=== PATIENT | male | born 1975 | race Caucasian/White ===

== ENCOUNTER 2018-02-02 11:48 | Emergency (ER) | payer SELFPAY ==
[2018-02-02] VITALS (7 sets, daily range): BP systolic 126–156; BP diastolic 63–114; PULSE 62–89; RESP 14–30; TEMP 36.5–37.2; O2SAT 97–100
--- NOTE | 2018-02-02 12:16 | DI.CT_ITS ---
SYMPTOM/DIAGNOSIS: SEVERE PAIN RADIATING INTO BACK AND EPIGASTRIC. CHEST AND ABDOMEN CTA: CT angiography was performed with multi slice acquisition and multi planar and 3D reconstruction. ABDOMEN: CT angiography of the abdomen was performed. The liver, spleen, pancreas, gallbladder, bile ducts and adrenal glands are unremarkable. The kidneys show normal and symmetric enhancement. No obstructive uropathy or solid mass is seen. The urinary bladder is intact. The reproductive organs are unremarkable. The abdominal aorta is normal caliber. No evidence of dissection or aneurysm. The celiac axis, superior and inferior mesenteric arteries are unremarkable. The renal arteries are unremarkable. No significant abdominal or pelvic adenopathy, ascites or pneumoperitoneum is present. There is a moderate amount of stool in the colon but no evidence of bowel obstruction. Post surgical changes are seen in the upper abdomen. This may reflect prior gastric bypass surgery. The bones are intact. IMPRESSION: No evidence of abdominal aortic organ injury, dissection or aneurysm. No evidence of an acute abdomen. CHEST: The thoracic aorta is intact and of normal caliber. No dissection or aneurysm. Heart size is within normal limits. No significant pericardial effusion is seen. No significant mediastinal or hilar adenopathy, pleural effusion or pneumothorax is identified. The lungs are clear. No infiltrates are seen. The tracheobronchial tree is unremarkable. Degenerative changes are seen in the spine. No acute fracture is identified. IMPRESSION: No evidence of thoracic aortic injury. No acute pulmonary process. The findings were discussed with the ER on the date of the examination.
[2018-02-02] MEDS: HYDROmorphone 2 MG/ML VIAL 0.5 MG IVP (12:25)
--- NOTE | 2018-02-02 12:25 | W.ED.GENAD ---
Discharge Plan Disposition Patient Disposition: HOME Condition: Fair Discharge Details Chief Complaint: Abd Prob Clinical Impression: Gastritis Primary Care Provider: Robert Hong ED Provider: Miesha Nelson Home Meds and New Rx's Prescriptions: New sucralfate [Carafate] 1 gram tablet 1 gm PO ONCE Qty: 21 RF: 0 pantoprazole [Protonix] 40 mg tablet,delayed release (DR/EC) 40 mg PO BID Qty: 14 RF: 0 No Action uvjzvmmldhjd-gaig-xtqey acid [Daily Multiple] 1 EACH tablet 1 tab-cap PO DAILY RF: 0 cyanocobalamin (vitamin B-12) [Vitamin B-12] 500 MCG tablet 500 mcg Sublingual DAILY Qty: 100 RF: 12 calcium citrate-vitamin D3 [Citracal + D Maximum] 1 EACH tablet 1 ea PO DAILY Qty: 100 RF: 12 cyclobenzaprine 5 MG tablet 5 mg PO BID Qty: 10 RF: 0 hydrocodone-acetaminophen 1 EACH tablet 1 - 2 ea PO QID PRNQty: 20 RF: 0 cholecalciferol (vitamin D3) [Vitamin D3] 2,000 UNIT capsule 2,000 unit PO DAILY RF: 0 cephalexin 500 MG capsule 500 mg PO Q6H Qty: 28 RF: 0 clindamycin HCl 300 MG capsule 300 mg PO Q6H RF: 0 Discharge Instructions Instructions: Gastritis (ED) Additional Instructions: Encourage hydration. Please take medication as prescribed. Please stop all anti-inflammatories this is likely contributing to her abdominal pain. Please follow-up with Dr. Cobos on Friday at 1:30 PM in the office. If you develop new or worsening symptoms he care urgently once again. Referrals: Celsa Cobos MD [ [facility] STAFF PHYSICIAN] - ([phone]) Discharge Data Discharge Date/Time-TO BE ENTERED AT DEPARTURE: 02/02/18 16:08 Medical Decision Making Patient is a 42-year-old male presents today with severe abdominal pain of sudden onset. He and his report that he felt poorly yesterday but that he had a sudden onset of severe abdominal pain this morning. Patient appears to be in severe amount of pain. He appears pale and diaphoretic. He is clutching his epigastric region of his abdomen. He is referring is going forward and is having difficulty holding still. Patient is moaning in pain and having difficulty following directions. No nausea or vomiting. Reports any bowel movement this morning. Patient does have history of gastric bypass. No surgical complications postoperatively. Patient had surgery at [facility] 5 years ago. States the pain radiates into his back. He is unable to describe a quality of his pain. Patient has fair peritoneal findings on exam with guarding and rebound tenderness throughout the entirety of the abdomen. Lungs are clear. Patient is hypertensive at 152/114. Heart rate is 89, patient is afebrile satting at 100% on room air. Will obtain EKG, stat CTA of the thorax and abdomen. I am concerned for possible dissection versus free air associated with postsurgical changes. Lactate is 2.2. Blood hemolyzed need to be redrawn Contacted by the radiologist who reviewed the CT. He advised there does not appear to be anything acute. Aorta is without significant of normality, no abnormality noted in the lungs. Abdomen pelvis without abnormality. No free air was noted. Patient was received fentanyl and Dilaudid without significant resolution of his discomfort, we will augment this with a GI cocktail Lipase normal Troponin <0.02 Consulted with surgeon, Dr. Cobos, who will come to evaluate the patient. After the patient received his GI cocktail, he reports that his pain is slightly improved Patient was evaluated by Dr. Cobos who feels that this is likely ulcer. Is requesting that I placed order for Carafate, IV Protonix and repeat lactate. Is concerned elevated lactate may be secondary to dehydration and would like this repeated. She will, reevaluate the patient half an hour. Repeat lactate 1.2. Dr. Cobos came and evaluated the patient once again. He is feeling much improved at this time, is resting comfortably. At this point, she advised this is most concerning for gastritis with possible ulcer. Patient does have a history of GERD, he has not been taking any medication for this as of recently. His also reports that he has been taking anti-inflammatories frequently which may have caused this acute exacerbation. Dr. Cobos is asked that I place the patient on Carafate and Protonix. An appointment was made with Dr. Cobos for follow-up at the end of the week. Encouraged hydration as patient did appear dehydrated on exam. I advised that they stop the use of anti-inflammatories. They are given strict return precautions. All of their questions and concerns were addressed and they are in agreement with this plan HPI General Mode of arrival: wheelchair. Date/Time Provider Initiated Documentation: 02/02/18 12:14. Limitations to Documentation: no limitations. Information obtained by: patient. History of Present Illness 42 year old M presents to the emergency department with the chief complaint of abdominal pain, described as severe, with intensity rated at >10. Quality is described as stabbing, and is localized to the abdomen. Patient reports radiation to back; denies neck and extremity. Patient started experiencing this hour(s) and it has been constant. No relieving factors improve symptom(s), No exacerbating factors reported . Patient notes loss of appetite and nausea/vomiting; denies chest pain, cough, fever/chills, headaches, rash, shortness of breath and weakness. Related Data Home Medications Medication Instructions Recorded Confirmed drdvtngufxdx-oidn-vkndr acid 1 tab-cap PO DAILY tab-cap 12/29/12 11/24/15 [Daily Multiple Tablet] cyanocobalamin (vitamin B-12) 500 mcg SUBLINGUAL DAILY #100 04/20/13 [B-12] tab.sl cholecalciferol (vitamin D3) 2,000 unit PO DAILY 05/05/14 11/24/15 [Vitamin D3] calcium citrate-vitamin D3 1 ea PO DAILY #100 tab-cap 11/29/14 [Citracal + D Maximum Caplet] cyclobenzaprine 5 mg PO BID #10 tab 11/09/15 cephalexin 500 mg PO Q6H #28 capsule 11/20/15 11/24/15 clindamycin HCl 300 mg PO Q6H 11/22/15 11/24/15 hydrocodone-acetaminophen 1 - 2 ea PO QID PRN #20 tab 11/22/15 pantoprazole [Protonix] 40 mg PO BID #14 tab 02/02/18 sucralfate [Carafate] 1 gm PO ONCE #21 tab 02/02/18 Previous Rx's Medication Instructions Recorded cephalexin 500 mg PO Q6H #28 capsule 11/20/15 pantoprazole [Protonix] 40 mg PO BID #14 tab 02/02/18 sucralfate [Carafate] 1 gm PO ONCE #21 tab 02/02/18 Allergies Allergy/AdvReac Type Severity Reaction Status Date / Time No Known Allergies Allergy Unverified 11/24/15 07:38 General Stated Complaint: Abd Prob JEN: 3 Review of Systems Review of Systems Patient is writhing in pain. I am unable to obtain full review of systems secondary to the patient's discomfort. is able to augment some of his history. He does deny chest pain, shortness of breath, recent fevers or chills. Remaining ROS was very limited secondary to patient's pain [facility] Social History Smoking/Tobacco Use Status: Never Surgical History gastric sleeve (~01/2013) Exam Const General: cooperative, well developed, well groomed, acute distress severe (Patient is clutching his abdomen, moving frequently and moaning in pain) and anxious Nutritional Appearance: average body habitus and well nourished Orientation: alert and awake HENWA Head: normal to inspection, normocephalic and atraumatic Ears: hearing grossly normal bilaterally Mouth: abnormal oral mucosae (Patient appears dehydrated) Neck Neck: normal visual inspection, full ROM, no lymphadenopathy and no meningeal signs Resp Effort & Inspection: normal respiratory effort, able to speak in complete sentences, no respiratory distress, tachypneic (Patient is currently tachypnea, this seems to be related to his discomfort), no tripod positioning and no use of accessory muscles Auscultation: clear to auscultation bilaterally, no rales, no rhonchi and no wheezes Cardio Rate: regular rate Rhythm: regular rhythm Heart Sounds: S1 normal and S2 normal GI Inspection: no abdominal wall ecchymosis, no edema, non-distended, incision, no large pannus, no obesity, scar, no visible herniation, no visible pulsation and No visible peristalsis Palpation: firm, guarding (Due for use), no hepatosplenomegaly, no hernias, no masses, no pulsatile masses, rigid and tender (Diffuse tenderness, patient is guarding) Auscultation: hypoactive bowel sounds Back/Spine/Pelvis Back: no CVA tenderness Skin General skin exam: no rashes or lesions noted Lesions: no lesions Rashes: no rashes Trauma: no lacerations or abrasions Neuro General: alert, awake and oriented x3 Cranial Nerves: CN's II-XI intact bilaterally Cognition: normal cognition Speech: speech normal Gait: antalgic (patient is bent forward, clutching abdomen) Extrem General: no pedal edema, no calf tenderness and normal gait Psych Appearance: grossly normal and well kempt Mental Status: mental status grossly normal Speech and Movement: speech and movement normal Mood: congruent mood Course Vital Signs Temperature 36.5 C 02/02/18 12:09 Pulse 89 02/02/18 12:09 Respiratory Rate 18 02/02/18 12:09 Blood Pressure 152/114 H 02/02/18 12:09 Pulse Oximetry 100 02/02/18 12:09 Temperature 36.5 C 02/02/18 12:09 Temperature Source Temporal Artery Scan 02/02/18 12:09 Pulse 89 02/02/18 12:09 Respiratory Rate 18 02/02/18 12:09 Blood Pressure 152/114 H 02/02/18 12:09 Pulse Oximetry 100 02/02/18 12:09 Pain Level 10 02/02/18 12:09
[2018-02-02] MEDS: Normal Saline 1,000 ML 1000 ML IV ×2 (12:27→14:30)
--- NOTE | 2018-02-02 12:31 | ED.GENADUL_ITS ---
Discharge Plan Disposition Patient Disposition: HOME Condition: Fair Discharge Details Chief Complaint: Abd Prob Clinical Impression: Gastritis Primary Care Provider: Robert Hong ED Provider: Miesha Nelson Home Meds and New Rx's Prescriptions: New sucralfate [Carafate] 1 gram tablet 1 gm PO ONCE Qty: 21 RF: 0 pantoprazole [Protonix] 40 mg tablet,delayed release (DR/EC) 40 mg PO BID Qty: 14 RF: 0 No Action dfaquxknddth-zjxa-zuvch acid [Daily Multiple] 1 EACH tablet 1 tab-cap PO DAILY RF: 0 cyanocobalamin (vitamin B-12) [Vitamin B-12] 500 MCG tablet 500 mcg Sublingual DAILY Qty: 100 RF: 12 calcium citrate-vitamin D3 [Citracal + D Maximum] 1 EACH tablet 1 ea PO DAILY Qty: 100 RF: 12 cyclobenzaprine 5 MG tablet 5 mg PO BID Qty: 10 RF: 0 hydrocodone-acetaminophen 1 EACH tablet 1 - 2 ea PO QID PRNQty: 20 RF: 0 cholecalciferol (vitamin D3) [Vitamin D3] 2,000 UNIT capsule 2,000 unit PO DAILY RF: 0 cephalexin 500 MG capsule 500 mg PO Q6H Qty: 28 RF: 0 clindamycin HCl 300 MG capsule 300 mg PO Q6H RF: 0 Discharge Instructions Instructions: Gastritis (ED) Additional Instructions: Encourage hydration. Please take medication as prescribed. Please stop all anti-inflammatories this is likely contributing to her abdominal pain. Please follow-up with Dr. Cobos on Friday at 1:30 PM in the office. If you develop new or worsening symptoms he care urgently once again. Referrals: Celsa Cobos MD [ [facility] STAFF PHYSICIAN] - ([phone]) Discharge Data Discharge Date/Time-TO BE ENTERED AT DEPARTURE: 02/02/18 16:08 Medical Decision Making Patient is a 42-year-old male presents today with severe abdominal pain of sudden onset. He and his report that he felt poorly yesterday but that he had a sudden onset of severe abdominal pain this morning. Patient appears to be in severe amount of pain. He appears pale and diaphoretic. He is clutching his epigastric region of his abdomen. He is referring is going forward and is having difficulty holding still. Patient is moaning in pain and having difficulty following directions. No nausea or vomiting. Reports any bowel movement this morning. Patient does have history of gastric bypass. No surgical complications postoperatively. Patient had surgery at [facility] 5 years ago. States the pain radiates into his back. He is unable to describe a quality of his pain. Patient has fair peritoneal findings on exam with guarding and rebound tenderness throughout the entirety of the abdomen. Lungs are clear. Patient is hypertensive at 152/114. Heart rate is 89, patient is afebrile satting at 100% on room air. Will obtain EKG, stat CTA of the thorax and abdomen. I am concerned for possible dissection versus free air associated with postsurgical changes. Lactate is 2.2. Blood hemolyzed need to be redrawn Contacted by the radiologist who reviewed the CT. He advised there does not appear to be anything acute. Aorta is without significant of normality, no abnormality noted in the lungs. Abdomen pelvis without abnormality. No free air was noted. Patient was received fentanyl and Dilaudid without significant resolution of his discomfort, we will augment this with a GI cocktail Lipase normal Troponin <0.02 Consulted with surgeon, Dr. Cobos, who will come to evaluate the patient. After the patient received his GI cocktail, he reports that his pain is slightly improved Patient was evaluated by Dr. Cobos who feels that this is likely ulcer. Is requesting that I placed order for Carafate, IV Protonix and repeat lactate. Is concerned elevated lactate may be secondary to dehydration and would like this repeated. She will, reevaluate the patient half an hour. Repeat lactate 1.2. Dr. Cobos came and evaluated the patient once again. He is feeling much improved at this time, is resting comfortably. At this point, she advised this is most concerning for gastritis with possible ulcer. Patient does have a history of GERD, he has not been taking any medication for this as of recently. His also reports that he has been taking anti-inflammatories frequently which may have caused this acute exacerbation. Dr. Cobos is asked that I place the patient on Carafate and Protonix. An appointment was made with Dr. Cobos for follow-up at the end of the week. Encouraged hydration as patient did appear dehydrated on exam. I advised that they stop the use of anti- inflammatories. They are given strict return precautions. All of their questions and concerns were addressed and they are in agreement with this plan HPI General Mode of arrival: wheelchair . Date/Time Provider Initiated Documentation: 02/02/18 12:14 . Limitations to Documentation: no limitations . Information obtained by: patient . History of Present Illness 42 year old M presents to the emergency department with the chief complaint of abdominal pain, described as severe, with intensity rated at >10. Quality is described as stabbing, and is localized to the abdomen. Patient reports radiation to back; denies neck and extremity. Patient started experiencing this hour(s) and it has been constant. No relieving factors improve symptom( s), No exacerbating factors reported . Patient notes loss of appetite and nausea/vomiting; denies chest pain, cough, fever/chills, headaches, rash, shortness of breath and weakness. Related Data Home Medications Medication Instructions Recorded Confirmed tiddzkbqdlmy-bizj-zphwt acid 1 tab-cap PO DAILY tab-cap 12/29/12 11/24/15 [Daily Multiple Tablet] cyanocobalamin (vitamin B-12) 500 mcg SUBLINGUAL DAILY #100 04/20/13 [B-12] tab.sl cholecalciferol (vitamin D3) 2,000 unit PO DAILY 05/05/14 11/24/15 [Vitamin D3] calcium citrate-vitamin D3 1 ea PO DAILY #100 tab-cap 11/29/14 [Citracal + D Maximum Caplet] cyclobenzaprine 5 mg PO BID #10 tab 11/09/15 cephalexin 500 mg PO Q6H #28 capsule 11/20/15 11/24/15 clindamycin HCl 300 mg PO Q6H 11/22/15 11/24/15 hydrocodone-acetaminophen 1 - 2 ea PO QID PRN #20 tab 11/22/15 pantoprazole [Protonix] 40 mg PO BID #14 tab 02/02/18 sucralfate [Carafate] 1 gm PO ONCE #21 tab 02/02/18 Previous Rx's Medication Instructions Recorded cephalexin 500 mg PO Q6H #28 capsule 11/20/15 pantoprazole [Protonix] 40 mg PO BID #14 tab 02/02/18 sucralfate [Carafate] 1 gm PO ONCE #21 tab 02/02/18 Allergies Allergy/AdvReac Type Severity Reaction Status Date / Time No Known Allergies Allergy Unverified 11/24/15 07:38 General Stated Complaint: Abd Prob JEN: 3 Review of Systems Review of Systems Patient is writhing in pain. I am unable to obtain full review of systems secondary to the patient's discomfort. is able to augment some of his history. He does deny chest pain, shortness of breath, recent fevers or chills. Remaining ROS was very limited secondary to patient's pain [facility] Social History Smoking/Tobacco Use Status: Never Surgical History gastric sleeve (~01/2013) Exam Const General: cooperative, well developed, well groomed, acute distress severe ( Patient is clutching his abdomen, moving frequently and moaning in pain) and anxious Nutritional Appearance: average body habitus and well nourished Orientation: alert and awake HENIL Head: normal to inspection, normocephalic and atraumatic Ears: hearing grossly normal bilaterally Mouth: abnormal oral mucosae (Patient appears dehydrated) Neck Neck: normal visual inspection, full ROM, no lymphadenopathy and no meningeal signs Resp Effort & Inspection: normal respiratory effort, able to speak in complete sentences, no respiratory distress, tachypneic (Patient is currently tachypnea, this seems to be related to his discomfort), no tripod positioning and no use of accessory muscles Auscultation: clear to auscultation bilaterally, no rales, no rhonchi and no wheezes Cardio Rate: regular rate Rhythm: regular rhythm Heart Sounds: S1 normal and S2 normal GI Inspection: no abdominal wall ecchymosis, no edema, non-distended, incision, no large pannus, no obesity, scar, no visible herniation, no visible pulsation and No visible peristalsis Palpation: firm, guarding (Due for use), no hepatosplenomegaly, no hernias, no masses, no pulsatile masses, rigid and tender (Diffuse tenderness, patient is guarding) Auscultation: hypoactive bowel sounds Back/Spine/Pelvis Back: no CVA tenderness Skin General skin exam: no rashes or lesions noted Lesions: no lesions Rashes: no rashes Trauma: no lacerations or abrasions Neuro General: alert, awake and oriented x3 Cranial Nerves: CN's II-XI intact bilaterally Cognition: normal cognition Speech: speech normal Gait: antalgic (patient is bent forward, clutching abdomen) Extrem General: no pedal edema, no calf tenderness and normal gait Psych Appearance: grossly normal and well kempt Mental Status: mental status grossly normal Speech and Movement: speech and movement normal Mood: congruent mood Course Vital Signs Temperature 36.5 C 02/02/18 12:09 Pulse 89 02/02/18 12:09 Respiratory Rate 18 02/02/18 12:09 Blood Pressure 152/114 H 02/02/18 12:09 Pulse Oximetry 100 02/02/18 12:09 Temperature 36.5 C 02/02/18 12:09 Temperature Source Temporal Artery Scan 02/02/18 12:09 Pulse 89 02/02/18 12:09 Respiratory Rate 18 02/02/18 12:09 Blood Pressure 152/114 H 02/02/18 12:09 Pulse Oximetry 100 02/02/18 12:09 Pain Level 10 02/02/18 12:09
[2018-02-02 12:35] LABS: Lactate-non-spesis 2.2 mmol/L (0.6-1.4)
--- NOTE | 2018-02-02 12:35 | DI.RAD_ITS ---
SYMPTOM/DIAGNOSIS: UPPER ABD PAIN, ? PERFORATION PORTABLE AP CHEST: Portions of the lateral left hemithorax were coned from view. Heart and pulmonary vasculature are within normal limits and stable. The visualized lungs are clear. No effusions or pneumothoraces are identified. The bones appear intact. No free air is seen beneath the hemidiaphragms. IMPRESSION: 1. Suboptimal examination with non visualization of the lateral aspect of the left hemithorax. 2. No definite acute pulmonary process.
[2018-02-02 12:39] LABS: Abs Immature Grans 0.01 k/cumm (0.0-0.09); Absolute Basophil Count 0.02 k/cumm (0.0-0.2); Absolute Eosinophil Count 0.21 k/cumm (0.0-0.7); Absolute Lymphocyte Count 2.36 k/cumm (1.2-3.4); Basophils % 0.3; Eosinophils % 3.4; HCT 48.2 % (40.0-50.0); HGB 16.1 g/dL (13.5-17.5); Immature Grans % 0.2; Lymphocytes % 38.7; Mean Corp. HGB Concentration 33.4 g/dL (32.0-36.0); Mean Corpuscular Hemoglobin 30.2 pg (27.0-33.0); Mean Corpuscular Volume 90.4 fL (80-95); Mean Platelet Volume 10.3 fL (8.0-11.0); Monocytes % 8.2; Neutrophils % 49.2; Platelet Count 246 x1000/uL (130-400); RBC 5.33 m/cumm (4.50-6.00); RBC Distribution Width 14.4 % (11.8-14.1)
[2018-02-02] MEDS: HYDROmorphone 2 MG/ML VIAL IVP (12:47)
[2018-02-02] MEDS: fentaNYL 100 MCG/2 ML VIAL (12:48)
[2018-02-02] MEDS: Omnipaque 350 MG/ML 100 ML BTL IJ (12:52)
[2018-02-02 13:19] LABS: ALT 19 U/L (12-78); AST 21 U/L (15-37); Albumin 3.7 g/dL (3.4-5.0); Alkaline Phosphatase 68 U/L (46-116); Anion Gap 11.2 mmol/L (3-11); BUN 18 mg/dL (7-18); Bilirubin, Total 0.7 mg/dL (0.2-1.0); CO2 24.8 mmol/L (21.0-32.0); CREATININE 0.77 mg/dL (0.70-1.30); Calcium 8.9 mg/dL (8.5-10.1); Chloride 105 mmol/L (98-107); Glucose 140 mg/dL (70-100); Lipase 130 U/L (73-393); Magnesium 1.7 mg/dL (1.8-2.4); Potassium 3.4 mmol/L (3.5-5.1); Sodium 141 mmol/L (136-145); Total Protein 6.9 g/dL (6.4-8.2)
[2018-02-02 13:21] LABS: Troponin I < 0.02 ng/mL (0.00-0.06)
--- NOTE | 2018-02-02 14:42 | HPE_ITS ---
Date of service: 02/02/18 Time of Service: 14:00 Assessment and Plan (1) Epigastric pain: Current visit: No Status: Acute A\\ Epigastric pain in a 42 year old male with PMHX significant for Gastric bypass and recent use of Aleve with epigastric abdominal pain. Pain improved with Viscous lidocaine and mylanta. Labs reassuring. CTA shows no free air. This is most likely gastritis possible ulcer. P\\ Will give him a dose of IV Protonix and 1 gm of Carafate. Will reassess. If doing OK will most likely d/c home with Protonix BID and Carafate tid. Will follow up with him in the office in 1-2 weeks. History of Present Illness Chief Complaint: Abdominal pain Consults Consult date: 02/02/18 Requesting physician: Miesha Nelson Narrative: Mr. Billings is a pleasant 42 year old male who is status post gastric bypass 5 years ago. He had a Rina-en-y. He tells me that yesterday his stomach didn't feel quite right but he had minimal discomfort. This morning he got up to go to work and didn't feel well and had some epigastric pain. He went back to bed and when he woke up at 9:30 am he was in a lot of pain. It started in the upper abdomen and radiated to the back. he denies any N/V or diarrhea. He had a normal BM. He is constipated and only goes to the bathroom every 3 days. When he does go to the bathroom his stool is hard. he denies any melena. He does have some intermittent bright red blood per rectum. His tells me that he has been taking a lot of Aleve. He doesn't take any antacids. Per the ER provider the patient was rithing in pain when he arrived in the ER. He has been given Dilauded and Fentanyl for pain. Just before I arrived he was given some viscus lidocaine with Mylanta. The patient tells me that his pain has improved. He had a CTA done which showed no abnormalities of his vessels and no free air. There were no signs of bowel obstruction. There was some stool in the large bowel. Review of Systems Cardiovascular Denies chest pain, Denies chest pain at rest, Denies chest pain with activity and Denies dyspnea Respiratory Denies cough, Denies hemoptysis and Denies dyspnea Gastrointestinal Reports as per HPI and Reports constipation Genitourinary Reports system reviewed and no additional complaints, except as docu [facility] Social History Smoking/Tobacco Use Status: Never Surgical History gastric sleeve (~01/2013) Meds Home Medications Medication Instructions Recorded Confirmed Type [id number] acid 1 tab-cap PO DAILY tab-cap 12/29/12 11/24/15 History [Daily Multiple Tablet] cyanocobalamin (vitamin B-12) 500 mcg SUBLINGUAL DAILY #100 04/20/13 History [B-12] tab.sl cholecalciferol (vitamin D3) 2,000 unit PO DAILY 05/05/14 11/24/15 History [Vitamin D3] calcium citrate-vitamin D3 1 ea PO DAILY #100 tab-cap 11/29/14 History [Citracal + D Maximum Caplet] cyclobenzaprine 5 mg PO BID #10 tab 11/09/15 History cephalexin 500 mg PO Q6H #28 capsule 11/20/15 11/24/15 Rx clindamycin HCl 300 mg PO Q6H 11/22/15 11/24/15 History hydrocodone-acetaminophen 1 - 2 ea PO QID PRN #20 tab 11/22/15 History Allergies Allergy/AdvReac Type Severity Reaction Status Date / Time No Known Allergies Allergy Unverified 11/24/15 07:38 Exam Const General: cooperative and no acute distress Resp Effort & Inspection: normal respiratory effort Auscultation: clear to auscultation bilaterally Cardio Rate: regular rate Heart Sounds: no gallops, no murmurs and no rubs GI Inspection: normal to inspection Palpation: soft, no hepatosplenomegaly and tender in the epigastrum (mild, no guarding or rebound) and periumbilically (mild, no guarding or rebound) Auscultation: normal bowel sounds Results Labs : 02/02/18 12:20 02/02/18 12:20 Laboratory Results - last 24 hr 02/02/18 02/02/18 02/02/18 12:20 12:20 12:20 WBC 6.10 RBC 5.33 Hgb 16.1 Hct 48.2 MCV 90.4 MCH 30.2 MCHC 33.4 RDW 14.4 H Plt Count 246 MPV 10.3 Immature Gran % 0.2 Neutrophils % 49.2 Lymphocytes % 38.7 Monocytes % 8.2 Eosinophils % 3.4 Basophils % 0.3 Absolute Neutrophils 3.00 Absolute Lymphocytes 2.36 Absolute Monocytes 0.50 Absolute Eosinophils 0.21 Absolute Basophils 0.02 Sodium 141 Potassium 3.4 L Chloride 105 Carbon Dioxide 24.8 Anion Gap 11.2 H BUN 18 Creatinine 0.77 Estimated GFR/1.73 m2 >= 60.00 Glucose 140 H Lactate 2.2 H Calcium 8.9 Magnesium 1.7 L Total Bilirubin 0.7 AST 21 ALT 19 Alkaline Phosphatase 68 Troponin I < 0.02 Total Protein 6.9 Albumin 3.7 Lipase 130 Patient ABO/Rh Antibody Screen 02/02/18 02/02/18 12:20 12:20 WBC RBC Hgb Hct MCV MCH MCHC RDW Plt Count MPV Immature Gran % Neutrophils % Lymphocytes % Monocytes % Eosinophils % Basophils % Absolute Neutrophils Absolute Lymphocytes Absolute Monocytes Absolute Eosinophils Absolute Basophils Sodium Cancelled Potassium Cancelled Chloride Cancelled Carbon Dioxide Cancelled Anion Gap Cancelled BUN Cancelled Creatinine Cancelled Estimated GFR/1.73 m2 Cancelled Glucose Cancelled Lactate Calcium Cancelled Magnesium Total Bilirubin Cancelled AST Cancelled ALT Cancelled Alkaline Phosphatase Cancelled Troponin I Total Protein Cancelled Albumin Cancelled Lipase Patient ABO/Rh A Negative Antibody Screen Negative
[2018-02-02] MEDS: Sucralfate 1 GM TAB PO (14:43)
[2018-02-02] MEDS: PANTOPRAZOLE 80 MG in Normal Saline 100 ML 10 MG IV (14:43)
[2018-02-02 14:49] LABS: Lactate-non-spesis 1.2 mmol/L (0.6-1.4)
== END 2018-02-02 16:08 | disposition home or self-care (01) ==
LOC: ER 15:45
PROVIDERS: Emergency Provider Physician Assistant; PCP Emergency Medicine
DX: K52.9 Noninfective gastroenteritis and colitis, unspecified (principal)
CPT/HCPCS: 36415; 71275; 74175; 80053; 83690; 86850; 86900; 86901; 96361; 96374; 96375; 96376; 99222; 99285; 71045; 83605; 83735; 84484; 85025; 99284; J3010; J3490

== ENCOUNTER 2019-12-11 13:01 | Emergency (ER) | payer SELFPAY ==
[2019-12-11] VITALS (30 sets, daily range): BP systolic 153–182; BP diastolic 84–110; PULSE 52–102; RESP 8–20; TEMP 36.1; O2SAT 97–100
--- NOTE | 2019-12-11 13:00 | DI.CT_ITS ---
EXAM: CT RENAL COLIC WO CLINICAL HISTORY: L flank pain. TECHNIQUE: Imaging Protocol: Axial computed tomography images with coronal and sagittal reformatted images were created and reviewed. CONTRAST MATERIAL: Noncontrast FINDINGS: The heart size is normal. The visualized portions of the lung bases are clear. The left kidney is e nlarged and edematous compared to the right. There is mild left perinephric stranding. There is mil d dilatation of the left renal pelvis and left ureter down to the level of the ureterovesical junctio n where there is a 3 millimeter stone. No additional urinary tract calculi are seen. There is incre ased stool throughout the colon. There is no abnormal bowel distention. Suture material is seen at the stomach and left lower quadrant. The bladder and prostate are unremarkable. Degenerative change s are seen in the spine and both hips. IMPRESSION: Mild left hydronephrosis secondary to a 3 millimeter stone at the ureterovesical junction. RADIATION DOSE DELIVERED: 968.19mGy.cm Total DLP DATA REPOSITORY: All CT scans at this facility are submitted to the National Radiology Data Registry (NRDR) Dose Index Registry (DIR) with the [employer] (A[employer]). RADIATION OPTIMIZATION: All CT scans at this facility use at least one of these dose optimization te chniques: automated exposure control; mA and/or kV adjustment per patient size (includes targeted exa ms where dose is matched to clinical indication); or iterative reconstruction.
--- NOTE | 2019-12-11 13:19 | W.ED.GENAD ---
Discharge Plan Disposition Patient Disposition: HOME Condition: Improving Discharge Details Chief Complaint: FlankPain Clinical Impression: Calculus of distal left ureter Primary Care Provider: Robert Hong ED Provider: Lakhiwnder Sarabia Home Meds and New Rx's Prescriptions: Continued Daily Multiple 1 EACH tablet 1 tab-cap PO DAILY RF: 0 cyanocobalamin (vitamin B-12) [Vitamin B-12] 500 MCG tablet 500 mcg Sublingual DAILY Qty: 100 RF: 12 calcium citrate-vitamin D3 [Citracal + D Maximum] 1 EACH tablet 1 ea PO DAILY Qty: 100 RF: 12 cholecalciferol (vitamin D3) [Vitamin D3] 2,000 UNIT capsule 2,000 unit PO DAILY RF: 0 buprenorphine-naloxone [Suboxone] 8-2 mg Film 1 film BUCCAL DAILY RF: 0 Discharge Instructions Instructions: Renal Colic (ED), Kidney Stones (ED) Additional Instructions: You have a 3 mm kidney stone on the left side. Home to rest today. Continue small, frequent sips of fluids to maintain hydration. Screen/strain your urine and keep any particulate/stone material to be analyzed. Tylenol and/or ibuprofen as needed for pain. Continue your prescribed medications. Return to develop a fever, worsening pain, or any other acute concerns. Medical Decision Making 44-year-old male presents with abrupt onset of left flank pain radiates to his abdomen. He is hypertensive and nauseated. His abdomen is soft but he is tender in the left flank. Different diagnosis includes renal colic. IV access is established, patient given parenteral analgesia with Toradol as well as an antiemetic. He is given fluid bolus and referred for laboratory testing, urinalysis, CT images. Labs reveal unremarkable CBC, chemistries with a potassium of 2.9, normal renal function. Urinalysis: With ketones and blood. CT reveals a 3 mm left UVJ stone with mild hydronephrosis. Patient with some improvement following fluid bolus, parenteral analgesics. He is given a single dose of Flomax for its ureteral relaxing properties. Patient somewhat improved. We will have him strain his urine. His slightly low potassium was supplemented in the ED. He is stable and improving. I will place a referral to urology. He may continue primary care with Dr. Hong. Lab Data Lab results reviewed: Yes I reviewed the patient's lab results. Labs: Laboratory Results - last 24 hr 12/11/19 12/11/19 12/11/19 13:25 13:25 15:55 WBC 8.32 RBC 4.75 Hgb 13.6 Hct 42.9 MCV 90.3 MCH 28.6 MCHC 31.7 L RDW 13.9 Plt Count 317 MPV 10.2 Immature Gran % 0.1 Neutrophils % 46.5 Lymphocytes % 41.9 Monocytes % 8.5 Eosinophils % 2.6 Basophils % 0.4 Absolute Neutrophils 3.86 Absolute Lymphocytes 3.49 H Absolute Monocytes 0.71 Absolute Eosinophils 0.22 Absolute Basophils 0.03 Sodium 145 Potassium 2.9 L* Chloride 106 Carbon Dioxide 25.7 Anion Gap 13.3 H BUN 17 Creatinine 0.95 Estimated GFR/1.73 m2 >= 60.00 Glucose 108 H Calcium 8.8 Total Bilirubin 0.5 AST 25 ALT 22 Alkaline Phosphatase 68 Total Protein 7.7 Albumin 4.2 Urine Color Yellow Urine Clarity Clear Urine pH 6.0 Ur Specific [place] 1.025 Urine Protein Negative Urine Ketones Trace H Urine Blood Small H Urine Nitrite Negative Urine Bilirubin Negative Urine Urobilinogen 0.2 Ur Leukocyte Esterase Negative Urine Glucose Negative HPI General Mode of arrival: ambulatory. Date/Time Provider Initiated Documentation: 12/11/19 13:03. Limitations to Documentation: no limitations. Information obtained by: patient. History of Present Illness 44 year old M presents to the emergency department with the chief complaint of Left flank pain for 1 hour, described as severe, and is localized to the back and left. Patient abdomen. Patient started experiencing this minute(s) and it has been constant. No relieving factors improve symptom(s), No exacerbating factors reported . Patient notes other (Nauseated, no emesis, no fever, no other new illness.). Patient did receive the following treatments prior to arrival, none Related Data Home Medications Medication Instructions Recorded Confirmed Daily Multiple 1 tab-cap PO DAILY tab-cap 12/29/12 12/11/19 cyanocobalamin (vitamin B-12) 500 mcg SUBLINGUAL DAILY #100 04/20/13 12/11/19 [Vitamin B-12] tab.sl cholecalciferol (vitamin D3) 2,000 unit PO DAILY 05/05/14 11/24/15 [Vitamin D3] calcium citrate-vitamin D3 1 ea PO DAILY #100 tab-cap 11/29/14 [Citracal + D Maximum] buprenorphine-naloxone [Suboxone] 1 film BUCCAL DAILY 12/11/19 12/11/19 Allergies Allergy/AdvReac Type Severity Reaction Status Date / Time No Known Allergies Allergy Unverified 12/11/19 13:31 General Stated Complaint: FlankPain JEN: 3 Review of Systems Narrative: 6 systems reviewed and otherwise negative [facility] Surgical History gastric sleeve (~01/2013) [facility] [place] Smoking/Tobacco Use Status: Never Alcohol Intake: never Drug use: Never Substance use type: does not use Do you feel safe at home: Yes Do you feel safe in your relationship?: Yes Exam Narrative Exam Narrative: GEN: awake, alert, oriented 3. Pleasant, well groomed, interactive, in distress. HEAD: Normocephalic, atraumatic ENT: Mucous membranes moist, oropharynx unremarkable, External ear exam unremarkable EYES: PERRL, EOMI NECK: Full ROM, no USHA, no menigismus CHEST/RESP: Nontender, clear to auscultation bilateral, no wheeze/rhonchi/rales CARDIOVASCULAR: RRR, no murmur, rub ascencion. 2+ Rad pulse bilateral ABDOMEN: Soft, nontender, no mass. +Bowel sounds, the left flank is tender to percussion EXT: Full ROM, no edema, no rash Neuro: Grossly normal neurologic exam, conversant, interactive. Psych: Speech fluent, thoughts congruent, affect distressed Course Vital Signs Vital signs: Vital Signs Temperature 36.1 C L 12/11/19 13:06 Pulse 92 H 12/11/19 13:06 Respiratory Rate 19 12/11/19 13:06 Blood Pressure 154/105 H 12/11/19 13:06 Pulse Oximetry 100 12/11/19 13:06 Temperature 36.1 C L 12/11/19 13:06 Temperature Source Skin 12/11/19 13:06 Pulse 92 H 12/11/19 13:06 Respiratory Rate 19 12/11/19 13:06 Blood Pressure 154/105 H 12/11/19 13:06 Blood Pressure Position Sitting 12/11/19 13:06 Pulse Oximetry 100 12/11/19 13:06 Oxygen Delivery Method Room Air 12/11/19 13:06 Oxygen Flow Rate 0 12/11/19 13:06 Pain Level 9 12/11/19 13:06
[2019-12-11] MEDS: Normal Saline 1,000 ML 1000 ML IV (13:22)
[2019-12-11] MEDS: Ondansetron 4 MG/2 ML VIAL IVP (13:22)
[2019-12-11] MEDS: Ketorolac 30 MG/ML VIAL IVP (13:25)
[2019-12-11 13:45] LABS: Abs Immature Grans 0.01 10^3/uL (0.0-0.06); Absolute Basophil Count 0.03 10^3/uL (0.0-0.2); Absolute Eosinophil Count 0.22 10^3/uL (0.0-0.7); Absolute Lymphocyte Count 3.49 10^3/uL (1.2-3.4); Absolute Monocyte Count 0.71 10^3/uL (0.1-0.8); Absolute Neutrophil Count 3.86 10^3/uL (1.2-6.7); Basophils % 0.4; Eosinophils % 2.6; HCT 42.9 % (40.0-50.0); HGB 13.6 g/dL (13.5-17.5); Immature Grans % 0.1; Lymphocytes % 41.9; MCH 28.6 pg (27.0-33.0); MCHC 31.7 % (32.0-36.0); MCV 90.3 fL (80-95); MPV 10.2 fL (8.0-11.0); Monocytes % 8.5; Neutrophils % 46.5; Nucleated RBC 0 %; Platelet Count 317 10^3/uL (130-400); RBC 4.75 10^6/uL (4.36-5.78); RDW 13.9 % (11.8-14.1); RDW-SD 45.8 fL; WBC 8.32 10^3/uL (4.4-10.8)
[2019-12-11 14:02] LABS: ALT 22 U/L (16-63); AST 25 U/L (15-37); Albumin 4.2 g/dL (3.4-5.0); Alkaline Phosphatase 68 U/L (46-116); Anion Gap 13.3 mmol/L (3-11); BUN 17 mg/dL (7-18); Bilirubin, Total 0.5 mg/dL (0.2-1.0); CO2 25.7 mmol/L (21.0-32.0); CREATININE 0.95 mg/dL (0.70-1.30); Calcium 8.8 mg/dL (8.5-10.1); Chloride 106 mmol/L (98-107); Glucose 108 mg/dL (74-106); Sodium 145 mmol/L (136-145); Total Protein 7.7 g/dL (6.4-8.2)
[2019-12-11 14:03] LABS: Potassium 2.9 mmol/L (3.5-5.1)
[2019-12-11] MEDS: ACETAMINOPHEN 1,000 MG/100 ML BTL 400 MG IVPB (14:28)
[2019-12-11] MEDS: Potassium Chloride Liquid 20 MEQ PKT PO (14:38)
--- NOTE | 2019-12-11 14:53 | DI.VRAD_ITS ---
PROCEDURE INFORMATION: Exam: CT Abdomen And Pelvis Without Contrast Exam date and time: 12/11/2019 1:14 PM Age: 44 years old Clinical indication: Abdominal pain TECHNIQUE: Imaging protocol: Computed tomography of the abdomen and pelvis without contrast. COMPARISON: Vascular^CTA CAP (Adult) 02/02/2018 12:24 PM FINDINGS: Liver: Normal. No mass. Gallbladder and bile ducts: Normal. No calcified stones. No ductal dilation. Pancreas: Normal. No ductal dilation. Spleen: Normal. No splenomegaly. Adrenals: Normal. No mass. Kidneys and ureters: 3 mm stone left UVJ. Mild left hydronephrosis. Stomach and bowel: Previous gastric stapling and bypass. Colonic diverticula present. Above average stool throughout the colon. No evidence of intestinal perforation or obstruction. Appendix: No evidence of appendicitis. Intraperitoneal space: Unremarkable. No free air. No significant fluid collection. Vasculature: Unremarkable. No abdominal aortic aneurysm. Lymph nodes: Unremarkable. No enlarged lymph nodes. Bladder: Unremarkable as visualized. Reproductive: Unremarkable as visualized. Bones/joints: Degenerative changes lumbar spine with severe central canal stenosis L1-L2, and moderate central canal stenosis L3-L4 and L4-L5. Soft tissues: Unremarkable. IMPRESSION: 3 mm stone left UVJ. Mild left hydronephrosis. Dictated and Authenticated by: Vic Antunez MD. Ordering:BILLIE Keane MD
[2019-12-11] MEDS: POTASSIUM CHLORIDE 10 MEQ/100 ML BAG 100 MEQ IVPB (14:54)
[2019-12-11] MEDS: Tamsulosin 0.4 MG CAPCR PO (15:09)
--- NOTE | 2019-12-11 15:13 | NUR.NOTE ---
Nursing Note: Patient was placed on file keeper during IV Potassium infusion. States he has been getting a lot of leg cramps. Monitor shows Sinus Rhythm without any ectopy. Patient now has some nausea cool cloth to forehead.
[2019-12-11 16:06] LABS: Bilirubin Negative (Negative); Blood Small (Negative); Clarity Clear (Clear); Glucose Negative (Negative); Ketones Trace mg/dL (Negative); Leukocyte Esterase Negative (Negative); Nitrite Negative (Negative); Specific Gravity 1.025 (1.005-1.025); Urobilinogen 0.2 EU/dL (Up TO 0.2)
[2019-12-11 16:17] LABS: Bacteria Negative HPF (Negative); Epithelial Cells Negative HPF (Negative); Other Cells Negative (Negative); WBC Negative HPF (0-5)
[2019-12-11 16:18] LABS: C & S Indicated? No; Casts Negative LPF (Negative); Crystals Mod Calcium Oxalate HPF (Negative); Mucus Negative (Negative)
[2019-12-11] MEDS: LORazepam 2 MG/ML VIAL 0.5 MG IVP (16:21)
--- NOTE | 2019-12-11 17:36 | NUR.NOTE ---
[facility] UrologyNursing Note:
== END 2019-12-11 17:10 | disposition home or self-care (01) ==
PROVIDERS: Emergency Provider Emergency Medicine; PCP Emergency Medicine
DX: N13.2 Hydronephrosis with renal and ureteral calculous obstruction (principal); R11.0 Nausea; E87.6 Hypokalemia
CPT/HCPCS: 36415; 80053; 96361; 96365; 96375; 96376; 99285; 74176; 81003; 81015; 85025; J0131; J1885; J2060; J2405; J3480

== ENCOUNTER 2020-01-03 13:28 | Emergency (ER) | payer SELFPAY ==
[2020-01-03 13:39] VITALS: BP 163/87; PULSE 80; RESP 18; TEMP 37; O2SAT 99
--- NOTE | 2020-01-03 13:54 | ED.GENADUL_ITS ---
Discharge Plan Disposition Patient Disposition: HOME Condition: Stable Discharge Details Chief Complaint: Laceration Clinical Impression: Laceration of lower leg, right Primary Care Provider: Robert Hong ED Provider: Antonietta Whiteside Home Meds and New Rx's Prescriptions: No Action Daily Multiple 1 EACH tablet 1 tab-cap PO DAILY RF: 0 cyanocobalamin (vitamin B-12) [Vitamin B-12] 500 MCG tablet 500 mcg Sublingual DAILY Qty: 100 RF: 12 calcium citrate-vitamin D3 [Citracal + D Maximum] 1 EACH tablet 1 ea PO DAILY Qty: 100 RF: 12 cholecalciferol (vitamin D3) [Vitamin D3] 2,000 UNIT capsule 2,000 unit PO DAILY RF: 0 buprenorphine-naloxone [Suboxone] 8-2 mg Film 1 film BUCCAL DAILY RF: 0 Discharge Instructions Instructions: Laceration (ED), Steristrips (ED) Additional Instructions: Follow up with primary care provider in 3-5 days. Return to ED sooner if any worsening or concerns. Increase oral fluids. Please take Tylenol or Ibuprofen with food every 4-6 hours as needed for pain and swelling. Return to the ED for any signs of infection including increased redness, red streaks, swelling, drainage or any concerns. Referrals: Robert Hong, [Primary Care Provider] - Discharge Data Discharge Date/Time-TO BE ENTERED AT DEPARTURE: 01/03/20 15:17 Medical Decision Making The imaging ordered to rule out foreign body or bony abnormality. Laceration repaired with Dermabond and Steri-Strips. This is nonsuicidal at this time. Discussed home care with patient and strict return instructions. Discussed to return if any signs of infection. HPI General Mode of arrival: ambulatory . Date/Time Provider Initiated Documentation: 01/03/20 13:47 . Limitations to Documentation: no limitations . Information obtained by: patient . HPI Narrative: 44-year-old male presents to the ER with right lower extremity laceration after a table saw kicked back and hit him in the anterior clark. He is ambulatory upon arrival, he does have a small laceration with small venous ooze noted. Measures approximately 2 cm in length and is vertical. He does have a history of peripheral venous insuffi ciency with varicose veins of the lower extremities and some lower extremity lymphedema. Related Data Home Medications Medication Instructions Recorded Confirmed Daily Multiple 1 tab-cap PO DAILY tab-cap 12/29/12 01/03/20 cyanocobalamin (vitamin B-12) 500 mcg SUBLINGUAL DAILY #100 04/20/13 01/03/20 [Vitamin B-12] tab.sl cholecalciferol (vitamin D3) 2,000 unit PO DAILY 05/05/14 01/03/20 [Vitamin D3] calcium citrate-vitamin D3 1 ea PO DAILY #100 tab-cap 11/29/14 01/03/20 [Citracal + D Maximum] buprenorphine-naloxone [Suboxone] 1 film BUCCAL DAILY 12/11/19 01/03/20 Allergies Allergy/AdvReac Type Severity Reaction Status Date / Time No Known Allergies Allergy Unverified 01/03/20 13:42 General Stated Complaint: Laceration JEN: 3 Review of Systems Narrative: Constitutional: Negative for weight loss, alert and oriented, well groomed, normal body habitus, appears comfortable. HEENT: Denies trauma, headaches, blurry vision, nasal discharge, sore throat, trouble swallowing. Chest: Denies chest pain, palpitations, irregular rhythm, hypertension. Respiratory: Denies Shortness of breath, cough, hemoptysis. GI: Denies abdominal pain, nausea, vomiting, diarrhea, constipation. : Denies dysuria, hematuria, flank pain, rectal bleeding. Neuro: Denies dizziness, blurry vision, weakness, syncope, headache or facial numbness. Hematologic: Denies easy bruising, intolerance to heat or cold, hair loss. All systems reviewed & are unremarkable except as noted in HPI and below Integumentary/Breasts Skin/Breast: Reports wounds (Anterior clark right lower extremity laceration) [facility] Surgical History gastric sleeve (~01/2013) [facility] [place] Social History Smoking/Tobacco Use Status: Never Alcohol Intake: never Drug use: Never Substance use type: does not use Do you feel safe at home: Yes Do you feel safe in your relationship?: Yes Exam Narrative Exam Narrative: Constitutional: Alert and oriented x3. Appears stated age. Normal body habitus. Head: Normocephalic, no trauma. Eyes: Pupils PERRLA, Red reflex noted, EOM's intact. Eyelids symmetrical without lesions, discharge, or swelling. ENT: Bilateral TM's WNL, External ear normal to inspection, no mastoid TTP, swelling, or erythema, Nasal turbinates WNL, no nasal discharge. Normal dentition, Posterior pharynx WNL, no exudate. Chest: RRR, Normal S1, S2, distal pulses intact. Resp: Lungs clear to auscultation bilaterally, no wheezes, rales, or rhonchi. Musculoskeletal: Normal gait, 5/5 strength to all four extremities. Bilateral lower edema noted 2+ which patient reports is chronic. Skin: See skin exam below. Capillary refill less than 2 sec. Neurologic: Cranial nerves II-XII intact. Alert and oriented x 3. DTR's intact. Hematologic/Lymphatic: No ecchymosis, no lymphadenopathy. Skin Wounds: wounds noted laceration right anterior lower leg size (2 cm) Course Vital Signs Vital signs: Vital Signs Temperature 37 C 01/03/20 13:39 Pulse 80 01/03/20 13:39 Respiratory Rate 18 01/03/20 13:39 Blood Pressure 163/87 H 01/03/20 13:39 Pulse Oximetry 99 01/03/20 13:39 Temperature 37 C 01/03/20 13:39 Temperature Source Temporal Artery Scan 01/03/20 13:39 Pulse 80 01/03/20 13:39 Respiratory Rate 18 01/03/20 13:39 Respiratory Effort Non-Labored 01/03/20 13:44 Blood Pressure 163/87 H 01/03/20 13:39 Blood Pressure Position Sitting 01/03/20 13:39 Pulse Oximetry 99 01/03/20 13:39 Oxygen Delivery Method Room Air 01/03/20 13:39 Oxygen Flow Rate 0 01/03/20 13:39 Pain Level 0 01/03/20 13:39 Procedures Laceration Laceration 1: Site: lower extremity Side (If applicable): right Size (cm): 2 Description: linear and irregular Depth: simple, single layer Pre-repair: wound explored, irrigated extensively and deep structures intact Skin layer closed with: other (Tissue adhesive and Steri-Strips) Number of sutures: 5 (Steri-Strips)
--- NOTE | 2020-01-03 14:52 | DI.RAD_ITS ---
EXAM: XR TIB/FIB RT CLINICAL HISTORY: Laceration, R/O foreign body/fracture. TECHNIQUE: 2D digital imaging was performed. COMPARISON: No exams were available for comparison FINDINGS: Prominent spurring at the patella and tibial tubercle. Mild femoral tibial degenerative changes. So ft tissue swelling is seen greatest around the ankle. No fracture or foreign body. Degenerative traci nges are noted at the ankle. IMPRESSION: Degenerative changes and soft tissue swelling. No fracture or foreign body. DATA REPOSITORY: RADIATION DOSE DELIVERED:
--- NOTE | 2020-01-03 15:27 | DI.VRAD_ITS ---
PROCEDURE INFORMATION: Exam: XR Right Tibia and Fibula Exam date and time: 01/03/2020 2:52 PM Age: 44 years old Clinical indication: Injury or trauma; Injury history: Laceration; Initial encounter; Lower leg; Right; Foreign body involvement not specified TECHNIQUE: Imaging protocol: XR Right tibia and fibula. Views: 2 views. COMPARISON: No relevant prior studies available. FINDINGS: Bones/joints: There are prominent bony enthesophytes from the superior and inferior margins of the patella. The quadriceps and patellar tendons are intact. No knee joint effusion. Small spurs from the tibial and femoral condyles-mild osteoarthritis. No acute fractures or dislocations Soft tissues: Normal. IMPRESSION: 1. No fracture. 2. Mild degenerative changes of the knee with prominent bony enthesophytes from the superior and inferior margins of the patella Dictated and Authenticated by: Vladimir Graham MD. Ordering:JOSÉ MIGUEL Mane MD
== END 2020-01-03 15:17 | disposition home or self-care (01) ==
PROVIDERS: Emergency Provider Registered Nurse Emergency; PCP Emergency Medicine
DX: S81.811A Laceration without foreign body, right lower leg, initial encounter (principal); W31.2XXA Contact with powered woodworking and forming machines, initial encounter
CPT/HCPCS: 12001; 73590

== ENCOUNTER 2020-10-30 11:13 | Emergency (ER) | payer SELFPAY ==
[2020-10-30] VITALS (31 sets, daily range): BP systolic 131–215; BP diastolic 65–125; PULSE 43–81; RESP 8–17; TEMP 36.8; O2SAT 96–100
--- NOTE | 2020-10-30 11:15 | RT.EKG_ITS ---
APPROVED REPORT Exam: Resting ECG Reason for Exam: epigastric pain Patient Location: E HR:66 bpm ECG Measurements Heart Rate 66 AXIS TX 196 P 69 QRSd 97 QRS 6 QT 410 T 56 QTc 431 Conclusion Sinus rhythm...normal P axis, V-rate 60- 99 ST elev, probable normal early repol pattern...ST elevation, age<55. No STEMI. I have reviewed and interpreted ECG and agree with software generated interpretation.
--- NOTE | 2020-10-30 11:20 | ED.GENADUL_ITS ---
Discharge Plan Disposition Patient Disposition: [facility] Condition: Serious Discharge Details Clinical Impression: Gastric artery bleed, Acute epigastric pain, Accelerated hypertension Primary Care Provider: Robert Hong ED Provider: Kaye Kevin Home Meds and New Rx's Prescriptions: No Action Daily Multiple 1 EACH tablet 1 tab-cap PO DAILY RF: 0 cyanocobalamin (vitamin B-12) [Vitamin B-12] 500 MCG tablet 500 mcg Sublingual DAILY Qty: 100 RF: 12 calcium citrate-vitamin D3 [Citracal + D Maximum] 1 EACH tablet 1 ea PO DAILY Qty: 100 RF: 12 cholecalciferol (vitamin D3) [Vitamin D3] 2,000 UNIT capsule 2,000 unit PO DAILY RF: 0 buprenorphine-naloxone [Suboxone] 8-2 mg Film 1 film BUCCAL DAILY RF: 0 Discharge Data Discharge Date/Time-TO BE ENTERED AT DEPARTURE: 10/30/20 16:00 Medical Decision Making 1120 -- 45-year-old male with a previous history of morbid obesity with gastric bypass in 2012, GERD, hypertension and previous history of possible peptic ulcer presents with severe epigastric pain with radiation to his back since 5 AM. Blood pressure significantly hypertensive 212/111. Remainder vitals within normal limits. He appears uncomfortable and diaphoretic that correlates with waves of epigastric pain. His EKG notes a rate of 66, sinus, no STEMI. His epigastrium is tender. His lungs are clear. Suspect most likely a GI etiology such as PUD, GERD, gastritis, etc. Considering patient's complaint of symptoms with radiation to the back, will obtain a CT chest, abdomen and pelvis in addition to cardiac work-up. Will give a GI cocktail, Carafate, Pepcid and fluids. 1225 -- labs reviewed and unremarkable. Patient reassessed and he is still uncomfortable. He denies any relief of pain. He was given IV Tylenol in addition without relief. Pt is on suboxone so narcotics will likely not be effective. He does states though that tramadol has helped in the past. We will give a dose of p.o. tramadol and p.o. Bentyl. 1400 -- patient still endorsing pain and appears uncomfortable. We will give a dose of Ativan IV. Blood pressure remains hypertensive 178/115. 1415 -- delay in virtual radiology report secondary to difficulty in sending all images. Discussed with virtual radiologist who noted findings concerning for possible contrast extravasation and gastric bleed. No dissection noted. Images pushed to [facility]. Consult with general surgery at [facility] initiated. 1445 -- discussed with [facility] general surgery who reviewed the images and agree patient needs transfer there for further evaluation and likely endoscopy. Recommends blood pressure control. Patient will go to the ED. Accepting physician ED attending Dr. Mcnamara. Recommends Protonix IV. Patient's heart rate in the 50s, so we will give a dose of hydralazine IV. Pt appears more comfortable. Blood pressure improved 164/97. Patient is agreeable with plan for transfer. He had significant relief of pain with Ativan, will give another dose IV. Medical Records Medical records reviewed: Yes I reviewed the patient's medical records. Imaging Data Radiologic Study: Radiologist's impression: CTA Chest With Contrast Exam date and time: 10/30/2020 11:50 AM Age: 45 years old Clinical indication: Other: Epigastric pain; Abdominal pain; Prior surgery; Surgery date: 6+ months; Surgery type: 8 years ago gastric bypass TECHNIQUE: Imaging protocol: Computed tomographic angiography of the chest with contrast. 3D rendering (Not supervised by radiologist): MIP and/or 3D reconstructed images were created by the technologist. Radiation optimization: All CT scans at this facility use at least one of these dose optimization techniques: automated exposure control; mA and/or kV adjustment per patient size (includes targeted exams where dose is matched to clinical indication); or iterative reconstruction. Contrast material: OMNIPAQUE 350; Contrast volume: 100 ml; Contrast route: IV; COMPARISON: Vascular^CTA CAP (Adult) 02/02/2018 12:24 PM FINDINGS: Pulmonary arteries: Normal. No pulmonary emboli. Aorta: Unremarkable. No aortic aneurysm. No aortic dissection. Lungs: Focal grouping of micro nodules in the right upper lobe, adjacent to the major fissure, best seen on axial series 5 images 205 through 229. These are indeterminate and could be inflammatory or less likely neoplastic. Pleural spaces: Unremarkable. No pneumothorax. No pleural effusion. Heart: Unremarkable. No cardiomegaly. No pericardial effusion. Lymph nodes: Unremarkable. No enlarged lymph nodes. Bones/joints: Degenerative arthritis in the thoracic spine. Soft tissues: Unremarkable IMPRESSION: 1. Collection of micro nodules in the right upper lobe. For patients at low risk (minimal or absent history of smoking and of other known risk factors), no routine follow-up is indicated. For patients at high risk (history of smoking or of other known risk factors), consider optional CT Chest at 12 months. (Reference: Inido) References: Indio Forbes et al. Guidelines for Management of Incidental Pulmonary Nodules Detected on CT Images: From the Fleischner Society 2017. Radiology. 2017;284(1):228-243. CTA Abdomen and Pelvis With Contrast Exam date and time: 10/30/2020 11:50 AM Age: 45 years old Clinical indication: Other: Epigastric pain; Abdominal pain; Prior surgery; Surgery date: 6+ months; Surgery type: 8 years ago gastric bypass TECHNIQUE: Imaging protocol: Computed tomographic angiography of the abdomen and pelvis with contrast material. 3D rendering (Not supervised by radiologist): MIP and/or 3D reconstructed images were created by the technologist. Radiation optimization: All CT scans at this facility use at least one of these dose optimization techniques: automated exposure control; mA and/or kV adjustment per patient size (includes targeted exams where dose is matched to clinical indication); or iterative reconstruction. Contrast material: OMNIPAQUE 350; Contrast volume: 100 ml; Contrast route: IV; COMPARISON: Vascular^CTA CAP (Adult) 02/02/2018 12:24 PM FINDINGS: Aorta: No aneurysm identified Celiac trunk and mesenteric arteries: No occlusion or significant stenosis. Renal arteries: No occlusion or significant stenosis. Right iliac arteries: No occlusion or significant stenosis. Left iliac arteries: No occlusion or significant stenosis. Liver: No mass. Gallbladder and bile ducts: Unremarkable. No calcified stones. No ductal dilation. Pancreas: Unremarkable. No mass. No ductal dilation. Spleen: Unremarkable. No splenomegaly. Adrenal glands: Unremarkable. No mass. Kidneys and ureters: Unremarkable. No solid mass. No hydronephrosis. Stomach and bowel: Collection of high density material in the proximal gastric cardia. This is suspicious for contrast extravasation and worrisome for a gastric bleed. There is also high density material in multiple loops of small bowel in the left side of the abdomen. This could be from ingested content or contrast extravasation as well. It is not as high density as that seen in the gastric cardia. Postoperative changes of gastric bypass. of stool in the colon Appendix: No evidence of appendicitis. Intraperitoneal space: Unremarkable. No free air. No significant fluid collection. Lymph nodes: Prominent central mesenteric lymph nodes. Urinary bladder: Unremarkable. No mass. Reproductive: Unremarkable as visualized. Bones/joints: Degenerative arthritis in the spine and pelvis. Soft tissues: Unremarkable. IMPRESSION: 1. Collection of very high density material in the proximal gastric cardia suspicious for possible contrast extravasation and a gastric bleed. 2. Areas of high density material and several loops of small bowel in the left side of the abdomen could also be from hemorrhage versus ingested content. 3. Gastric bypass. Lab Data Lab results reviewed: Yes I reviewed the patient's lab results. Labs: Laboratory Tests Range/Units 10/30/20 10/30/20 11:42 11:42 WBC (4.4-10.8) 10^3/uL 3.87 L RBC (4.36-5.78) 10^6/uL 4.44 Hgb (13.5-17.5) g/dL 13.0 L Hct (40.0-50.0) % 39.7 L MCV (80-95) fL 89.4 MCH (27.0-33.0) pg 29.3 MCHC (32.0-36.0) % 32.7 RDW (11.8-14.1) % 13.5 Plt Count (130-400) 10^3/uL 267 MPV (8.0-11.0) fL 9.9 Immature Gran % 0.0 Neutrophils % 50.9 Lymphocytes % 37.7 Monocytes % 8.8 Eosinophils % 1.8 Basophils % 0.8 Nucleated RBC % % 0 Absolute Neutrophils (1.2-6.7) 10^3/uL 1.97 Absolute Lymphocytes (1.2-3.4) 10^3/uL 1.46 Absolute Monocytes (0.1-0.8) 10^3/uL 0.34 Absolute Eosinophils (0.0-0.7) 10^3/uL 0.07 Absolute Basophils (0.0-0.2) 10^3/uL 0.03 Sodium (136-145) mmol/L 140 Potassium (3.5-5.1) mmol/L 4.0 Chloride (98-107) mmol/L 103 Carbon Dioxide (21.0-32.0) mmol/L 30.0 Anion Gap (3-11) mmol/L 7.0 BUN (7-18) mg/dL 10 Creatinine (0.70-1.30) mg/dL 0.8 Estimated GFR/1.73 m2 (mL/min/1.73m2) >= 60.00 Glucose (74-106) mg/dL 98 Calcium (8.5-10.1) mg/dL 9.1 Magnesium (1.8-2.4) mg/dL 1.9 Total Bilirubin (0.2-1.0) mg/dL 0.7 AST (15-37) U/L 20 ALT (16-63) U/L 19 Alkaline Phosphatase (46-116) U/L 79 Troponin I (<0.06) ng/mL < 0.05 Total Protein (6.4-8.2) g/dL 7.4 Albumin (3.4-5.0) g/dL 4.0 Lipase (73-393) U/L 62 ECG Data Attestation: I personally reviewed and interpreted this ECG (s) as follows: Interpretation: Rate of 66, sinus, no STEMI. MD 196. QTc 431 HPI General Mode of arrival: ambulatory . Date/Time Provider Initiated Documentation: 10/30/20 11:20 . Limitations to Documentation: no limitations . Information obtained by: patient . HPI Narrative: Patient is a 45-year-old male with a history of hypertension, gout, gastric bypass in 2012 presents with epigastric pain for 5 AM this morning. Patient states the pain feels consistent with when he was diagnosed with a possible gastric ulcer in the past. Patient states he ate a lot of barbecue food yesterday but denies any alcohol use. He states he has been taking Excedrin at least twice daily for recent headaches. He denies any fever, nausea, vomiting, change in bowel habits, recent antibiotics. Related Data Home Medications Medication Instructions Recorded Confirmed Daily Multiple 1 tab-cap PO DAILY tab-cap 12/29/12 10/30/20 cyanocobalamin (vitamin B-12) 500 mcg SUBLINGUAL DAILY #100 04/20/13 10/30/20 [Vitamin B-12] tab.sl cholecalciferol (vitamin D3) 2,000 unit PO DAILY 05/05/14 10/30/20 [Vitamin D3] calcium citrate-vitamin D3 1 ea PO DAILY #100 tab-cap 11/29/14 10/30/20 [Citracal + D Maximum] buprenorphine-naloxone [Suboxone] 1 film BUCCAL DAILY 12/11/19 10/30/20 Allergies Allergy/AdvReac Type Severity Reaction Status Date / Time No Known Allergies Allergy Unverified 01/03/20 13:42 General JEN: 3 Review of Systems All systems reviewed & are unremarkable except as noted in HPI and below Constitutional Constitutional: Reports as per HPI, Denies chills and Denies fever(s) Eyes Eyes: Denies blurry vision ENT Ears, Nose, Mouth, and Throat: Denies dizziness, Denies sore throat and Denies throat swelling Cardiovascular Cardiovascular: Denies chest pain and Denies dyspnea Respiratory Respiratory: Denies cough and Denies dyspnea Gastrointestinal Gastrointestinal: Reports abdominal pain, Denies diarrhea and Denies vomiting Genitourinary Genitourinary: Denies hematuria and Denies dysuria Musculoskeletal Musculoskeletal: Denies back pain and Denies numbness Integumentary/Breasts Skin/Breast: Denies lesions and Denies rash Neurologic Neurologic: Denies dizziness, Denies localized weakness and Denies numbness Allergic/Immunologic Allergic/Immunologic: Denies throat swelling [facility] Medical History (Updated 10/31/20 @ 08:23 by Kaye Kevin DO) Diabetes mellitus (12/29/12) resolved after gastric bypass Essential hypertension (01/28/13) GERD (gastroesophageal reflux disease) (01/31/14) Gout Osteoarthritis Surgical History (Updated 10/30/20 @ 12:35 by Kaye Kevin DO) gastric sleeve (~01/2013) [facility] [place] History of hernia repair History of tonsillectomy Social History Smoking/Tobacco Use Status: Never Smoking risk assessment performed?: Yes Alcohol Intake: never Drug use: Never Substance use type: does not use and former substance user Details: on suboxone for vicodin addiction Do you feel safe at home: Yes Do you feel safe in your relationship?: Yes Exam Const General: cooperative, uncomfortable, no acute distress and diaphoretic Orientation: alert, awake and oriented x3 HENMT Head: normal to inspection Face and sinus: normal facial exam Eyes General: appearance normal, both eyes and all related structures EOM: EOM intact bilaterally Neck Neck: normal visual inspection and No submandibular swelling Lymphatic: no lymphadenopathy noted Chest Chest: normal inspection of the chest and no tenderness Resp Effort & Inspection: normal respiratory effort and able to speak in complete sentences Auscultation: clear to auscultation bilaterally Cardio Rate: regular rate Rhythm: regular rhythm GI Inspection: normal to inspection Palpation: soft, not firm, not rigid and tender in the epigastrum Auscultation: normal bowel sounds Skin General skin exam: no rashes or lesions noted Neuro General: patient alert, patient awake and patient oriented x3 Cognition: normal cognition Speech: speech normal Motor: muscle tone normal throughout Sensory Exam: no sensory deficits noted Extrem General: normal to inspection, full ROM, capillary refill normal, no calf tenderness bilaterally and no edema Psych Appearance: grossly normal Mental Status: mental status grossly normal Speech and Movement: speech and movement normal Affect: normal affect Critical Care Time Critical Care Time Critical Care Time: Yes Total Critical Care Time: 45 Attestation: I spent 45 minutes of critical care time with this patient. This does not include time spent on separately reported billable procedures.
--- NOTE | 2020-10-30 11:45 | DI.CT_ITS ---
Exam(s) CT THORAX ABD/PEL CTA EXAM: CT THORAX ABD/PEL CTA CLINICAL HISTORY: severe epigastric pain w/ rad to back. TECHNIQUE: Imaging Protocol: Axial CT angiography was performed with multi-slice acquisition and m ulti-planar and/or 3D reconstructions. CONTRAST MATERIAL: Intravenous: Omnipaque 350 Contrast volume:100 mL Oral: No COMPARISON: CT CT RENAL COLIC WO from 12/11/2019 FINDINGS: CHEST: Tracheobronchial tree: Patent where visualized. Pulmonary parenchyma: No consolidation or dominant measurable mass. There is a cluster of small nodul es in the posterior aspect of the right upper lobe adjacent to the major fissure. Pulmonary Arteries: No evidence of filling defect to suggest pulmonary emboli. Mediastinum and Teresa: No dominant adenopathy or fluid collection. Visualized thyroid: Unremarkable. Pleura: No effusion or pneumothorax. Heart: The heart is not dilated. No coronary artery calcifications are seen. No pericardial effusion. Aorta: Thoracic aorta non-dilated. No evidence of dissection. Soft Tissues: Bilateral gynecomastia. Bones: Degenerative changes. ABDOMEN AND PELVIS: Abdomen: Celiac axis/mesenteric arteries: No evidence of occlusion or significant stenosis. Renal Arteries: No evidence of occlusion or significant stenosis. There is a single renal artery per fusing each kidney. Aorta: No evidence of occlusion or significant stenosis. No aneurysm or dissection. Minimal athero sclerosis. Pelvis: Iliac Arteries: No evidence of occlusion or significant stenosis. Common Femoral Arteries: No evidence of occlusion or significant stenosis. ABDOMEN: Liver: Normal density. No measurable mass. Portal, Superior Mesenteric, and Splenic Veins: Unremarkable. Gallbladder and Biliary Tract: No radiodense calculus or dilation. Pancreas: Normal density, no abnormal calcifications or inflammatory process. Mild pancreatic atrophy . Spleen: Normal. Adrenals: No masses seen. Kidneys: Normal size, contour and axis. No radiodense stones or obstructive uropathy. No masses seen. Bowel: There is high density material seen in the region of the gastric cardia in in cervical loops o f small bowel in the left abdomen. No obstruction or bowel wall thickening. No evidence of acute william endicitis. There is a moderate amount of stool throughout the colon. The patient is status post gas tric bypass. Peritoneal Cavity: No ascites, collection or mesenteric inflammatory response. No free air. Lymph Nodes: Within normal limits. Bones: Degenerative changes are present. Soft Tissues: Unremarkable. PELVIS: Bladder: Symmetric distention, no gross wall thickening. Reproductive Organs: Unremarkable as visualized. Lymph Nodes: Within normal limits. Bones: Within normal limits. IMPRESSION: 1. Normal CT Angiogram of the chest, abdomen and pelvis. 2. High density material in the gastric cardia and loops of small bowel in the left abdomen. This ma y represent contrast extravasation in gastric bleed, ingested material, or oral contrast. Please cor relate clinically. 3. Status post gastric bypass. 4. Collection of micronodular is in the right upper lobe. For high risk patients, (history of smokin g or other known risk factors) consider optional CT scan in 12 months. For low risk patients, no rou bernie follow-up is indicated. RADIATION DOSE DELIVERED: 1,026.35mGy.cm Total DLP DATA REPOSITORY: All CT scans at this facility are submitted to the National Radiology Data Registry (NRDR) Dose Index Registry (DIR) with the [employer] (ACR). RADIATION OPTIMIZATION: All CT scans at this facility use at least one of these dose optimization te chniques: automated exposure control; mA and/or kV adjustment per patient size (includes targeted exa ms where dose is matched to clinical indication); or iterative reconstruction.
[2020-10-30 11:47] LABS: Absolute Basophil Count 0.03 10^3/uL (0.0-0.2); Absolute Eosinophil Count 0.07 10^3/uL (0.0-0.7); Absolute Lymphocyte Count 1.46 10^3/uL (1.2-3.4); Absolute Monocyte Count 0.34 10^3/uL (0.1-0.8); Absolute Neutrophil Count 1.97 10^3/uL (1.2-6.7); Basophils % 0.8; Eosinophils % 1.8; HCT 39.7 % (40.0-50.0); Lymphocytes % 37.7; MCH 29.3 pg (27.0-33.0); MCHC 32.7 % (32.0-36.0); MCV 89.4 fL (80-95); MPV 9.9 fL (8.0-11.0); Monocytes % 8.8; Neutrophils % 50.9; Nucleated RBC 0 %; Platelet Count 267 10^3/uL (130-400); RBC 4.44 10^6/uL (4.36-5.78); RDW 13.5 % (11.8-14.1); RDW-SD 44.2 fL; WBC 3.87 10^3/uL (4.4-10.8)
[2020-10-30] MEDS: Sucralfate 1 GM TAB PO (11:57)
[2020-10-30] MEDS: Normal Saline 1,000 ML 1000 ML IV (12:00)
[2020-10-30 12:03] LABS: ALT 19 U/L (16-63); AST 20 U/L (15-37); Alkaline Phosphatase 79 U/L (46-116); BUN 10 mg/dL (7-18); Bilirubin, Total 0.7 mg/dL (0.2-1.0); CREATININE 0.8 mg/dL (0.70-1.30); Calcium 9.1 mg/dL (8.5-10.1); Chloride 103 mmol/L (98-107); Glucose 98 mg/dL (74-106); Lipase 62 U/L (73-393); Magnesium 1.9 mg/dL (1.8-2.4); Sodium 140 mmol/L (136-145); Total Protein 7.4 g/dL (6.4-8.2)
[2020-10-30 12:05] LABS: Troponin I < 0.05 ng/mL (<0.06)
[2020-10-30] MEDS: FAMOTIDINE 20 MG/50 ML BAG 200 MG IVPB (12:06)
[2020-10-30] MEDS: Omnipaque 350 MG/ML 100 ML BTL IJ (12:22)
[2020-10-30] MEDS: Normal Saline - Diluent 50 ML VIAL IV (12:23)
[2020-10-30] MEDS: ACETAMINOPHEN 1,000 MG/100 ML BTL 400 MG IVPB (12:38)
--- NOTE | 2020-10-30 13:20 | NUR.NOTE ---
Nursing Note: Pt noted to be frequently holding his breath and bearing now during BP measurements. Encouraged to extend arm down for BP. Provider aware of level of hypertension recorded.
[2020-10-30] MEDS: traMADol 50 MG TAB PO (13:46)
[2020-10-30] MEDS: Dicyclomine 20 MG TAB PO (14:14)
[2020-10-30] MEDS: LORazepam 2 MG/ML VIAL 1 MG IVP ×2 (14:19→15:45)
--- NOTE | 2020-10-30 14:24 | DI.VRAD_ITS ---
PROCEDURE INFORMATION: Exam: CTA Chest With Contrast Exam date and time: 10/30/2020 11:50 AM Age: 45 years old Clinical indication: Other: Epigastric pain; Abdominal pain; Prior surgery; Surgery date: 6+ months; Surgery type: 8 years ago gastric bypass TECHNIQUE: Imaging protocol: Computed tomographic angiography of the chest with contrast. 3D rendering (Not supervised by radiologist): MIP and/or 3D reconstructed images were created by the technologist. Radiation optimization: All CT scans at this facility use at least one of these dose optimization techniques: automated exposure control; mA and/or kV adjustment per patient size (includes targeted exams where dose is matched to clinical indication); or iterative reconstruction. Contrast material: OMNIPAQUE 350; Contrast volume: 100 ml; Contrast route: IV; COMPARISON: Vascular^CTA CAP (Adult) 02/02/2018 12:24 PM FINDINGS: Pulmonary arteries: Normal. No pulmonary emboli. Aorta: Unremarkable. No aortic aneurysm. No aortic dissection. Lungs: Focal grouping of micro nodules in the right upper lobe, adjacent to the major fissure, best seen on axial series 5 images 205 through 229. These are indeterminate and could be inflammatory or less likely neoplastic. Pleural spaces: Unremarkable. No pneumothorax. No pleural effusion. Heart: Unremarkable. No cardiomegaly. No pericardial effusion. Lymph nodes: Unremarkable. No enlarged lymph nodes. Bones/joints: Degenerative arthritis in the thoracic spine. Soft tissues: Unremarkable IMPRESSION: 1. Collection of micro nodules in the right upper lobe. For patients at low risk (minimal or absent history of smoking and of other known risk factors), no routine follow-up is indicated. For patients at high risk (history of smoking or of other known risk factors), consider optional CT Chest at 12 months. (Reference: Idnio) References: Indio Forbes et al. Guidelines for Management of Incidental Pulmonary Nodules Detected on CT Images: From the Fleischner Society 2017. Radiology. 2017;284(1):228-243. PROCEDURE INFORMATION: Exam: CTA Abdomen and Pelvis With Contrast Exam date and time: 10/30/2020 11:50 AM Age: 45 years old Clinical indication: Other: Epigastric pain; Abdominal pain; Prior surgery; Surgery date: 6+ months; Surgery type: 8 years ago gastric bypass TECHNIQUE: Imaging protocol: Computed tomographic angiography of the abdomen and pelvis with contrast material. 3D rendering (Not supervised by radiologist): MIP and/or 3D reconstructed images were created by the technologist. Radiation optimization: All CT scans at this facility use at least one of these dose optimization techniques: automated exposure control; mA and/or kV adjustment per patient size (includes targeted exams where dose is matched to clinical indication); or iterative reconstruction. Contrast material: OMNIPAQUE 350; Contrast volume: 100 ml; Contrast route: IV; COMPARISON: Vascular^CTA CAP (Adult) 02/02/2018 12:24 PM FINDINGS: Aorta: No aneurysm identified Celiac trunk and mesenteric arteries: No occlusion or significant stenosis. Renal arteries: No occlusion or significant stenosis. Right iliac arteries: No occlusion or significant stenosis. Left iliac arteries: No occlusion or significant stenosis. Liver: No mass. Gallbladder and bile ducts: Unremarkable. No calcified stones. No ductal dilation. Pancreas: Unremarkable. No mass. No ductal dilation. Spleen: Unremarkable. No splenomegaly. Adrenal glands: Unremarkable. No mass. Kidneys and ureters: Unremarkable. No solid mass. No hydronephrosis. Stomach and bowel: Collection of high density material in the proximal gastric cardia. This is suspicious for contrast extravasation and worrisome for a gastric bleed. There is also high density material in multiple loops of small bowel in the left side of the abdomen. This could be from ingested content or contrast extravasation as well. It is not as high density as that seen in the gastric cardia. Postoperative changes of gastric bypass. of stool in the colon Appendix: No evidence of appendicitis. Intraperitoneal space: Unremarkable. No free air. No significant fluid collection. Lymph nodes: Prominent central mesenteric lymph nodes. Urinary bladder: Unremarkable. No mass. Reproductive: Unremarkable as visualized. Bones/joints: Degenerative arthritis in the spine and pelvis. Soft tissues: Unremarkable. IMPRESSION: 1. Collection of very high density material in the proximal gastric cardia suspicious for possible contrast extravasation and a gastric bleed. 2. Areas of high density material and several loops of small bowel in the left side of the abdomen could also be from hemorrhage versus ingested content. 3. Gastric bypass. THIS REPORT CONTAINS FINDINGS THAT MAY BE CRITICAL TO PATIENT CARE. The findings were verbally communicated via telephone conference with wilian Quintanilla at 2:20 PM EDT on 10/30/2020. The findings were acknowledged and understood. Dictated and Authenticated by: Tammi Meadows MD. Ordering:AMAN Restrepo MD
[2020-10-30] MEDS: hydrALAZINE 20 MG/ML VIAL 10 MG IVP (15:20)
--- NOTE | 2020-10-30 15:29 | NUR.NOTE ---
Nursing Note: Verbal consent for transfer obtained from pt in room # with MMQ RN present. Pt understands this is necessary by ambulance.
[2020-10-30] MEDS: Pantoprazole 40 MG VIAL IVP (15:31)
--- NOTE | 2020-10-30 15:34 | NUR.NOTE ---
Nursing Note: Report given to Ashtyn SALAZAR at [facility]. 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
== END 2020-10-30 16:00 | disposition short-term general hospital (02) ==
LOC: ER 11:24
PROVIDERS: Emergency Provider Physician Assistant; PCP Emergency Medicine
DX: K92.2 Gastrointestinal hemorrhage, unspecified (principal); R10.13 Epigastric pain; I10 Essential (primary) hypertension; Z98.84 Bariatric surgery status
CPT/HCPCS: 36415; 74177; 80053; 83690; 93005; 96361; 96374; 96375; 96376; 99291; 83735; 84484; 85025; 93010; J0131; J0360; J2060; J3490

== ENCOUNTER 2021-08-10 02:24 | Outpatient (CLI) | payer OTHER, SELFPAY | END 2021-08-10 02:25 | disposition home or self-care (01) | LOC: LBO 02:25 | PROVIDERS: PCP Family Medicine; Visit Provider Nurse Practitioner Gerontology ==

== ENCOUNTER 2021-09-27 03:02 | Outpatient (CLI) | payer OTHER, SELFPAY | END 2021-09-27 03:03 | disposition home or self-care (01) | LOC: LBO 03:05 | PROVIDERS: PCP Family Medicine; Visit Provider Nurse Practitioner Gerontology ==

== ENCOUNTER 2021-10-03 03:46 | Outpatient (CLI) | payer OTHER, SELFPAY ==
[2021-10-03 16:22] LABS: Abs Immature Grans 0.01 10^3/uL (0.0-0.06); Absolute Basophil Count 0.03 10^3/uL (0.0-0.2); Absolute Eosinophil Count 0.22 10^3/uL (0.0-0.7); Absolute Lymphocyte Count 1.78 10^3/uL (1.2-3.4); Absolute Monocyte Count 0.53 10^3/uL (0.1-0.8); Absolute Neutrophil Count 3.86 10^3/uL (1.2-6.7); Basophils % 0.5; Eosinophils % 3.4; HCT 36.1 % (40.0-50.0); HGB 11.4 g/dL (13.5-17.5); Immature Grans % 0.2; Lymphocytes % 27.7; MCH 27.1 pg (27.0-33.0); MCHC 31.6 % (32.0-36.0); MCV 86 fL (80-95); MPV 10.1 fL (8.0-11.0); Monocytes % 8.2; Platelet Count 271 10^3/uL (130-400); RDW 15.9 % (11.8-14.1); RDW-SD 49.5 fL; WBC 6.43 10^3/uL (4.4-10.8)
[2021-10-03 17:24] LABS: GGT 19 U/L (15-85)
[2021-10-05 09:22] LABS: HBs Antibody, Quant <3.1 mIU/mL (See Note); Hepatitis B Surface Ab Negative (See Note)
[2021-10-05 09:39] LABS: Hepatitis B Surface Ag Negative (Negative)
[2021-10-05 10:18] LABS: HIV-1/2 Ag & Ab Screen Negative (Negative)
[2021-10-05 10:23] LABS: Hepatitis C Ab w Rflx HCV PCR Negative (Negative)
[2021-10-05 10:32] LABS: Hep B Core Antibody Negative (Negative)
[2021-10-05 10:35] LABS: Hep A Total Ab w Rflx IgM Negative (Negative)
[2021-10-05 14:53] LABS: HCV RNA Qualitative Undetected (Undetected)
[2021-10-07 00:48] LABS: HCV Genotype Undetected (Undetected)
== END 2021-10-03 03:47 | disposition home or self-care (01) ==
LOC: LBO 03:46
PROVIDERS: PCP Family Medicine; Visit Provider Nurse Practitioner Gerontology
DX: F11.20 Opioid dependence, uncomplicated (principal); Z11.4 Encounter for screening for human immunodeficiency virus [HIV]; Z11.59 Encounter for screening for other viral diseases; Z01.84 Encounter for antibody response examination
CPT/HCPCS: 36415; 86704; 86706; 86709; 86803; 87340; 87389; 87522; 82977; 85025; 87521

== ENCOUNTER 2022-02-07 20:08 | Emergency (ER) | payer OTHER, SELFPAY ==
[2022-02-07 20:10] VITALS: BP 186/119; PULSE 68; RESP 20; TEMP 36.7; O2SAT 100
--- NOTE | 2022-02-07 20:45 | RT.EKG_ITS ---
APPROVED REPORT Exam: Resting ECG Reason for Exam: chest pain Patient Location: E HR:63 bpm ECG Measurements Heart Rate 63 AXIS TN 207 P 47 QRSd 102 QRS -14 QT 421 T 39 QTc 431 Conclusion Sinus rhythm...normal P axis, V-rate 60- 99 Borderline prolonged TN interval...TN >202, V-rate 50- 90 Physician: no stemi
[2022-02-07 20:51] LABS: Abs Immature Grans 0.01 10^3/uL (0.0-0.06); Absolute Basophil Count 0.03 10^3/uL (0.0-0.2); Absolute Eosinophil Count 0.11 10^3/uL (0.0-0.7); Absolute Lymphocyte Count 2.09 10^3/uL (1.2-3.4); Absolute Monocyte Count 0.58 10^3/uL (0.1-0.8); Absolute Neutrophil Count 2.54 10^3/uL (1.2-6.7); Basophils % 0.6; Eosinophils % 2.1; HCT 36.4 % (40.0-50.0); HGB 11.6 g/dL (13.5-17.5); Immature Grans % 0.2; MCH 28.1 pg (27.0-33.0); MCHC 31.9 % (32.0-36.0); MCV 88 fL (80-95); Monocytes % 10.8; Neutrophils % 47.3; Platelet Count 313 10^3/uL (130-400); RBC 4.13 10^6/uL (4.36-5.78); RDW 14.8 % (11.8-14.1); RDW-SD 48.4 fL; WBC 5.36 10^3/uL (4.4-10.8)
[2022-02-07 20:53] LABS: Bilirubin Negative (Negative); Blood Negative (Negative); Clarity Clear (Clear); Glucose Negative (Negative); Ketones Negative (Negative); Leukocyte Esterase Negative (Negative); Nitrite Negative (Negative); Specific Gravity >= 1.030 (1.005-1.025); pH 6.5 (5-8)
[2022-02-07 21:06] LABS: INR 1.2 (0.9-1.1); PTT Activated 24.3 sec (21.0-27.5); Prothrombin Time 11.6 sec (9.3-11.0)
--- NOTE | 2022-02-07 21:06 | ED.GENADUL_ITS ---
Discharge Plan Disposition Patient Disposition: HOME Condition: Improving Discharge Details Clinical Impression: Abdominal pain Primary Care Provider: Reji Ferguson ED Provider: Gaston Aguila Home Meds and New Rx's Prescriptions: New pantoprazole [Protonix] 40 mg tablet,delayed release (DR/EC) 40 mg PO DAILY Qty: 20 0RF Continued Daily Multiple 1 EACH tablet 1 tab-cap PO DAILY cyanocobalamin (vitamin B-12) [Vitamin B-12] 500 MCG tablet 500 mcg Sublingual DAILY Qty: 100 Rx Instructions: Sublingual tabs calcium citrate-vitamin D3 [Citracal + D Maximum] 1 EACH tablet 1 ea PO DAILY Qty: 100 Label Comments: 11/22/15 BID per Pt. PG cholecalciferol (vitamin D3) [Vitamin D3] 2,000 UNIT capsule 2,000 unit PO DAILY buprenorphine-naloxone [Suboxone] 8-2 mg Film 1 film BUCCAL DAILY Discharge Instructions Instructions: Abdominal Pain (ED) Additional Instructions: Protonix as directed. You may use qvot-hxi-[id number] medications such as Mylanta and/or Pepto-Bismol as directed. Avoid fatty, greasy, acidic foods. Avoid coffee. Avoid alcohol. Please watch for new or worsening symptoms and return to the ER for any concerns. Lastly, I would like you to reach out to your GI team tomorrow morning to discuss your ER visit need for outpatient reevaluation. Outpatient endoscopy likely indicated for further evaluation Medical Decision Making This is a 46-year-old gentleman, past medical history of hypertension, anxiety, peripheral sufficiency, status post gastric bypass approximately 10 years ago, bleeding ulcer that did not require surgery approximately 4 years ago. He presents today complaining of epigastric pain that began earlier today, described as a burning sensation, radiates into his back. He denies a ripping or tearing sensation. Patient states that he does not typically drink alcohol but did drink fairly heavily over the past several days. Clinically he appears well, nontoxic. He has reproducible epigastric discomfort. He appears hemodynamically stable. Plan is to obtain routine screening laboratory values, given his epigastric pain will obtain EKG, and provide a GI cocktail, IV PPI and H2 michael Laboratory values do not reveal any obvious emergent process. Repeat repeat blood pressure of 132/78. Upon reevaluation he appears much improved. He reports significant improvement of his symptoms. At this time we discussed most likely diagnosis of gastritis, ulcer, etc. Given his history of bleeding ulcer, gastric bypass, etc. we did discuss obtaining CT imaging to rule out other etiology. At this time he declines CT imaging and believes as though he would need to be discharged. We discussed dietary changes, I will provide a prescription of Protonix, and he will contact his GI team tomorrow to discuss his ER visit and symptoms. He understands outpatient endoscopy and likely ind icated for further evaluation. Strict discharge and return precautions were provided. Patient understands, is agreeable to this plan, and has no additional questions or concerns upon discharge. This documentation was generated using [employer] system, please disregard any oddities of phrase or misspellings. Medical Records Medical records reviewed: Yes I reviewed the patient's medical records. Lab Data Lab results reviewed: Yes I reviewed the patient's lab results. Labs: Laboratory Tests Range/Units 02/07/22 02/07/22 02/07/22 20:45 20:45 20:45 WBC (4.4-10.8) 10^3/uL 5.36 RBC (4.36-5.78) 10^6/uL 4.13 L Hgb (13.5-17.5) g/dL 11.6 L Hct (40.0-50.0) % 36.4 L MCV (80-95) fL 88 MCH (27.0-33.0) pg 28.1 MCHC (32.0-36.0) % 31.9 L RDW (11.8-14.1) % 14.8 H Plt Count (130-400) 10^3/uL 313 MPV (8.0-11.0) fL 10.0 Immature Gran % 0.2 Neutrophils % 47.3 Lymphocytes % 39.0 Monocytes % 10.8 Eosinophils % 2.1 Basophils % 0.6 Nucleated RBC % (0.0-0.3) % 0.0 Absolute Neutrophils (1.2-6.7) 10^3/uL 2.54 Absolute Lymphocytes (1.2-3.4) 10^3/uL 2.09 Absolute Monocytes (0.1-0.8) 10^3/uL 0.58 Absolute Eosinophils (0.0-0.7) 10^3/uL 0.11 Absolute Basophils (0.0-0.2) 10^3/uL 0.03 PT (9.3-11.0) sec 11.6 H INR (0.9-1.1) 1.2 H APTT (21.0-27.5) sec 24.3 Sodium (136-145) mmol/L 140 Potassium (3.5-5.1) mmol/L 4.0 Chloride (98-107) mmol/L 104 Carbon Dioxide (21.0-32.0) mmol/L 30.9 Anion Gap (3-11) mmol/L 5.1 BUN (7-18) mg/dL 16 Creatinine (0.70-1.30) mg/dL 0.7 Est GFR (CKD-EPI 2020) (mL/min/1.73m2) 116.52 Glucose (74-106) mg/dL 99 Calcium (8.5-10.1) mg/dL 9.4 Total Bilirubin (0.2-1.0) mg/dL 0.5 AST (15-37) U/L 31 ALT (16-63) U/L 24 Alkaline Phosphatase (46-116) U/L 76 Total Protein (6.4-8.2) g/dL 7.8 Albumin (3.4-5.0) g/dL 4.3 Lipase (73-393) U/L 178 Urine Color (Yellow) Urine Clarity (Clear) Urine pH (5-8) Ur Specific [place] (1.005-1.025) Urine Protein (Negative) mg/dL Urine Ketones (Negative) mg/dL Urine Blood (Negative) Urine Nitrite (Negative) Urine Bilirubin (Negative) Urine Urobilinogen (Up TO 0.2) EU/dL Ur Leukocyte Esterase (Negative) Urine Glucose (Negative) mg/dL Range/Units 02/07/22 20:45 WBC (4.4-10.8) 10^3/uL RBC (4.36-5.78) 10^6/uL Hgb (13.5-17.5) g/dL Hct (40.0-50.0) % MCV (80-95) fL MCH (27.0-33.0) pg MCHC (32.0-36.0) % RDW (11.8-14.1) % Plt Count (130-400) 10^3/uL MPV (8.0-11.0) fL Immature Gran % Neutrophils % Lymphocytes % Monocytes % Eosinophils % Basophils % Nucleated RBC % (0.0-0.3) % Absolute Neutrophils (1.2-6.7) 10^3/uL Absolute Lymphocytes (1.2-3.4) 10^3/uL Absolute Monocytes (0.1-0.8) 10^3/uL Absolute Eosinophils (0.0-0.7) 10^3/uL Absolute Basophils (0.0-0.2) 10^3/uL PT (9.3-11.0) sec INR (0.9-1.1) APTT (21.0-27.5) sec Sodium (136-145) mmol/L Potassium (3.5-5.1) mmol/L Chloride (98-107) mmol/L Carbon Dioxide (21.0-32.0) mmol/L Anion Gap (3-11) mmol/L BUN (7-18) mg/dL Creatinine (0.70-1.30) mg/dL Est GFR (CKD-EPI 2020) (mL/min/1.73m2) Glucose (74-106) mg/dL Calcium (8.5-10.1) mg/dL Total Bilirubin (0.2-1.0) mg/dL AST (15-37) U/L ALT (16-63) U/L Alkaline Phosphatase (46-116) U/L Total Protein (6.4-8.2) g/dL Albumin (3.4-5.0) g/dL Lipase (73-393) U/L Urine Color (Yellow) Yellow Urine Clarity (Clear) Clear Urine pH (5-8) 6.5 Ur Specific [place] (1.005-1.025) >= 1.030 H Urine Protein (Negative) mg/dL Negative Urine Ketones (Negative) mg/dL Negative Urine Blood (Negative) Negative Urine Nitrite (Negative) Negative Urine Bilirubin (Negative) Negative Urine Urobilinogen (Up TO 0.2) EU/dL 1.0 H Ur Leukocyte Esterase (Negative) Negative Urine Glucose (Negative) mg/dL Negative ECG Data Attestation: I personally reviewed and interpreted this ECG (s) as follows: Interpretation: Sinus rhythm, ventricular rate of 63, borderline prolonged [place] interval. No STEMI HPI General Mode of arrival: ambulatory . Date/Time Provider Initiated Documentation: 02/07/22 20:12 . Limitations to Documentation: no limitations . Information obtained by: patient and family . History of Present Illness 46 year old M presents to the emergency department with the chief complaint of Epigastric, described as severe, with intensity rated at 8. Quality is described as other (Burning), and is localized to the abdomen. Patient reports radiation to back. Patient started experiencing this hour(s) (10) and it has been constant. No relieving factors improve symptom(s), No exacerbating factors reported . Patient notes denies chest pain, cough, fever/chills, loss of appetite and nausea/vomiting. Patient did receive the following treatments prior to arrival, none Related Data Home Medications Medication Instructions Recorded Confirmed multivitamin-ferrous 1 tab-cap PO DAILY 12/29/12 10/30/20 fumarate-folic acid 18 mg-400 mcg tablet (Daily Multiple) cyanocobalamin (vitamin B-12) 500 500 mcg sublingual DAILY ##100 04/20/13 10/30/20 mcg tablet (Vitamin B-12) cholecalciferol (vitamin D3) 50 2,000 unit PO DAILY 05/05/14 10/30/20 mcg (2,000 unit) capsule (Vitamin D3) calcium citrate 315 mg 1 ea PO DAILY #100 tab-caps 11/29/14 10/30/20 calcium-vitamin D3 6.25 mcg (250 unit) tablet (Citracal + Vitamin D Maximum) buprenorphine 8 mg-naloxone 2 mg 1 film buccal DAILY 12/11/19 10/30/20 sublingual film (Suboxone) pantoprazole 40 mg tablet,delayed 40 mg PO DAILY #20 tabs 02/07/22 release (Protonix) Previous Rx's Medication Instructions Recorded pantoprazole 40 mg tablet,delayed 40 mg PO DAILY #20 tabs 02/07/22 release (Protonix) Allergies Allergy/AdvReac Type Severity Reaction Status Date / Time No Known Allergies Allergy Unverified 02/07/22 20:19 General Stated Complaint: Abd Prob JEN: 3 Review of Systems Constitutional Constitutional: Denies fever(s) and Denies weakness ENT Ears, Nose, Mouth, and Throat: Denies neck pain Cardiovascular Cardiovascular: Denies chest pain and Denies dyspnea Respiratory Respiratory: Denies cough and Denies dyspnea Gastrointestinal Gastrointestinal: Reports abdominal pain, Denies melena, Denies hematochezia, Denies constipation, Denies diarrhea, Denies nausea and Denies vomiting Musculoskeletal Musculoskeletal: Reports back pain, Denies neck pain, Denies numbness and Denies tingling Integumentary/Breasts Skin/Breast: Denies rash Neurologic Neurologic: Denies numbness, Denies tingling and Denies weakness Hematologic/Lymphatic Hematologic/Lymphatic: Denies easy bleeding and Denies easy bruising PFSH All Active Problems Abdominal pain (Acute) COVID-19 (Acute) 12/19/21- Vaccinated Haresh vaccine Gastric artery bleed (Acute) Acute epigastric pain (Acute) Accelerated hypertension (Acute) 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 (Acute) Peripheral venous insufficiency (Acute) Peripheral edema (Acute) Obstructive sleep apnea syndrome (Acute) Morbid obesity (Acute) gastric sleeve bariatric surgery 01/08 Hammer toe (Acute 03/27/08) degenerative changes foot Depressive disorder (Acute) Epigastric pain (Acute) Medical History Diabetes mellitus (12/29/12) resolved after gastric bypass Essential hypertension (01/28/13) GERD (gastroesophageal reflux disease) (01/31/14) Gout Osteoarthritis Surgical History gastric sleeve (~01/2013[place] [facility] [place] of hernia repair History of tonsillectomy Social History Smoking/Tobacco Use Status: Never Smoking risk assessment performed?: Yes Alcohol Intake: current Alcohol Intake frequency: a few times a week Drug use: Never Substance use type: does not use and former substance user Details: on suboxone for vicodin addiction Do you feel safe at home: Yes Do you feel safe in your relationship?: Yes Exam Const General: cooperative, healthy appearing, comfortable and no acute distress Orientation: alert, awake and oriented x3 HENMT Head: normal to inspection, normocephalic and atraumatic Face and sinus: normal facial exam Mouth: moist mucous membranes Throat: posterior oropharynx normal Eyes General: appearance normal, both eyes and all related structures Conjunctivae: conjunctivae normal Neck Neck: normal visual inspection, full ROM, no meningeal signs, trachea midline and supple Chest Chest: normal inspection of the chest and normal palpation of entire chest wall Resp Effort & Inspection: normal respiratory effort and able to speak in complete sentences Auscultation: clear to auscultation bilaterally Cardio Rate: regular rate Rhythm: regular rhythm GI Inspection: normal to inspection Palpation: soft, not firm, no guarding, no pulsatile masses and tender in the epigastrum; not at McBurney's point, Lee's sign negative and with no rebound tenderness Auscultation: normal bowel sounds Back/Spine/Pelvis Back: no CVA tenderness and back tenderness Skin General skin exam: no rashes or lesions noted Neuro General: patient alert, patient awake, moves all extremities and no focal motor deficits Cognition: normal cognition Speech: speech normal Gait: normal gait Motor: muscle tone normal throughout Sensory Exam: no sensory deficits noted Psych Appearance: grossly normal Mental Status: mental status grossly normal Course Vital Signs Vital signs: Vital Signs Temperature 36.7 C 02/07/22 20:10 Pulse 68 02/07/22 20:10 Respiratory Rate 20 02/07/22 20:10 Blood Pressure 186/119 H 02/07/22 20:10 Pulse Oximetry 100 02/07/22 20:10 Temperature 36.7 C 02/07/22 20:10 Temperature Source Skin 02/07/22 20:10 Pulse 68 02/07/22 20:10 Respiratory Rate 20 02/07/22 20:10 Blood Pressure 186/119 H 02/07/22 20:10 Blood Pressure Position Sitting 02/07/22 20:10 Pulse Oximetry 100 02/07/22 20:10 Oxygen Delivery Method Room Air 02/07/22 20:10 Oxygen Flow Rate 0 02/07/22 20:10 Pain Level 10 02/07/22 20:10 Comment 02/07/22 20:10 Lab/Test Results Lab/Test Results: Laboratory Tests Range/Units 02/07/22 02/07/22 20:45 20:45 WBC (4.4-10.8) 10^3/uL 5.36 RBC (4.36-5.78) 10^6/uL 4.13 L Hgb (13.5-17.5) g/dL 11.6 L Hct (40.0-50.0) % 36.4 L MCV (80-95) fL 88 MCH (27.0-33.0) pg 28.1 MCHC (32.0-36.0) % 31.9 L RDW (11.8-14.1) % 14.8 H Plt Count (130-400) 10^3/uL 313 MPV (8.0-11.0) fL 10.0 Immature Gran % 0.2 Neutrophils % 47.3 Lymphocytes % 39.0 Monocytes % 10.8 Eosinophils % 2.1 Basophils % 0.6 Nucleated RBC % (0.0-0.3) % 0.0 Absolute Neutrophils (1.2-6.7) 10^3/uL 2.54 Absolute Lymphocytes (1.2-3.4) 10^3/uL 2.09 Absolute Monocytes (0.1-0.8) 10^3/uL 0.58 Absolute Eosinophils (0.0-0.7) 10^3/uL 0.11 Absolute Basophils (0.0-0.2) 10^3/uL 0.03 Urine Color (Yellow) Yellow Urine Clarity (Clear) Clear Urine pH (5-8) 6.5 Ur Specific [place] (1.005-1.025) >= 1.030 H Urine Protein (Negative) mg/dL Negative Urine Ketones (Negative) mg/dL Negative Urine Blood (Negative) Negative Urine Nitrite (Negative) Negative Urine Bilirubin (Negative) Negative Urine Urobilinogen (Up TO 0.2) EU/dL 1.0 H Ur Leukocyte Esterase (Negative) Negative Urine Glucose (Negative) mg/dL Negative PAWSS Have you Been Recently Intoxicated or Drunk Within the Last 30 days?: No Have you Ever Experienced Previous Episodes of Alcohol Withdrawal?: No Have you ever Experienced Withdrawal Seizures?: No Have you ever Experienced Delirium Tremens(DT)s?: No Have you ever undergone Alcohol Rehabilitation Treatment (i.e, inpt ot outpatient treatment programs)?: No Have you ever Experienced Blackouts?: No Have you ever Combined Alcohol with other Downers within the last 90 days?: No Have you ever Combined Alcohol with any other Substance of Abuse during the last 90 days?: No Positive Blood Alcohol level on Presentation? [PCS.BAL]: No Evidence of Increased Autonomic Activity (i.e. HR>120, tremor, sweating, agitation, nausea)?: No Result: 0
[2022-02-07 21:12] LABS: ALT 24 U/L (16-63); AST 31 U/L (15-37); Albumin 4.3 g/dL (3.4-5.0); Alkaline Phosphatase 76 U/L (46-116); Anion Gap 5.1 mmol/L (3-11); BUN 16 mg/dL (7-18); Bilirubin, Total 0.5 mg/dL (0.2-1.0); CO2 30.9 mmol/L (21.0-32.0); CREATININE 0.7 mg/dL (0.70-1.30); Calcium 9.4 mg/dL (8.5-10.1); Chloride 104 mmol/L (98-107); Estimated GFR 116.52 (mL/min/1.73m2); Glucose 99 mg/dL (74-106); Lipase 178 U/L (73-393); Sodium 140 mmol/L (136-145); Total Protein 7.8 g/dL (6.4-8.2)
[2022-02-07] MEDS: FAMOTIDINE 20 MG in Normal Saline 100 ML 400 MG IVPB (21:17)
[2022-02-07] MEDS: Pantoprazole 40 MG VIAL 80 MG IVP (21:18)
[2022-02-07 21:53] VITALS: BP 132/78; PULSE 68; RESP 18; O2SAT 98
== END 2022-02-07 20:54 | disposition home or self-care (01) ==
PROVIDERS: Emergency Provider Physician Assistant; PCP Nurse Practitioner Family
DX: R10.13 Epigastric pain (principal); I10 Essential (primary) hypertension; E11.9 Type 2 diabetes mellitus without complications
CPT/HCPCS: 80053; 83690; 93005; 96374; 96375; 99284; 81003; 85025; 85610; 85730; 93010

== ENCOUNTER 2022-02-07 23:15 | Inpatient (IN) | payer OTHER, SELFPAY ==
--- NOTE | 2022-02-07 23:15 | DI.CT_ITS ---
Exam(s) CT THORAX ABDOMEN CTA EXAM: CT THORAX ABDOMEN CTA CLINICAL HISTORY: severe abd pain, front to back,hx gastric bypass. TECHNIQUE: Imaging Protocol: Axial CT angiography was performed with multi-slice acquisition and m ulti-planar and/or 3D reconstructions. CONTRAST MATERIAL: Intravenous: Omnipaque 350 contrast volume:100 mL Oral: No COMPARISON: CT CT THORAX ABD/PEL CTA from 10/30/2020 FINDINGS: CHEST: Tracheobronchial tree: Patent where visualized. Pulmonary parenchyma: Nonspecific reticular nodular infiltrate in the left lower lobe. No focal cons olidating infiltrates are seen. No architectural distortion. Pulmonary Arteries: The pulmonary arteries are in adequately opacified for evaluation of pulmonary em boli. No large central pulmonary embolus are seen. Mediastinum and Teresa: No dominant adenopathy or fluid collection. The esophagus is unremarkable. Visualized thyroid: Unremarkable. Pleura: No effusion or pneumothorax. Heart: The heart is not dilated. No coronary artery calcifications are seen. No pericardial effusion. Aorta: Thoracic aorta non-dilated. No evidence of dissection. Soft Tissues: Mild gynecomastia. Bones: Within normal limits for the patient's age. ABDOMEN AND PELVIS: Abdomen: Celiac axis/mesenteric arteries: No evidence of occlusion or significant stenosis. Note is made of a separate origin of the hepatic artery. Renal Arteries: No evidence of occlusion or significant stenosis. There is a single renal artery per fusing each kidney. Aorta: No evidence of occlusion or significant stenosis. No aneurysm or dissection. Minimal athero sclerosis. No evidence of dissection. ABDOMEN: Liver: Normal density. No measurable mass. Gallbladder and Biliary Tract: No radiodense calculus or dilation. Pancreas: Normal density, no abnormal calcifications or inflammatory process. Spleen: Normal. Adrenals: No masses seen. Kidneys: Normal size, contour and axis. No radiodense stones or obstructive uropathy. No masses seen. Bowel: No evidence of bowel wall thickening. No dilated loops of small bowel are seen. There is a 4 .5 cm soft tissue hypodensity within the small bowel in the lower most images of the examination. Peritoneal Cavity: No ascites, collection or mesenteric inflammatory response. No free air. Lymph Nodes: Within normal limits. Bones: Within normal limits for the patient's age. Soft Tissues: Unremarkable. IMPRESSION: 1. Normal CT Angiogram of the chest, abdomen and pelvis. 2. Soft tissue density seen in the loop of small bowel in the lower most images of the examination. Differential considerations include neoplasm versus intussusception. CT abdomen and pelvis should be obtained with oral and IV contrast for further evaluation. 3. Nodular infiltrate in the left lower lobe. This is concerning for infection. Please correlate wi th clinical findings. RADIATION DOSE DELIVERED: 702.58mGy.cm Total DLP DATA REPOSITORY: All CT scans at this facility are submitted to the National Radiology Data Registry (NRDR) Dose Index Registry (DIR) with the [employer] (ACR). RADIATION OPTIMIZATION: All CT scans at this facility use at least one of these dose optimization te chniques: automated exposure control; mA and/or kV adjustment per patient size (includes targeted exa ms where dose is matched to clinical indication); or iterative reconstruction.
[2022-02-07 23:27] VITALS: BP 178/98; PULSE 76; RESP 18; TEMP 36.6; O2SAT 100
--- OUTSIDE RECORDS SUMMARY | 2022-02-07 23:29 | XMS_ITS | Encounter Summary ---
:1975 Author Organization [facility] Address [address] [place] [address] Care Team Providers Name Role Phone Robert Hong DO Primary Care Provider Josie Ramirez MD Primary Care Provider Robert Hong DO Primary Care Provider Josie Ramirze MD Primary Care Provider Encounter Details Date Type Department Care Team Description 10/16/2009 Documentation Visit [facility] Briseida Perkins, Bariatric Surgery - LINE INSTALLATION SUPERVISOR [place] [address] [place] [address] [place] [address] [phone] Social History Tobacco Use Types Packs/Day Years Used Date Never Assessed Sex Assigned at Date Recorded Not on file documented as of this encounter Plan of Treatment Not on filedocumented as of this encounter Visit Diagnoses Not on filedocumented in this encounter Care Teams Voip Network Engineer Relationship Specialty Start Date End Date Robert Hong DO PCP - General 03/03/09 02/22/[address] [place] [address] Josie Ramirez MD PCP - General 02/23/10 05/14/10 [place] [place] [address] Robert Hong DO PCP - General 05/15/10 05/20/[address] [place] [address] [place] [address] Josie Ramirez MD PCP - General 05/21/10 [address] [place] [address] documented as of this encounter
--- OUTSIDE RECORDS SUMMARY | 2022-02-07 23:29 | XMS_ITS | Encounter Summary ---
:1975 Author Organization [facility] Address [address] [place] [address] Care Team Providers Name Role Phone Robert Hong Primary Care Provider Encounter Details Date Type Department Care Team Description 06/06/2009 Hospital Encounter [facility] MD Thanh [address] [facility] [address] [place] [address] [place], [place] [phone] (Wo rk) Social History Tobacco Use Types Packs/Day Years Used Date Never Assessed Sex Assigned at Date Recorded Not on file documented as of this encounter Discharge Disposition Disposition Code Departure Means Destination Home or Self Jail documented in this encounter Procedure Notes Physician Morales MD - 06/07/2009 1528 ESTAssociated Order(s): PATHOLOGY - SCANNED; PATHOLOGY - SCANNED Physician Morales MD - 06/07/2009 1343 EST Physician Morales MD - 06/07/2009 1343 ESTAssociated Order(s): ORDERS - SCANNED; ORDERS - SCANNED documented in this encounter Miscellaneous Notes Scanned Note-Null - Physician Morales MD - 06/07/2009 1343 EST canned Note-Null - Physician Morales MD - 06/07/2009 1343 EST rief Op Note - Physician Morales MD - 06/07/2009 1343 EST documented in this encounter Plan of Treatment Not on filedocumented as of this encounter Procedures Procedure Name Priority Date/Time Associated Diagnosis Comme nts PATHOLOGY - SCANNED 06/07/2009 15:28 Resu lts for this EST procedure are i n the results section. ORDERS - SCANNED 06/07/2009 13:43 Results for this EST procedure are i n the results section. SURGICAL PATHOLOGY Routine 06/06/2009 0:00 EST Re sults for this procedure are i n the results section. documented in this encounter Results PATHOLOGY - SCANNED (06/07/2009 15:28 EST) Specimen Narrative 06/07/2009 15:31 EST This result has an attachment that is no t available. Ordered by an unspecified provider. Transcriptions Physician Morales MD - 06/07/2009 15 :28 EST ORDERS - SCANNED (06/07/2009 13:43 EST) Specimen Narrative 06/07/2009 15:31 EST This result has an attachment that is no t available. Ordered by an unspecified provider. Transcriptions Physician Morales MD - 06/07/2009 13 :43 EST SURGICAL PATHOLOGY (06/06/2009 0:00 EST) Pathology Report: SURGICAL PATHOLOGY REPORT ? JAILENE ALSTON Reports generated via electr CreatorBox interface contain original data; ? LAB however they are lacking the format of the original report. ? Caution should be taken when reading/interpreting unformatted reports. ? Name: ? BRADY BILLINGS ? Accession #: ? [id number] ? : ? 1975 (Age: 33) ??M ? Collec t Date: ? 06/06/2009 ? Location: ? [facility] ? R eceive Date: ? 06/06/2009 ? Provider: LATRICIA M FORGIONE MD ? Copy to: ROBERT F RIKI DO ? Final Pathologic Diagnosis: ? A. ?Stomach, an trum, biopsy: ? 1. ?Antral-type gastric mucosa with mild chronic gastritis and reactive epithelial changes. ??See co mment. ? 2. ? No Helicobacter pyl kiley-like microorganisms are identified by routine H ?? & E stains. ? B. ?Gastroesoph ageal junction, biopsy: ? 1. ?Acute esoph agitis with erosion/ulceration. See comment. ? 2. ? Squamocolumnar muco sa with rare intraepithelial eosinophils (less than 5 per high power field), consi stent with reflux esophagitis. ? 3. ?? Special stains (PASF) to evaluate for fungal organisms are negative. ? Comment: ? Deeper levels of the gastroesophageal junction biopsy (specimen B) have ? been examined. Representativ e sections of this case have been reviewed at the ?? intradepartmental consultati on conference. ??(Dr. Lu)/ljn ? Document reviewed and electr onically signed by: ? JOEL LU MD ? Report ??Date: 06/09/2009 17 :13 ? By the signature above, the attending physician certifies that he/she has ? personally conducted a gross and/or microscopic examination of the described ? specimens and rendered or co nfirmed the above diagnosis. ? Specimen(s) Received: ? A. ?Antrum ? B. ? GE junction ? Clinical History: ? A ??R/O H. pylori; B ??R/O De La Rosa's ? Gross Description: ? Received in [facility]' s fixative labelled Awa, Brady and antrum is a 0.7 x 0.2 x 0.2 cm biopsy. ??The specimen is submitted intact as (A). ? Received in [facility]'s fixat paris labelled Awa, Brady and GE junction is a 0.8 x 0.2 x 0.2 cm biopsy. ??The specimen is submitted intact as (B). ??(DARWIN ? Tessitore)/ljn ? End of Report ? Specimen Performing Organization Address City/State/ZIP Code Phon e Number [facility] [address] [place] [address] SERVICES [facility] [address] [place] [address] documented in this encounter Visit Diagnoses Not on filedocumented in this encounter Care Teams Machine Operator Slitter Technician Relationship Specialty Start Date End Date Robert Hong, DO PCP - General 03/03/09 02/22/[address] [place] [address] documented as of this encounter
--- OUTSIDE RECORDS SUMMARY | 2022-02-07 23:29 | XMS_ITS | Encounter Summary ---
:1975 Author Organization [facility] Address [address] [place] [address] Care Team Providers Name Role Phone Robert Hong Primary Care Provider Reason for Visit Reason Comments Obesity Encounter Details Date Type Department Care Team Description 08/07/2009 Office Visit [facility] Jeremy Fernando Morbi d obesity Bariatric Surgery - MD ([facility]) (Primary Dx) [address] [address] [place], [place] [phone] Social History Tobacco Use Types Packs/Day Years Used Date Never Assessed Sex Assigned at Date Recorded Not on file documented as of this encounter Last Filed Vital Signs Vital Sign Reading Time Taken Comments Blood Pressure 148/98 08/07/2009 1058 EDT Pulse 88 08/07/2009 1058 EDT Temperature - - Respiratory Rate - - Oxygen Saturation - - Inhaled Oxygen Concentration - - Weight 227.2 kg (500 lb 12.8 oz) 08/07/2009 1058 EDT Height 191.4 cm (6' 3.35) 08/07/2009 1058 EDT Body Mass Index 62.01 08/07/2009 1058 EDT documented in this encounter Patient Instructions Patient InstructionsMindy Young RD - 08/07/2009 11:43 EDT Start walking Keep food logs with calories Increase fruits and vegetables, decrease high fat foods winsome high fat meats documented in this encounter Progress Notes Inpatient, Physician, MD - 10/02/[address] - 08/07/2009 1142 EDT PRE OP NUTRITION FOLLOW UP NOTE Bariatric Clinic Nutrition Pre-op Visit Visit Number: 2 Desired surgery: Gastric Sleeve Subjective: Returned to work,less exercise, more activity Food logs: maintained but calories not counted Meal pattern: 2-3 Average caloric intake:unk Meal composition: high fat low vegies and fruit Snacking:n/a Exercise: none outside work Objective: Weight: 500.8 lb Weight loss from last visit: +3.6 lb Total weight loss: Weight loss goal: -7.4 lb To 470 lb Surgery Date: Significant Medications and Supplements: no Assessment: Patient has made poor progress in making lifestyle changes Comments: returned to high fat foods and no exercise Plan: Diet Goals: Decrease intake of high-fat items, Keep food records, Calorie goal 8895-7770 and Increase fruit and vegetables Exercise Goals: Increase time to 30 min 5 times per week Weight Loss Goal: to 470 lb Weight Loss Remaining to Goal: 30 lb Reviewed: Food/Activity Record Next Visit: Pre-op follow-up visit Jeremy Jalloh MD - 08/07/2009 1136 EDT SUBJECTIVE: Brady returns to our office today for continued medically supervised weight loss in preparation for Staged laparoscopic sleeve gastrectomy surgery / umbilical hernia repair. He is a 33 y.o. 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 He comorbidities include gastroesophagitis, hypoventilation disorder, lymphedema, obstructive sleep apnea, venous insufficiency, hypertension, osteoarthritis,,palpitation and gout. Otherwise, he denies any changes to his medical history or medications since his previous visit. Brady met with our program dietitian for 30 minutes to review preoperative dietary recommendations.I consulted with the dietitian following her visit with the patient and agree with her findings and recommendations. OBJECTIVE: On physical examination today, his BP 148/98 Pulse 88 Ht 1.914 m (6' 3.35) Wt 227.161 kg (500 lb 12.8 oz) and Body mass index is 62.01 kg/(m^2).. ASSESSMENT AND PLAN: Brady will return to our office in a few weeks for continued medically-supervised weight loss in preparation for surgery. He understands that is a high risk of any bariatric procedure. The patient was made aware of the followin. As we perform these procedures laparoscopically, there is a chance to convert to open if any technical challenges or complications do occur. 2. Bariatric surgery is not cosmetic surgery and should not be thought of in any way as cosmetic surgery. It does not involve the removal of adipose tissue by surgery or removal by suctioning. 3. Long-life commitment is a very important part of his decision along with lifestyle changes including diet, exercise, and behavior changes. 4. Problems after surgery may require more operations to correct them. 5. He was informed that he would be on liquid/protein diet for at least 2 weeks prior to surgery. The risks, benefits and alternatives of all of the procedures were explained in detail including, but not limited to , anesthesia and medication adverse effect/DVT, pulmonary embolism, trocar site/incisional hernia, wound infection, bleeding, failure to lose weight or gain weight and change in body image. The risks of the sleeve include, but not limited to internal visceral/ organ injury, bleeding, infection, leak, stenosis and possibility of regaining weight. At the end of our discussion, the patient and his girlfriend demonstrated full understanding of all of these information and all his questions were answered. He was encouraged to read more about staged sleeve gastrectomy. Jeremy Westbrook MD documented in this encounter Plan of Treatment Not on filedocumented as of this encounter Visit Diagnoses Diagnosis Morbid obesity ([facility]) (HCC) - Primary Morbid obesity documented in this encounter Historical Medications This list may reflect changes made after this encounter. Medication Sig Dispensed Refills Start Date End Date ASPIRIN/ACETAMINOPHEN/CAFF Take 1 Tab by mouth 0 EINE (EXCEDRIN EXTRA as needed. STRENGTH ORAL) added in this encounter Care Teams Quantitative Developer Relationship Specialty Start Date End Date Robert Hong DO PCP - General 03/03/09 02/22/[address] [place] [address] [place] [id number] documented as of this encounter
--- OUTSIDE RECORDS SUMMARY | 2022-02-07 23:29 | XMS_ITS | Encounter Summary ---
:1975 Author Organization [facility] Address [address] [place] [address] Care Team Providers Name Role Phone Robert Hong Primary Care Provider Reason for Visit Reason Onset Date Comments Other 12/29/2009 Encounter Details Date Type Department Care Team Description 12/29/2009 Telephone [facility] Bariatric [facility] Paloma griffith APRN Other Surgery - [place] [address] [facility] [address] [place], [place] [id number] [place] [address] [phone] Social History Tobacco Use Types Packs/Day Years Used Date Never Smoker Alcohol Use Standard Drinks/Week Comments No 0 (1 standard drink = 0.6 oz pure alcoho l) Sex Assigned at Date Recorded Not on file documented as of this encounter Miscellaneous Notes Telephone Encounter - Paloma Perkins NP - 01/08/2010 0900 EDT I received a letter from [facility] regarding Mr Billings no- showing his PSG consult. He also no-showed an appt here and has not responded to our phone calls regarding interest in continuing with this program. elephone Encounter - Leena Thomas - 12/29/2009 1532 EDT Juice did not show for a class on Dec 05 and cancelled an appt for , called and [place] [facility] [place] check-in with us about continuing with the program. documented in this encounter Plan of Treatment Not on filedocumented as of this encounter Visit Diagnoses Not on filedocumented in this encounter Care Teams Telegraph Office Route Aide Relationship Specialty Start Date End Date Robert Hong DO PCP - General 03/03/09 02/22/[address] [place] [address] [place] [id number] documented as of this encounter
--- OUTSIDE RECORDS SUMMARY | 2022-02-07 23:29 | XMS_ITS | Encounter Summary ---
:1975 Author Organization [facility] Address [address] [place] [address] Care Team Providers Name Role Phone Robert Hong DO Primary Care Provider Encounter Details Date Type Department Care Team Description 06/09/2009 Abstract [facility] Parveen Hong DO Bariatric Surgery - [address] [place] [address] [place] [address] [place], [place] [address] [phone] Social History Tobacco Use Types Packs/Day Years Used Date Never Assessed Sex Assigned at Date Recorded Not on file documented as of this encounter Plan of Treatment Not on filedocumented as of this encounter Visit Diagnoses Not on filedocumented in this encounter Historical Medications This list may reflect changes made after this encounter. Medication Sig Dispensed Refills Start Date End Date indomethacin (INDOCIN) 25 Take 25 mg by mouth 0 01/24/2010 mg capsule 3 times daily as needed. lisinopril (PRINIVIL, Take 10 mg by mouth 0 04/02/2010 ZESTRIL) 10 mg tablet daily. added in this encounter Care Teams Welding Machine Operator Friction Relationship Specialty Start Date End Date Robert Hong DO PCP - General 03/03/09 02/22/10 [address] [place], [place] [id number] documented as of this encounter
--- OUTSIDE RECORDS SUMMARY | 2022-02-07 23:29 | XMS_ITS | Encounter Summary ---
:1975 [place] [address] Care Team Providers Name Role Phone Robert Hong DO Primary Care Provider Encounter Details Date Type Department Care Team Description 11/02/2020 Telephone General Surgery at [facility] [place] [address] Social History Tobacco Use Types Packs/Day Years Used Date Never Smoker Smokeless Tobacco: Never Used Alcohol Use Standard Drinks/Week Comments No 0 (1 standard drink = 0.6 oz pure alcoho l) Sex Assigned at Date Recorded Not on file documented as of this encounter Miscellaneous Notes Telephone Encounter - Breanna Bangura - 11/02/2020 2:54 PM EDTSummary: EGD scheduling Called the # listed on his chart )and a lady answered and advised I had the wrong number. NO alternate number is on file to contact patient to get him scheduled for the EGD being asked from his recent ED visit. Telephone Encounter - Breanna Bangura - 11/02/2020 2:53 PM EDT ----- Message from Delisa Solomon MD sent at 10/30/2020 10:14 PM EDT ----- Regarding: EGD w/ [facility], I saw this patient in the ED today for likely marginal ulcer. Can you set him up for an EGD with in 4-6 weeks? Thanks, Delisa documented in this encounter Plan of Treatment Not on filedocumented as of this encounter Visit Diagnoses Not on filedocumented in this encounter Care Teams Flight Manager Relationship Specialty Start Date End Date Robert Hong DO PCP - General 03/04/[address] [place] [address] documented as of this encounter
--- OUTSIDE RECORDS SUMMARY | 2022-02-07 23:29 | XMS_ITS | Encounter Summary ---
:1975 Author Organization [facility] Address [address] [place] [address] Care Team Providers Name Role Phone Robert Hong DO Primary Care Provider Encounter Details Date Type Department Care Team Description 06/27/2009 Abstract Used for ABSTRACTING Data Robert Hong DO [phone] [address] [place] [address] (Wo rk) Social History Tobacco Use Types Packs/Day Years Used Date Never Assessed Sex Assigned at Date Recorded Not on file documented as of this encounter Plan of Treatment Not on filedocumented as of this encounter Visit Diagnoses Not on filedocumented in this encounter Care Teams Chief Of Hospital Medicine Relationship Specialty Start Date End Date Robert Hong DO PCP - General 03/03/09 02/22/10 [address] [place] [address] documented as of this encounter
--- OUTSIDE RECORDS SUMMARY | 2022-02-07 23:29 | XMS_ITS | Encounter Summary ---
:1975 Author Organization [facility] Address [address] [place] [address] Care Team Providers Name Role Phone Robert Hong DO Primary Care Provider Encounter Details Date Type Department Care Team Description 10/30/2020 Ancillary Procedure [place] [address] Social History Tobacco Use Types Packs/Day [...] Name Priority Date/Time Associated Diagnosis Comme nts REQUEST FOR 2ND STAT 10/30/2020 6:32 PM Result s for this READ CT CHEST EDT procedure are in ABDOMEN PELVIS the results section. documented in this encounter Results Request For 2nd Read CT Chest Abdomen Pelvis (10/30/2020 6:32 PM EDT) Anatomical Region Laterality Modality Chest, Abdomen, Pelvis SO Specimen (Source) Anatomical Location Collection Method / Collectio n Time Received Time / Laterality Volume Impressions 10/30/2020 6:59 PM EDT Compatible with bleeding sites stomach and small bowel in the appropriate clinical context. Less likely possibilit y is ingested material. Ingested hyperdense material would not present as a nebulous blush in association with blood vessels. Correlate with laboratory values and if indicated additional imaging or endoscopy. Thank you for letting us participate in the care of this patient. ??If you are a health care provider and have any questi ons regarding this report, please contact the number below. ??For patients who have questions please contact the health care management associate that requested your imaging first. ? Narrative 10/30/2020 6:59 PM EDT EXAMINATION: REQUEST FOR 2ND READ CT CHEST ABDOMEN PELVIS CLINICAL HISTORY: Sharp stabbing abdomin al pain in the midepigastric that radiated to the back, history of Rina-en -Y. ??Concern for gastric bleeding from read at outside hospital; [facility]; Date of exam 20201030; I believe a reinterpretation of this exam may alter care of Patient. Yes TECHNIQUE: Following bolus administration of intrav enous contrast agent multidetector helical CT examination of the chest, abd omen and pelvis was performed at . Study is submitted for second opinion. COMPARISON: No priors. FINDINGS: CHEST: Tree-in-bud opacities are identified in the right upper lobe near the fissure. This may correlate with minor bronchioli tis or fluid in the end bronchiole units. There is no evidence of adenopath y or a pulmonary mass. ABDOMEN AND PELVIS: The liver, spleen, pancreas, adrenals an d kidneys are normal. The patient is post gastric bypass. The re is a dense contrast blush in the gastric pouch consistent with hemorrhage . There are prominent blood vessels in proximity to this blush. Correlation wit h laboratory values and if indicated endoscopy. There are additional areas of hyperdense blush in association with blood vessels in left-sided jejunal loop s also suspicious for sites of hemorrhage. Procedure Note Prem Benton MD - 10/30/2020Forma tting of this note might be different from the original. EXAMINATION: REQUEST FOR 2ND READ CT BC ST ABDOMEN PELVIS CLINICAL HISTORY: Sharp stabbing abdomin al pain in the midepigastric that radiated to the back, history of Rina-en -Y. Concern for gastric bleeding from read at outside hospital; [facility]ending [facility]; Date of exam 20201030; I believe a reinterpretation of this exam may alter care of Patient. Yes TECHNIQUE: Following bolus administration of intrav enous contrast agent multidetector helical CT examination of the chest, abd omen and pelvis was performed at . Study is submitted for second opinion. COMPARISON: No priors. FINDINGS: CHEST: Tree-in-bud opacities are identified in the right upper lobe near the fissure. This may correlate with minor bronchioli tis or fluid in the end bronchiole units. There is no evidence of adenopath y or a pulmonary mass. ABDOMEN AND PELVIS: The liver, spleen, pancreas, adrenals an d kidneys are normal. The patient is post gastric bypass. The re is a dense contrast blush in the gastric pouch consistent with hemorrhage . There are prominent blood vessels in proximity to this blush. Correlation wit h laboratory values and if indicated endoscopy. There are additional areas of hyperdense blush in association with blood vessels in left-sided jejunal loop s also suspicious for sites of hemorrhage. IMPRESSION Compatible with bleeding sites stomach a nd small bowel in the appropriate clinical context. Less likely possibilit y is ingested material. Ingested hyperdense material would not present as a nebulous blush in association with blood vessels. Correlate with laboratory values and if indicated additional imaging or endoscopy. Thank you for letting us participate in the care of this patient. If you are a health care provider and have any questi ons regarding this report, please contact the number below. For patients w ho have questions please contact the health care management associate that requested your imaging first. Cosme Blake MD IMG OUTSIDE INTERPRETATION O RDERABLES documented in this encounter Visit Diagnoses Not on filedocumented in this encounter Care Teams Collections Assistant Relationship Specialty Start Date End Date Robert Hong DO PCP - General 03/04/[address] [place] [address] documented as of this encounter
--- OUTSIDE RECORDS SUMMARY | 2022-02-07 23:29 | XMS_ITS | Encounter Summary ---
:1975 Author Organization [facility] Address [address] [place] [address] Care Team Providers Name Role Phone Josie Ramirez MD Primary Care Provider Encounter Details Date Type Department Care Team Description 10/04/2021 Lab Requisition [facility] Outr Resulting Lab, Pathology & Laboratory Provider [facility] [address] [place], [place] [id number] Social History Tobacco Use Types Packs/Day Years Used Date Never Assessed Sex Assigned at Date Recorded Not on file documented as of this encounter Plan of Treatment Not on filedocumented as of this encounter Procedures Procedure Name Priority Date/Time Associated Diagnosis Comme nts HCV RNA DETECT Routine 10/03/2021 16:08 Results f or this QUANT EDT procedure are i n the results section. HEPATITIS C AB W Routine 10/03/2021 16:08 Results for this REFLEX TO HCV RNA EDT procedure are in BY PCR the results section. HEPATITIS A TOTAL Routine 10/03/2021 16:08 Result s for this ANTIBODY W REFLEX EDT procedure are in the results section. HEPATITIS B CORE Routine 10/03/2021 16:08 Results for this ANTIBODY (TOTAL) EDT procedure a re in the results section. HEPATITIS B SURFACE Routine 10/03/2021 16:08 Resu lts for this ANTIBODY EDT procedure are i n the results section. HEPATITIS B SURFACE Routine 10/03/2021 16:08 Resu lts for this ANTIGEN EDT procedure are i n the results section. documented in this encounter Results HCV RNA DETECT QUANT (10/03/2021 16:08 EDT) Pathologist Sig nature HCV RNA Qualitative Undetected Undetected [facility] Specimen Blood - Venous blood (substance) Narrative [facility] - 10/05/2021 14:47 EDT The quantification range of this assay i s 15 IU/mL to 100,000,000 IU/mL. Testing was performed using the [employer] HCV test ([employer] with the nahum [id number] System. Performing Organization Address City/[facility]/ZIP Code Phon e Number [facility] [address] [place] [address] SERVICES HEPATITIS B SURFACE ANTIBODY (10/03/2021 16:08 EDT) Hep B Surface Ab, <3.1 See Note [facility] Quantitative Comment: mIU/mL [facility] Reference Range for Hep B Surface Ab, Quant: SERVICES Positive: >= 10.0 mIU/mL Negative: ??< 10.0 mIU/mL Patient is presumed to not be immune to infection with Hepatitis B Virus. Hep B Surface Ab, Negative See Note [facility] Qualitative Comment: [facility] Reference Range for Hep B Surface Ab, Qual: SERVICES Unvaccinated: ??Negative Vaccinated: ??Positive Specimen Blood - Venous blood (substance) Performing Organization Address [facility]/ZIP Code Phon e Number [facility] [address] [place] [address] SERVICES HEPATITIS B CORE ANTIBODY (TOTAL) (10/03/2021 16:08 EDT) Pathologist Sig nature Hepatitis B Core Ab, Negative Negative [facility] Total LABORATORY SERVICES Specimen Blood - Venous blood (substance) Performing Organization Address [facility]/ZIP Code Phon e Number [facility] [address] [place] [address] SERVICES HEPATITIS B SURFACE ANTIGEN (10/03/2021 16:08 EDT) Pathologist Sig nature Hep B Surface Ag Negative Negative [facility] Specimen Blood - Venous blood (substance) Performing Organization Address [facility]/ZIP Code Phon e Number [facility] [address] [place] [address] SERVICES HEPATITIS C AB W REFLEX TO HCV RNA BY PCR (10/03/2021 16:08 EDT) Pathologist Sig nature Hep C Antibody Negative Negative [facility] ORY SERVICES Specimen Blood - Venous blood (substance) Performing Organization Address City/[facility]/ZIP Code Phon e Number [facility] [address] [place] [address] SERVICES HEPATITIS A TOTAL ANTIBODY W REFLEX (10/03/2021 16:08 EDT) Pathologist Sig nature Hepatitis A Antibody, Negative Negative [facility] Total LABORATORY SERVICES Specimen Blood - Venous blood (substance) Narrative [facility] - 10/05/2021 10:29 EDT The result of this assay can be falsely elevated (Positive) due to the consumption of Biotin. Performing Organization Address City/State/ZIP Code Phon e Number [facility] [address] [place] [address] SERVICES documented in this encounter Visit Diagnoses Not on filedocumented in this encounter Care Teams Cell Tester Relationship Specialty Start Date End Date Josie Ramirez MD PCP - General 05/21/10 [address] [place] [address] documented as of this encounter
--- OUTSIDE RECORDS SUMMARY | 2022-02-07 23:29 | XMS_ITS | Encounter Summary ---
:1975 Author Organization [facility] Address [address] [place] [address] Care Team Providers Name Role Phone Robert Hong Primary Care Provider Reason for Visit Reason Comments Obesity pre op Encounter Details Date Type Department Care Team Description 10/09/2009 Office Visit [facility] Jeremy Fernando Morbi d obesity Bariatric Surgery - ([facility]) (Primary Dx) [address] [address] [place], [place] [phone] Social History Tobacco Use Types Packs/Day Years Used Date Never Assessed Sex Assigned at Date Recorded Not on file documented as of this encounter Last Filed Vital Signs Vital Sign Reading Time Taken Comments Blood Pressure 122/72 10/09/2009 1130 EDT Pulse 56 10/09/2009 1130 EDT Temperature - - Respiratory Rate - - Oxygen Saturation - - Inhaled Oxygen Concentration - - Weight 228.2 kg (503 lb) 10/09/2009 1130 EDT Height 191.4 cm (6' 3.35) 10/09/2009 1130 EDT Body Mass Index 62.28 10/09/2009 1130 EDT documented in this encounter Progress Notes Jeremy Fernando MD - 10/09/2009 1222 EDT SUBJECTIVE: Brady returns to our office today for continued medically supervised weight loss in preparation for laparoscopic sleeve gastrectomy surgery. He is a 33 y.o. 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 He comorbidities include gastroesophagitis, hypoventilation disorder, lymphedema, obstructive sleep ap kashif, venous insufficiency, hypertension, osteoarthritis,,palpitation and gout..e . Otherwise, he denies any changes to his medical history or medications since his previous visit. Brady met with our program dietitian for 30 minutes to review preoperative dietary recommendations.I consulted with the dietitian following her visit with the patient and agree with her findings and recommendations. OBJECTIVE: On physical examination today, his BP 122/72 Pulse 56 Ht 1.914 m (6' 3.35) Wt 228.159 kg (503 lb) and Body mass index is 62.28 kg/(m^2).. ASSESSMENT AND PLAN: Brady will return to our office in a few weeks for continued medically-supervised weight loss in preparation for surgery. He said he is happy to loose 150 Lb He understands that he can loose such weight with Sleeve gastrectomy or to consider this as staged operation . Jeremy Westbrook MD FREDTYadira Smiley - 10/09/2009 1141 EDT PRE OP NUTRITION FOLLOW UP NOTE Bariatric Clinic Nutrition Pre-op Visit Visit Number: 5 Desired surgery: Gastric Sleeve Subjective: Food logs: not completed Meal pattern: 3x/day Average caloric intake: 2100cal/day per patients Meal composition: unknown reports lots of vegetables throughout the day Snacking:appropriate Exercise: walking 4x/week limited at present d/t foot pain Objective: Weight: 503# Weight loss from last visit: 0 Total weight loss: Weight loss goal: -4.4# To 470# Surgery Date: Significant Medications and Supplements: none Assessment: Patient has made progress towards lifestyle changes Comments: no food logs, did not realize that he would be meeting with a dietitian. Pt reports 2100cal/day, limited snacking, reports increase in fruits and vegetables and lean proteins. Exercise has been limited this past week d/t foot pain but would like to get back to walking 4x/wk. Plan: Diet Goals: Calorie goal <2100 Exercise Goals: Increase time to 150min/wk Weight Loss Goal: to 470# Weight Loss Remaining to Goal: 33# Reviewed: Food/Activity Record did not bring reminded to bring to all appointments. Next Visit: Pre-op follow-up visit documented in this encounter Miscellaneous Notes Scanned Note-Null - Ancelmo, Combustion Engineer - 10/05/2010 0719 EDT documented in this encounter Plan of Treatment Not on filedocumented as of this encounter Visit Diagnoses Diagnosis Morbid obesity (HCC-CMS) (HCC) - Primary Morbid obesity documented in this encounter Care Teams Cone Cleaner Relationship Specialty Start Date End Date Robert Hong DO PCP - General 03/03/09 02/22/10 [facility] [address] [place] [address] documented as of this encounter
--- OUTSIDE RECORDS SUMMARY | 2022-02-07 23:29 | XMS_ITS | Clinical Summary ---
:[address] [facility] Address [address] [place] [address] Care Team Providers Name Role Phone Josie Ramirez MD Primary Care Provider Allergies No known active allergies Medications Medication Sig Dispensed Refills Start Date End Date Status ASPIRIN/ACETAMINOPHEN/CA Take 1 Tab by 0 Active FFEINE (EXCEDRIN EXTRA mouth as needed. STRENGTH ORAL) omeprazole (PRILOSEC) 40 Take 1 Cap by 30 Cap 4 11/08/2009 Active mg capsule mouth daily. indomethacin (INDOCIN) Take 1 Cap by 30 Each 3 01/24/2010 Active 25 mg capsule mouth 3 times daily as needed. ERGOCALCIFEROL, VITAMIN Take 50,000 0 Active D2, (VITAMIN D ORAL) Units by mouth. 1 tab Every 2 weeks lisinopril (PRINIVIL, Take 20 mg by 0 Active ZESTRIL) 20 mg tablet mouth daily. allopurinol (ZYLOPRIM) Take 300 mg by 0 Active 300 mg tablet mouth daily. Active Problems Problem Noted Date Morbid obesity ([facility]) Hypertensive disorder Gout Obstructive sleep apnea syndrome Overview: Symptoms Palpitations Surgical History Surgery Date Site/Laterality Comments TONSILLECTOMY TONSILLECTOMY AND ADENOIDECTOMY Medical History Medical History Date Comments EDUARDA (obstructive sleep apnea) HTN (hypertension) Gout Venous insufficiency Family History Medical History Relation Name Comments Diabetes Brother steroid induced Cancer Maternal Grandfather lymph ca Cancer Maternal Grandmother breast Cancer Mother breast dx age 44 and age 47 Anesthesia Problem Neg Hx Heart Disease Neg Hx Stroke Neg Hx Relation Name Status Comments Brother Maternal Grandfather Maternal Grandmother Alive Mother Social History Tobacco Use Types Packs/Day Years Used Date Never Smoker Alcohol Use Standard Drinks/Week Comments No 0 (1 standard drink = 0.6 oz pure alcoho l) Sex Assigned at Date Recorded Not on file Last Filed Vital Signs Vital Sign Reading Time Taken Comments Blood Pressure 132/80 06/18/2010 1614 EST Pulse 80 06/18/2010 1614 EST Temperature - - Respiratory Rate - - Oxygen Saturation - - Inhaled Oxygen Concentration - - Weight 227.1 kg (500 lb 9.6 oz) 06/18/2010 1614 EST Height 191.4 cm (6' 3.35) 06/18/2010 1614 EST Body Mass Index 61.98 06/18/2010 1614 EST Plan of Treatment Health Maintenance Due Date Last Done Comments COVID-19 Vaccine (#1) 04/11/1978 Hepatitis C Screen Completed 10/03/2021, 10/03/2021 Advance Directives For more information, please contact: [phone] Documents on File Type Date Recorded Patient Communications Program Manager Explanati on Advance Directives and Living Will Care Teams Strike Off Machine Operator Relationship Specialty Start Date End Date Josie Ramirez MD PCP - General 05/21/10 [address] [place] [address]
--- OUTSIDE RECORDS SUMMARY | 2022-02-07 23:29 | XMS_ITS | Encounter Summary ---
:1975 Author Organization [facility] Address [address] [place] [address] Care Team Providers Name Role Phone Robert Hong DO Primary Care Provider Josie Ramirez MD Primary Care Provider Robert Hong DO Primary Care Provider Josie Ramirez MD Primary Care Provider Encounter Details Date Type Department Care Team Description 08/04/2009 Documentation Visit [facility] Mindy Young R D Bariatric Surgery - [address] [place], [place] [id number] Social History Tobacco Use Types Packs/Day Years Used Date Never Assessed Sex Assigned at Date Recorded Not on file documented as of this encounter Last Filed Vital Signs Vital Sign Reading Time Taken Comments Blood Pressure - - Pulse - - Temperature - - Respiratory Rate - - Oxygen Saturation - - Inhaled Oxygen Concentration - - Weight - - Height 191.4 cm (6' 3.35) 08/04/2009 1200 EDT Body Mass Index - - documented in this encounter Plan of Treatment Not on filedocumented as of this encounter Visit Diagnoses Not on filedocumented in this encounter Care Teams Milk Runner Relationship Specialty Start Date End Date Robert Hong DO PCP - General 03/03/09 02/22/10 [address] [place] [address] Josie Ramirez MD PCP - General 02/23/10 05/14/10 [address] [place] [address] Robert Hong DO PCP - General 05/15/10 05/20/10 [address] [facility] [place] [address] Josie Ramirez MD PCP - General 05/21/10 [address] [facility] [place] [address] documented as of this encounter
--- OUTSIDE RECORDS SUMMARY | 2022-02-07 23:29 | XMS_ITS | Encounter Summary ---
:1975 Author Organization [facility] Address [address] [place] [address] Care Team Providers Name Role Phone Josie Ramirez MD Primary Care Provider Reason for Visit Reason Onset Date Comments Other 07/04/2010 no showed appt Encounter Details Date Type Department Care Team Description 07/04/2010 Telephone [facility] Paloma Perkins, Ot her (no showed appt) Bariatric Surgery - EMERGENCY WORKER [address] [place] [address] [place] [address] [phone] Social History Tobacco Use Types Packs/Day Years Used Date Never Smoker Alcohol Use Standard Drinks/Week Comments No 0 (1 standard drink = 0.6 oz pure alcoho l) Sex Assigned at Date Recorded Not on file documented as of this encounter Miscellaneous Notes Telephone Encounter - Adrianne Kirk - 07/04/2010 0909 EST Pt No Showed appt today with Mindy Young. Call pt and left message with machine to call back and RSC. documented in this encounter Plan of Treatment Not on filedocumented as of this encounter Visit Diagnoses Not on filedocumented in this encounter Care Teams Director Of Recruiting Relationship Specialty Start Date End Date Josie Ramirez MD PCP - General 05/21/10 [address] [place] [address] documented as of this encounter
--- OUTSIDE RECORDS SUMMARY | 2022-02-07 23:29 | XMS_ITS | Encounter Summary ---
:1975 Author Organization [facility] Address [address] [place] [address] Care Team Providers Name Role Phone Josie Ramirez MD Primary Care Provider Reason for Visit Reason Comments Obesity Encounter Details Date Type Department Care Team Description 06/18/2010 Office Visit [facility] Paloma Perikns Andree mcqueen obesity (CMS-HCC); Bariatric Surgery - S, SEASONAL DELIVERY DRIVER HTN (hypertension); [address] [facility] Gout; [address], [place] [address] [phone] Social History Tobacco Use Types Packs/Day Years [...] Body Mass Index 61.98 06/18/2010 1614 EST documented in this encounter Discharge Disposition Disposition Code Departure Means Destination Auto Discharge documented in this encounter Progress Notes Mindy Young, RD - 06/18/2010 1653 EST PRE OP NUTRITION FOLLOW UP NOTE Bariatric Clinic Nutrition Pre-op Visit Visit Number: 9 Desired surgery: Gastric Sleeve staged Subjective: Not here since Mar due to weather last month. Claims doing food logs but didn't bring again. States calories around 2100 daily. Exercise: some walking when weather permits, asks for what he can do indoors Objective: Weight: 500 lb Weight loss from last visit: -15 lb Total weight loss: Weight loss goal: -8 lb Approximately 25 lb NOTE: Revised weight loss goal Surgery Date: Significant Medications and Supplements: Vit D Assessment: Patient has made progress towards lifestyle changes Comments: good weight loss in past 2 months but still no food logs to review! Patient must bring food logs in before nutrition class-will either bring to support group or mail to me (address provided).Reviewed options for indoor exercise including mall walking, exercise DVD, etc. Plan: Diet Goals: Keep food records, Eat more slowly and Start taking a daily vitamin Exercise Goals: Increase time to 150 min per week Weight Loss Goal: Approximately 25 lb Weight Loss Remaining to Goal: Approximately 17 lb Reviewed: Food Log Not Reviewed Next Visit: Nutrition class scheduled on 07/04/2010 if brings or mails food logs Paloma Hood NP - 06/18/2010 1644 EST 06/18/2010 SUBJECTIVE: Brady returns to our office today for continued medically supervised weight loss in preparation for laparoscopic sleeve gastrectomy possibly as a staged procedure to gastric bypass surgery. He is a 34 y.o. 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 His comorbidities include gastroesophagitis, hypovent ilation disorder, obstructive sleep apnea, hypertension, osteoarthritis and gout. PSG - still has not a sleep study. I spent the majority of this visit in counseling regarding 1. Untreated EDUARDA 2. Demonstrating a commitment to the priniciples of this program Otherwise, he denies any changes to his medical history or medications since his previous visit. Brady met with our program dietitian for 30 minutes to review preoperative dietary recommendations.I consulted with the dietitian following her visit with the patient and agree with her findings and recommendations. OBJECTIVE: On physical examination today, his BP 132/80 Pulse 80 Ht 191.4 cm (75.35) Wt 227.071 kg (500 lb 9.6 oz) BMI 61.98 kg/m2 and Body mass index is 61.98 kg/(m^2).. ASSESSMENT AND PLAN: Brady will return to our office in a few weeks for continued medically-supervised weight loss in preparation for surgery. Paloma Perkins NP documented in this encounter Miscellaneous Notes Scanned Note-Null - Local Sales Manager, Scan - 03/29/2011 1037 EST documented in this encounter Plan of Treatment Not on filedocumented as of this encounter Visit Diagnoses Diagnosis Morbid obesity (HCC-CMS) (HCC) Morbid obesity HTN (hypertension) Unspecified essential hypertension Gout Gout, unspecified Snoring Other dyspnea and respiratory abnormalit y documented in this encounter Discontinued Medications Medication Sig Discontinue Reason Start Date End Date lisinopril (PRINIVIL, Take 1 Tab by mouth Dose adjustment 0 06/18/2010 ZESTRIL) 10 mg daily. tabletIndications: HTN (hypertension) documented as of this encounter Historical Medications This list may reflect changes made after this encounter. Medication Sig Dispensed Refills Start Date End Date allopurinol (ZYLOPRIM) 300 Take 300 mg by mouth 0 mg tablet daily. lisinopril (PRINIVIL, Take 20 mg by mouth 0 ZESTRIL) 20 mg tablet daily. added in this encounter Care Teams Hydrogen Power Plant Engineer Relationship Specialty Start Date End Date Josie Ramirez MD PCP - General 05/21/10 [address] [place], [place] [id number] documented as of this encounter
--- OUTSIDE RECORDS SUMMARY | 2022-02-07 23:29 | XMS_ITS | Clinical Summary ---
:1975 Author Organization [facility] [place] [address] Care Team Providers Name Role Phone Hal Robert GRAY Primary Care Provider Allergies Active Allergy Reactions Severity Noted Date Comments Morphine Nausea And Vomiting High 01/20/2013 Medications Medication Sig Dispensed Refills Start Date End Date Status calcium citrate-vitamin Take 2 tablets 360 tablet 3 01/13/2014 Active D (CALCIUM CITRATE + D) by mouth 2 times 315-200 mg-unit Tablet daily. (2) tabs 2 times daily. glvgxapznkhp-gzvw-welmg Take 1 tablet by 180 tablet 3 01/14/20 14 Active als (COMPLETE mouth 2 times MULTIVITAMIN) Tablet daily. (1) tab daily cyanocobalamin (VITAMIN Take 500 mcg by 0 Active B-12) 500 mcg Tablet mouth daily. sucralfate (Carafate) 1 Take 1 tablet by 120 tablet 0 10/31/19 21 Active gram Tablet mouth 4 times daily. Active Problems Problem Noted Date Abdominal panniculus 03/06/2014 Poor dentition 09/11/2013 Venous stasis 10/18/2012 Varicose veins 10/18/2012 Preoperative Class IV obesity, S/P gastric bypass 01/2008/26/2012 GERD (gastroesophageal reflux disease) 08/26/2012 Overview: A. EGD done on 06/06/09: Mild esophagitis, reflux induced. Mild gastritis found in the antrum. Normal duodenum. Path: GE junction: Acute esophagitis with erosion ulceration Squamocolumnar mucosa consisten t with reflux esophagitis. PASF stain to evaluate for fungal organisms negative. No H. Pylori. Antral biopsy: Mild chronic gastriti and reactive epithelial changes Gout and hyperuricemia 08/26/2012 Umbilical hernia 08/26/2012 Resolved Problems Problem Noted Date Resolved Date Facial cellulitis 06/04/2013 09/11/2013 Candidal intertrigo 10/18/2012 09/11/2013 Dyspnea on exertion 10/18/2012 09/11/2013 Impaired mobility 10/18/2012 05/30/2013 Hypertension 08/26/2012 09/05/2014 Type 2 diabetes mellitus 08/26/2012 09/05/2014 Peripheral edema 08/26/2012 09/11/2013 Leg ulcer, left 08/26/2012 05/30/2013 Vitamin d deficiency (17) with PTH elevation (91) on 01/29/12 08/26/2012 05/30/2013 Family History Medical History Relation Comments Diabetes Brother Lymphoma Maternal Grandfather Breast Cancer Maternal Grandmother Breast Cancer Mother Relation Status Comments Brother Maternal Grandfather Maternal Grandmother Mother Social History Tobacco Use Types Packs/Day Years Used Date Never Smoker Smokeless Tobacco: Never Used Alcohol Use Standard Drinks/Week Comments No 0 (1 standard drink = 0.6 oz pure alcoho l) Sex Assigned at Date Recorded Not on file Last Filed Vital Signs Vital Sign Reading Time Taken Comments Blood Pressure 150/90 10/30/2020 7:26 PM EDT Pulse 70 10/30/2020 5:15 PM EDT Temperature 37 ??C (98.6 ??F) 10/30/2020 5:15 PM EDT Respiratory Rate 16 10/30/2020 7:26 PM EDT Oxygen Saturation 96% 10/30/2020 7:26 PM EDT Inhaled Oxygen Concentration - - Weight 90.7 kg (200 lb) 10/30/2020 5:15 PM EDT Height 192.8 cm (6' 3.9) 06/11/2016 2:37 PM EST Body Mass Index 24.41 06/11/2016 2:37 PM EST Plan of Treatment Health Maintenance Due Date Last Done Comments Covid-19 Vaccine (#1) 04/11/1978 HIV screen 10/11/1995 Hepatitis C Screening 10/11/1995 Lipid Screening 10/11/1995 Tdap adult 1996 Tetanus vaccine 1996 Influenza (Flu) vaccine (1 of 1 - Influenza standard 12/27/2021 series) Medical Devices Implanted Type Area Solder Making Supervisor Device Shelf Model / Identifier Expiration Serial / Date Lot Mesh,Ventlx,St,Sm,Crcl,2.5 ([id number]) - [id number] IMPLANTS [employer] - 1825 02/26/2016 [id number] / Implanted: Qty: 1 on 06/02/2014 by Candi Gallegos MD at [facility] / [id number] Advance Directives Latest Code Status on File Code Status Date Activated Date Inactivated Comments Full Code 06/02/2014 1:00 PM 06/02/2014 10:03 PM Full Code 06/04/2013 6:52 PM 06/06/2013 2:59 PM Order Status: Initial Order Does patient have decision making capacity? Yes, Order is based on Patients wishes. Full Code 01/20/2013 6:04 PM 01/22/2013 3:15 PM Order Status: Initial Order Does patient have decision making capacity? Yes, Order is based on Patients wishes. Full Code 01/20/2013 12:13 PM 01/20/2013 6:04 PM Does patient have decision making capacity? Yes, order is based on Patient wishes. Care Teams Supervisor Conditioning Yard Relationship Specialty Start Date End Date Robert Hong DO PCP - General 03/04/[address] [place] [address]
--- OUTSIDE RECORDS SUMMARY | 2022-02-07 23:29 | XMS_ITS | Encounter Summary ---
:1975 Author Organization [facility] Address [address] [place] [address] Care Team Providers Name Role Phone Robert Hong DO Primary Care Provider Encounter Details Date Type Department Care Team Description 08/01/2009 Abstract [facility] Parveen Hong DO Bariatric Surgery - [address] [place] [address] [place] [address] [place], [place] [id number] [phone] Social History Tobacco Use Types Packs/Day Years Used Date Never Assessed Sex Assigned at Date Recorded Not on file documented as of this encounter Plan of Treatment Not on filedocumented as of this encounter Visit Diagnoses Not on filedocumented in this encounter Care Teams Americanization Teacher Relationship Specialty Start Date End Date Robert Hong DO PCP - General 03/03/09 02/22/[address] [place] [address] [address] documented as of this encounter
--- OUTSIDE RECORDS SUMMARY | 2022-02-07 23:29 | XMS_ITS | Encounter Summary ---
:1975 Author Organization [facility] Address [address] [place] [address] Care Team Providers Name Role Phone Robert Hong DO Primary Care Provider Reason for Referral Consult (Routine) - Closed Specialty Diagnoses / Procedures Referred By Contact Refer red To Contact Sleep Medicine Diagnoses Morbid obesity ([facility]) ([facility]) EDUARDA (obstructive sleep apnea) Preoperative testing Paloma Perkins [facility] VAULT WORKER [address] [facility] [address] [place] [address] [address] [place] [address] Phone: Fax: Referral ID Status Reason Start Date Expiration Date Visits V isits Requested Authorized [id number] Closed Specialty 11/08/2009 1 1 Services Required Question Answer Reason for Request: preop testing, past hx untre ated EDUARDA Comments Will need a split night study Reason for Visit Reason Comments Obesity #2 Encounter Details Date Type Department Care Team Description 11/08/2009 Office Visit [facility] Paloma Perkins d obesity (CMS-HCC); Bariatric Surgery - S, 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 WORKER HTN (hypertension); [place] [address] [facility]; [address] [place], [place] EDUARDA (obstructive sleep apnea ); [place] [id number] Dyslipidemia; [phone] Hypothyroid; (Work) Preoperative testing Social History Tobacco Use Types Packs/Day Years Used Date Never Smoker Alcohol Use Standard Drinks/Week Comments No 0 (1 standard drink = 0.6 oz pure alcoho l) Sex Assigned at Date Recorded Not on file documented as of this encounter Last Filed Vital Signs Vital Sign Reading Time Taken Comments Blood Pressure 126/72 11/08/2009 1330 EDT Pulse 76 11/08/2009 1330 EDT Temperature - - Respiratory Rate - - Oxygen Saturation - - Inhaled Oxygen Concentration - - Weight 223.6 kg (493 lb) 11/08/2009 1330 EDT Height 191.4 cm (6' 3.35) 11/08/2009 1330 EDT Body Mass Index 61.04 11/08/2009 1330 EDT documented in this encounter Patient Instructions Patient InstructionsMindy Young RD - 11/08/2009 13:51 EDT Keep food logs and calorie count and bring in to next clinic visit Increase exercise to 30 min at least 5 times per week documented in this encounter Ordered Prescriptions Prescription Sig Dispensed Refills Start Date End Date omeprazole (PRILOSEC) 40 mg Take 1 Cap by mouth 30 Cap 4 11/08/2009 capsule daily. documented in this encounter Progress Notes Mindy Young RD - 11/08/2009 1349 EDT PRE OP NUTRITION FOLLOW UP NOTE Bariatric Clinic Nutrition Pre-op Visit Visit Number: 6 Desired surgery: Gastric Sleeve Subjective: Moved recently and has misplaced food logs. More activity with moving. Food logs: maintained but not brought in Meal pattern: unk Average caloric intake: pt claims <2000 per day Meal composition: claims more fruits and vegetables Snacking:unk Exercise: not consistent Objective: Weight: 493 lb Weight loss from last visit: -10 lb Total weight loss: Weight loss goal: -14.4 lb Approximately to 470 lb Surgery Date: Significant Medications and Supplements: none Assessment: Patient has made progress towards lifestyle changes Comments: needs to bring in food logs with calories counted. By oral review, pt intake appears to beimproving and weight is decreased. Needs more consistent exercise Plan: Diet Goals: Keep food records, Eat more slowly, Start taking a daily vitamin and Calorie goal <2000 loepz Exercise Goals: Increase time to 150 min per week Weight Loss Goal: to approx 470 lb Weight Loss Remaining to Goal: 23 lb Reviewed: Food/Activity Record, not reviewed as not brought in Next Visit: Pre-op follow-up visit, post op nutrition class 12/05 Paloma Swanson, DANILO - 11/08/2009 1338 EDT ROBERT HONG [address] [place] [address] Hong : Thank you for referring your patient, Brady Billings, for evaluation and consideration of laparoscopic adjustable gastric band surgery. Mr. Billings met with Dr. Westbrook for his initial consultation. He denies any changes in his medical history or medications since his previous visit. Mr. Billings is a 34 y.o. 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 His comorbidities include gastroesophagitis, hypoventilation disorder, obstructive sleep apnea, venous insufficiency, hypertension, osteoarthritis and gout. Review of Systems - Psychological ROS: negative Allergy and Immunology ROS: denies allergy to metal, latex, or iodine Hematological and Lymphatic ROS: negative for - bleeding problems, blood clots or blood transfusions Endocrine ROS: negative Respiratory ROS: no cough, shortness of breath, or wheezing had a pos PSG when he was 16 but stopped using CPAP after tonsilectomy. Cardiovascular ROS: denies chest pain, has htn Gastrointestinal ROS: GERD, gastritis on EGD (06/07) Genito-Urinary ROS: negative Musculoskeletal ROS: foot pain with gout flares, also has some OA of spine Neurological ROS: has migraine H/A about 2 x yr. . Current outpatient prescriptions: ASPIRIN/ACETAMINOPHEN/CAFFEINE (EXCEDRIN EXTRA STRENGTH ORAL), Take 1 Tab by mouth as needed., Disp: , Rfl: ; lisinopril (PRINIVIL, ZESTRIL) 10 mg tablet, Take 10 mg by mouth daily., Disp: , Rfl: ; indomethacin (INDOCIN) 25 mg capsule, Take 25 mg by mouth 3 times daily as needed., Disp: , Rfl: Allergies include: Review of patient's allergies indicates no known allergies. Past Surgical History Procedure Date ??? Tonsillectomy family history is not on file. 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 For exercise Brady is walking for exercise 1 mile daily Friday thru .. Brady met with our program feed weigher for 30 minutes to review preoperative dietary recommendations.I did consult our feed weigher following her visit with the patient and agree with her findings and recommendations. On physical examination today, his BP 126/72 Pulse 76 Ht 1.914 m (6' 3.35) Wt 223.623 kg (493lb) and Body mass index is 61.04 kg/(m^2).. Also, on physical exam Neck - supple, no significant adenopathy, thyroid exam: thyroid is normal in size without nodules ortenderness Chest - clear to auscultation, no wheezes, rales or rhonchi, symmetric air entry Heart - normal rate, regular rhythm, normal S1, S2, no murmurs, rubs, clicks or gallops Abdomen - soft, nontender, nondistended, no masses or organomegaly no abdominal bruits Musculoskeletal - no joint tenderness, deformity or swelling Extremities - peripheral pulses normal, no pedal edema, no clubbing or cyanosis, venous stasis dermatitis noted, no ulcers, gangrene or atrophic changes Mr. Billings is an appropriate candidate for laparoscopic sleeve gastrectomy surgery with a BMI of 61 and multiple life threatening comorbidities. We will need the following things in order to proceed with his evaluation PSG and pre-op labs as well as will start him on omeprazole for gastritis and GERD . I did spend over 50% of this 45 minute visit in discussion of possible short and environmental services technician risks andcomplications of bariatric surgery as they pertain to his particular health profile. I also discussed the importance of exercise for weight loss and weight loss maintenance and reviewed the importance of smoking cessation regarding both his cardiovascular risk factors as well as his ability to heal from surgery among many other health risks. If you have any questions or concerns regarding any information in this letter, please do not hesitate to contact me. Brady Billings will be returning to our office in a few weeks for continued medically supervised weight loss in preparation for surgery. Sincerely Yours, Paloma Perkins NP CC: documented in this encounter Procedure Notes Inpatient, Physician, MD - 12/22/2009 1254 EDTAssociated Order(s): PATHOLOGY - SCANNED documented in this encounter Miscellaneous Notes Scanned Note-Null - Ancelmo, Register Of Deeds - 12/03/2010 1011 EDT canned Note- Null - Physician Morales MD - 11/15/2009 1613 EDT documented in this encounter Plan of Treatment Scheduled Referrals Name Type Priority Associated Diagnoses Order S chedule AMB CONSULT SLEEP Outpatient Referral Routine Morbid obesity O rdered: CENTER ([facility]) 11/08/2009 EDUARDA (obstructive sleep apnea) Preoperative testing documented as of this encounter Procedures Procedure Name Priority Date/Time Associated Diagnosis Comme nts PATHOLOGY - SCANNED 12/22/2009 12:54 Resu lts for this EDT procedure are i n the results section. documented in this encounter Results PATHOLOGY - SCANNED (12/22/2009 12:54 EDT) Specimen Narrative This result has an attachment that is no t available. Procedure Note InpatientPhysician MD - 12/22/2009 12 :54 EDT Performing Organization Address City/State/ZIP Code Phon e Number [facility] POINT OF CARE documented in this encounter Visit Diagnoses Diagnosis Morbid obesity ([facility]) (HCC) Morbid obesity HTN (hypertension) Unspecified essential hypertension Gout Gout, unspecified EDUARDA (obstructive sleep apnea) Obstructive sleep apnea (adult) (pediatr ic) Dyslipidemia Other and unspecified hyperlipidemia Hypothyroid Unspecified hypothyroidism Preoperative testing Preoperative examination, unspecified documented in this encounter Care Teams Anatomic Pathology Manager Relationship Specialty Start Date End Date Robert Hong DO PCP - General 03/03/09 02/22/10 [address] [place] [address] documented as of this encounter
--- OUTSIDE RECORDS SUMMARY | 2022-02-07 23:29 | XMS_ITS | Encounter Summary ---
:1975 Author Organization [facility] Address [address] [place] [address] Care Team Providers Name Role Phone Robert Hong Primary Care Provider Reason for Visit Reason Comments Obesity pre op Encounter Details Date Type Department Care Team Description 09/18/2009 Office Visit [facility] Jeremy Fernando Morbi d obesity Bariatric Surgery - MD ([facility]) (Primary Dx) [address] [address] [place], [place] [phone] Social History Tobacco Use Types Packs/Day Years Used Date Never Assessed Sex Assigned at Date Recorded Not on file documented as of this encounter Last Filed Vital Signs Vital Sign Reading Time Taken Comments Blood Pressure 164/102 09/18/2009 1042 EDT Pulse 64 09/18/2009 1042 EDT Temperature - - Respiratory Rate - - Oxygen Saturation - - Inhaled Oxygen Concentration - - Weight 228.2 kg (503 lb) 09/18/2009 1042 EDT Height 191.4 cm (6' 3.35) 09/18/2009 1042 EDT Body Mass Index 62.28 09/18/2009 1042 EDT documented in this encounter Patient Instructions Patient InstructionsYandy Hebert - 09/18/2009 12:17 EDT Diet Goals: Eat smaller meals, Include protein at least 3 times a day, Keep food records, Eat more slowly, Calorie goal: <2500 , Increase fruit and vegetables and eat breakfast everyday. Protein foods: Cottage cheese Eggs (boiled) Lean meats: chicken, fish, turkey, low fat beef/pork Peanut butter Nuts - be careful high in calories Yogurt Cheese - 1 oz Beans, Hummus documented in this encounter Discharge Disposition Disposition Code Departure Means Destination Auto Discharge documented in this encounter Progress Notes Jeremy Fernando MD - 09/18/2009 1326 EDT SUBJECTIVE: Brady returns to our office today for continued medically supervised weight loss in preparation for laparoscopic sleeve gastrectomy surgery. He is a 33 y.o. 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 He comorbidities include gastroesophagitis, hypoventilation disorder, lymphedema, obstructive sleep ap kashif, venous insufficiency, hypertension, osteoarthritis,,palpitation and gout.. Otherwise, he denies any changes to his medical history or medications since his previous visit. Brady met with our program dietitian for 30 minutes to review preoperative dietary recommendations.I consulted with the dietitian following her visit with the patient and agree with her findings and recommendations. OBJECTIVE: On physical examination today, his BP 164/102 Pulse 64 Ht 1.914 m (6' 3.35) Wt 228.159 kg (503 lb) and Body mass index is 62.28 kg/(m^2).. ASSESSMENT AND PLAN: Brady will return to our office in a few weeks for continued medically-supervised weight loss in preparation for surgery. He understands that: He needs to loose some weight. He gained 3 LB since the last visit. Jeremy Westbrook MD Yandy huddleston - 09/18/2009 1152 EDT PRE OP NUTRITION FOLLOW UP NOTE Bariatric Clinic Nutrition Pre-op Visit Visit Number: 4 Desired surgery: Gastric Sleeve Subjective: Food logs: maintaining Meal pattern: tries to eat 3 meals/ often skips breakfast Average caloric intake: 2758-9475 per pt Meal composition: has increased fruits and veggies, has switched to all whole grains, proteins Snacking: not often Exercise: walking 1 mile 4x/wk Objective: Weight: 503 Weight loss from last visit: +3 Total weight loss: Weight loss goal: -4.4 470lbs Surgery Date: Significant Medications and Supplements: no Assessment: Patient has made progress towards lifestyle changes but has gained 3 lbs. Pt frustrated with weight gain. Discussed smaller portions of higher lopez foods and CHO and larger portions of lower lopez foods: fruits/veggies/ lean proteins. Pt eating 0485-1068 cals/day, rec stay under 2500 (optimal 4049-5042).Walking after supper most nights. Plan: Diet Goals: Eat smaller meals, Include protein at least 3 times a day, Keep food records, Eat more slowly, Calorie goal: <2500 , Increase fruit and vegetables and eat breakfast everyday. Exercise Goals: Maintain current exercise Weight Loss Goal: 470lbs Weight Loss Remaining to Goal: 33lbs Reviewed: Food/Activity Record Next Visit: Pre-op follow-up visit Yandy Du RD documented in this encounter Plan of Treatment Not on filedocumented as of this encounter Visit Diagnoses Diagnosis Morbid obesity (HCC-CMS) (HCC) - Primary Morbid obesity documented in this encounter Care Teams Forming Department End Finder Relationship Specialty Start Date End Date Robert Hong DO PCP - General 03/03/09 02/22/10 [facility] [place] [address] documented as of this encounter
--- OUTSIDE RECORDS SUMMARY | 2022-02-07 23:29 | XMS_ITS | Encounter Summary ---
:1975 Author Organization [facility] Address [address] [place] [address] Care Team Providers Name Role Phone Josie Ramirez MD Primary Care Provider Encounter Details Date Type Department Care Team Description 10/04/2021 Lab Requisition [facility] Outr Resulting Lab, Pathology & Laboratory Provider [facility] [address] [id number] Social History Tobacco Use Types Packs/Day Years Used Date Never Assessed Sex Assigned at Date Recorded Not on file documented as of this encounter Plan of Treatment Not on filedocumented as of this encounter Procedures Procedure Name Priority Date/Time Associated Comments Diagnosis HIV 1/2 ANTIGEN AND Routine 10/03/2021 16:08 Resu lts for this ANTIBODY, 4TH EDT procedure are in GENERATION the results section. documented in this encounter Results HIV 1/2 ANTIGEN AND ANTIBODY, 4TH GENERATION (10/03/2021 16:08 EDT) HIV 1 and 2 NegativeComment: If Negative [facility] Antibody/p24 acute HIV-1 LABORATORY Antigen, 4th infection is SERVICES Generation suspected in a high risk patient, submit plasma specimen for HIV-1 RNA quantitation test. Specimen Blood - Venous blood (substance) Narrative [facility] LABORATORY SERVICES - 10/05/2021 10:14 EDT Fourth Generation assay performed on the Siemens Centaur XPT. Performing Organization Address City/State/ZIP Code Phon e Number [facility] [address] [place] [address] SERVICES documented in this encounter Visit Diagnoses Not on filedocumented in this encounter Care Teams Engineering Agent Relationship Specialty Start Date End Date Josie Ramirez MD PCP - General 05/21/10 [address] [place] [address] documented as of this encounter
--- OUTSIDE RECORDS SUMMARY | 2022-02-07 23:29 | XMS_ITS | Encounter Summary ---
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 Morbid obesity (CMS-HCC); [place] [address] [facility] Gout; [address] [place], [place] EDUARDA (obstructive sleep apnea ) [place] [address] [phone] Social History Tobacco Use Types Packs/Day Years Used Date Never Smoker Alcohol Use Standard Drinks/Week Comments No 0 (1 standard drink = 0.6 oz pure alcoho l) Sex Assigned at Date Recorded Not on file documented as of this encounter Last Filed Vital Signs Vital Sign Reading Time Taken Comments Blood Pressure 140/82 04/02/2010 0941 EST Pulse - - Temperature - - Respiratory Rate - - Oxygen Saturation - - Inhaled Oxygen Concentration - - Weight 233.6 kg (515 lb) 04/02/2010 0941 EST Height 191.4 cm (6' 3.35) 04/02/2010 0941 EST Body Mass Index 63.77 04/02/2010 0941 EST documented in this encounter Ordered Prescriptions Prescription Sig Dispensed Refills Start Date End Date lisinopril (PRINIVIL, Take 1 Tab by mouth 90 Each 3 04/0206/18/2010 ZESTRIL) 10 mg daily. tabletIndications: HTN (hypertension) documented in this encounter Progress Notes Paloma Perkins, OPTICAL LATHE OPERATOR - 04/02/2010 1023 EST 04/02/2010 SUBJECTIVE: Brady returns to our office today for continued medically supervised weight loss in preparation for laparoscopic sleeve gastrectomy possibly as a staged procedure to gastric bypass surgery. He is a 34 y.o. 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 His comorbidities include gastroesophagitis, hypovent ilation disorder, obstructive sleep apnea, hypertension, osteoarthritis and gout. Went to behavior skills class. Has appt for PSG next week. Will be starting basketball 2 x week and now has access to an indoor track for exercise. Has been eating junk food so gained weight. Right nowhas a migraine and not feeling well. Did not bring food logs but states he is doing them. He ran out of his lisinopril and requesting refill. Otherwise, he denies any changes to his medical history or medications since his previous visit. Brady met with our program dietitian for 30 minutes to review preoperative dietary recommendations.I consulted with the dietitian following her visit with the patient and agree with her findings and recommendations. OBJECTIVE: On physical examination today, his BP 140/82 Ht 191.4 cm (75.35) Wt 233.602 kg (515 lb) and Body mass index is 63.77 kg/(m^2).. ASSESSMENT AND PLAN: 1. Refilled lisinopril 10mg 2. Discussed need to bring food logs 3. Brady will return to our office in a few weeks for continued medically- supervised weight loss inpreparation for surgery. Paloma Perkins NP Mindy Aponte, CHARLEE - 04/02/2010 1015 EST PRE OP NUTRITION FOLLOW UP NOTE Bariatric Clinic Nutrition Pre-op Visit Visit Number: 8 Desired surgery: Gastric Sleeve Subjective: Left food logs in 's car. Claims maintained. Admits to extra snacking on potato chips in the afternoon. Not working, around the house, and snacking. Claims fluid weight up-appointment with PMD nextweek Exercise: some football, hopes to play basket ball with friends Objective: Weight: 515 Weight loss from last visit: +14.4 lb Total weight loss: Weight loss goal: +7 lb Approximately to 470 lb Surgery Date: Significant Medications and Supplements: Vit D Assessment: Patient has made poor progress in making lifestyle changes Comments: weight continues to climb-possibly fluid related but not helped by restart of snacking behavior. Encouraged patient to remove tempting food from the house, speak with spouse about this and decrease salt intake. i still need to see his food logs and patient is aware of that. Plan: Diet Goals: Keep food records, Eat more slowly, Start taking a daily vitamin and stop salty snacks Exercise Goals: Increase time to 150 min per week Weight Loss Goal: Approximately to 470 lb Weight Loss Remaining to Goal: Approximately 45 lb Reviewed: Food/Activity Record-not reviewed as not brought in Next Visit: Pre-op follow-up visit documented in this encounter Miscellaneous Notes Scanned Note-Null - Industrial Electrical Engineer, Isidro - 03/13/2011 1027 EST documented in this encounter Plan of Treatment Not on filedocumented as of this encounter Visit Diagnoses Diagnosis HTN (hypertension) - Primary Unspecified essential hypertension Morbid obesity (HCC-CMS) (HCC) Morbid obesity Gout Gout, unspecified EDUARDA (obstructive sleep apnea) Obstructive sleep apnea (adult) (pediatr ic) documented in this encounter Discontinued Medications Medication Sig Discontinue Reason Start Date End Date ergocalciferol (DRISDOL; Take 1 Cap by Patient Stopped Taking 01/2404/02/2010 VITAMIN D2) 50,000 unit mouth once a capsuleIndications: week. Vitamin D deficiency lisinopril (PRINIVIL, Take 10 mg by Reorder 04/02 ZESTRIL) 10 mg tablet mouth daily. documented as of this encounter Historical Medications This list may reflect changes made after this encounter. Medication Sig Dispensed Refills Start Date End Date ERGOCALCIFEROL, VITAMIN Take 50,000 Units by 0 D2, (VITAMIN D ORAL) mouth. 1 tab Every 2 weeks added in this encounter Care Teams Green Ware Caster Relationship Specialty Start Date End Date Josie Ramirez MD PCP - General 02/23/10 05/14/10 [place] [address] documented as of this encounter
--- OUTSIDE RECORDS SUMMARY | 2022-02-07 23:29 | XMS_ITS | Encounter Summary ---
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 HTN (hypertension); [address] [place] [id number] Social History Tobacco Use Types Packs/Day Years Used Date Never Smoker Alcohol Use Standard Drinks/Week Comments No 0 (1 standard drink = 0.6 oz pure alcoho l) Sex Assigned at Date Recorded Not on file documented as of this encounter Last Filed Vital Signs Vital Sign Reading Time Taken Comments Blood Pressure 172/108 02/19/2010 0956 EDT Pulse 72 02/19/2010 0956 EDT Temperature - - Respiratory Rate - - Oxygen Saturation - - Inhaled Oxygen Concentration - - Weight 227.1 kg (500 lb 9.6 oz) 02/19/2010 0956 EDT Height 191.4 cm (6' 3.35) 02/19/2010 09 EDT Body Mass Index 61.98 02/19/2010 0956 EDT documented in this encounter Progress Notes Paloma Perkins NP - 02/19/2010 1019 EDT SUBJECTIVE: Brady returns to our office today for continued medically supervised weight loss in preparation for Rina-En-Y gastric bypass surgery. He is a 34 y.o. 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 His comorbidities include gastroesophagitis, hypoventilation disorder, obstructive sleep apnea, hypertension, osteoarthritis and gout. Has lost 7 pounds since last visit. Stated he stopped using salt. He did not keep or bring food logsto this visit therefore I was unable to review any dietary changes. He did wear his compression stockings one day for 6 hrs. Also exercising at least 7 day a week x 1 mile, also played football this weekend. Still needs to make appt for the PSG. Has behavioral skills class next week. Reviewed labs and note vit D 33 so decreased high dose D to 2 x month. Otherwise, he denies any changes to his medical history or medications since his previous visit. OBJECTIVE: On physical examination today, his BP 172/108 Pulse 72 Ht 191.4 cm (75.35) Wt 227.071 kg (500 lb 9.6 oz) and Body mass index is 61.98 kg/(m^2).. Re-check of P/P in exam rm was 130/82 ASSESSMENT AND PLAN: Brady will return to our office in a few weeks for continued medically-supervised weight loss in preparation for surgery. He understands that: he will need to bring food logs to next appt so that he can meet with the dietitian Paloma Perkins NP documented in this encounter Miscellaneous Notes Scanned Note-Null - Industrial Engineering Analyst, Scan - 02/21/2011 1114 EDT documented in this encounter Plan of Treatment Not on filedocumented as of this encounter Visit Diagnoses Diagnosis Morbid obesity (HCC-CMS) (HCC) Morbid obesity HTN (hypertension) Unspecified essential hypertension Gout Gout, unspecified documented in this encounter Care Teams Cereal Chemist Relationship Specialty Start Date End Date Robert Hong DO PCP - General 03/03/09 02/22/[address] [place] [id number] documented as of this encounter
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
--- OUTSIDE RECORDS SUMMARY | 2022-02-07 23:30 | XMS_ITS | Encounter Summary ---
:1975 [place] [address] Care Team Providers Name Role Phone Robert Hong DO Primary Care Provider Encounter Details Date Type Department Care Team Description 06/02/2014 Anesthesia Event Main Operating Room Kapil Julian MD [facility] [place] [address] [facility] Regis White CRNA [facility] [place] [address] [place] [address] Anesthesia Record Procedure Summary Procedure Name Responsible Anesthesia Start Anesthesia Stop Time Anesthesiologist Time HERNIA REPAIR, Kapil Butt MD 06/02/14 1632 06/02/14 1 809 UMBILICAL, REDUCIBLE; AGE 5 OR OVER (WRVU 6.59) (N/A Abdomen) Events Date Time Event Comment 06/02/2014 1632 AN Verify 1632 Start 1632 An Start Data 1639 An Induction 1639 An Intubation 1639 Anesthesia Ready 1649 1709 Break/Relief In [facility] MARCK urbina 1730 Break/Relief Out 1801 Extubation/LMA Out 1801 an stop data 1809 Stop JCM Handoff endo rsed to RN @ Bedside. Oxygen/Monitors established. VSS/HD stable/Baseline. Natural A/W without distress. Breathing patter n easy and efficient. Conversing,Actio ns appropriate.No abnormal events throughout this Phase of Care. Name Total Midazolam 2 mg fentaNYL 150 mcg Propofol 200 mg Ondansetron 8 mg Dexamethasone 8 mg Glycopyrrolate 0.2 mg ceFAZolin 2 g heparin (porcine) subcutaneous injection 5,000 Units 5 ,000 Units Lactated Ringers 700 mL Agents Name O2 Air Sevoflurane (et) Blood No blood administrations on file. Lines, Drains, and Airways Type Details Placement Removal Incision 01/20/13; abdomen (6 01/20/13 0000 by Chu, 1715 by trocar sites.); 12/24/21 MARIE Rodriguez Dierdre L (LDA cleanup utility RA#[id number]); 1715 (LDA cleanup utility RA#[id number]) PIV 06/02/14; 1337; metacarpal 06/02/14 1337 by 09/09 by vein left (top of hand); Tiff Hsu, Venus Melchor RN [id number] catheter system; 18 gauge; RM; intradermal injection; 06/02/14; 1950 Supraglottic Mask Ventilation: Easy 06/02/14 1639 by Christopher, 06/02/14 1801 by (1); LMA Type: Unique; LMA Regis Loyd, Regis Blackman, MARCK Size: 5; Inserted by: MARCK White. documented in this encounter Social History Tobacco Use Types Packs/Day Years Used Date Never Smoker Smokeless Tobacco: Never Used Alcohol Use Standard Drinks/Week Comments No 0 (1 standard drink = 0.6 oz pure alcoho l) Sex Assigned at Date Recorded Not on file documented as of this encounter OR Notes Anesthesia Postprocedure Evaluation - Kapil Butt MD - 06/10/2014 8:20 AM EST Patient: Brady Barragan Awa Procedure(s) Performed: Procedure(s): HERNIA REPAIR, UMBILICAL, REDUCIBLE; AGE 5 OR OVER MODIFIER MESH,BARD [address] Actual Anesthetic: No value filed. Patient location: PACU Post-op pain: Adequate analgesia Post-op nausea: no nausea or vomiting Last Vitals: Filed Vitals: 06/02/14 1907 BP: 138/90 Pulse: 84 Temp: Resp: 16 Post-op cardiovascular and respiratory status: is stable Level of consciousness: awake, alert and oriented Complications: no apparent complications and tolerated the procedure well Fluid Status: normal Anesthesia Preprocedure Evaluation - Kapil Butt MD - 06/02/2014 4:14 PM EST Images from the original note were not included. Pre-Anesthesia Evaluation for: Brady Billings a 38 y.o. male. Procedure(s): HERNIA REPAIR, UMBILICAL, REDUCIBLE; AGE 5 OR OVER MODIFIER MESH,BARD VENTRAL[address] ST Patient Active Problem List Diagnosis ??? Abdominal panniculus ??? Poor dentition ??? Venous stasis ??? Varicose veins ??? Morbid obesity, S/P gastric bypass 01/20/13 ??? Hypertension ??? Type 2 diabetes mellitus ??? GERD (gastroesophageal reflux disease) A. EGD done on 06/06/09: Mild esophagitis, reflux induced. Mild gastritis found in the antrum. Normalduodenum. Path: GE junction: Acute esophagitis with erosion ulceration Squamocolumnar mucosa consistent with reflux esophagitis. PASF stain to evaluate for fungal organisms negative. No H. Pylori. Antral biopsy: Mild chronic gastriti and reactive epithelial changes ??? Gout and hyperuricemia ??? Umbilical hernia Past Medical History Diagnosis Date ??? Morbid obesity ??? Bariatric surgery status ??? Hypertension ??? Gout ??? EDUARDA (obstructive sleep apnea) not using CPAP or nocturnal oxygen Past Surgical History Procedure Laterality Date ??? Tonsillectomy and adenoidectomy 1991 ??? Dental surgery extractions ??? Lap gastric bypass/claude-en-y 01/20/2013 @LAPAROSCOPIC GASTROPLASTY, performed by Candi Gallegos MD at [facility] OR ??? Unlisted laparoscopic proc, liver 01/20/2013 LAPAROSCOPIC LIVER BIOPSY performed by Candi Gallegos MD at [facility] OR ??? Upper gi endoscopy, diagnostic 01/20/2013 ENDOSCOPY, UPPER GI, DIAGNOSTIC, WITH OR WITHOUT SPECIMENS [facility] History Substance Use Topics ??? Smoking status: Never Smoker ??? Smokeless tobacco: Never Used ??? Alcohol Use: No History Drug Use No Allergies Allergen Reactions ??? Morphine Nausea And Vomiting Medications: MAR and/or home medications have been reviewed. Physical Exam: Filed Vitals: 06/02/14 1303 BP: 145/78 Pulse: 56 Temp: 36.7 ??C (98.1 ??F) Resp: 16 Body mass index is 30.85 kg/(m^2). Height: 193 cm (6' 3.98) Weight - Scale: 114.9 kg (253 lb 4.9 oz) Airway Assessment: Mallampati: III TM distance: >3 FB Neck ROM: full Cardiovascular Assessment: Rhythm: regular Rate: normal Pulmonary Assessment: breath sounds clear to auscultation pulmonary exam normal Dental Assessment: Misc Assessment: Patient is wearing No contact(s). IV access: Peripheral line Anesthesia Plan: ASA 1 MAC, with a(n) intravenous induction Appropriately NPO. Denies cardiac and /or pulmonary issues. No event with previous anesthesia. Informed consent signed by patient. Region - Other Informed Consent: Anesthetic plan and risks discussed with patient. Use of blood products discussed with patient whom consented to blood products. Plan discussed with HEALTH CLAIMS EXAMINER and attending. Misc. Assessment: documented in this encounter Plan of Treatment Not on filedocumented as of this encounter Visit Diagnoses Not on filedocumented in this encounter Administered Medications Inactive Administered Medications - up to 3 most recent administrations Medication Order MAR Action Action Date Dose Rate Site ceFAZolin (ANCEF) 1g in dextrose 5% Given 06/02/2014 4:43 PM EST 2 g 50mL PRN, Starting on Nicole 06/02/14 at 1643, Until Nicole 06/02/14 at 1815, Administer over 30 Minutes, Anesthesia Intra-op dexamethasone (DECADRON) injection Given 06/02/2014 4:54 PM EST 8 mg PRN, Starting on Nicole 06/02/14 at 1654, Until Nicole 06/02/14 at 1815, Anesthesia Intra-op, Routine fentaNYL 50mcg/mL injection Given 06/02/2014 5:17 PM EST 50 mcg PRN, Starting on Nicole 06/02/14 at 1625, Until Nicole 06/02/14 at 1815, Pain, Anesthesia Intra-op, Routine Given 06/02/2014 5:13 PM EST 25 mcg Given 06/02/2014 4:39 PM EST 50 mcg glycopyrrolate (ROBINUL) injection Given 06/02/2014 4:50 PM EST 0.2 mg PRN, Starting on Nicole 15 at 1650, Until Nicole 15 at 1815, Anesthesia Intra-op, Routine heparin (porcine) subcutaneous injection Given 015 4:47 PM EST 5,000 Units 5,000 Units 5,000 Units, Subcutaneous, ONCE, 1 dose, On Nicole 06/02/14 at 1330, Routine lactated ringers infusion New Bag 06/02/2014 3:35 PM EST CONTINUOUS PRN, Starting on Nicole 06/02/14 at 1535, Until Nicole 06/02/14 at 1815, Anesthesia Intra-op midazolam (PF) (VERSED) 1 mg/mL injectio n Given 06/02/2014 4:25 PM EST 2 mg PRN, Starting on Nicole 06/02/14 at 1625, Until Nicole 06/02/14 at 1815, Sleep, Anesthesia Intra-op, Routine ondansetron (ZOFRAN) injection Given 06/02/2014 4:54 PM EST 8 mg PRN, Starting on Nicole 15 at 1654, Until Nicole 15 at 1815, Nausea, Anesthesia Intra-op, Routine propofol (DIPRIVAN) 10 mg/mL bolus injection Given 08/2014 4:39 PM EST 200 mg (Anesthesia) PRN, Starting on Nicole 06/02/14 at 1639, Until Nicole 15 at 1815, Anesthesia Intra-op documented in this encounter Care Teams Labeling Strategist Relationship Specialty Start Date End Date Robert Hong DO PCP - General 03/04/[address] [place] [address] documented as of this encounter
--- OUTSIDE RECORDS SUMMARY | 2022-02-07 23:30 | XMS_ITS | Encounter Summary ---
:1975 [place] [address] Care Team Providers Name Role Phone HalRobert pham Primary Care Provider Reason for Visit Reason Onset Date Comments Medication Refill 06/06/2014 Encounter Details Date Type Department Care Team Description 06/06/2014 Telephone General Surgery at [facility] Kylah Christianson, Medication Refill [facility] [place] [address] Social History Tobacco Use Types Packs/Day Years Used Date Never Smoker Smokeless Tobacco: Never Used Alcohol Use Standard Drinks/Week Comments No 0 (1 standard drink = 0.6 oz pure alcoho l) Sex Assigned at Date Recorded Not on file documented as of this encounter Miscellaneous Notes Telephone Encounter - Kylah Christianson, RN - 06/06/2014 1:41 PM EST Nursing Triage - Phone Note DATE OF CALL: 06/06/2014 TIME OF CALL: 1:41 PM PATIENT DATE OF : 1975 CALLER: Pt to the General Surgery Clinic Learning Needs Assessment Reviewed: Yes SUBJECTIVE - I need another renewal for pain meds, please. PERTINENT PAST MEDICAL HISTORY: Pt is s/p Patient Name: Brady Billings : [id number] MR#: [id number] Case Date: 01/20/2013 Surgeon: Surgeon(s) and Role: * Candi Gallegos MD - Primary * Darci Redding MD - No qualified resident available to assist Preoperative diagnosis: OBESITY Postoperative diagnosis: OBESITY Procedure(s): @LAPAROSCOPIC GASTROPLASTY, LAPAROSCOPIC LIVER BIOPSY ENDOSCOPY, UPPER GI, DIAGNOSTIC, WITH OR WITHOUT SPECIMENS General Estimated Blood Loss: 22cc NURSING OBJECTIVE/ASSESSMENT: PT is still having pain that is uncontrolled with tylenol and Ibuprofen. Symptom onset: Location: Duration: Characteristics: Aggravating factors: Relieving factors: Timing: Severity: INTERVENTION/PLAN/ FOLLOW UP: Discussed with Dr. Gallegos, new script for oxycodone written and mailed overnight. Pt agreed with the plan If your symptoms do not improve, or they worsen, report to your local emergency department. CALLER AGREES: Yes PCP: ROBERT HONG DO documented in this encounter Plan of Treatment Not on filedocumented as of this encounter Visit Diagnoses Not on filedocumented in this encounter Care Teams Molding Utility Worker Relationship Specialty Start Date End Date Robert Hong DO PCP - General 03/04/[address] [place] [address] documented as of this encounter
--- OUTSIDE RECORDS SUMMARY | 2022-02-07 23:30 | XMS_ITS | Encounter Summary ---
:1975 Author Organization [facility] [place] [address] Care Team Providers Name Role Phone Robert Hong DO Primary Care Provider Reason for Visit Reason Comments Medication Refill Encounter Details Date Type Department Care Team Description 07/23/2013 Refill General Surgery at [facility] Abbey Crandall, BHAV[facility] [place] [address] GENERAL SURGERY [phone] [place], [place] [address] (Wo rk) Social History Tobacco Use Types Packs/Day Years Used Date Never Smoker Alcohol Use Standard Drinks/Week Comments No 0 (1 standard drink = 0.6 oz pure alcoho l) Sex Assigned at Date Recorded Not on file documented as of this encounter Plan of Treatment Not on filedocumented as of this encounter Visit Diagnoses Not on filedocumented in this encounter Care Teams Escrow Clerk Relationship Specialty Start Date End Date Robert Hong DO PCP - General 03/04/[address] [place] [address] documented as of this encounter
--- OUTSIDE RECORDS SUMMARY | 2022-02-07 23:30 | XMS_ITS | Encounter Summary ---
:1975 [place] [address] Care Team Providers Name Role Phone HalRobert pham Primary Care Provider Reason for Visit Reason Comments Advice Only panni consult Encounter Details Date Type Department Care Team Description 03/03/2014 [facility]; [facility] Umbilical hernia [facility] DR Chris PLASTIC SURGERY [place] [phone] Social History Tobacco Use Types Packs/Day Years Used Date Never Smoker Smokeless Tobacco: Never Used Alcohol Use Standard Drinks/Week Comments No 0 (1 standard drink = 0.6 oz pure alcoho l) Sex Assigned at Date Recorded Not on file documented as of this encounter Last Filed Vital Signs Vital Sign Reading Time Taken Comments Blood Pressure 154/70 03/03/2014 2:58 PM left forearm EST Pulse 54 03/03/2014 2:58 PM EST Temperature - - Respiratory Rate - - Oxygen Saturation - - Inhaled Oxygen Concentration - - Weight 114.9 kg (253 lb 6.4 03/03/2014 2:58 PM oz) EST Height 193 cm (6' 4) 03/03/2014 2:58 PM EST Body Mass Index 30.84 03/03/2014 2:58 PM EST documented in this encounter Patient Instructions Patient InstructionsVoight-Gabby Falcon RMA - 03/03/2014 3:39 PM EST Written and verbal preoperative and postoperative instructions were given at this visit. Please review the written information prior to your procedure and contact us with any questions. documented in this encounter Progress Notes Gabby Smith RMA - 03/03/2014 3:38 PM EST Pre-Op Teaching for Surgery Surgery: Nishant Written and verbal pre-operative instructions were given and reviewed with patient: Patient was advised to discontinue use of NSAIDS and aspirin products (unless otherwise advised by patient's PCP/Certified Registered Nurse Anesthetist for cardiac symptoms), fish oil, Vitamin E and herbal supplements for 14 days prior to surgery, to perform the pre-op scrub, and to coordinate a ride home following surgery. Smoking status and medications were further reviewed to rule out/address current use of Nicotine, Coumadin, Plavix, Estrogen or Tamoxifen. Photos were taken Patient was instructed to call the clinic at with any questions or concerns prior to surgery. Darwin Foster MD - 03/03/2014 3:17 PM EST Plastic Surgery Consultation Note PCP: ROBERT LYN DO CC: Abdominal pannus HPI: Brady Billings is a 38 y.o. male seen in my office today for consideration for abdominal panniculectomy. His PCP is ROBERT LYN DO and Abbey Crandall APRN has requested the consultation. His maximum weight was 549 lbs in 2008. He now weighs 253 lbs and is continuing to lose weight. He has surpassed his goal weight and is now trying to maintain his current weight. He has lost weight after Rina-en-Y gastric bypass which was performed in 12/2012. He presents today because of increasing difficulty with keeping the fold under his pannus free of rashes and infection, and clean, and odor free. He reports that his pannus gets in the way. He has problems with rashes under his pannus and he notices the skin is discolored. He is bothered by the appearance of his abdomen. He reports that he hasan umbilical hernia and has been evaluated by Dr. Gallegos for this. Past Medical History Diagnosis Date ??? Morbid obesity ??? Bariatric surgery status ??? Hypertension ??? Gout ??? EDUARDA (obstructive sleep apnea) not using CPAP or nocturnal oxygen ROS: HEENT, GI, /Renal, Psych, Card, Pulm, Endo, Immun, Neuro: negative Heme: Hypertension Social History: History Social History ??? Marital Status: Single Spouse Name: N/A Number of Children: N/A ??? 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 Smoking status: Never Smoker ??? Smokeless tobacco: Never Used ??? Alcohol Use: No ??? Drug Use: No ??? Sexually Active: Yes -- Female partner(s) Comment: pt declined to report Other Topics Concern ??? Not on file Social History Narrative Works constructionHas a daughterLives c/his significant other and his daughter FAM HX: Family History Problem Relation Age of Onset ??? Breast Cancer Mother ??? Breast Cancer Maternal Grandmother ??? Diabetes Brother ??? Lymphoma Maternal Grandfather Examination: BP 154/70 Pulse 54 Ht 193 cm (6' 4) Wt 114.941 kg (253 lb 6.4 oz) BMI 30.86 kg/m2 Overweight, male in no acute distress, comfortable. He was well oriented and asked appropriate questions throughout the visit. HEENT: Normocephalic Neuro: Pupils equal, round, and reactive to light, extra ocular muscles in tact Resp: No stridor, no wheezes, regular rate Extrem: no cyanosis/clubbing/or edema, no rashes Muscuskeletal: gross full ROM x 4 extrem, ambulating, no lesions Abdomen: Two-tier pannus, large abdominal pannus with hernia No active intertrigo Grade 1: Panniculus barely covers the hairline of the mons pubis but not the genitalia No diastasis. No active rash or cellulitis of umbilicus Impression: Brady Tiradomond is a 38 y.o. male is a suitable candidate for panniculectomy which would likely correct his physical symptomatology. We discussed that surgery is ideally performed at a long-term stable weight to allow for optimal aesthetic outcome. I will plan to coordinate his surgery with Dr. Gallegos for hernia repair. I advised him to allow for 3 weeks off from work. We talked about the scars and risks from panniculectomy. He is aware that infection, delayed wound healing, seroma and numbness are possibilities. He has been provided with the [facility] patient informationbrochure as well as their standard informed consent documents on panniculectomy. He has expressed a desire to proceed with surgical correction. I feel strongly that he will gain significant symptom relief and avoid further intertrigo following surgery. We have obtained photographs today. We will request insurance pre-determination I will communicate my recommendations to ROBERT LYN DO and Abbey Crandall APRN. Surgical Grid: Surgeon: Camilla Duration: 2.5 hours Timeframe: Elective Coordinated with: Dr. Gallegos for hernia repair Procedure: Panniculectomy CPT: 74703 Surgical site: Abdomen Side: N/a Anesthesia: General Follow up: 7 days PAT: No I, Tammie Cordero, am acting as scribe for Dr Foster. All work documented was performed by Dr Foster. ???I performed the above scribed service and agree with the accuracy of the note?? DARWIN FOSTER MD. documented in this encounter Plan of Treatment Not on filedocumented as of this encounter Visit Diagnoses Diagnosis Abdominal panniculus Localized adiposity Umbilical hernia Umbilical hernia without mention of obst ruction or gangrene documented in this encounter Care Teams Clinical Programmer Relationship Specialty Start Date End Date Robert Lyn DO PCP - General 03/04/[address] [place] [address] documented as of this encounter
--- OUTSIDE RECORDS SUMMARY | 2022-02-07 23:30 | XMS_ITS | Encounter Summary ---
:1975 Author Organization [facility] [place] [address] Care Team Providers Name Role Phone HalRobert Primary Care Provider Reason for Visit Reason Comments GI Bleeding tx from [facility], surgery to [facility], hx of gastric bypass Hospital Transfer Encounter Details Date Type Department Care Team Description 10/30/2020 Emergency Emergency Department Cosme Blake dominal pain, Chandrika Lobo MD unspecified abdominal [facility] location [facility] [place] [address] [place] [address] [phone] (Wo rk) Social History Tobacco Use Types [...] (200 lb) 10/30/2020 5:15 PM EDT Height - - Body Mass Index 24.41 06/11/2016 2:37 PM EST documented in this encounter Discharge Instructions Discharge InstructionsStLouie harris MD - 10/30/2020 7:20 PM EDT You are seen in the emerge department for concerns about your abdominal pain. Your evaluated by the general surgery team here who felt that you are safe to be discharged home. They recommended that youtake omeprazole 40 mg twice a day as well as sucralfate 4 times a day which should help with your ulcer and abdominal pain. You should contact your primary care physician to let them know that you werein the emergency department arrange appropriate follow-up. If you experience any change or increase in your symptoms including new or worsening abdominal pain, coughing or vomiting up blood, blood in your stool, dark stool, inability tolerate food or drink, syncope, lightheadedness, passing out, or any other concerns please not hesitate to seek immediate medical attention. documented in this encounter Medications at Time of Discharge Medication Sig Dispensed Refills Start Date End Date sucralfate (Carafate) 1 Take 1 tablet by 120 tablet 0 2020 gram Tablet mouth 4 times daily. cyanocobalamin (VITAMIN Take 500 mcg by 0 B-12) 500 mcg Tablet mouth daily. calcium citrate-vitamin D Take 2 tablets by 360 tablet 3 (CALCIUM CITRATE + D) mouth 2 times 315-200 mg-unit Tablet daily. (2) tabs 2 times daily. omeprazole (PriLOSEC) 20 Take 2 capsules by 120 capsule 5 10/30/2021 mg Capsule, Delayed mouth 2 times Release(E.C.) daily. documented as of this encounter ED Notes Cosme Blake MD - 10/30/2020 6:45 PM EDT ED Attending Brief Note HPI: Brady Billings is a 45 y.o. male who presents to the Emergency Department transferred from another hospital with a sharp epigastric abdominal pain which is since resolved. He apparently has a history of gastric ulcer disease related to a Katie-en-Y gastric bypass surgery performed several years ago.Patient reports no melena or other GI bleeding. He did lose 360 pounds from the procedure and remains 190 pounds. He reports no fever or chills and otherwise feels fine. His lipase was 62 at the other facility. He received a CT of the abdomen and pelvis at the other facility but arrives without the images or a reading. He was given what he calls a GI cocktail with resolution of symptoms at the other facility. Review of Systems Pertinent positives and negatives are included in the HPI, otherwise at least ten systems were reviewed and negative. Past Medical and Surgical Histories, Social History, Medications, Allergies were reviewed in the chart. Vitals: ED Triage Vitals [10/30/20 1715] BP: (!) 151/111 Heart Rate: 70 Resp: 16 Temp: 37 ??C (98.6 ??F) Temp src: Oral SpO2: 100 % O2 Device: RA O2 Flow Rate (L/min): n/a Physical Exam Patient is tall with normal BMI in no acute distress. He is standing by the bedside. Lungs are clear, heart regular rate and rhythm, abdomen soft and benign with no guarding or tenderness whatsoever. Rectal exam is deferred. Loose skin folds are present due to the dramatic weight loss. ED Course: I have reviewed labs and imaging, images and available reports, and they are significant for: Deferred Assessment and Plan: 45 y.o. male with patient with resolving epigastric pain of unclear etiology. May have recurrent peptic ulcer disease but does not appear to need any acute intervention at this time. Hemodynamics are normal. Will discharge for outpatient management. Is not on a PPI at this time. Did this case involve critical care? No ED ATTENDING ATTESTATION NOTE The patient was seen in conjunction with the resident physician. I have independently performed the sheikh portions of the history and physical exam. I have reviewed the nursing notes, vital signs, and all diagnostic studies personally including labs, imaging studies and EKGs. I have discussed the details of the case with the resident and agree with the assessment and plan as described in the resident note unless noted otherwise. The visit findings, diagnosis, and care plan were discussed with the patient. The diagnosis and care plans discussions were outlined in the discharge instructions. The patient expressed understanding of the details of the visit, the return precautions and that he should return to the ER at any time for worsening symptoms, new symptoms, or other concerns. he agrees with the follow- up plan. Cosme Blake MD 10/31/20 1201 Rhona Vera RN - 10/30/2020 6:30 PM EDT Called [facility] to receive patients records. They are faxing it over Louie Winters MD - 10/30/2020 5:27 PM EDT Brady Billings is an 45 y.o. male who presents to the ED with: Chief Complaint Patient presents with ??? GI Bleeding tx from [facility], surgery to eval, hx of gastric bypass ??? Hospital Transfer I saw this patient 10/30/2020 at ~ 7:22 PM HPI Brady Billings is a 45 y.o. male with a PMH significant for Katie-en-Y gastric bypass 8 years ago who presents to the Emergency Department as a transfer outside hospital for concerns of abdominal pain and CT imaging concerning for gastric bleeding. According patient starting his morning he began to develop sharp stabbing abdominal pain that radiate to his back. The patient states that this feels exactly similar to a previous episode where he had a gastric ulcer. Patient states that he presented outside hospital where they performed a CT exam which was concerning for gastric bleeding. The patient denies any hemoptysis, hematemesis, or hematochezia. Patient denies any dark stools and states his bow el movements have been regular. Patient states that he was given a GI cocktail and something to numb his stomach at outside hospital which has completely resolved his symptoms. The patient states he currently is symptom-free has no abdominal tenderness. Social History Socioeconomic History ??? Marital status: Single Spouse name: None ??? Number of children: None ??? Years of education: None ??? 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 Smoking status: Never Smoker ??? Smokeless tobacco: Never Used Substance and Sexual Activity ??? Alcohol use: No ??? Drug use: No ??? Sexual activity: Yes Partners: Female Comment: pt declined to report Other Topics Concern ??? 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 Difficulty of Paying Living Expenses: Food Insecurity: ??? Worried About Running Out of Food in the Last Year: ??? Ran Out of Food in the Last Year: Transportation Needs: ??? Lack of Transportation (Medical): ??? Lack of Transportation (Non-Medical): Physical Activity: ??? Days of Exercise per Week: ??? Minutes of Exercise per Session: Review of Systems: Pertinent positives and negatives are included in the history of present illness, otherwise 10 systems are reviewed and negative Vital Signs: Patient Vitals for the past 24 hrs: BP Temp Temp src Pulse Resp SpO2 Weight 10/30/20 1715 (!) 151/111 37 ??C (98.6 ??F) Oral 70 16 100 % 90.7 kg (200 lb) I have reviewed the vital signs, which demonstrates Physical Exam: Physical Exam Constitutional: General: He is not in acute distress. Appearance: Normal appearance. He is normal weight. He is not ill-appearing. HENT: Head: Normocephalic and atraumatic. Eyes: Conjunctiva/sclera: Conjunctivae normal. Pupils: Pupils are equal, round, and reactive to light. Cardiovascular: Rate and Rhythm: Normal rate and regular rhythm. Pulmonary: Effort: Pulmonary effort is normal. No respiratory distress. Abdominal: General: Abdomen is flat. Tenderness: There is no abdominal tenderness. Musculoskeletal: General: No swelling or tenderness. Cervical back: Normal range of motion and neck supple. Skin: General: Skin is warm and dry. Capillary Refill: Capillary refill takes less than 2 seconds. Neurological: General: No focal deficit present. Mental Status: He is alert and oriented to person, place, and time. Psychiatric: Mood and Affect: Mood normal. Behavior: Behavior normal. ED Course: - Patient was evaluated and discussed with the Attending Physician - Medications, allergies and past medical history reviewed - Nursing notes and vital signs reviewed - Medications and fluid administered: Medications - No data to display - I have reviewed the labs, which are significant for: No results found for this or any previous visit (from the past 24 hour(s)). - I have reviewed the imaging, which is significant for: Request For 2nd Read CT Chest Abdomen Pelvis Final Result Compatible with bleeding sites stomach and small bowel in the appropriate clinical context. Less likely possibility is ingested material. Ingested hyperdense material would not present as a nebulous blush in association with blood vessels. Correlate with laboratory values and if indicated additional imaging or endoscopy. Thank you for letting us participate in the care of this patient. If you are a health care provider and have any questions regarding this report, please contact the number below. For patients who have questions please contact the health care trainer that requested your imaging first. Assessment and Plan: MDM: Brady Billings is a 45 y.o. male with a PMH significant for Katie-en-Y gastric bypass 8 years ago who presents to the Emergency Department as a transfer outside hospital for concerns of abdominal pain and CT imaging concerning for gastric bleeding. Patient present hemodynamically stable no signs of acute distress. Patient was transfer outside hospital for general surgery evaluation after CT imaging showed concernfor gastric bleeding with a history of a Katie-en-Y bypass 8 years ago. Patient currently is completely symptom-free after receiving a GI cocktail at outside hospital. The patient states that his symptoms feel very similar to a gastric ulcer he has had in the past. Patient was evaluated by general surgery and after evaluation they felt safe to discharge patient home. They recommended sober for 4 times a day as well as Meprazole 40 mg twice a day. The patient remained asymptomatic in the emergency room. Patient was discharged home and was told tofollow-up with his primary care physician with no leaves in the emergency room transfer for follow-up. Patient was told he experience any change or increasing symptoms including any new or worsening abdominal pain, coughing up blood, vomiting up blood, dark stool, bloody stool, inability tolerate foodor drink, lightheadedness, dizziness, passing out, or other concerns not hesitate to seek immediate medical attention. Return precautions were verbally discussed with the patient. The patient expressed understanding that they could come back to the ED at any time and agreed to the follow-up plan. Plan: - Discharge home - Follow up with PCP - Return precautions were discussed with the pt Louie Winters MD EM Resident, PGY-3 10/30/20 7:22 PM Louie Winters MD Resident 10/30/20 192 Gisella Mcnamara MD - 10/30/2020 4:50 PM EDT EM attending brief transfer acceptance note: Brady Billings is a 45 y.o. who I accepted in transfer from [facility] The patient will be evaluated in the Emergency Department for abdominal pain and GI Bleeding. The patient has a hx of Gastric Bypass Surgery in 2013. He presents with epigastric pain. Imaging suggests gastric bleeding. Pt is currently hypertensive. Pain not well controlled which [facility] provider attributed to the fact that pt is on Suboxone. He received ativan for anxiolysis. Encouraged to give PPI. Pt will be transferred to ED to establish needed level of care and to facilitate endoscopy. Because of prior history of gastric bypass, Dr. Jared Galloway, from General Surgery was involved inthe transfer of this patient and will help to facilitate the Endoscopy, NOT the gastroenterology service. The EM team will contact the General surgery team on arrival. The OS does not agree to take the patient back in transfer after our evaluation and treatment. Transfer and stabilization prior to transfer were discussed Gisella Mcnamara MD 10/30/20 1709 documented in this encounter Miscellaneous Notes Consult Note - Neelima Ghosh MD - 10/30/2020 7:06 PM EDT [facility] Department of General Surgery Consult Note Consultation Requested by: Cosme Blake MD Patient location: [id number] History of Present Illness: Brady Billings is a 45 y.o. male with a history of Katie en Y gastric [place] [address] Gallegos who presents with epigastric pain since this morning. Patient was in his usual health until this morning when he woke up with dull, achy epigastric pain that radiated to his back. He therefore presented to [facility] ED. He had gastric ulcers in the past, and reports this pain is similar to the pain he had with gastric ulcers. He did not have nausea, vomiting, fever, chills. He is passing flatus. He has been having regular bowel movements, no hematochezia or melena. He was able to eat normally until this morning. Last meal was this morning. He does take Excedrin for headaches. He does report that he hasn't been taking omeprazole regularly in the past few weeks. He does not smoke. Of note, he has lost [id number] lbs since the bypass surgery. At the [facility] ED, he received a GI cocktail, which completely resolved his symptoms. Past Medical History: Past Medical History: Diagnosis Date ??? Bariatric surgery status ??? Gout ??? Hypertension ??? Morbid obesity ??? EDUARDA (obstructive sleep apnea) not using CPAP or nocturnal oxygen Past Surgical History Past Surgical History: Procedure Laterality Date ??? DENTAL SURGERY extractions ??? PRO LAP GASTRIC BYPASS/KATIE-EN-Y 01/20/2013 @LAPAROSCOPIC GASTROPLASTY, performed by Candi Gallegos MD at [facility] OR ??? PRO REPAIR UMBILICAL [place], 5+Y/O, REDUC N/A 06/02/2014 HERNIA REPAIR, UMBILICAL, REDUCIBLE; AGE 5 OR OVER performed by Candi Gallegos MD at [facility] OR ??? PRO UNLISTED LAPAROSCOPIC PX LVR 01/20/2013 LAPAROSCOPIC LIVER BIOPSY performed by Candi Gallegos MD at [facility] OR ??? PRO UPPER GI ENDOSCOPY, DIAGNOSTIC 01/20/2013 ENDOSCOPY, UPPER GI, DIAGNOSTIC, WITH OR WITHOUT SPECIMENS performed by Candi Gallegos MD at [facility] OR ??? TONSILLECTOMY AND ADENOIDECTOMY 1991 Medications No current facility-administered medications on file prior to encounter. Current Outpatient Medications on File Prior to Encounter Medication Sig Dispense Refill ??? cyanocobalamin (VITAMIN B-12) 500 mcg Tablet Take 500 mcg by mouth daily. ??? calcium citrate-vitamin D (CALCIUM CITRATE + D) 315-200 mg-unit Tablet Take 2 tablets by mouth 2times daily. (2) tabs 2 times daily. 360 tablet 3 ??? enepdsjfudrs-uacn-blkgdksk (COMPLETE MULTIVITAMIN) Tablet Take 1 tablet by mouth 2 times daily. (1) tab daily 180 tablet 3 Allergies Allergies Allergen Reactions ??? Morphine Nausea And Vomiting Family History: Family History Problem Relation Age of Onset ??? Breast Cancer Mother ??? Breast Cancer Maternal Grandmother ??? Diabetes Brother ??? Lymphoma Maternal Grandfather Social History: Social History Socioeconomic History ??? Marital status: Single Spouse name: None ??? Number of children: None ??? Years of education: None ??? 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 Smoking status: Never Smoker ??? Smokeless tobacco: Never Used Substance and Sexual Activity ??? Alcohol use: No ??? Drug use: No ??? Sexual activity: Yes Partners: Female Comment: pt declined to report Other Topics Concern ??? 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 Difficulty of Paying Living Expenses: Food Insecurity: ??? Worried About Running Out of Food in the Last Year: ??? Ran Out of Food in the Last Year: Transportation Needs: ??? Lack of Transportation (Medical): ??? Lack of Transportation (Non-Medical): Physical Activity: ??? Days of Exercise per Week: ??? Minutes of Exercise per Session: Review of Systems: As stated above, otherwise negative Physical Exam: Temp: [37 ??C (98.6 ??F)] Heart Rate: [70] Resp: [16] BP: (151)/(111) SpO2: [100 %] Heart Rate from SpO2: -- General: alert, no acute distress Head: Atraumatic, non cyanotic Cardiac: Regular rate Pulmonary: clear to auscultation bilaterally, no increased work of breathing on room air Abdominal: soft, non tender to palpation in all quadrants, non distended. No rebound tenderness or involuntary guarding Neuro: grossly intact, follows commands, AAO x3. Extremities: Warm and well-perfused Labs: No results for input(s): WBC, HGB, HCT, PLATELET in the last 7068 hours. No results for input(s): NA, K, CL, CO2, BUN, CREATININE in the last 7068 hours. No results for input(s): AST, ALT, ALKPHOS, BILITOT, BILIDIR in the last 7068 hours. No results for input(s): CALCIUM, PHOS in the last 168 hours. Invalid input(s): MAGNESIUM1 No results for input(s): PT, INR, PTT in the last 168 hours. No results for input(s): CK, TROPONINT, PROBNP in the last 168 hours. No results for input(s): CRP, SEDRATE in the last 7068 hours. Imaging: CT Abdomen/Pelvis Impression: Brady Billings is a 45 y.o. male with history of Katie en Y gastric bypass in 2013 presenting with symptoms consistent with gastric ulcer in the setting of non compliance to proton pump inhibitor. No urgent need for inpatient EGD as patient is stable. Recommendation: - BID PPI, carafate - Follow up in 6 weeks for EGD as outpatient - OK to discharge from our standpoint Discussed with Dr. Solomon and communicated to ED Neelima Ghosh MD General Surgery Consult Pager [phone] Associated attestation - Delisa Solomon MD - 10/30/2020 10:11 PM EDT Patient seen and examined. Agree with note by Dr. Ghosh. 45 yo M s/p laparoscopic gastric bypass (01/20/2013 Dr. Gallegos). [facility], dull, achy that radiated to his back. No nausea/emesis. Passing flatus, normal bowel movements, no melena. Per the patient, he was diagnosed with a marginal ulcer at an outside hospital in the past and this pain feels similar. He takes Excedrin for headaches. Non-smoker. Not taking a PPI. Takes tums PRN. He was given a GI cocktail and his pain resolved. A CT scan was obtained which is concerning for IV contrast extravasation into the gastric pouch consistent with an upper GI bleed. There is also contrast material in the lumen of the small bowel near the JJ anastomosis. No evidence of internal hernia. He has been hemodynamically normal with some hypertension. Hgb 13 and rest of labs unremarkable. Hewas transferred to [facility] for further evaluation. He continues to be asymptomatic and pain free. Currently hungry. No nausea/emesis. Again denies melena. His vitals are normal. Abdominal exam is benign - soft, non-tender, no distension, lap incisions well-healed. He is ambulating in the room and requesting to go home. Impression: Epigastric pain, resolved. Most likely a marginal ulcer. Although CT scan is concerning for an UGI bleed, he has no clinical signs consistent with this. Withthe amount of contrast material in his stomach, he would likely have correlating clinical signs if he were bleeding, but this is not the case. Unclear the etiology of this contrast material. Patient is requesting to go home which is reasonable. Instructed to take BID PPI and carafate to treat a presumed marginal ulcer. Avoid NSAIDs. Plan for outpatient EGD in 4-6 weeks for further evaluation. Given strict ED warnings to return if new symptoms- pain, dizziness, rapid heart rate, nausea/emesis, bloody stools. He understands and agrees with the plan. Delisa Solomon MD PGY-6 Minimally Invasive Surgery Fellow documented in this encounter Plan of Treatment [...] have questions please contact the health care trainer that requested your imaging first. ? Narrative 10/30/2020 6:59 PM EDT EXAMINATION: REQUEST FOR 2ND READ CT CHEST ABDOMEN PELVIS CLINICAL HISTORY: Sharp stabbing abdomin al pain in the midepigastric that radiated to the back, history of Katie-en -Y. ??Concern for gastric bleeding from read at outside hospital; Sending Instit [facility]; Date of exam 20201030; I believe a reinterpretation of this exam may alter care of Patient. Yes TECHNIQUE: Following bolus administration of intrav enous contrast agent multidetector helical CT examination of the chest, abd omen and pelvis was performed at [facility]. Study is submitted for second opinion. COMPARISON: [...] that radiated to the back, history of Katie-en -Y. Concern for gastric bleeding from read at outside hospital; Sending Instit [facility]; Date of exam 20201030; I believe a reinterpretation of this exam may alter care of Patient. Yes TECHNIQUE: Following bolus administration of intrav enous contrast agent multidetector helical CT examination of the chest, abd omen and pelvis was performed at [facility]. Study is submitted for second opinion. COMPARISON: [...] have questions please contact the health care trainer that requested your imaging first. Cosme Blake MD IMG OUTSIDE INTERPRETATION O RDERABLES documented in this encounter Visit Diagnoses Diagnosis Abdominal pain, unspecified abdominal lo cation documented in this encounter Care Teams Card Maker Relationship Specialty Start Date End Date Robert Hong DO PCP - General 03/04/[address] [place] [address] documented as of this encounter
--- OUTSIDE RECORDS SUMMARY | 2022-02-07 23:30 | XMS_ITS | Encounter Summary ---
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 tablet ergocalciferol 50,000 unit capsule Commonly known as: ERGOCALCIFEROL Take 1 capsule by mouth once a week for 24 doses. lisinopril 20 mg tablet Commonly known as: PRINIVIL;ZESTRIL multivitamin tablet Commonly known as: THERAGRAN omeprazole 20 mg capsule Commonly known as: PRILOSEC Take 1 capsule by mouth daily for 90 days. Start at discharge to prevent ulcer. ursodiol 300 mg capsule Commonly known as: ACTIGALL Take 1 capsule by mouth 2 times daily for 180 days. Start at 2 weeks post op on 02/03. Take until 08/02/2013. STOP taking these medications metoprolol succinate 100 mg XL tablet Where to get your medications These are the prescriptions that you need to continuous pickling line pickler. We sent them to a specific pharmacy, so you will need to go there to get them. [facility] [place] [id number] enoxaparin 40 mg/0.4 mL Syrg injection furosemide 40 mg tablet metoprolol 100 mg tablet omeprazole 20 mg capsule ursodiol 300 mg capsule Information on where to get these meds is not yet available. Ask your nurse or doctor. Acetaminophen 650 mg Tab OXYcodone 10 mg Tab Updated Allergies/ADRs: Allergies Allergen Reactions ??? Morphine Nausea And Vomiting Follow-up Recommendations for Providers: Please evaluate the need for Lasix chronically. Patients with Bariatric surgery have a real risk if dehydration, and Furosemide may worsen or precipitate this. PCP: PEPE HONG DO Scheduled Appointments: Future Appointments Date Time Provider Department Center 02/11/2013 3:30 PM Bariatric, Lean Specialist [facility] 02/11/2013 4:00 PM Candi Barboza MD [facility] [address] [place] [address] Outpatient Services/Studies: No discharge procedures on file. Instructions Given to Patient at Discharge:. An After Visit Summary was printed and given to the patient. Provider Instructions BARIATRIC SURGERY DISCHARGE INFORMATION CONTACT INFORMATION: [phone] Surgeons: Dr. Barboza [phone] Duct Installer: [phone] (Friday through Friday, 8:00 AM -5:00 PM) Dietitian: [phone] Non-business hours: [phone], ask for general surgeon python consultant FOR EMERGENCIES: CALL 911 (trouble breathing, chest pain, severe abdominal pain or rapid heart beat >120 (30 beats in 15 seconds) CALL FOR ANY OF THE FOLLOWING: Signs and symptoms of infection such as: o Redness or swelling o Drainage or bleeding o Fever over 100.5 F o Increased pain or discomfort at the incision site Persistent vomiting or if you are unable to keep food or fluids down in a 24 hour period. Signs and symptoms of a blood clot: new leg swelling or redness, pain in leg, shortness of breath Any concerns, such as problems with urination, bowels, bleeding, pain or leg swelling BATHING AND WOUND CARE: You may shower at 2 days post-op. Wash incisions with soap, water rinse, pat dry and leave open to air if not draining. Steri-strips may be removed or will fall off in 7-10 days. Pat dry if they become wet. If you had open gastric bypass and have layne: [place] should be removed 10 - 12 days after surgery. This can be done at [facility] or via Primary Care Provider (PCP). Do not soak wound for 2 weeks after laparoscopic surgery and 3 weeks after open surgery. ACTIVITY, LIFTING AND DRIVING: Daily walking is encouraged as tolerated. For open surgery: no strenuous activity like heavy lifting (above 10 pounds) for 6 weeks. No abdominal exercise (i.e. sit-ups) for 3 months. For laparoscopic surgery: there are no lifting restrictions. For all patients: Do not drive for 2 weeks. After [address] when comfortable and not taking narcotic pain medicine. DIET: follow Stage II diet for three weeks. Log intake. Daily goals are: 48-64 ounces of fluids and 60 grams of protein. MEDICATIONS: For 2 WEEKS ONLY: LARGE pills (bigger than the size of a Tylenol) must be crushed, or broken into small pieces. Pills smaller than the size of a Tylenol DO NOT need to be crushed. Not all medications can be crushed. Check with your pharmacist first. BLOOD CLOT PREVENTION: make sure to be active, walking at least 4 times a day. ?? You will be discharged on enoxaparin injections twice daily for 10 days to prevent blood clots ULCER PREVENTION: omeprazole 20 mg daily (or any medication you may currently take for heartburn/reflux) must be taken for 3 MONTHS after surgery: Take this to prevent ulcers, even if you do not have heartburn. GALLSTONE PREVENTION: (ONLY if you have a gallbladder): Take Ursodiol (Actigall) 300 mg twice a day. START: 2 weeks after surgery, take for 6 months then stop unless otherwise directed. PAIN MEDICATION: Take pain medicine as NEEDED for pain. For mild pain, acetaminophen (Tylenol) is recommended. MEDICATIONS TO AVOID FOR TWO MONTHS AFTER SURGERY: Avoid anti-inflammatory non-steroidal medications, such as Advil, Aleve, etc. Refer to Medicationsthat may increase the risk of bleeding in handbook. If you take aspirin for your heart or to prevent strokes, continue as prescribed. PATIENTS WITH DIABETES: Check blood sugars four times a day, fasting, 2 hours after meals and if unwell. For blood sugar less than 150, do not restart diabetes medications. If you see the diabetes team during your hospital stay, follow the diabetes team's recommendations Patients on oral diabetic medication: If blood sugar is over 200 on more than 3 rechecks, [facility] or diabetic specialist for specific recommendations, or as recommended at discharge. For patients on insulin and oral diabetic medications: If blood sugar is consistently under 200, you will not likely need medication. If blood sugar is over 200 on a few rechecks, call your primary care doctor or diabetic specialist for specific recommendations or as recommended at discharge. Follow up with primary care doctor or reporting specialist in 1-2 weeks. Bring meter to appointments. PATIENTS WITH HIGH BLOOD PRESSURE: Monitor your blood pressure regularly. If you feel dizzy and have been drinking 48-64 ounces of fluid, have your blood pressure checked. If your blood pressure is low, call your primary care provider. Keep a log to bring to your PCP appointments. PATIENTS WHO TAKE DIURETICS (MEDICATION FOR SWELLING WATER PILLS): Check with your surgical team prior to discharge for instructions. In general, this medication can be decreased or stopped after surgery, since it may cause dehydration. Monitor closely for increased swelling after discharge, and call your primary care doctor if swelling increases. PATIENTS ON ANTI-DEPRESSANT OR MENTAL HEALTH MEDICATIONS: Do not stop or decrease your medications unless advised. Ongoing counseling is encouraged. VITAMIN AND MINERAL SUPPLEMENTATION: Vitamin B12 1000 mcg sublingual (under tongue) twice a week OR 500 mcg pill daily. Complete multivitamin w/ minerals Chewable, one pill daily. After 2 weeks may take regular vitamin pills. Calcium Calcium citrate 600 mg with vitamin D 400 units twice a day between meals. Iron with vitamin C Take iron as instructed per Handbook- (only if you have anemia, iron deficiency or regular menses) FOLLOW-UP CARE: See your PCP 10-14 days after surgery for wound and vital signs check. See your surgeon and dietitian at 3 weeks after surgery See the dietitian and nurse practitioner at 4, 12, 18, and 24 months, then yearly for life. General Instructions None Provider Contact Information: Divison of General Surgery ??? [facility] ??? [address] ??? [place] [address] ??? [phone] ??? ~~~~~~~~~~~~~~~~~~~~~~~~~~~~~~~~~~~~~~~~~~~~~~~~~~~~~~~~~~~~~~~~~~~ Signed: WANDA LEIJA MD 01/22/2013 Plan of Care - Shashank Chang RN - 01/22/2013 2:31 AM EDT Problem: Pain, Acute (Adult, Obstetric) Goal: Acute Pain: Acceptable Pain Control/Comfort Level - Pain, Acute (Adult, Obstetric) Patient abdomen and shoulder pain controlled during the shift with prn oxycodone and tylenol. See doc flow sheets for assessments and interventions. Continue to monitor. Problem: Trauma/Injury Risk (Adult, Obstetric) Goal: Trauma/Injury Risk: Absence of Trauma/Injury/Falls Patient safety maintained throughout the shift. Call estes, remote in reach at all times, patient using appropriately when needing assistance. Bed in low position, wheels locked. When up ambulating has steady gait and uses non skid slippers. See Doc flow sheet for full intervention and prevention. Problem: Skin Integrity Impairment, Risk/Actual (Adult, Obstetric) Goal: Skin Integrity Impairment, Risk/Actual: Skin Integrity/Wound Healing Abdominal lap sites x 6 with band aides over steri-strips are clean dry and intact. Patient encouraged to mobilize in bed. Plan of Care - Sachi Melo RN - 01/21/2013 3:37 PM EDT Problem: Pain, Acute (Adult, Obstetric) Goal: Acute Pain: Acceptable Pain Control/Comfort Level - Pain, Acute (Adult, Obstetric) Patient transitioned onto oral pain medications and KILN FEEDER discontinued; states tolerable level of comfort this afternoon; continue to assess and med prn. Problem: Trauma/Injury Risk (Adult, Obstetric) Goal: Trauma/Injury Risk: Absence of Trauma/Injury/Falls Oriented x4, call estes within reach and is reliably calling for assistance; fall precautions active;bed/chair in low locked position; OOB independently with steady gait. Problem: Skin Integrity Impairment, Risk/Actual (Adult, Obstetric) Goal: Skin Integrity Impairment, Risk/Actual: Skin Integrity/Wound Healing Abdominal lap sites dry with bandaides intact; belly button dry and slightly cracked without drainage; IV patent. Plan of Care - Elinor Cee RN - 01/21/2013 6:43 AM EDT Problem: Pain, Acute (Adult, Obstetric) Goal: Acute Pain: Acceptable Pain Control/Comfort Level - Pain, Acute (Adult, Obstetric) Outcome: Therapy, goal partially met Patient reports adequate pain control with KILN FEEDER and Toradol. Patient slept fair. Turns self with encouragement. See interventions. Problem: Trauma/Injury Risk (Adult, Obstetric) Goal: Trauma/Injury Risk: Absence of Trauma/Injury/Falls Outcome: Absent and monitoring Patient with call light in reach. Patient using his own CPAP overnight without problems. See interventions. Problem: Skin Integrity Impairment, Risk/Actual (Adult, Obstetric) Goal: Skin Integrity Impairment, Risk/Actual: Skin Integrity/Wound Healing Outcome: Absent and monitoring Patient skin intact. Band aids on abdomen dry and intact. See interventions. Op Note - Candi Barboza MD - 01/20/2013 5:17 PM EDT [facility] Operative Note Patient Name: Brady Billings : [id number] MR#: [id number] Case Date: 01/20/2013 Surgeon: Surgeon(s) and Role: * Candi aBrboza MD - Primary * Darci Redding MD - No qualified resident available to assist Preoperative diagnosis: OBESITY Postoperative diagnosis: OBESITY Procedure(s): @LAPAROSCOPIC GASTROPLASTY, LAPAROSCOPIC LIVER BIOPSY ENDOSCOPY, UPPER GI, DIAGNOSTIC, WITH OR WITHOUT SPECIMENS General Estimated Blood Loss: 22cc Drains: none Disposition: awakened from anesthesia, extubated and taken to the recovery room in a stable condition, having suffered no apparent untoward event. Condition: doing well without problems Indications: This 37 y.o. male presented to the Bariatric Program with a history of weight-related problems including significant weight-related comorbidities. He meets the NIH criteria for gastric bypass. The risks and benefits of the procedure were explained and he chose to undergo this procedure laparoscopically. Under general anesthesia and endotracheal intubation, the patient was prepped and draped in the supine position. The abdomen was entered using the Arrayit trocar system. The 10-mm port was placed approximately 15 cm below the xiphoid from the left of midline. A 45-degree telescope was inserted, and under direct vision, two 5-mm ports were placed in the left upper quadrant forming the first arm of a V with the scope at the apex. Several adhesions were taken down with sharp dissection. A 5-mm port was placed approximately 15-cm along the right costal margin, through which a liver retractor was placed and used to elevate the left lobe of the liver, thus exposing the hiatal region. This was fixed in good position using the mechanical arm. A 5-mm port was placed approximately 10 cm along the right costal margin and a 12- mm port was placed approximately 4 cm below this. A small window was made along the vasculature of the lesser curve, approximately 5 cm from the hiatus. Eventually, the vasculature was from the lesser curve and the posterior, lesser sac was entered. The hiatal region was freed up of some attachments to the diaphragm, thus exposing the left lindsay. A firing of an endo-PATRICIA 60 stapler with a blue load in a transverse direction across the stomach was performed. The stapler was then fired multiple times until a small narrow pouch was created. The pouch accommodated a volume of approximately 20 cc to 30 cc. The patient was then placed into some Trendelenburg position. Adhesions between the omentum and lower anterior abdominal wall were taken down using sharp dissection. The omentum and transverse colon reflected cephalad. The ligament of Treitz was identified and dissection was carried along approximately 40 cm from the ligament of Treitz. A small window was made in the small bowel mesentery and a stapler was introduced through this to create a firing of the stapler and divide the small bowel. The harmonic scalpel was used to divide the mesentery for a Katie limb. At a point approximately 150 cm, the distal bowel was chosen to create the myhg-ho-hrld jejunojejunostomy. The duodenal, afferent limb was approximated to the side wall of the jejunum at the 100-cm samir. Two stay sutures of 2-0 Nurolon were used to approximate the two together. Enterotomies were made in both and a single firing of an EndoGIA vascular load was used to create anastomosis. The resultant defect was sewn in two layers of running 2-0 Surgilon suture. A split was made in the omentum just above the transverse colon and the Katie limb fed through this. Two stay stitches in the side wall of the Katie limb were approximated to the end of the gastric pouch. An enterotomy was made in the gastric pouch and the jejunostomy and a partial-length firing of the PATRICIA-60 stapler was used to create the anastomosis between this pouch and the jejunum. The resultant enterotomy defect was closed with a running 2- 0 Surgilon suture in two layers with a 30 Yi Bougie (blunt-tipped) in place. The Bougie was then removed and the Katie limb clamped with a bowel clamp. The endoscope was introduced and the pouch and anastomosis was insufflated under saline. Inspection of the anastomosis did not reveal any leak. It appeared to be patent and allowed passage of an endoscope without resistance. Wedge liver biopsy was then performed from the left lobe using sharp dissection. The defect was cauterized for hemostasis. Cotter's defect was then closed with a running 2-0 Surgilon suture. All ports were then removed under direct vision and the skin was closed with running subcuticular 4-0 Vicryl suture, followed by Steri- Strips and Band-aids. The patient returned to the Recovery Room in stable conditions. Sponge, instrument and needle counts were correct. Pathology Specimen: Liver Biopsy OR Attestation - Candi Barboza MD - 01/20/2013 5:17 PM EDT Attestation: Case Date: 01/20/2013 I performed this procedure without the involvement of a resident. CANDI BARBOZA MD 01/20/2013 Miscellaneous - Kiet, Franc - 01/20/2013 2:15 PM EDT documented in this encounter Plan of Treatment Not on filedocumented as of this encounter Procedures Procedure Name Priority Date/Time Associated Comments Diagnosis POCT GLUCOSE Routine 01/22/2013 11:23 Results for this AM EDT procedure are i n the results section. POCT GLUCOSE Routine 01/22/2013 8:22 AM Results f or this EDT procedure are i n the results section. BMP W/FASTING GLUCOSE Timed 01/22/2013 5:06 AM Results for this EDT procedure are i n the results section. POCT GLUCOSE Routine 01/21/2013 8:44 PM Results f or this EDT procedure are i n the results section. POCT GLUCOSE Routine 01/21/2013 7:07 PM Results f or this EDT procedure are i n the results section. POCT GLUCOSE Routine 01/21/2013 4:31 PM Results f or this EDT procedure are i n the results section. POCT GLUCOSE Routine 01/21/2013 11:34 Results for this AM EDT procedure are i n the results section. POCT GLUCOSE Routine 01/21/2013 7:16 AM Results f or this EDT procedure are i n the results section. DIFFERENTIAL, Routine 01/21/2013 4:49 AM Results for this AUTOMATED EDT procedure are i n the results section. CREATININE Routine 01/21/2013 4:49 AM Results f or this EDT procedure are i n the results section. CBC (WITH DIFF) Routine 01/21/2013 4:49 AM Result s for this EDT procedure are i n the results section. BUN Routine 01/21/2013 4:49 AM Results f or this EDT procedure are i n the results section. PHOSPHORUS Routine 01/21/2013 4:49 AM Results f or this EDT procedure are i n the results section. MAGNESIUM Routine 01/21/2013 4:49 AM Results f or this EDT procedure are i n the results section. GLUCOSE, FASTING Routine 01/21/2013 4:49 AM Resul ts for this EDT procedure are i n the results section. ELECTROLYTES PANEL Routine 01/21/2013 4:49 AM Res ults for this EDT procedure are i n the results section. POCT GLUCOSE Routine 01/20/2013 10:26 Results for this PM EDT procedure are i n the results section. POCT GLUCOSE Routine 01/20/2013 5:38 PM Results f or this EDT procedure are i n the results section. SPECIMEN TO PATHOLOGY Routine 01/20/2013 3:13 PM Results for this EDT procedure are i n the results section. SURGICAL PATHOLOGY Routine 01/20/2013 3:12 PM Res ults for this REPORT EDT procedure are i n the results section. ENDOSCOPY, UPPER GI, 01/20/2013 1:53 PM OBESITY DIAGNOSTIC, WITH OR EDT WITHOUT SPECIMENS LAPAROSCOPIC LIVER 01/20/2013 1:53 PM OBESITY BIOPSY (WRVU 16.52) EDT @LAPAROSCOPIC 01/20/2013 1:53 PM OBESITY GASTROPLASTY W/ EDT KATIE-EN-Y CONSTRUCTION (WRVU 29.4) POCT GLUCOSE Routine 01/20/2013 12:35 Results for this PM EDT procedure are i n the results section. documented in this encounter Results POCT Glucose (01/22/2013 11:23 AM EDT) athologist Signature POC Glucose 102 60 - 199 CERNER mg/dL MILLENNIUM Comment: Supplemental ranges: <110 mg/dL before meals <200 mg/dL all other times of the day Specimen Anatomical Collection Method Collection Time Receive d Time (Source) Location / / Volume Laterality Blood specimen 01/22/2013 11:23 01/22/201 3 (specimen) AM EDT 11:23 AM EDT Candi Barboza MD POINT OF CARE TEST ORDERABLE S Performing Organization Address City/State/[place] [address] CERNER MILLENNIUM POCT Glucose (01/22/2013 8:22 AM EDT) athologist Signature POC Glucose 111 60 - 199 CERNER mg/dL MILLENNIUM Comment: Supplemental ranges: <110 mg/dL before meals <200 mg/dL all other times of the day Specimen Anatomical Collection Method Collection Time Receive d Time (Source) Location / / Volume Laterality Blood specimen 01/22/2013 8:22 AM 013 8:22 (specimen) EDT AM EDT Candi Barboza MD POINT OF CARE TEST ORDERABLE S Performing Organization Address City/State/[place] [address] CERNER MILLENNIUM (ABNORMAL) BMP w/fasting Glucose (01/22/2013 5:06 AM EDT) P athologist Signature Glucose 109 (H) 65 - 99 CERNER Fasting mg/dL MILLENNIUM Comment: ?Fasting* Glucose Interpretive C riteria Normal ?65-99 mg/dL Impaired Fasting glucose ?100-125 mg/dL Consistent with Diabetes Mellitus ? >or= 126 mg/dL *Fasting is defined as no caloric intake for at least 8 hours In the absence of unequivocal hypergly cemia a plasma glucose value of >or= 126 mg/dL should be repeated on a subseq uent day. Diagnosis and Classification of Diabetes Mellitus, Position Statement from the [place] [employer]. ??Diabete s Care, Volume 33, Supplement 1, Apr 2009 BUN 14 10 - 20 mg/dL CERNER MILLENNIU M Creatinine 0.74 (L) 0.80 - 1.50 mg/dL CERNER MILL ENNIUM Comment: Please note that the pediatric reference intervals supplied above were not validated at [facility]. Results from pediatri c patients should be interpreted in conjunction to the patient's age, height and muscle mass. Sodium 137 135 - 145 mmol/L CERNER BEVERLY NIUM Potassium 4.2 3.5 - 5.0 mmol/L CERNER BEVERLY NIUM Comment: Please note: ??Patients with WBC >100,00 0 may have falsely elevated Potassium levels. ??For accurate Potassium quantif ication in these patients send serum separator tube (gold top) for subsequent determinations. ??Contact the Clinical Chemistry Laboratory if there are any qu estions. Chloride 100 98 - 107 mmol/L CERNER MILLENN IUM CO2 27 22 - 31 mmol/L CERNER MILLENNI UM Anion Gap 10 5 - 15 mmol/L CERNER MILLENNIU M Calcium 8.8 8.5 - 10.5 mg/dL CERNER BEVERLY NIUM Estimated GFR >60 >=60 CERNER MILLENNIU M Comment: This estimated GFR (eGFR) value was calc ulated using the MDRD equation which has been validated on patients between t he ages of 18 and 70. The MDRD should not be used to assess kidney function in patients < 18 years of age or in patients with extremes of body mass, or in patients with acute kidney failure. This value should be multiplied by 1.2 f or patients. For further information please copy and past e the following links into your internet browser. http://www.nkdep.nih.gov/lab-evaluation. shtml http://www.kidney.org/professionals/ Specimen Anatomical Collection Method Collection Time Receive d Time (Source) Location / / Volume Laterality Blood specimen 01/22/2013 5:06 AM 013 5:21 (specimen) EDT AM EDT Resulting Agency Comment Spec In Lab Candi Barboza MD CHEMISTRY ORDERABLES Performing Organization Address City/[facility]/ZIP Code Phon e Number [address] CERNER MILLENNIUM POCT Glucose (01/21/2013 8:44 PM EDT) P athologist Signature POC Glucose 130 60 - 199 CERNER mg/dL MILLENNIUM Comment: Supplemental ranges: <110 mg/dL before meals <200 mg/dL all other times of the day Specimen Anatomical Collection Method Collection Time Receive d Time (Source) Location / / Volume Laterality Blood specimen 01/21/2013 8:44 PM 013 8:44 (specimen) EDT PM EDT Candi Barboza MD POINT OF CARE TEST ORDERABLE S Performing Organization Address City/State/ZIP Code Phon e Number [address] CERNER MILLENNIUM POCT Glucose (01/21/2013 7:07 PM EDT) P athologist Signature POC Glucose 123 60 - 199 CERNER mg/dL MILLENNIUM Comment: Supplemental ranges: <110 mg/dL before meals <200 mg/dL all other times of the day Specimen Anatomical Collection Method Collection Time Receive d Time (Source) Location / / Volume Laterality Blood specimen 01/21/2013 7:07 PM 013 7:07 (specimen) EDT PM EDT Candi Barboza MD POINT OF CARE TEST ORDERABLE S Performing Organization Address City/State/[place] [address] CERNER MILLENNIUM POCT Glucose (01/21/2013 4:31 PM EDT) P athologist Signature POC Glucose 110 60 - 199 CERNER mg/dL MILLENNIUM Comment: Supplemental ranges: <110 mg/dL before meals <200 mg/dL all other times of the day Specimen Anatomical Collection Method Collection Time Receive d Time (Source) Location / / Volume Laterality Blood specimen 01/21/2013 4:31 PM 013 4:31 (specimen) EDT PM EDT Candi Barboza MD POINT OF CARE TEST ORDERABLE S Performing Organization Address City/[facility]/ZIP Code Phon e Number [address] CERNER MILLENNIUM POCT Glucose (01/21/2013 11:34 AM EDT) P athologist Signature POC Glucose 135 60 - 199 CERNER mg/dL MILLENNIUM Comment: Supplemental ranges: <110 mg/dL before meals <200 mg/dL all other times of the day Specimen Anatomical Collection Method Collection Time Receive d Time (Source) Location / / Volume Laterality Blood specimen 01/21/2013 11:34 3 (specimen) AM EDT 11:34 AM EDT Candi Barboza MD POINT OF CARE TEST ORDERABLE S Performing Organization Address City/[facility]/[place] [address] CERNER MILLENNIUM POCT Glucose (01/21/2013 7:16 AM EDT) P athologist Signature POC Glucose 130 60 - 199 CERNER mg/dL MILLENNIUM Comment: Supplemental ranges: <110 mg/dL before meals <200 mg/dL all other times of the day Specimen Anatomical Collection Method Collection Time Receive d Time (Source) Location / / Volume Laterality Blood specimen 01/21/2013 7:16 AM 013 7:16 (specimen) EDT AM EDT Candi Barboza MD POINT OF CARE TEST ORDERABLE S Performing Organization Address City/State/[place] [address] CERNER MILLENNIUM (ABNORMAL) Differential, Automated (01/21/2013 4:49 AM EDT) [facility] Method Time Signature Neutrophils % 82.2 (H) 34.0 - CERNER 71.0 % MILLENNIUM Neutr Abs (ANC) 9.16 (H) 1.50 - CERNER 6.30 MILLENNIUM x10(3)/mc L Lymphocytes % 12.3 (L) 19.0 - CERNER 53.0 % MILLENNIUM Lymphocytes Abs 1.4 1.0 - 3.6 CERNER x10(3)/mc MILLENNIUM L Monocytes % 5.2 4.0 - CERNER 13.0 % MILLENNIUM Monocyte Abs 0.6 0.2 - 1.0 CERNER x10(3)/mc MILLENNIUM L Eosinophils % 0.0 0.0 - 7.0 CERNER % MILLENNIUM Eosinophils Abs 0.0 0.0 - 0.5 CERNER x10(3)/mc MILLENNIUM L Basophils % 0.0 0.0 - 2.0 CERNER % MILLENNIUM Basophils Abs 0.0 0.0 - 0.2 CERNER x10(3)/mc MILLENNIUM L Immature Gran % 0.30 0.00 - CERNER 0.66 % MILLENNIUM Comment: Immature granulocytes(IG's)percentage an d absolute count will include metamyelocytes, myelocytes, and promyelo cytes. Blood smears from CBCs yielding IG's will be scanned manually for concor dance. If this scan disagrees with the automated IG or if promyelocytes are not ed, a manual differential will be performed. Galina Gran Abs 0.03 0.00 - 0.05 x10(3)/mcL CER NER MILLENNIUM Specimen Anatomical Collection Method Collection Time Receive d Time (Source) Location / / Volume Laterality Blood specimen 01/21/2013 4:49 AM 013 4:57 (specimen) EDT AM EDT Darci Baltazar MD HEMATOLOGY ORDERABLES Performing Organization Address City/State/[place] [address] CERNER MILLENNIUM Phosphorus (01/21/2013 4:49 AM EDT) athologist Signature Phosphorus 3.2 2.5 - 4.5 CERNER mg/dL [facility] Specimen Anatomical Collection Method Collection Time Receive d Time (Source) Location / / Volume Laterality Blood specimen 01/21/2013 4:49 AM 013 4:57 (specimen) EDT AM EDT Resulting Agency Comment Spec In Lab Darci Baltazar MD CHEMISTRY ORDERABLES Performing Organization Address City/[facility]/ZIP Code Phon e Number [address] CERNER MILLENNIUM Magnesium (01/21/2013 4:49 AM EDT) athologist Signature Magnesium 0.70 0.69 - 1.07 CERNER mmol/L [facility] Specimen Anatomical Collection Method Collection Time Receive d Time (Source) Location / / Volume Laterality Blood specimen 01/21/2013 4:49 AM 013 4:57 (specimen) EDT AM EDT Resulting Agency Comment Spec In Lab Darci Baltazar MD CHEMISTRY ORDERABLES Performing Organization Address City/[facility]/ZIP Code Phon e Number [address] [facility] ([facility] Glucose, fasting (01/21/2013 4:49 AM EDT) athologist Signature Glucose 152 (H) 65 - 99 CERNER Fasting mg/dL [facility] Comment: ?Fasting* Glucose Interpretive C riteria Normal ?65-99 mg/dL Impaired Fasting glucose ?100-125 mg/dL Consistent with Diabetes Mellitus ? >or= 126 mg/dL *Fasting is defined as no caloric intake for at least 8 hours In the absence of unequivocal hypergly cemia a plasma glucose value of >or= 126 mg/dL should be repeated on a subseq u day. Diagnosis and Classification of Diabetes Mellitus, Position Statement from the [place] [employer]. ??Diabete s Care, Volume 33, Supplement 1, Apr 2009 Specimen Anatomical Collection Method Collection Time Receive d Time (Source) Location / / Volume Laterality Blood specimen 01/21/2013 4:49 AM 013 4:57 (specimen) EDT AM EDT Resulting Agency Comment Spec In Lab Darci Baltazar MD CHEMISTRY ORDERABLES Performing Organization Address City/[facility] Phon e Number [address] CERNER MILLENNIUM Creatinine (01/21/2013 4:49 AM EDT) [facility] Signature Creatinine 0.81 0.80 - 1.50 CERNER mg/dL MILLENNIUM Comment: Please note that the pediatric reference intervals supplied above were not validated at [facility]. Results from pediatri c patients should be interpreted in conjunction to the patient's age, height and muscle mass. Estimated GFR >60 >=60 LUCRECIANER NAHUNENNIU M Comment: This estimated GFR (eGFR) value was calc ulated using the MDRD equation which has been validated on patients between t he ages of 18 and 70. The MDRD should not be used to assess kidney function in patients < 18 years of age or in patients with extremes of body mass, or in patients with acute kidney failure. This value should be multiplied by 1.2 f or patients. For further information please copy and past e the following links into your internet browser. http://www.nkdep.nih.gov/lab-evaluation. shtml http://www.kidney.org/professionals/ Specimen Anatomical Collection Method Collection Time Receive d Time (Source) Location / / Volume Laterality Blood specimen 01/21/2013 4:49 AM 013 4:57 (specimen) EDT AM EDT Resulting Agency Comment Spec In Lab Darci Baltazar MD CHEMISTRY ORDERABLES Performing Organization Address City/[facility] [place] [address] CERNER MILLENNIUM BUN (01/21/2013 4:49 AM EDT) athologist Signature BUN 16 10 - 20 CERNER mg/dL MILLENNIUM Specimen Anatomical Collection Method Collection Time Receive d Time (Source) Location / / Volume Laterality Blood specimen 01/21/2013 4:49 AM 013 4:57 (specimen) EDT AM EDT Resulting Agency Comment Spec In Lab Darci Baltazar MD CHEMISTRY ORDERABLES Performing Organization Address [facility]/[place] [address] CERNER MILLENNIUM Electrolytes panel (01/21/2013 4:49 AM EDT) athologist Signature Sodium 135 135 - 145 CERNER mmol/L MILLENNIUM Potassium 4.8 3.5 - 5.0 CERNER mmol/L MILLENNIUM Comment: Please note: ??Patients with WBC >100,00 0 may have falsely elevated Potassium levels. ??For accurate Potassium quantif ication in these patients send serum separator tube (gold top) for subsequent determinations. ??Contact the Clinical Chemistry Laboratory if there are any qu estions. Chloride 101 98 - 107 mmol/L CERNER MILLENN IUM CO2 26 22 - 31 mmol/L CERNER MILLENNI UM Anion Gap 8 5 - 15 mmol/L CERNER MILLENNIU M Specimen Anatomical Collection Method Collection Time Receive d Time (Source) Location / / Volume Laterality Blood specimen 01/21/2013 4:49 AM 013 4:57 (specimen) EDT AM EDT Resulting Agency Comment Spec In Lab Darci Baltazar MD CHEMISTRY ORDERABLES Performing Organization Address City/[facility]/[place] [address] CERNER MILLENNIUM (ABNORMAL) CBC (with Diff) (01/21/2013 4:49 AM EDT) athologist Signature WBC 11.1 (H) 4.0 - 10.0 CERNER x10(3)/mcL MILLENNIUM RBC 4.35 (L) 4.63 - CERNER 6.08 MILLENNIUM x10(6)/mcL Hemoglobin 13.9 13.7 - CERNER 17.5 gm/dL MILLENNIUM Hematocrit 41.5 40.0 - CERNER 51.0 % ENNIUM MCV 95.4 (H) 79.0 - CERNER 92.0 fL ENNIUM MCH 32.0 25.6 - CERNER 32.2 pg ENNIUM MCHC 33.5 32.0 - CERNER 36.5 gm/dL ENNIUM Platelets 257 145 - 370 CERNER x10(3)/mcL ENNIUM RDWSD 45.9 35.0 - CERNER 46.0 fL ENNIUM RDWCV 13.2 10.9 - CERNER 14.4 % ENNIUM MPV 10.7 9.0 - 12.0 CERNER fL ENNIUM Specimen Anatomical Collection Method Collection Time Receive d Time (Source) Location / / Volume Laterality Blood specimen 01/21/2013 4:49 AM 013 4:57 (specimen) EDT AM EDT Resulting Agency Comment Spec In Lab Darci Baltazar MD HEMATOLOGY ORDERABLES Performing Organization Address City/[facility]/ZIP Code Phon e Number [address] CERNER MILLENNIUM POCT Glucose (01/20/2013 10:26 PM EDT) athologist Signature POC Glucose 157 60 - 199 CERNER mg/dL ENNIUM Comment: Supplemental ranges: <110 mg/dL before meals <200 mg/dL all other times of the day Specimen Anatomical Collection Method Collection Time Receive d Time (Source) Location / / Volume Laterality Blood specimen 01/20/2013 10:26 3 (specimen) PM EDT 10:26 PM EDT Candi Barboza MD POINT OF CARE TEST ORDERABLE S Performing Organization Address City/[facility]/ZIP Code Phon e Number [address] CERNER MILLENNIUM POCT Glucose (01/20/2013 5:38 PM EDT) athologist Signature POC Glucose 165 60 - 199 CERNER mg/dL ENNIUM Comment: Supplemental ranges: <110 mg/dL before meals <200 mg/dL all other times of the day Specimen Anatomical Collection Method Collection Time Receive d Time (Source) Location / / Volume Laterality Blood specimen 01/20/2013 5:38 PM 013 5:38 (specimen) EDT PM EDT Candi Barboza MD POINT OF CARE TEST ORDERABLE S Performing Organization Address City/State/ZIP Code Phon e Number [address] [facility] Specimen to Pathology (surgical or derm) (01/20/2013 3:13 PM EDT) Specimen Anatomical Collection Method Collection Time Receive d Time (Source) Location / / Volume Laterality AP Specimen 01/20/2013 3:13 PM 3 3:13 EDT PM EDT Narrative CERNER MILLENNIUM - 01/20/2013 3:13 PM E DT Specimen requisition ordered. ??Separate Pathology report to follow Candi Barboza MD PATHOLOGY/CYTOLOGY ORDERABLE S Performing Organization Address City/[facility]/[place] [address] [facility] Surgical Pathology Report (01/20/2013 3:12 PM EDT) Component Value Ref Test Analysis Performed At [facility] gist Range Method Time Signature Surgical CERNER Pathology ? [facility] Report ? Provider: ?? JABARI, CANDI Lobo ? Pt. Name: ?? BRADY WORLEY ? Acc #: ?[id number] ?Pt. MRN: ?[id number] ? Col Date: ?? 3 ? /Sex: ?1975,(37 years),Male ? Rec Date: ?? 01/20/2013 ? LOC: ?4WST ? SURGICAL PATHOLOGY ? ---Pathologic Diagnosis--- ? Liver, biopsy: ? Borderline steatohepatitis (see Note) ? Note: Biopsy shows moderate macrovesicula r steatosis and few scattered ? inflammatory cells in the lobules.Focal pericellular fibrosis is seen on ? trichrome stain. Iron stain is negative. ? CR-0 ? 01/23/13 ? ML ? 01/23/13 Verified by: ? Franki Beltran MD ? Pathologist ? (Electronic Si gnature) ? The attending pathologist whose signature appears o n this report has ? reviewed all diagnostic slides and has edited the tamanna ss and/or ? microscopic portion of the report in rendering the fi nal pathologic ? diagnosis. ? ---Gross Description--- ? A - Labeled/Fixative: Liver biopsy, fresh. ? Quantity/Size: Single, 0.7 x 0.4 x 0.4 cm. ? Tissue Description: Wedge of gonzalez-brown liver. ? Sections/Processing: Bisected. (T1) ??pps ? ---Clinical Information--- ? Specimen Submitted: ? A - Liver biopsy ? Clinical History: ? Obesity ? Clinical Diagnosis: ? Obesity Specimen (Source) Anatomical Collection Method Collection Time Re ceived Time Location / / Volume Laterality 01/20/2013 3:12 PM EDT Candi Barboza MD PATHOLOGY/CYTOLOGY ORDERABLE S Performing Organization Address City/State/[place] [address] CERNER MILLENNIUM POCT Glucose (01/20/2013 12:35 PM EDT) athologist Signature POC Glucose 116 60 - 199 CERNER mg/dL [facility] Comment: Supplemental ranges: <110 mg/dL before meals <200 mg/dL all other times of the day Specimen Anatomical Collection Method Collection Time Receive d Time (Source) Location / / Volume Laterality Blood specimen 01/20/2013 12:35 3 (specimen) PM EDT 12:35 PM EDT Candi Barboza MD POINT OF CARE TEST ORDERABLE S Performing Organization Address City/State/ZIP Code Phon e Number [place] [id number] TALHA BAY documented in this encounter Visit Diagnoses Not on filedocumented in this encounter Administered Medications Inactive Administered Medications - up to 3 most recent administrations Medication Order MAR Action Action Date Dose Rate Site acetaminophen (TYLENOL) tablet 650 Given 01/22/2013 3:56 AM EDT 650 mg mg 650 mg, Oral, EVERY 4 HOURS PRN, Starting on Nicole 01/21/13 at 1637, Until Fri01/22/13 at 1515, Pain, Maximum dose of acetaminophen is 4000 mg from all sources in 24 hours., Routine Given 01/21/2013 8:03 PM EDT 650 mg docusate sodium (COLACE) oral liquid 50- 200 mg Given 01/22/2013 9:00 AM EDT 50 mg 50-200 mg, Oral, 2 TIMES DAILY, First dose on Fri01/20/13 at 2245, Until Discontinued, Start with 1 tablet or liquid equivalent orally twice daily and titrate up to achieve: 1. one bowel movement at least every 48 hours, AND 2. without straining, Routine Given 01/21/2013 8:48 PM EDT 100 mg Given 01/21/2013 9:00 AM EDT 100 mg enoxaparin (LOVENOX) Given 01/20/2013 12:41 PM EDT 40 mg Right Lower Quadrant injection 40 mg 40 mg, Subcutaneous, ONCE, 1 dose, On Fri01/20/13 at 1230, Day of Surgery (Day of Procedure), Routine enoxaparin (LOVENOX) injection 40 mg Given 01/22/2013 9:00 AM EDT 40 mg 40 mg, Subcutaneous, EVERY 12 HOURS SCHEDULED (2 times per day), First dose on Fri01/20/13 at 2330, Until Discontinued, Routine Given 01/21/2013 8:48 PM EDT 40 mg Given 01/21/2013 9:00 AM EDT 40 mg esomeprazole (NEXIUM) capsule 40 mg Given 01/22/2013 9:00 AM EDT 40 mg 40 mg, Oral, DAILY, First dose on Fri01/21/13 at 1000, Until Discontinued, Routine Given 01/21/2013 10:00 AM EDT 40 mg furosemide (LASIX) tablet 40 mg Given 01/22/2013 9:00 AM EDT 40 mg 40 mg, Oral, 2 TIMES DAILY, First dose on Fri01/21/13 at 1700, Until Discontinued, Routine Given 01/21/2013 5:00 PM EDT 40 mg HYDROmorphone (DILAUDID) 1 mg/mL New Syringe/Cartridge 01/20/2013 6:1 5 PM EDT KILN FEEDER 30 mL Intravenous, KILN FEEDER ONLY, Starting on Fri01/20/13 at 1830, Until Fri01/21/13 at 1000 HYDROmorphone (DILAUDID) injection 0.2-0 .4 mg Given 01/20/2013 8:40 PM EDT 0.4 mg 0.2-0.4 mg, Intravenous, EVERY 5 MIN PRN, Starting on Fri01/20/13 at 1708, Until Fri01/20/13 at 2139, Pain, For moderate pain give: 0.2 mg every 5 minute prn For severe pain give: 0.4 mg every 5 minutes prn Maximum dose: 4 mg per hour Hold for respiratory rate less than 10 per minute., PACU Recovery, Routine Given 01/20/2013 8:30 PM EDT 0.4 mg Given 01/20/2013 7:15 PM EDT 0.4 mg HYDROmorphone (DILAUDID) injection 0.5 m g Given 01/21/2013 5:06 PM EDT 0.5 mg 0.5 mg, Intravenous, EVERY 2 HOURS PRN, Starting on Fri01/21/13 at 0959, Until Fri01/22/13 at 1515, Pain, Routine insulin aspart (NOVOLOG) PEN injection 1-4 Given 01/20 11:22 PM EDT 1 Units Units 1-4 Units, Subcutaneous, 4 TIMES DAILY, First dose on Fri01/20/13 at 1830, Until Discontinued, CORRECTION BOLUS Sensitive to insulin lean patient or total daily dose of all insulin needed to achieve glycemic control less than 30 units BG 140 - 160 Give 1 unit BG 161 - 200 Give 2 units BG 201 - 240 Give 3 units BG greater than 240, give 4 units and recheck BG in 2 hours. If BG remains greater than 240, repeat 4 units (no more than three times) & call for new basal insulin orders. If less than 240 after two hours, give no insulin and resume prior schedule., Routine Given 01/20/2013 7:11 PM EDT 2 Units ketorolac (TORADOL) injection 30 mg Given 01/21/2013 6:17 AM EDT 30 mg 30 mg, Intravenous, EVERY 6 HOURS, 8 doses, First dose on Fri01/20/13 at 1830, Last dose on Fri01/22/13 at 1230, Routine Given 01/20/2013 11:54 PM EDT 30 mg lactated ringers 1,000 mL IV bolus Given 01/20/2013 8:00 PM EDT Intravenous, ONCE, 1 dose, On Fri01/20/13 at 2000 lactated ringers 500 mL IV bolus Given 01/21/2013 5:15 AM EDT Intravenous, ONCE, 1 dose, On Fri01/21/13 at 0515 lactated ringers infusion 1,000 mL New Bag 01/20/2013 2:45 PM EDT mL 1,000 mL, at 100 mL/hr, Intravenous, CONTINUOUS, Starting on Fri01/20/13 at 1230, Until Fri01/20/13 at 2139, Day of Surgery (Day of Procedure) New Bag 01/20/2013 1:59 PM EDT mL New Bag 01/20/2013 12:40 PM EDT 1,000 mLs 100 mL/hr lactated ringers infusion New Bag 01/21/2013 11:49 AM EDT 200 mL/hr 200 mL/hr 200 mL/hr, Intravenous, CONTINUOUS, Starting on Fri01/20/13 at 1830, Until Fri01/21/13 at 1307 New Bag 01/21/2013 6:24 AM EDT 200 mL/hr 200 mL/hr Rate/Dose Change 01/21/2013 5:55 AM EDT 200 mL/hr 200 mL/hr lisinopril (PRINIVIL;ZESTRIL) tablet 20 mg Given 01/22/2013 9:00 AM EDT 20 mg 20 mg, Oral, DAILY, First dose on Fri01/21/13 at 0900, Until Discontinued, Routine Given 01/21/2013 9:00 AM EDT 20 mg metoprolol tartrate (LOPRESSOR) tablet 1 00 mg Given 01/22/2013 9:00 AM EDT 100 mg 100 mg, Oral, EVERY 12 HOURS SCHEDULED (2 times per day), First dose on Fri01/20/13 at 2330, Until Discontinued, Routine Given 01/21/2013 9:00 AM EDT 100 mg OXYcodone (ROXICODONE) 5 mg/5 mL solution 20 Given 12:45 PM EDT 20 mg mg 20 mg, Oral, EVERY 3 HOURS PRN, Starting on Fri01/21/13 at 1637, Until Fri01/22/13 at 1515, Pain, Routine Given 01/22/2013 9:53 AM EDT 20 mg Given 01/22/2013 7:07 AM EDT 20 mg OXYcodone-acetaminophen (ROXICET) 5-325 mg/5 Given 4:04 PM EDT 20 mLs mL oral solution 10-20 mL 10-20 mL, Oral, EVERY 4 HOURS PRN, Pain, Starting on Fri01/21/13 at 0958, Until Fri01/21/13 at 1638, Maximum dose of acetaminophen is 4000 mg from all sources in 24 hours. Given 01/21/2013 12:04 PM EDT 10 mLs Given 01/21/2013 11:25 AM EDT 10 mLs sennosides (SENOKOT) 8.8 mg/5 mL oral syrup Given 01/22/2013 9:00 AM EDT 8.8 mg 8.8-35.2 mg 8.8-35.2 mg, Oral, 2 TIMES DAILY, First dose on Fri01/20/13 at 2245, Until Discontinued, Start with 1 tablet or liquid equivalent orally twice daily and titrate up to achieve: 1. One bowel movement at least every 48 hours, AND 2. Without straining, Routine Given 01/21/2013 8:48 PM EDT 8.8 mg Given 01/21/2013 9:00 AM EDT 8.8 mg sodium chloride 0.9 % flush 5 mL Given 01/22/2013 10:45 AM EDT 5 mLs 5 mL, Intravenous, EVERY 12 HOURS, First dose on Fri01/20/13 at 2245, Until Discontinued, Routine Given 01/21/2013 9:47 PM EDT 5 mLs Given 01/21/2013 9:03 AM EDT 5 mLs sodium chloride 0.9% 500 mL IV bolus Given 01/21/2013 8:46 AM EDT Intravenous, ONCE, 1 dose, On Nicole 01/21/13 at 0900 documented in this encounter Active and Recently Administered Medications Times are shown in EDT. Scheduled Medication Order 01/20/2013 01/21/2013 01/22/2013 ceFAZolin (ANCEF) 3g in dextrose 5% 100 mL (CANCELED) 1230 (Due)1359 (Given - Provider: aWnda Avery CRNA)1530 (Due)1830 (Due)2130 (Due) 3 g, Intravenous, EVERY 3 HOURS, First d ose on Fri01/20/13 at 1230, Until Discontinued, for 30 Minutes, Intra-Operative (Intra-Procedure), Indication (Active or Suspected): Prophylaxis docusate sodium (COLACE) oral liquid 50-200 mg (CANCEL ED) 2245 (Not Given - Provider: Elinor Cee RN - Reason: NPO) 899 (Given - Provider: Sachi Melo, MARIE)2047 (Given - Provider: Shashank Chang, MARIE) 09 (Given - Provider: Michelle Polanco, MARIE) 50-200 mg, Oral, 2 TIMES DAILY, First do se on Fri01/20/13 at 2245, Until Discontinued, Start with 1 tablet or liquid equivalent orally twice daily and titrate up to achieve: 1. one bowel movement at harith[address] st every 48 hours, AND 2. without straining, Routine enoxaparin (LOVENOX) injection 40 mg (COMPLETED) 1241 (Given - Provider: Maggy Escalona RN) 40 mg, Subcutaneous, ONCE, 1 dose, Fri at 1230, Day of Surgery (Day of Procedure), Routine enoxaparin (LOVENOX) injection 40 mg 2324 (Given - Provider: Kayleigh Diaz RN) 899 (Given - Provider: Sachi Melo, MARIE)2047 (Given - Provider: Shashank Chang, MARIE) 09 (Given - Provider: Michelle Polanco, MARIE) 40 mg, Subcutaneous, EVERY 12 HOURS SCHE DULED (2 times per day), First dose on Fri01/20/13 at 2330, Until Discontinued, Routine esomeprazole (NEXIUM) capsule 40 mg (CANCELED) 1000 (Given - Provider: Sachi Melo RN) 0900 (Given - Provider: Michelle Polanco RN) 40 mg, Oral, DAILY, First dose on Fri at 1000, Until Discontinued, Routine furosemide (LASIX) tablet 40 mg (CANCELED) 1700 (Given - Provider: Sachi Melo RN) 0900 (Given - Provider: Michelle Polanco RN) 40 mg, Oral, 2 TIMES DAILY, First dose o n Fri01/21/13 at 1700, Until Discontinued, Routine insulin aspart (NOVOLOG) PEN injection 1-4 Units (CAN ELED) 191 (Given - Provider: Cindy Nascimento, RN)2322 (Given - Provider: Kayleigh Diaz RN) 0900 (Not Given - Provider: Sachi Melo RN - Reason: Order parameters not met)1300 (Not Given - Provider: Sachi Melo RN - Reason: Order parameters not met) 0900 (Not Given - Provider: Michelle cevallos RN - Reason: Order parameters not met)1255 (Not Given - Provider: Angelina Mcdaniel RN - Reason: Order parameters not met) 1-4 Units, Subcutaneous, 4 TIMES DAILY, First dose on Fri01/20/13 at 1830, Until Discontinued, CORRECTION BOLUS Sensitive to insulin lean patient or total daily dose of all insulin needed to achieve 1700 (Not Given - Provider: Sachi Melo RN - Reason: Order parameters not met)2045 (Not Given - Provider: Shashank Chang RN - Reason: Order parameters not met) glycemic control less than 30 units BG 140 - 160 Give 1 unit BG 161 - 200 Give 2 units BG 201 - 240 Give 3 units BG greater than 240, give 4 units and recheck BG in 2 hours. If BG remains greater than 240, repeat 4 units (no more than three times) & call for new basal insulin orders. If less than 240 after two hours, give no insulin and resume prior schedule., Routine ketorolac (TORADOL) injection 30 mg (CANCELED) 2353 (G iven - Provider: Elinor Cee RN - Comment: given in OR at 1710) 0030 (Not Given - Provider: Elinor Cee RN - Reason: Contraindicated)0617 (Given - Provider: Elinor Cee RN) 30 mg, Intravenous, EVERY 6 HOURS, 8 dos es, First dose on Fri01/20/13 at 1830, Last dose on Fri01/22/13 at 1230, Routine lactated ringers 1,000 mL IV bolus (COMPLETED) 1999 (G iven - Provider: Love Good RN) Intravenous, ONCE, 1 dose, Fri01/20/13 at 2000 lactated ringers 500 mL IV bolus (COMPLETED) 0515 (Given - Provider: Elinor Cee RN) Intravenous, ONCE, 1 dose, Fri01/21/13 at 0515 lisinopril (PRINIVIL;ZESTRIL) tablet 20 mg (CANCELED) 0900 (Given - Provider: Sachi Melo RN) 0900 (Given - Provider: Michelle Polanco RN) 20 mg, Oral, DAILY, First dose on Fri at 0900, Until Discontinued, Routine metoprolol tartrate (LOPRESSOR) tablet 100 mg 2330 (No t Given - Provider: Elinor Cee RN - Reason: See comment - Comment: Pt took topral XL this am. MD aware to start in am) 0900 (Given - Provider: Sachi Melo RN)2044 (Not Given - Provider: Shashank Chang RN - Reason: Patient/family refused - Comment: Patient states that only takes once a day, HR 53 per masimo) 0900 (Given - Provider: Michelle Polanco, MARIE) 100 mg, Oral, EVERY 12 HOURS SCHEDULED ( 2 times per day), First dose on Fri01/20/13 at 2330, Until Discontinued, Routine oxymetazoline (AFRIN) 0.05 % nasal spray 2 spray (COMP LETED) 1359 (Given - Provider: Wanda Avery CRNA)1500 (Due) 2 spray, Each Nare, ONCE, 1 dose, Fri at 1500, Egg Crater recommended duration is 3 days., Day of Surgery (Day of Procedure), Routine sennosides (SENOKOT) 8.8 mg/5 mL oral syrup 8.8-35.2 m g (CANCELED) 2245 (Not Given - Provider: Elinor Cee RN - Reason: NPO) 0900 (Given - Provider: Sachi Melo, MARIE)2048 (Given - Provider: Shashank Chang, RN) 0900 (Given - Provider: Michelle Polanco RN) 8.8-35.2 mg, Oral, 2 TIMES DAILY, First dose on Fri01/20/13 at 2245, Until Discontinued, Start with 1 tablet or liquid equivalent orally twice daily and titrate up to achieve: 1. One bowel movement at [place] every 48 hours, AND 2. Without straining, Routine sodium chloride 0.9 % flush 5 mL (CANCELED) 2320 (Give n - Provider: Kayleigh Diaz RN) 0903 (Given - Provider: Sachi Melo , MARIE)2147 (Given - Provider: Shashank Chang, MARIE) 1045 (Given - Provider: Angelina Mcdaniel RN) 5 mL, Intravenous, EVERY 12 HOURS, First dose on Fri01/20/13 at 2245, Until Discontinued, Routine sodium chloride 0.9% 500 mL IV bolus (COMPLETED) 0846 (Given - Provider: Sachi Melo, MARIE) Intravenous, ONCE, 1 dose, Nicole 01/21/13 at 0900 Continuous Medication Order 01/20/2013 01/21/2013 01/22/2013 HYDROmorphone (DILAUDID) 1 mg/mL KILN FEEDER 30 mL (CANCELED) 1815 (New Syringe/Cartridge - Provider: Cindy Nascimento, MARIE) Intravenous, KILN FEEDER ONLY, Starting Fri01/20/13 at 1830, Until T 01/21/13 at 1000 lactated ringers infusion 1,000 mL (CANCELED) 1240 (Ne w Bag - Provider: Maggy Escalona RN)1359 (New Bag - Provider: Wanda Avery CRNA)1445 (New Bag - Provider: Fina Jj CRNA)1707 (Anesthesia Volume Adjustment - Provider: Wanda Avery CRNA) 1,000 mL, at 100 mL/hr, Intravenous, CON TINUOUS, Starting Fri01/20/13 at 1230, Until Fri01/20/13 at 2139, Day of Surgery (Day of Procedure) 1724 (Anesthesia Volume Adjustment - Provider: Wanda Avery CRNA) lactated ringers infusion (CANCELED) 1815 (New Bag - P rovider: Cindy Nascimento, MARIE)2230 (Rate/Dose Change - Provider: Elinor Cee, MARIE - Comment: IVF infusing at 100ml when admitted from PACU) 0111 (New Bag - Provider: Elinor Cee RN)0555 (Rate/Dose Change - Provider: Elinor Cee, MARIE)0624 (New Bag - Provider: Elinor Cee, MARIE)1149 (New Bag - Provider: Sachi Melo RN)1326 (Stopped - Provider: Sachi Melo RN) 200 mL/hr, at 200 mL/hr, Intravenous, CO NTINUOUS, Starting Fri01/20/13 at 1830, Until Fri01/21/13 at 1307 PRN Medication Order 01/20/2013 01/21/2013 01/22/2013 acetaminophen (TYLENOL) tablet 650 mg 20 03 (Given - Provider: Shashank Chang RN) 0356 (Given - Provider: Yuridia Polanco) 650 mg, Oral, EVERY 4 HOURS PRN, Startin g Nicole 01/21/13 at 1637, Until Fri01/22/13 at 1515, Pain, Maximum dose of acetaminophen is 4000 mg from all sources in 24 hours., Routine BUpivacaine (PF) (MARCAINE) 0.25 % (2.5 mg/mL) injecti on (CANCELED) 1501 (Given - Provider: Candi Barboza MD) ONCE PRN, Starting Fri01/20/13 at 1501, Until Fri01/20/13 at 2145, Intra- Operative (Intra-Procedure), Routine HYDROmorphone (DILAUDID) injection 0.2-0.4 mg (CANCELE D) 1800 (Given - Provider: Cindy Nascimento, MARIE)1915 (Given - Provider: Cindy Nascimento, MARIE)2030 (Given - Provider: Love Good RN)2040 (Given - Provider: oLve Good RN) 0.2-0.4 mg, Intravenous, EVERY 5 MIN PRN , Starting Fri01/20/13 at 1708, Until Fri01/20/13 at 2139, Pain, For moderate pain give: 0.2 mg every 5 minute prn For severe pain give: 0.4 mg every 5 minutes pr n Maximum dose: 4 mg per hour Hold for r espiratory rate less than 10 per minute., PACU Recovery, Routine HYDROmorphone (DILAUDID) injection 0.5 mg (CANCELED) 1706 (Given - Provider: Sachi Melo, MARIE) 0.5 mg, Intravenous, EVERY 2 HOURS PRN, Starting Nicole 01/21/13 at 0959, Until Fri01/22/13 at 1515, Pain, Routine OXYcodone (ROXICODONE) 5 mg/5 mL solution 20 mg (CANCELED) 2001 (Given - Provider: Shashank Chang RN)2304 (Given - Provider: Shashank Chang RN) 0356 (Given - Provider: Shashank Chang RN)0707 (Given - Provider: Shashank Chang RN)0953 (Given - Provider: Angelina Mcdaniel, MARIE)1245 (Given - Provider: Angelina Mcdaniel RN) 20 mg, Oral, EVERY 3 HOURS PRN, Starting Nicole 01/21/13 at 1637, Until Fri01/22/13 at 1515, Pain, Routine OXYcodone-acetaminophen (ROXICET) 5-325 mg/5 mL oral solution 10-20 mL (CANCELED) 1125 (Given - Provider: Hiren Melo RN)1204 (Given - Provider: Sachi Melo, MARIE)1604 (Given - Provider: Sachi Melo, MARIE) 10-20 mL, Oral, EVERY 4 HOURS PRN, Start ing Fri01/21/13 at 0958, Until Fri01/21/13 at 1638, Pain, Maximum dose of acetaminophen is 4000 mg from all sources in 24 hours., Routine documented in this encounter Care Teams Resident Care Associate Relationship Specialty Start Date End Date Pepe Hong DO PCP - General 03/04/[address] [place] [address] [address] [place] [address] documented as of this encounter
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
--- OUTSIDE RECORDS SUMMARY | 2022-02-07 23:30 | XMS_ITS | Encounter Summary ---
:1975 Author Organization [facility] [place] [address] Care Team Providers Name Role Phone Robert Hong DO Primary Care Provider Encounter Details Date Type Department Care Team Description 02/27/2016 Telephone General Surgery at [facility] [place] [address] Social History Tobacco Use Types Packs/Day Years Used Date Never Smoker Smokeless Tobacco: Never Used Alcohol Use Standard Drinks/Week Comments No 0 (1 standard drink = 0.6 oz pure alcoho l) Sex Assigned at Date Recorded Not on file documented as of this encounter Miscellaneous Notes Telephone Encounter - Alize Chang - 02/27/2016 12:14 PM EDT about scheduling a fu appt with [facility] documented in this encounter Plan of Treatment Not on filedocumented as of this encounter Visit Diagnoses Not on filedocumented in this encounter Care Teams Senior Telecommunications Consultant Relationship Specialty Start Date End Date Robert Hong DO PCP - General 03/04/[address] [place], [place] [address] documented as of this encounter
--- OUTSIDE RECORDS SUMMARY | 2022-02-07 23:30 | XMS_ITS | Encounter Summary ---
:1975 Author Organization [facility] [place] [address] Care Team Providers Name Role Phone Robert Hong DO Primary Care Provider Encounter Details Date Type Department Care Team Description 05/25/2018 Telephone General Surgery at [facility] [place] [address] Social History Tobacco Use Types Packs/Day [...] on filedocumented in this encounter Care Teams Trial Lawyer Relationship Specialty Start Date End Date Robert Hong DO PCP - General 03/04/[address] [place], [place] [address] documented as of this encounter
--- OUTSIDE RECORDS SUMMARY | 2022-02-07 23:30 | XMS_ITS | Encounter Summary ---
:1975 Author Organization [place] [id number] Care Team Providers Name Role Phone HalRobert Primary Care Provider Encounter Details Date Type Department Care Team Description 06/02/2014 Surgery Main Operating Room Ori Bar[facility] AGE 5 OR OVER ([facility] GENERAL SURGE RY 6.59) [place] [id number] [place] [id number] [phone] Social History Tobacco Use Types Packs/Day Years Used Date Never Smoker Smokeless Tobacco: Never Used Alcohol Use Standard Drinks/Week Comments No 0 (1 standard drink = 0.6 oz pure alcoho l) Sex Assigned at Date Recorded Not on file documented as of this encounter Last Filed Vital Signs Vital Sign Reading Time Taken Comments Blood Pressure 145/78 06/02/2014 1:03 PM EST Pulse 56 06/02/2014 1:03 PM EST Temperature 36.7 ??C (98.1 ??F) 06/02/2014 1:03 PM EST Respiratory Rate 16 06/02/2014 1:03 PM EST Oxygen Saturation 100% 06/02/2014 1:03 PM EST Inhaled Oxygen Concentration - - Weight 114.9 kg (253 lb 4.9 oz) 06/02/2014 1:03 PM EST Height 193 cm (6' 3.98) 06/02/2014 1:03 PM EST Body Mass Index 30.85 06/02/2014 1:03 PM EST documented in this encounter Discharge Instructions Discharge InstructionsVenus Urban RN - 06/02/2014 6:56 PM EST POST ANESTHESIA INSTRUCTIONS Go home, rest, use caution on stairs. Change positions slowly. Do not smoke if you are alone. Diet light to regular as tolerated today. If nausea occurs start with clear liquids and progress slowly. No driving, operating machinery, alcoholic beverages and no important decisions for 24 hours. Monitor IV site for signs and symptoms of infection: increasing redness, swelling, foul drainage, ifoccurs contact M.D. Patients who have had endotrachial tubes (this tube, used by anesthesia department, is passed down your throat after you are asleep, to ensure safe air passage during your operation). A sore throat is normal due to the tube. Cold liquids or soothing lozenges will help ease the discomfort. The generalized muscle aches are due to the medication given to you just before the tube is inserted. As the medication wears off, you may develop muscle soreness, which usually goes away in 12-24 hours. Patient InstructionsLuda Miller MD - 06/02/2014 6:13 PM EST Provider Instructions Discharge Instructions CALL YOUR PHYSICIAN IF: ??? You have a fever greater than 101 degrees Farenheit within one month of your surgery. ? ? You have diarrhea or vomiting for >24 hours, or stop having bowel movements and passing flatus ??? You have worsening pain, not controlled with your pain medication. ??? You develop redness, swelling, or new drainage from your wound. Prescriptions*: -You have been prescribed narcotic pain medications (such as Percocet, Vicodin, Oxycodone or Dilaudid) to control your discomfort after surgery. ? DO NOT use alcohol, drive, or operate heavy or complex machinery while taking these medications. ? Narcotic pain medications may cause constipation. ? Stool softeners, such as Colace; mild laxatives, such as Milk of Magnesia, Sennakot, or Ducolax tabs; or enemas may be used if needed and are edos-xre-unxpikb (OTC) medications available at most local pharmacies. Prunes or prune juice, taken daily, can also be helpful for constipation treatment or pr evention and are available at most supermarkets. Driving Restrictions*: - No driving if you are too sore from surgery to enter or exit your vehicle comfortably, or if you are too sore to easily check your blind spot. No driving while using prescription pain medications Activities: ? Discuss return to work or school with your surgeon. ? No heavy lifting. You may lift what is comfortable to lift with one arm. Nothing greater than 15 pounds until re-evaluated by your physician. Diet: ? Eat a well-balanced diet. Fresh fruits, vegetables and fiber-containing foods are recommended. This will assist in wound healing. Recommendations: ? Take it easy for two weeks. Remember, If it hurts, don't do it. ? Take several slow, short walks each day for the first two weeks, and gradually increase your distance. We recommend at least 4 times a day. Wound Care: ? You can shower per usual routine and wash the incision area gently. Pat incision dry with a clean,dry towel. ? Do not submerge the wound under water (avoid spas, pools and bathtubs) until it is fully healed. ? Do not use creams, oils, or ointments on the wound. ? Keep the wound open to air if it is not draining. ? Comfort: ? Some incision soreness can be expected. ? Take your pain medication as needed and prescribed. ? Taper use of pain medication as pain lessens. Follow-up Appointments: A Follow-up appointment will be scheduled with the General Surgery Outpatient Clinic - [address] in 2-4 weeks. You will recieve a letter in the mail and/or a phone call with information about this appointment. Please call [phone] (clinic number for appointments) to confirm date and time of your appointment, or if you do not receive information about your appointment in a timely manner. Your surgeon may not be Copier Operator, especially during the night or on weekends, so be ready to describe yourself and your surgery when you call. CC: Primary Care Physician: documented in this encounter Medications at Time of Discharge Medication Sig Dispensed Refills Start Date End Date calcium citrate-vitamin Take 2 tablets by 360 tablet 3 09/18 /2014 D (CALCIUM CITRATE + D) mouth 2 times daily. 315-200 mg-unit Tablet (2) tabs 2 times daily. awtjlwgtkhpo-bwvl-pzxekp Take 1 tablet by 180 tablet 3 01/13 ls (COMPLETE mouth 2 times daily. MULTIVITAMIN) Tablet (1) tab daily oxyCODONE (ROXICODONE) 5 Take 1-2 tablets by 40 tablet 0 06/06/2014 mg Tablet mouth every 4 hours as needed for Pain. cyanocobalamin (VITAMIN Take 1 tablet by 90 tablet 3 201301/13/2015 B-12) 500 mcg Tablet mouth daily. Sublingual form Cholecalciferol, Vitamin Take 1 capsule by 90 capsule 1 12/2701/21/2015 D3, 2,000 unit mouth daily. CapsuleIndications: Protein-calorie undernutrition, Status post bariatric surgery, Intestinal malabsorption documented as of this encounter H&P Notes Luda Miller MD - 06/02/2014 12:36 PM EST Interval H & P Update: No changes from his office consultation evaluation. Pt doing well. Here for elective umbilical hernia repair. No recent illness. On exam in NAD, with RRR, clear BS and an easily reducible, non-tender umbilical hernia. Plan is to perform umbilical hernia repair w/ mesh only and not panniculectomy with p lastics due to insurance coverage purposes. Consented obtained and pt wishes to proceed with plannedprocedure. Luda Miller MD Mr. Billings is referred by ROBERT LYN DO for evaluation of an umbilical hernia. This 38 y.o.male notes a recent history of a small lump around his umbilicus. Although it has been asymptomatic most of this time, over the last several months he notes that it has gotten steadily larger. During this time, he also notes that the hernia has become more uncomfortable, particularly with lifting or other activities. He denies any symptoms or signs of incarceration or strangulation. He is about 1 year post bypass and has done remarkably well with a BMI in the low 30's! He has a large excess skin pannus with some rash under it. Past History: Patient Active Problem List Diagnosis Code ??? Morbid obesity, S/P gastric bypass 01/20/13 278.01 ??? Hypertension 401.9 ??? Type 2 diabetes mellitus 250.00 ??? GERD (gastroesophageal reflux disease) 530.81 ??? Gout and hyperuricemia 274.9 ??? Umbilical hernia 553.1 ??? Venous stasis 459.81 ??? Varicose veins 454.9 ??? Poor dentition 525.9 Medications: Current Outpatient Prescriptions on File Prior to Visit Medication Sig Dispense Refill ??? metoprolol tartrate (LOPRESSOR) 50 mg tablet Take 50 mg by mouth Twice daily. ??? Cholecalciferol, Vitamin D3, 2,000 unit Cap Take 1 capsule by mouth daily. 90 capsule 1 ??? furosemide (LASIX) 20 mg tablet Take 80 mg by mouth as needed. ??? CALCIUM CITRATE/VITAMIN D2 (CALCIUM CITRATE WITH D ORAL) Take 600 mg by mouth 2 times daily. ??? CYANOCOBALAMIN/COBAMAMIDE (B12 SL) Place 500 mcg under the tongue daily. ??? multivitamin (THERAGRAN) tablet Take 1 tablet by mouth daily. ??? allopurinol (ZYLOPRIM) 300 mg tablet Take 300 mg by mouth daily. Allergies Morphine Social: He denies excess tobacco or alcohol use. No drug use. Family History Family History Problem Relation Age of Onset ??? Breast Cancer Mother ??? Breast Cancer Maternal Grandmother ??? Diabetes Brother ??? Lymphoma Maternal Grandfather Review of systems: Review of systems is negative for any unexplained weight loss or weight gain. He denies any cough, chest pain or shortness on breath on exertion. He has no fevers, chills or night sweats. He denies headaches, dizziness, weakness, numbness or ataxia. Bowel and bladder elimination is normal. All other system reviews are negative. On physical examination, this is a well appearing male. There is no scleral or skin icterus. Mucous membranes are moist, pupils reactive. His lungs are clear to auscultation. Heart is regular, rate, and rhythm and without murmurs. His abdomen is nontender and without palpable masses. The umbilical hernia itself is easily reducible. The size of the fascial defect seems relatively small. There are no groin hernias. His extremity and neurological exam are grossly normal. Impression. Symptomatic umbilical hernia. Because it is bothering him, I agree that elective repair is indicated. The majority of this visit was spent discussing the nature of hernia surgery and its associated risks, including recurrent hernias and infection. He seems fully informed and is ready to pro ceed. Given his low BMI and large pannus, I think we should consider plastics consult to consider doing this with panniculectomy. I will try to arrange. IRINA BARBOZA MD documented in this encounter Miscellaneous Notes Op Note - Irina Barboza MD - 06/02/2014 5:50 PM EST [facility] Operative Note Patient Name: Brady Billings : [id number] MR#: [id number] Case Date: 06/02/2014 Surgeon: Surgeon(s) and Role: * Irina Barboza MD - Primary * Luda Miller MD - Resident-Surgeon Chris Preoperative diagnosis: UMBILICAL HERNIA / ABDOMINAL PANNUS Postoperative diagnosis: UMBILICAL HERNIA / ABDOMINAL PANNUS Procedure(s): HERNIA REPAIR, UMBILICAL, REDUCIBLE; AGE 5 OR OVER MODIFIER MESH,BARD VENTRAL[address] ST Anesthesia: Anesthesia type not filed in the log. Estimated Blood Loss: * No values recorded between 06/02/2014 4:48 PM and 06/02/2014 5:50 PM * Specimens removed during surgery: None Drains: no Surgical Closure: Primary Closure - closure of ALL tissue levels during the original surgery regardless of wires, wickes, drains, or other devices extruding through the incision Disposition: awakened from anesthesia, extubated and taken to the recovery room in a stable condition, having suffered no apparent untoward event. Condition: doing well without problems (Please see the Surgical Encounter Summary for any Implant and Specimen details pertinent to this patient.) This 38 y.o. male presented with a symptomatic umbilical hernia, which was easily reducible. We discussed the risks and benefits of repair in the office, and he chose to have this done through an open incision. Under general anesthesia and endotracheal intubation, the team time out was performed. With IV antibiotics infusing and the patient positioned appropriately in the supine position, the area around the umbilicus was infiltrated with a mixture of 0.25% Marcaine and 1% lidocaine plain. A small semicircular incision in the inferior aspect of the umbilicus was performed, and dissection was carried down tothe fascia. The stalk of the umbilicus was encircled and the sac from the stalk of the umbilicus. The sac was excised, and a small umbilical defect was noted. The medium-sized V-patch mesh was then inserted into this area and the tails brought out through the wound intact in a mattress fashion with 0 Prolene suture. The fascial edges were then reapproximated with a [id number] #1 Prolene suture. The stalk was tacked to the fascia using an interrupted 2-0 Vicryl suture. Skin was closed with a running subcuticular 4-0 Vicryl suture followed by Steri-Strips, pressure gauze, and tape. Patient returned to the Recovery Room in stable condition. Sponge and instrument counts were correct. Nospecimen sent to Pathology. Attestation: Case Date: 06/02/2014 I was present and I participated during the entire procedure (does not need to include opening and closing). Irina Barboza MD 06/02/2014 documented in this encounter Plan of Treatment Not on filedocumented as of this encounter Procedures Procedure Name Priority Date/Time Associated Diagnosis Comme nts MODIFIER MESH,BARD Yes 06/02/2014 4:26 PM EST UMBILICAL HE RNIA / VENTRALEX ST ABDOMINAL PANNUS HERNIA REPAIR, Yes 06/02/2014 4:26 PM EST UMBILICAL HERNIA / UMBILICAL, REDUCIBLE; ABDOMINAL PANNUS AGE 5 OR OVER (WRVU 6.59) documented in this encounter Visit Diagnoses Not on filedocumented in this encounter Administered Medications Inactive Administered Medications - up to 3 most recent administrations Medication Order MAR Action Action Date Dose Rate Site acetaminophen (TYLENOL) tablet 650 Given 06/02/2014 6:38 PM EST 650 mg mg 650 mg, Oral, EVERY 4 HOURS PRN, Starting on Nicole 2 at 1813, Until Nicole 215 at 2203, Pain, Maximum dose of acetaminophen is 4000 mg from all sources in 24 hours., Routine fentaNYL (PF) 50 mcg/mL 2mL syringe Given 06/02/2014 7:04 PM EST 25 mcg 25 mcg, Intravenous, EVERY 5 MIN PRN, Pain, for breakthrough pain, Starting on Nicole 2 at 1813, Until Nicole 06/02/14 at 1951, Hold for respiratory rate less than 10 per minute. Maximum dose: 250 mcg over one hour., PACU Recovery Given 06/02/2014 6:47 PM EST 25 mcg Given 06/02/2014 6:40 PM EST 25 mcg oxyCODONE (ROXICODONE) immediate release tablet Given 06/02/2014 7:10 PM EST 5 mg 5-10 mg 5-10 mg, Oral, EVERY 4 HOURS PRN, Starting on Nicole 2 at 1808, Until Nicole 15 at 2203, Pain, Routine Given 06/02/2014 6:38 PM EST 5 mg sodium chloride 0.9% 500 mL IV bolus Given 06/02/2014 7:06 PM EST Intravenous, ONCE, 1 dose, On Nicole 06/02/14 at 1845 documented in this encounter Active and Recently Administered Medications Times are shown in EST. Scheduled Medication Order 05/31/2014 06/01/2014 06/02/2014 heparin (porcine) subcutaneous injection 5,000 Units (COMPLETED) 1647 (Given - Provider: Regis White CRNA) 5,000 Units, Subcutaneous, ONCE, 1 dose, Nicole 2 at 1330, Rou bernie sodium chloride 0.9% 500 mL IV bolus (COMPLETED) 1906 (Given - Provider: Venus Urban RN) Intravenous, ONCE, 1 dose, On Nicole 06/02/14 at 1845 PRN Medication Order 05/31/2014 06/01/2014 06/02/2014 acetaminophen (TYLENOL) tablet 650 mg (CANCELED) 183 (Given - Provider: Venus Urban RN) 650 mg, Oral, EVERY 4 HOURS PRN, Startin g Nicole 2 at 1813, Until Nicole 215 at 2203, Pain, Maximum dose of acetaminophen is 4000 mg from all sources in 24 hours., Routine fentaNYL (PF) 50 mcg/mL 2mL syringe (CANCELED) 182 (Given - Provider: Venus Urban RN)183 (Given - Provider: Venus Urban RN)1839 (Given - Provider: Venus Urban RN)1846 (Given - Provider: Venus Urban RN)1903 (Given - Provider: Venus Urban RN) 25 mcg, Intravenous, EVERY 5 MIN PRN, St arting Nicole 2/5/15 at 1813, Until Nicole 2/5/15 at 1951, Pain, for breakthrough pain, Hold for respiratory rate less than 10 per minute. Maximum dose: 250 mcg over one hour., PACU Recovery, Routine oxyCODONE (ROXICODONE) immediate release tablet 5-10 mg 1837 (Given - Provider: Venus Urban RN)1909 (Given - Provider: Venus Urban RN) 5-10 mg, Oral, EVERY 4 HOURS PRN, Starti ng Nicole 2/5/15 at 1808, Until Nicole 2/5/15 at 2203, Pain, Routine documented in this encounter Care Teams Tire Repairman Relationship Specialty Start Date End Date Robert Lyn DO PCP - General 03/04/[address] [place] [address] documented as of this encounter
--- OUTSIDE RECORDS SUMMARY | 2022-02-07 23:30 | XMS_ITS | Encounter Summary ---
:1975 Author Organization [facility] [place] [address] Care Team Providers Name Role Phone Robert Hong DO Primary Care Provider Encounter Details Date Type Department Care Team Description 05/20/2016 Telephone [facility] [place] [phone] Social History Tobacco Use Types Packs/Day Years Used Date Never Smoker Smokeless Tobacco: Never Used Alcohol Use Standard Drinks/Week Comments No 0 (1 standard drink = 0.6 oz pure alcoho l) Sex Assigned at Date Recorded Not on file documented as of this encounter Miscellaneous Notes Telephone Encounter - Fabiola Wallace - 05/20/2016 4:28 PM EST LMOM for Brady to see if he is interested in coming in for a FUV with the bariatric program. I asked him to give me a call to schedule an appointment and told him that I will also mail him a letter. documented in this encounter Plan of Treatment Not on filedocumented as of this encounter Visit Diagnoses Not on filedocumented in this encounter Care Teams Firer Portable Boiler Relationship Specialty Start Date End Date Robert Hong DO PCP - General 03/04/[address] [place], [place] [address] documented as of this encounter
--- OUTSIDE RECORDS SUMMARY | 2022-02-07 23:30 | XMS_ITS | Encounter Summary ---
:1975 [place] [address] Care Team Providers Name Role Phone Robert Hong DO Primary Care Provider Reason for Visit Reason Comments Hernia Encounter Details Date Type Department Care Team Description 12/16/2013 Follow-Up General Surgery at Irina Barboza MD Umbilical hernia [facility] (Primary Dx) [facility] [address] Chris [place] [address] [place] [address] [phone] (Wo rk) Social History Tobacco Use Types Packs/Day Years Used Date Never Smoker Smokeless Tobacco: Never Used Alcohol Use Standard Drinks/Week Comments No 0 (1 standard drink = 0.6 oz pure alcoho l) Sex Assigned at Date Recorded Not on file documented as of this encounter Last Filed Vital Signs Vital Sign Reading Time Taken Comments Blood Pressure 142/85 12/16/2013 1:38 PM EDT Pulse 56 12/16/2013 1:38 PM EDT Temperature 36.8 ??C (98.2 ??F) 12/16/2013 1:38 PM EDT Respiratory Rate - - Oxygen Saturation 100% 12/16/2013 1:38 PM EDT Inhaled Oxygen Concentration - - Weight 125.2 kg (276 lb) 12/16/2013 1:38 PM EDT Height - - Body Mass Index 34.5 08/31/2013 12:56 PM EDT documented in this encounter Progress Notes Irina Barboza MD - 01/11/2014 11:48 AM EDT Mr. Billings is referred by ROBERT HONG DO for evaluation of an umbilical hernia. [...] alcohol use. No drug use. Family History Problem Relation Age of Onset [...] will try to arrange. IRINA BARBOZA MD Cc ROBERT HONG DO documented in this encounter Plan of Treatment Not on filedocumented as of this encounter Visit Diagnoses Diagnosis Umbilical hernia - Primary Umbilical hernia without mention of obst ruction or gangrene documented in this encounter Care Teams Pastoral Counselor Relationship Specialty Start Date End Date Robert Hong DO PCP - General 03/04/[address] [place] [address] documented as of this encounter
--- OUTSIDE RECORDS SUMMARY | 2022-02-07 23:30 | XMS_ITS | Encounter Summary ---
:1975 Author Organization [facility] [place] [address] Care Team Providers Name Role Phone HalRobert castaneda Primary Care Provider Reason for Visit Reason Comments Follow-up Bariatric Surgery Program llo up Encounter Details Date Type Department Care Team Description 04/04/2016 Office Visit General Surgery at Mike Crandall APRN [facility] [place] [address] PATIENT NOT SEEN [facility] [address], [place] [address] Social History Tobacco Use Types Packs/Day Years Used Date Never Smoker Smokeless Tobacco: Never Used Alcohol Use Standard Drinks/Week Comments No 0 (1 standard drink = 0.6 oz pure alcoho l) Sex Assigned at Date Recorded Not on file documented as of this encounter Patient Instructions Patient InstructionsAbbey Crandall - 04/04/2016 1:30 PM EST documented in this encounter Progress Notes Abbey Crandall - 04/04/2016 1:30 PM EST NO show, reports he thought his appt on another day This patient was not seen in this encounter. Ruth West - 04/04/2016 1:30 PM EST Bariatric Surgery Program Nutrition Progress Note Patient did not show up to appointment today, he thought the appointment was scheduled for tomorrow. documented in this encounter Plan of Treatment Not on filedocumented as of this encounter Visit Diagnoses Diagnosis DH PATIENT NOT SEEN documented in this encounter Care Teams Russian Teacher Relationship Specialty Start Date End Date Robert Hong DO PCP - General 03/04/[address] [place] [address] documented as of this encounter
--- OUTSIDE RECORDS SUMMARY | 2022-02-07 23:30 | XMS_ITS | Encounter Summary ---
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 reference intervals supplied above were not validated at [facility]. Results from pediatri c patients should be interpreted in conjunction to the patient's age, height and muscle mass. Sodium 142 135 - 145 mmol/L CERNER BEVERLY NIUM [...] - 107 mmol/L CERNER MILLENN IUM CO2 28 22 - 31 mmol/L CERNER MILLENNI UM Anion Gap 13 5 - 15 mmol/L CERNER MILLENNIU M Calcium 10.1 8.5 - 10.5 mg/dL CERNER BEVERLY NIUM Total Protein 7.6 6.4 - 8.3 gm/dL CERNER MIL LENNIUM Albumin 4.4 3.2 - 5.2 gm/dL CERNER MILLENN IUM AST 26 0 - 39 unit/L CERNER MILLENNIU M ALT 26 0 - 55 unit/L CERNER MILLENNIU M Alk Phos 78 40 - 120 unit/L CERNER MILLENN IUM Total Bilirubin 0.7 0.2 - 1.3 mg/dL CERNER M ILLENNIUM Bili, Direct 0.3 0.0 - 0.3 mg/dL CERNER MILL ENNIUM Estimated GFR >60 >=60 CERNER MILLENNIU M [...] Location / / Volume Laterality Blood specimen 05/27/2013 11:43 4 (specimen) AM EST 11:50 AM EST Resulting Agency Comment Spec In Lab Candi Gallegos MD CHEMISTRY ORDERABLES Performing Organization Address City/State/[place] [address] CERNER MILLENNIUM (ABNORMAL) Hemogram (05/27/2013 11:43 AM EST) P athologist Signature WBC 8.4 4.0 - 10.0 CERNER x10(3)/mcL MILLENNIUM RBC 5.12 4.63 - CERNER 6.08 MILLENNIUM x10(6)/mcL Hemoglobin 17.2 13.7 - CERNER 17.5 gm/dL MILLENNIUM Hematocrit 49.5 40.0 - CERNER 51.0 % MILLENNIUM MCV 96.7 (H) 79.0 - CERNER 92.0 fL MILLENNIUM MCH 33.6 (H) 25.6 - CERNER 32.2 pg MILLENNIUM MCHC 34.7 32.0 - CERNER 36.5 gm/dL MILLENNIUM Platelets 242 145 - 370 CERNER x10(3)/mcL MILLENNIUM RDWSD 48.5 (H) 35.0 - CERNER 46.0 fL MILLENNIUM RDWCV 13.8 10.9 - CERNER 14.4 % MILLENNIUM MPV 11.9 9.0 - 12.0 CERNER fL MILLENNIUM Specimen Anatomical Collection Method Collection Time Receive d Time (Source) Location / / Volume Laterality Blood specimen 05/27/2013 11:43 4 (specimen) AM EST 11:50 AM EST Resulting Agency Comment Spec In Lab Candi Gallegos MD HEMATOLOGY ORDERABLES Performing Organization Address City/State/ZIP Code Phon e Number [place] [phone] [facility] documented in this encounter Visit Diagnoses Diagnosis Type 2 diabetes mellitus Type II or unspecified type diabetes ra litus without mention of complication, not stated as uncontrolled Disorder of iron metabolism Other disorders of iron metabolism Status post bariatric surgery Bariatric surgery status Intestinal malabsorption Unspecified intestinal malabsorption Hypertension Unspecified essential hypertension Obstructive sleep apnea (adult) (pediatr ic) Vitamin D deficiency Unspecified vitamin D deficiency Screening for iron deficiency anemia Hyperuricemia Other abnormal blood chemistry Protein-calorie undernutrition Unspecified protein-calorie malnutrition documented in this encounter 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
--- OUTSIDE RECORDS SUMMARY | 2022-02-07 23:30 | XMS_ITS | Encounter Summary ---
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 EDT PM EDT Resulting Agency Comment Spec In Lab Candi Gallegos MD CHEMISTRY ORDERABLES Performing Organization Address City/State/[place] [address] CERNER MILLENNIUM (ABNORMAL) Hemogram (01/13/2014 2:06 PM EDT) P athologist Signature WBC 5.7 4.0 - 10.0 CERNER x10(3)/mcL MILLENNIUM RBC 4.69 4.63 - CERNER 6.08 MILLENNIUM x10(6)/mcL Hemoglobin 15.9 13.7 - CERNER 17.5 gm/dL MILLENNIUM Hematocrit 45.1 40.0 - CERNER 51.0 % MILLENNIUM MCV 96.2 (H) 79.0 - CERNER 92.0 fL MILLENNIUM MCH 33.9 (H) 25.6 - CERNER 32.2 pg MILLENNIUM MCHC 35.3 32.0 - CERNER 36.5 gm/dL MILLENNIUM Platelets 194 145 - 370 CERNER x10(3)/mcL MILLENNIUM RDWSD 46.8 (H) 35.0 - CERNER 46.0 fL MILLENNIUM RDWCV 13.4 10.9 - CERNER 14.4 % MILLENNIUM MPV 11.8 9.0 - 12.0 CERNER fL MILLENNIUM Specimen Anatomical Collection Method Collection Time Receive d Time (Source) Location / / Volume Laterality Blood specimen 01/13/2014 2:06 PM 014 2:12 (specimen) EDT PM EDT Resulting Agency Comment Spec In Lab Candi Gallegos MD HEMATOLOGY ORDERABLES Performing Organization Address City/State/ZIP [place] [address] [facility] documented in this encounter Visit Diagnoses Diagnosis Type 2 diabetes mellitus Type II or unspecified type diabetes ra litus without mention of complication, not stated as uncontrolled Status post bariatric surgery Bariatric surgery status Intestinal malabsorption Unspecified intestinal malabsorption Vitamin D deficiency Unspecified vitamin D deficiency Protein-calorie undernutrition Unspecified protein-calorie malnutrition Symptomatic abdominal panniculus Localized adiposity documented in this encounter Care Teams Blade Grader Operator Relationship Specialty Start Date End Date Robert Hong DO PCP - General 03/04/[address] [place] [address] documented as of this encounter
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
--- OUTSIDE RECORDS SUMMARY | 2022-02-07 23:30 | XMS_ITS | Encounter Summary ---
:1975 [place] [address] Care Team Providers Name Role Phone HalRobert pham Primary Care Provider Encounter Details Date Type Department Care Team Description 02/02/2013 Telephone General Surgery at [facility] Jose Guadalupe Santos MD [facility] [place] [address] GENERAL SURGERY [phone] [place], [place] [address] (Wo rk) Social History Tobacco Use Types Packs/Day Years Used Date Never Smoker Alcohol Use Standard Drinks/Week Comments No 0 (1 standard drink = 0.6 oz pure alcoho l) Sex Assigned at Date Recorded Not on file documented as of this encounter Miscellaneous Notes Telephone Encounter - Jose Guadalupe Santos MD - 02/02/2013 8:28 PM EDT Called by Juice @8:30 pm. He notes flare up of his gout in his right big toe. Very painful, barely able to bear weight, thatstarted yesterday. He has tried tylenol with little pain relief. S/p gastric bypass 2 weeks ago and advised to not take NSAIDs for 2 months. Patient is already on allopurinol. Advised Juice to seek local care in ED for treatment and pain control of acute gout (cholchicine and narcotics). documented in this encounter Plan of Treatment Not on filedocumented as of this encounter Visit Diagnoses Not on filedocumented in this encounter Care Teams Deflash And Wash Operator Relationship Specialty Start Date End Date Robert Hong DO PCP - General 03/04/[address] [place] [address] documented as of this encounter
--- OUTSIDE RECORDS SUMMARY | 2022-02-07 23:30 | XMS_ITS | Encounter Summary ---
:1975 Author Organization [facility] [place] [address] Care Team Providers Name Role Phone Robert Hong DO Primary Care Provider Encounter Details Date Type Department Care Team Description 02/15/2016 Telephone General Surgery at [facility] [place] [address] Social History Tobacco Use Types Packs/Day Years Used Date Never Smoker Smokeless Tobacco: Never Used Alcohol Use Standard Drinks/Week Comments No 0 (1 standard drink = 0.6 oz pure alcoho l) Sex Assigned at Date Recorded Not on file documented as of this encounter Miscellaneous Notes Telephone Encounter - Alize Chang - 02/16/2016 10:18 AM EDT about scheduling a fu appt for [facility] surg documented in this encounter Plan of Treatment Not on filedocumented as of this encounter Visit Diagnoses Not on filedocumented in this encounter Care Teams Paper Roller Relationship Specialty Start Date End Date Robert Hong DO PCP - General 03/04/[address] [place], [place] [id number] documented as of this encounter
--- OUTSIDE RECORDS SUMMARY | 2022-02-07 23:30 | XMS_ITS | Encounter Summary ---
:1975 Author Organization [facility] [place] [address] Care Team Providers Name Role Phone HalRobert Primary Care Provider Reason for Visit Reason Comments Follow-up Follow Up Surgery Encounter Details Date Type Department Care Team Description 06/28/2014 Office Visit General Surgery at Candi Gallegos Umbil icaantoinette hernia [facility] MD without obstruction [facility] and without gangrene Drive [address] [place] GENERAL SURGERY [address] [place] [address] [phone] Social History Tobacco Use Types Packs/Day Years Used Date Never Smoker Smokeless Tobacco: Never Used Alcohol Use Standard Drinks/Week Comments No 0 (1 standard drink = 0.6 oz pure alcoho l) Sex Assigned at Date Recorded Not on file documented as of this encounter Progress Notes Candi Gallegos MD - 06/28/2014 7:37 PM EST Brady Billings was seen in followup approximately 1 month after his open umbilical hernia repair.I am pleased to say that he is recovering nicely, and his wound is healing well. There are no signs of infection or recurrent hernia. I do not feel any cough impulse or weakness in the abdominal wall on examination. He has a large redundant pannus with some yeast underneath. I suspect this will cause him more problems particularly in the summer. I do not need to see him again in followup unless his pain or discomfort persists, and I will leave a followup on an as-needed basis. documented in this encounter Plan of Treatment Not on filedocumented as of this encounter Visit Diagnoses Diagnosis Umbilical hernia without obstruction and without gangrene documented in this encounter Care Teams Student Teaching Coordinator Relationship Specialty Start Date End Date Robert Hong DO PCP - General 03/04/[address] [place] [address] documented as of this encounter
--- OUTSIDE RECORDS SUMMARY | 2022-02-07 23:30 | XMS_ITS | Encounter Summary ---
:1975 Author Organization [facility] [place] [address] Care Team Providers Name Role Phone HalRobert Primary Care Provider Reason for Visit Reason Comments Follow Up Surgery Encounter Details Date Type Department Care Team Description 02/11/2013 Office Visit General Surgery at [facility], Andree Lyman obesity [facility] [place] (Primary Dx) [facility] [place] GENER[place] SURGERY [address] [place] [address] [phone] Social History Tobacco Use Types Packs/Day Years Used Date Never Smoker Alcohol Use Standard Drinks/Week Comments No 0 (1 standard drink = 0.6 oz pure alcoho l) Sex Assigned at Date Recorded Not on file documented as of this encounter Last Filed Vital Signs Vital Sign Reading Time Taken Comments Blood Pressure 138/80 02/11/2013 4:12 PM EDT Pulse 69 02/11/2013 4:12 PM EDT Temperature - - Respiratory Rate 16 02/11/2013 3:43 PM EDT Oxygen Saturation 99% 02/11/2013 3:43 PM EDT Inhaled Oxygen Concentration - - Weight 194.7 kg (429 lb 3.8 oz) 02/11/2013 3:43 PM EDT Height 190.5 cm (6' 3) 02/11/2013 3:43 PM EDT Body Mass Index 53.65 02/11/2013 3:43 PM EDT documented in this encounter Patient Instructions Patient InstructionsFoGisella victor RD - 02/10/2013 4:34 PM EDT Bariatric Surgery Program First Post-operative Follow up visit Contact information: [facility] Admin coordinator Michelle: [phone] Dietitian: [phone] Surgeons/ nurse practitioner: [phone] Nurse line: [phone] Your excess body weight lost: 26.9% Next follow up visit: at 4 months post-op Testing: Labwork will be done at your 4 month post op check. If you have labwork done by your doctor before that date, please have it sent to the Bariatric Surgery Program. Post surgery Medications: 1. Medication to prevent ulcer, as prescribed prior to surgery, needs to continue until you are at least 3 months post surgery, or as indicated by your primary care doctor. 2. If you have a gallbladder, continue to take Ursodiol 300 mg twice daily for a total of 6 months after surgery to prevent gallstones from forming, and to shrink any gallstones that may be present. Vitamin and mineral supplementation recommendations: The following vitamins are recommended: Multivitamin with minerals once daily Vitamin B12 500 mcg by mouth once daily Calcium citrate 600 mg with Vitamin D 400 units twice daily (600 mg in AM and 600 mg in PM- 2 pillstwice a day) (If you have had sleeve gastrectomy, you can substitute calcium carbonate.) Iron with Vitamin C, 50-66 mg once daily (take iron with vitamin C 250 mg to help with absorption) only if you have regular periods, iron deficiency or anemia. Nutrition recommendations: - Your Daily Goals: 3 meals per day. Snacks only if physically hungry (limit to 1-2 per day and choose protein or fruit) 60 grams per day (20 grams per meal) 48-64 [...] isan increased risk of alcohol dependence after surgery. control for women of child bearing age: is recommended for at least 18-24 months after surgery. Call us: If you have concerns. If you have unexplained abdominal pain. if you see blood in your stool or vomit blood If you have prolonged vomiting Post Surgery Support Group: Our post surgery support group meets on the first Friday of every month from 1-2 PM at [facility] [place] Internet resources: www.Fitday.TalentClick www.Medical SolutionsDailyMonitor110.TalentClick Www.TheClavis TechnologyorldAccordingtoEggFace.TalentClick Www.choosemyplate.gov www.IndexTanknessPal.TalentClick Books: - Recipes for Life after Weight Loss Surgery by Quita Brasher (2012) - Shrink Yourself by Dr Catrachito Zacarias documented in this encounter Progress Notes Candi Gallegos MD - 02/12/2013 10:36 AM EDT Brady Laurel Billings was seen in followup approximately 1 month after his laparoscopic gastric bypass. I am pleased to say that he has lost approximately 30 pounds since his surgery and has noted significant limitations in his p.o. intake, as expected. His wounds have healed with no signs of any infection or hernia. I have encouraged him to continue with vitamin supplementation and to also take adequate liquids. Heis due to see our nurse practitioner in the near future as well as our dietitian for further followup with our program. I will see him on a p.r.n. basis and if any further problems arise at those other visits. Gisella Mai RD - 02/10/2013 4:28 PM EDT BSP Nutrition First Post-operative Follow up SUBJECTIVE: Topics Discussed/Patient Concerns: -Started stage III diet yesterday, supposed to start today. -Bored on stage II, but stuck with it. -Gout issue resolved. OBJECTIVE: S/P RNY Gastric bypass on 01/20/13 Brady Laurel Billings is being seen today for a preoperative evaluation in anticipation of weight loss surgery. Weight History: Date Weight (lbs) HT BMI Comments ~11/2011 549 75 67.7 Highest Weight Reports that this wt was taken at PCP early in the fall 02/20/12 511.2 75.25 63.5 Initial program weight 6/6/13 501 62.8 1st pre-op visit EWL % Surgery 02/11/13 429 26.9% 53.8 1 month post-op 4 months post-op Goal Weight: 350# - patient reports that he was 370# ~10 years ago and felt great.(50-70% EWL based on today's wt = 279-343#) MEDICATIONS: Taking ulcer prevention medication: yes Taking Ursodiol (if appropriate): yes Vitamin/Mineral Supplements (reported by patient): Supplement Type Brand/Form Dosage/Amount Frequency Comments Multivitamin pill 1 daily Calcium citrate 2 Twice daily Vitamin B12 sublingual 500mcg daily Iron n/a Vitamin D3 none Daily Oral Intake: Breakfast Egg, slice of low fat cheese AM Snack Lunch Canned chicken w kaur (1/4 cup) w 1/2 cup cottage cheese PM Snack Protein shake (30g protein per scoop) w skim milk (8oz) Dinner Fish last night- did not tolerate/ 1/2 cup cottage cheese w green beans HS Snack Was having EAS protein shake, stopped Protein/ estimated grams/day: 90grams/day Hydrating fluids/ oz/ day: 64oz water Soda: none ETOH: none Caffeine: none Meals per day: 3/day Other: ?? Feels full/satisfied after eating: yes ?? Spends at least 20 minutes eating each meal: yes ?? Vomiting/ regurgitation: denies ?? Nausea: denies ?? Constipation/diarrhea: constipation first week r/t pain medication Food Allergies/Intolerances: Fish last night Exercise: Walking daily x 10-15 minutes ASSESSMENT: Patient meeting protein and fluid needs. Compliant with supplements. Some early advancement of diet by 2 days with cottage cheese, though patient overall doing very well. EWL 26.9%. PLAN: ?? Evaluation by surgeon today ?? Provided support/encouragement and reinforced importance of meeting nutritional goals. ?? Reviewed nutrition and vitamin and mineral supplement recommendations (see patient instructions). ?? Written recommendations provided. Patient agreed with these and verbalized adequate understanding ?? follow up at 4 months post surgery with labwork. documented in this encounter Plan of Treatment Not on filedocumented as of this encounter Visit Diagnoses Diagnosis Morbid obesity - Primary documented in this encounter Care Teams Stud Setter Relationship Specialty Start Date End Date Robert Hong DO PCP - General 03/04/[address] [place] [address] documented as of this encounter
--- OUTSIDE RECORDS SUMMARY | 2022-02-07 23:30 | XMS_ITS | Encounter Summary ---
:1975 Author Organization [facility] [place] [address] Care Team Providers Name Role Phone Robert Hong DO Primary Care Provider Encounter Details Date Type Department Care Team Description 06/06/2014 Orders Only General Surgery at [facility] [place] Kylah Christianson, [place] [address] Social History Tobacco Use Types Packs/Day [...] on filedocumented in this encounter Care Teams Hydraulic Rockbreaker Operator Relationship Specialty Start Date End Date Robert Hong DO PCP - General 03/04/[address] [place], [place] [id number] documented as of this encounter
--- OUTSIDE RECORDS SUMMARY | 2022-02-07 23:30 | XMS_ITS | Encounter Summary ---
:1975 Author Organization [facility] [place] [address] Care Team Providers Name Role Phone Robert Hong DO Primary Care Provider Encounter Details Date Type Department Care Team Description 06/12/2017 Office Visit General Surgery at Mike Crandall APRN [facility] [place] [address] DH PATIENT NOT SEEN [facility] Ruth West, [place] [address] Social History Tobacco Use Types Packs/Day Years Used Date Never Smoker Smokeless Tobacco: Never Used Alcohol Use Standard Drinks/Week Comments No 0 (1 standard drink = 0.6 oz pure alcoho l) Sex Assigned at Date Recorded Not on file documented as of this encounter Progress Notes Abbey Crandall - 06/13/2017 12:19 PM EST This patient was not seen in this encounter. Ruth West - 06/12/2017 2:00 PM EST Bariatric Surgery Program Nutrition Progress Note Patient did not show up to appointment today. documented in this encounter Plan of Treatment Not on filedocumented as of this encounter Visit Diagnoses Diagnosis DH PATIENT NOT SEEN documented in this encounter Care Teams Casting Carrier Relationship Specialty Start Date End Date Robert Hong DO PCP - General 11/7/[address] [place] [address] documented as of this encounter
--- OUTSIDE RECORDS SUMMARY | 2022-02-07 23:30 | XMS_ITS | Encounter Summary ---
:1975 [place] [address] Care Team Providers Name Role Phone Robert Hong DO Primary Care Provider Reason for Visit Reason Comments Medication Refill Encounter Details Date Type Department Care Team Description 09/06/2014 Refill General Surgery at [facility] Abbey Crandall, [facility] [address] GENERAL SURGERY [phone] [place] [id number] (Wo rk) Social History Tobacco Use Types [...] on filedocumented in this encounter Care Teams Mortgage Counselor Relationship Specialty Start Date End Date Robert Hong DO PCP - General 03/04/[address] [place], [place] [address] documented as of this encounter
--- OUTSIDE RECORDS SUMMARY | 2022-02-07 23:30 | XMS_ITS | Encounter Summary ---
:1975 Author Organization [facility] [place] [address] Care Team Providers Name Role Phone Robert Hong DO Primary Care Provider Encounter Details Date Type Department Care Team Description 06/12/2017 Telephone General Surgery at [facility] Ruth West, [place] [address] Social History Tobacco Use Types Packs/Day Years Used Date Never Smoker Smokeless Tobacco: Never Used Alcohol Use Standard Drinks/Week Comments No 0 (1 standard drink = 0.6 oz pure alcoho l) Sex Assigned at Date Recorded Not on file documented as of this encounter Miscellaneous Notes Telephone Encounter - Ruth West - 06/12/2017 2:22 PM EST Bariatric Surgery Program Patient did not show up to appointment today. Phone call to patient but unable to leave message due to invalid number. documented in this encounter Plan of Treatment Not on filedocumented as of this encounter Visit Diagnoses Not on filedocumented in this encounter Care Teams Grant Administrator Relationship Specialty Start Date End Date Robert Hong DO PCP - General 03/04/[address] [place] [address] documented as of this encounter
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
--- OUTSIDE RECORDS SUMMARY | 2022-02-07 23:30 | XMS_ITS | Encounter Summary ---
:1975 [place] [address] Care Team Providers Name Role Phone HalRobert Primary Care Provider Encounter Details Date Type Department Care Team Description 06/02/2014 Hospital Encounter Same Day Program at [facility], Jurgen matthew Lobo MD [facility] [place] [address] [place] [address] [phone] Social History Tobacco Use Types Packs/Day Years Used Date Never Smoker Smokeless Tobacco: Never Used Alcohol Use Standard Drinks/Week Comments No 0 (1 standard drink = 0.6 oz pure alcoho l) Sex Assigned at Date Recorded Not on file documented as of this encounter Last Filed Vital Signs Vital Sign Reading Time Taken Comments Blood Pressure 138/90 06/02/2014 7:07 PM EST Pulse 84 06/02/2014 7:07 PM EST Temperature 36.9 ??C (98.4 ??F) 06/02/2014 6:07 PM EST Respiratory Rate 16 06/02/2014 7:07 PM EST Oxygen Saturation 98% 06/02/2014 7:07 PM EST Inhaled Oxygen Concentration - - Weight 114.9 kg (253 lb 4.9 oz) 06/02/2014 1:03 PM EST Height 193 cm (6' 3.98) 06/02/2014 1:03 PM EST Body Mass Index 30.85 06/02/2014 1:03 PM EST documented in this encounter Discharge Instructions Discharge Venus Bowman RN - 06/02/2014 6:56 PM EST POST [...] may be used if needed and are zete-fwp-eltycnh (OTC) medications available at most local pharmacies. Prunes or prune juice, taken daily, can also be helpful for constipation treatment or pr evention and are available at most [facility]. Driving Restrictions*: - No driving if you [...] with the [facility] - [address] in 2-4 weeks. You will recieve a letter in the mail and/or a phone call with information about this appointment. Please call [phone] (clinic number for appointments) to confirm date and time of your appointment, or if you do not receive information about your appointment in a timely manner. Your surgeon may not be Ward Service Supervisor, especially during the night or on weekends, so be ready to describe yourself and your surgery when you call. CC: Primary Care Physician: documented in this encounter Medications at Time of Discharge Medication Sig Dispensed Refills Start Date End Date calcium citrate-vitamin Take 2 tablets by 360 tablet 3 01/13 D (CALCIUM CITRATE + D) mouth 2 times daily. 315-200 mg-unit Tablet (2) tabs 2 times daily. vlljyxgptvzi-dfqt-xwipln Take 1 tablet by 180 tablet 3 [...] Code ??? Morbid obesity, S/P gastric bypass 9/25/13 278.01 ??? Hypertension 401.9 ??? Type 2 [...] Barboza MD - 06/02/2014 5:50 PM EST [facility] [place] Patient Name: Brady Billings : [id number] MR#: [id number] Case Date: 06/02/2014 Surgeon: Surgeon(s) and Role: [...] fascial edges were then reapproximated with a [id number] #1 Prolene suture. The stalk was tacked [...] on Nicole 2 at 1813, Until Nicole 2 at 2203, Pain, Maximum dose of acetaminophen is 4000 mg from all sources in 24 hours., Routine fentaNYL (PF) 50 mcg/mL 2mL syringe Given 06/02/2014 7:04 PM EST 25 mcg 25 mcg, Intravenous, EVERY 5 MIN PRN, Pain, for breakthrough pain, Starting on Nicole 215 at 1813, Until Nicole 215 at 1951, Hold for respiratory rate less than 10 per minute. Maximum dose: 250 mcg over one hour., PACU Recovery Given 06/02/2014 6:47 PM EST 25 mcg Given 06/02/2014 6:40 PM EST 25 mcg oxyCODONE (ROXICODONE) immediate release tablet Given 06/02/2014 7:10 PM EST 5 mg 5-10 mg 5-10 mg, Oral, EVERY 4 HOURS PRN, Starting on Nicole 215 at 1808, Until Nicole 215 at 2203, Pain, Routine Given 06/02/2014 6:38 PM EST 5 mg sodium chloride 0.9% 500 mL IV bolus Given 06/02/2014 7:06 PM EST Intravenous, ONCE, 1 dose, On Nicole 15 at 1845 documented in this encounter Active and Recently Administered Medications Times are shown in EST. Scheduled Medication Order 05/31/2014 06/01/2014 06/02/2014 heparin (porcine) subcutaneous injection 5,000 Units (COMPLETED) 1647 (Given - Provider: Regis White CRNA) 5,000 Units, Subcutaneous, ONCE, 1 dose, Nicole 06/02/14 at 1330, Rou bernie sodium chloride 0.9% 500 mL IV bolus (COMPLETED) 1906 (Given - Provider: Venus Urban RN) Intravenous, ONCE, 1 dose, On Nicole 06/02/14 at 1845 PRN Medication Order 05/31/2014 06/01/2014 06/02/2014 acetaminophen (TYLENOL) tablet 650 mg (CANCELED) 1838 (Given - Provider: Venus Urban RN) 650 mg, Oral, EVERY 4 HOURS PRN, Startin g Nicole 215 at 1813, Until Nicole 215 at 2203, Pain, Maximum dose of acetaminophen is 4000 mg from all sources in 24 hours., Routine fentaNYL (PF) 50 mcg/mL 2mL syringe (CANCELED) 182 (Given - Provider: Venus Urban RN)183 (Given - Provider: Venus Urban RN)184 (Given - Provider: Venus Urban RN)184 (Given - Provider: Venus Urban RN)190 (Given - Provider: Venus Urban RN) 25 mcg, Intravenous, EVERY 5 MIN PRN, St arting Nicole 2/5/15 at 1813, Until Nicole 2/5/15 at 1951, Pain, for breakthrough pain, Hold for respiratory rate less than 10 per minute. Maximum dose: 250 mcg over one hour., PACU Recovery, Routine oxyCODONE (ROXICODONE) immediate release tablet 5-10 mg 183 (Given - Provider: Venus Urban RN)1909 (Given - Provider: Venus Urban RN) 5-10 mg, Oral, EVERY 4 HOURS PRN, Starti ng Nicole 2/5/15 at 1808, Until Nicole 2/5/15 at 2203, Pain, Routine documented in this encounter Care Teams Fly Fishing Guide Relationship Specialty Start Date End Date Robert Lyn DO PCP - General 03/04/12 [address] [place] [address] documented as of this encounter
--- OUTSIDE RECORDS SUMMARY | 2022-02-07 23:30 | XMS_ITS | Encounter Summary ---
:1975 [place] [address] Care Team Providers Name Role Phone HalRobert pham Primary Care Provider Reason for Visit Reason Onset Date Comments Constipation 01/25/2013 Encounter Details Date Type Department Care Team Description 01/25/2013 Telephone General Surgery at [facility] [place]ylah [place] [address] Social History Tobacco Use Types Packs/Day Years Used Date Never Smoker Alcohol Use Standard Drinks/Week Comments No 0 (1 standard drink = 0.6 oz pure alcoho l) Sex Assigned at Date Recorded Not on file documented as of this encounter Miscellaneous Notes Telephone Encounter - Kylah Christianson, RN - 01/25/2013 10:28 AM EDT S/P sleeve gastrectomy, [facility] gastric bypass on: Discharged on PO Day #: Issues during hospitalization: none Today's phone discussion took place with patient,Nursing. PT is S/P Operations: 01/20/2013 Surgeon(s) and Role: * Candi Gallegos MD - Primary * Darci Redding MD - Fellow: Procedure(s): @LAPAROSCOPIC GASTROPLASTY, LAPAROSCOPIC LIVER BIOPSY ENDOSCOPY, UPPER GI, DIAGNOSTIC, WITH OR WITHOUT SPECIMENS WilfridYamileth Barragan Awa was called via phone for post discharge follow up. Diet: stage: Stage 2 Fluids 24 oz Protein 50-60 oz Other: Nausea/ vomiting: pt denies Urination: adequate, no difficulties Bowels: constipated 5 days Activity level: ambulation Pain level, analgesia requirements: PT is cutting back on his oxycodone but is taking several times daily Any significant changes to comorbidites/ medications (ex DM, HTN): Medications: Currently crushing or taking liquid form of medications, as appropriate: yes Taking ulcer prevention medication: Taking Ursodiol (if appropriate): not yet VTE prophylaxis: enoxaparin: yes/ NA Enoxaparin 0.4 mg sc bid Follow up: PCP appointment: at one month, as scheduled with surgeon and RD Patient questions: Pt needed some assistance with constipation protocol Recommendations: Pt is dehydrated, not drinking enough. PT will take max dose of MOM now and again later today. Pt will push fluids today and will call the clinic in the am with update. He will monitorhis fluid intake. He will call inbetween if he has any concerns. documented in this encounter Plan of Treatment Not on filedocumented as of this encounter Visit Diagnoses Not on filedocumented in this encounter Care Teams School Psychologist Relationship Specialty Start Date End Date Robert Hong DO PCP - General 03/04/[address] [place] [address] documented as of this encounter
--- OUTSIDE RECORDS SUMMARY | 2022-02-07 23:30 | XMS_ITS | Encounter Summary ---
:1975 Author Organization [facility] [place] [address] Care Team Providers Name Role Phone HalPepe Primary Care Provider Reason for Visit Reason Comments Facial Swelling Encounter Details Date Type Department Care Team Description 06/04/2013 - Hospital Encounter [facility] 2 Leigha Avelar APRN [facility] [place] [address] Facial cellulitis 06/06/2013 [facility] [place] [address] Marcie Castro III, [place] [address] [place] [id number] Social History Tobacco Use Types Packs/Day Years Used Date Never Smoker Alcohol Use Standard Drinks/Week Comments No 0 (1 standard drink = 0.6 oz pure alcoho l) Sex Assigned at Date Recorded Not on file documented as of this encounter Last Filed Vital Signs Vital Sign Reading Time Taken Comments Blood Pressure 123/60 06/06/2013 11:50 AM EST Pulse 55 06/06/2013 11:50 AM EST Temperature 36.8 ??C (98.2 ??F) 06/06/2013 11:50 AM EST Respiratory Rate 18 06/06/2013 11:50 AM EST Oxygen Saturation 95% 06/06/2013 5:40 AM EST Inhaled Oxygen Concentration - - Weight 170.8 kg (376 lb 8.7 oz) 06/06/2013 5:40 AM EST Height 198.1 cm (6' 6) 06/04/2013 6:46 PM EST Body Mass Index 43.51 06/04/2013 6:46 PM EST documented in this encounter Discharge Instructions Patient InstructionsMarcie Vargas III, MD - 06/06/2013 11:34 AM EST Instruction after leaving the hospital Why you were hospitalized: Skin infection of face Call your doctor or seek medical attention if you develop the following: Worsening pain, fevers/chills, inability to eat, decreased vision, double vision, increased swelling Activity level: As tolerated, you need to keep your HEAD elevated at all times, especially during sleep until this resolves Diet: As before Driving: Do NOT drive for 4 hours after taking oxycodone Shower/Bath: Apply warm compress to left side of face 3 x per day until this has resolved Follow-Up Appointments Call your PCP, PEPE HONG DO [phone] for an appointment by the end of the week. Call your dentist for an appointment to be seen within 10-14 days Your Inpatient Doctor(s) at [facility] [place]: Dr. Gomez, Dr. Vargas documented in this encounter Medications at Time of Discharge Medication Sig Dispensed Refills Start Date End Date OXYcodone (ROXICODONE) 5 Take 1-2 tablets by 20 tablet 0 08/31/2013 mg immediate release mouth every 4 hours tablet as needed for Pain. sulfamethoxazole-trimethop Take 2 tablets by 40 tablet 0 08/31/2013 rim mouth 2 times (SULFAMETHOXAZOLE-TRIMETHO daily. PRIM) 800-160 mg per tablet omeprazole (PRILOSEC) 20 Take 40 mg by mouth 0 12/16/2013 mg capsule every other day. furosemide (LASIX) 20 mg Take 80 mg by mouth 0 01/13/2014 tablet as needed. CALCIUM CITRATE/VITAMIN D2 Take 600 mg by 0 03/03/2014 (CALCIUM CITRATE WITH D mouth 2 times ORAL) daily. metoprolol tartrate Take 50 mg by mouth 0 08/31/2013 (LOPRESSOR) 50 mg tablet 2 times daily. CYANOCOBALAMIN/COBAMAMIDE Place 500 mcg under 0 03/03/2014 (B12 SL) the tongue daily. ursodiol (ACTIGALL) 300 mg Take 300 mg by 0 08/31/2013 capsule mouth 2 times daily. acetaminophen 650 mg Tab Take 1 tablet by 30 tablet 0 01/2208/31/2013 mouth every 4 hours as needed for Pain. multivitamin (THERAGRAN) Take 1 tablet by 0 01/24/2014 tablet mouth daily. documented as of this encounter Progress Notes Shane Tobias RN - 06/06/2013 12:58 PM EST Patient discharged in the company of spouse, ambulatory. Shane Castellon RN - 06/06/2013 12:51 PM EST Discharge instructions reviewed with patient, understanding verbalized, patient medicated for pain prior to discharge, IV's removed without issue, assessment benign, activity tolerated within normal limits, vital signs stable, patient without complaint. Marcie Rodarte III, MD - 06/06/2013 11:43 AM EST Hospital Medicine - Attending Day of Discharge Documentation Discharge diagnosis Active Hospital Problems Diagnosis ??? Facial cellulitis Resolved Hospital Problems Diagnosis Date Resolved No resolved problems to display. Secondary Issues Active Non-Hospital Problems Diagnosis ??? Venous stasis ??? Varicose veins ??? Candidal intertrigo ??? Dyspnea on exertion ??? Morbid obesity, S/P gastric bypass 01/20/13 ??? Hypertension ??? Type 2 diabetes mellitus ??? GERD (gastroesophageal reflux disease) ??? Peripheral edema ??? Gout and hyperuricemia ??? Umbilical hernia I have personally seen and examined the patient and they are ready for discharge. I spent >30 minutes (Day of Discharge Code 95210) involved in the final examination of the patient, discussion of the hospital stay, instructions for continuing care to all relevant caregivers, and preparation of discharge records, prescriptions and referral forms. Plans Discharge to Home Follow-up recommended with PCP and dentist Please see the Discharge Summary for complete details of any medication changes and additional plans. Wanda Beckman RPH - 06/06/2013 6:42 AM EST Clinical Pharmacist Note-Vanc Brady Billings [id number] 1975 Brady Billings is a 37 y.o. male who began antibiotic therapy which includes intravenous vancomycin. Today is day 2 of treatment. Based on a review of the patient???s chart and/or conversation with the patient???s providers vancomycin 1250 mg mg every 8 hours is being used for treatment of facial cellulitis with a targeted goal of 10 - 15 mcg/mL. The following Pharmacokinetic data has been evaluated: Wt Readings from Last 1 Encounters: 06/06/13 170.8 kg (376 lb 8.7 oz) Ht Readings from Last 1 Encounters: 06/04/13 198.1 cm (6' 6) Vanc Trough (mg/L) Date Value 06/06/2013 14.3 Creatinine (mg/dL) Date Value 06/06/2013 0.77* Estimated Creatinine Clearance: 233.3 ml/min (based on Cr of 0.77). (Cockcroft & Gault calculation) After a review of this information the following pharmacokinetic parameters have been estimated: Half-Life (T1/2) = 9.5 hours Elimination rate (Ke) = 0.073 hr-1 Volume of distribution (Vd) = 121.5 Liters Dosing recommendations: No change in vancomycin dose or dosing interval at this time. Monitoring recommendations: Recheck vancomycin trough level (30 minutes prior to a scheduled dose) if significant changes in SCr, BUN or fluid status occur; otherwise recheck serum trough levels (30 minutes prior to a scheduled dose) in 5-7 days. We will continue to monitor the patient as long as he remains on vancomycin therapy. Please watch SCr, BUN and fluid status closely. Please page the care area pharmacist with any questions you may have. Alternately, during off-hours you may call [phone] to contact a pharmacist. WANDA REECE RPH Adair Padgett RN - 06/05/2013 5:57 PM EST Infiltration/Extravasation Scale Instructions: Strikeout non-applicable grades, highlight the grade which applies to this patient by BOLD lettering and COLOR RED Edema 1 to 6 inches (2.5 to 15 c) in any directionm r without pain Skin discolored, swollen Gross edema > 6 inches in any direction Infiltration of any amount of , irritant, Specific location of infiltration/extravasation RAC vein, diffuse swelling right upper arm to wrist, not painful per pt. 11cm x 10 cm area of redness Plan for continued monitoring of infiltration/extravastion Treated with hyaluronidase. Alize Bauman RN and [facility].notified. Pt will report any sx and staff will observe and report as needed Marcie Rodarte III, MD - 06/05/2013 10:15 AM EST Hospital Medicine Attending Daily Progress Note Admit Date: 06/04/2013 PCP: PEPE HONG, DO Active Hospital Problems Diagnosis ??? Facial cellulitis Resolved Hospital Problems Diagnosis Date Resolved No resolved problems to display. Overnight Events: admitted Subjective: feeling improvement today, less swelling, less pain. No visual problems. ROS: Patient denies fevers, chills, nausea/vomiting, diarrhea/constipation, sob/cp, dysuria. EXAM: Patient Vitals for the past 8 hrs: BP Temp Temp src Pulse Resp SpO2 Weight 06/05/13 0745 129/63 mmHg 36.8 ??C (98.2 ??F) Oral 66 17 95 % - 06/05/13 0620 - - - - - - 171 kg (376 lb 15.8 oz) 06/05/13 0410 162/63 mmHg 37 ??C (98.6 ??F) Oral 63 16 94 % - 06/05/13 0243 119/98 mmHg - - 77 - - - Patient Vitals for the past 168 hrs: Weight 06/05/13 0620 171 kg (376 lb 15.8 oz) 06/04/13 1846 171.5 kg (378 lb 1.4 oz) I/O this shift: In: 240 [P.O.:240] Out: - GEN: NAD, Obese HEENT: left facial swelling with increased erythema and ttp. Ulceration on left lower face. No purulence. CV: rrr, no m/r/g PULM: cta b/l ABD: soft, nt/nd, nabs, no hsm EXT: no c/c/e Skin: as per HEENT, bilateral lower extremity venous stasis dermatitis Neuro: alert and oriented x 3 Lines/Tubes: PIV LABS: Reviewed in eDH. Remarkable for the following: Lab Results Component Value Date WBC 9.1 06/05/2013 Hemoglobin 13.8 06/05/2013 Hematocrit 40.8 06/05/2013 Platelets 193 06/05/2013 Lab Results Component Value Date Sodium 140 06/05/2013 Potassium 3.8 06/05/2013 Chloride 104 06/05/2013 CO2 27 06/05/2013 BUN 8* 06/05/2013 Creatinine 0.77* 06/05/2013 Glucose Lvl 85 06/05/2013 STUDIES: CT head: There is extensive right-sided facial soft tissue swelling with fat stranding and marked thickening of the right platysmas muscle. The edema is most prominent within the right buccal space. The swelling extends to the preseptal orbit on the right, but no postseptal extension. No discrete abscesses. There is extensive dental disease specially on the right side with numerous carries and endodontal disease characterized by periapical lucencies. The largest lucency involves the posterior right mandible in the expected location of the last molar with partial discontinuity of the mandibular cortex along the lingual surface. Another periapical lucency involves the the 3rd maxillary molar with discontinuity along the gingival surface. A smaller periapical lucency involves the right upper canine. There is extensive buccal soft tissue swelling, but no discrete abscesses. No lymphadenopathy. Impression Extensive right-sided facial swelling presumably secondary to endodontal disease. No discrete abscesses are seen. ASSESSMENT/PLAN: 37 year old with DM and poor dentition presenting with facial cellulitis that did not respond to PO therapy. Improving overnight on broad spectrum IV abx. Pain control a moderate issue and will switch to PO oxycodone for longer acting relief. Plan another 24 hours IV antibiotics then switch to po. Will need dental consult. TEAM/PAGER:2200 VTE RISK/PROPHY:heparin ANTICIPATED D/C:1-2 days MARCIE VARGAS III, MD Alize Bauman RN - 06/04/2013 6:45 PM EST Patient received to room 268 from ED. Upon assessment, patient is able to ambulate independently. Family at bedside. Right side of face inflamed, extremely swollen, and reddened. Patient reporting 10/10 excructiating pain. One time dose of Dilaudid ordered and PRN Dilaudid order changed to q2. Dilaudid IV given (Refer to MAR/Flowsheet). Patient temperature 37.5 at this time. Other VSS. No further complaints at this time. Will continue to monitor for any acute changes. documented in this encounter H&P Notes Che Gomez - 06/04/2013 2:18 PM EST Inpatient Hospital Medicine - Admission Note Problem List: Active Hospital Problems Diagnosis ??? Facial cellulitis Resolved Hospital Problems Diagnosis Date Resolved No resolved problems to display. Active Non-Hospital Problems Diagnosis ??? Venous stasis ??? Varicose veins ??? Candidal intertrigo ??? Dyspnea on exertion ??? Morbid obesity, S/P gastric bypass 01/20/13 ??? Hypertension ??? Type 2 diabetes mellitus ??? GERD (gastroesophageal reflux disease) ??? Peripheral edema ??? Gout and hyperuricemia ??? Umbilical hernia ID: 37 y.o. Male presents to [facility] [place] with R facial swelling and pain x 2 days History of Present Illness: HPI 37 yom c/h/o DM, morbid obesity, s/p gastric bypass surgery, now c/2 days of R facial pain, swelling, erythema, induration. He noted he had a small pimple there, and then had abrupt onset of the above sx. Saw his PCP yesterday who tried to nusrat said pimple but per pt it was only surface pus and nothing much was expressed. Started on Bactrim. Later went to ED at [facility] and given amoxicillin and referred here for CT since he was too heavy for their scanner. U/s of face by ED staff here no abscess. Does have poor dentition, but did not have tooth pain until facial edema began. Newly involving R eye to having difficulty opening eye, but denies eye pain, diplopia, blurry vision, or other visual changes. Has had low-grade temps and chills. Denies otalgia, hearing loss, odynophagia, dysphagia, new piercings, sick contacts. Review of Systems: Review of Systems Otherwise denies cough, shortness of breath, chest pain, angina, nausea, vomiting, diarrhea, abdominal pain, headache. Remainder of ROS was negative. Past Medical and Surgical History: Past Medical History Diagnosis Date ??? Morbid obesity ??? Bariatric surgery status ??? Hypertension ??? Gout ??? EDUARDA (obstructive sleep apnea) not using CPAP or nocturnal oxygen Past Surgical History Procedure Date ??? Tonsillectomy and adenoidectomy 1991 ??? Dental surgery extractions ??? Lap gastric bypass/claude-en-y 01/20/2013 @LAPAROSCOPIC GASTROPLASTY, performed by Candi Gallegos MD at [facility] OR ??? Unlisted laparoscopic proc, liver 01/20/2013 LAPAROSCOPIC LIVER BIOPSY performed by Candi Gallegos MD at [facility] OR ??? Upper gi endoscopy, diagnostic 01/20/2013 ENDOSCOPY, UPPER GI, DIAGNOSTIC, WITH OR WITHOUT SPECIMENS performed by Candi Gallegos MD at [facility] OR Prior To Admission Medications: (Not in a hospital admission) Updated and confirmed in EDH Allergies: Allergies Allergen Reactions ??? Morphine Nausea And Vomiting Family History: Family History Problem Relation Age of Onset ??? Breast Cancer Mother ??? Breast Cancer Maternal Grandmother ??? Diabetes Brother ??? Lymphoma Maternal Grandfather Social History and Habits: History Social History ??? Marital Status: Single Spouse Name: N/A Number of Children: N/A ??? Years of Education: N/A Occupational History ??? Not on file. Social History Main Topics ??? Smoking status: Never Smoker ??? Smokeless tobacco: Not on file ??? Alcohol Use: No ??? Drug Use: No ??? Sexually Active: Yes -- Female partner(s) Comment: pt declined to report Other Topics Concern ??? 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 Physical Exam: Last Set of Vitals and range of vitals over past 24 hours: Last value Range last 24 hrs Temperature Temp: 37.6 ??C (99.7 ??F) Temp: [36.9 ??C (98.4 ??F)-37.6 ??C (99.7 ??F)] Heart Rate Heart Rate: 65 Heart Rate: [65-81] Blood Pressure BP: 156/87 mmHg BP: (151-156)/(84-87) Respiratory Rate Resp: 15 Resp: [15] SpO2 SpO2: 100 % SpO2: [99 %-100 %] 383# per pt Physical Exam General - NACPD, A+O x 3, pleasant, interactive, morbidly obese HEENT - NC, obvious R facial erythema and edema, tracking across jaw onto neck. Area outlined c/sharpie. Brawny edema. Tender to palpation. No SQ emphysema. Can open eye though eyelid is erythematous and edematous. No proptosis. EOMI b/l. No oropharyngeal lesions. Poor dentition throughout. R maxillary tooth necrotic, no purulence noted - tender to manipulation. R tonsil mildly larger than left. Neck habitus makes palpation of lymphadenopathy very difficult. MM dry. R TM injected, no purulence or lesions. CV - RRR S1 S2, no m/r/g L - CTAB, no w/r/r GI - Soft, NT, ND, NABS Ext - no c/c/e venous stasis/hemosiderin deposits noted Neuro - A+O x 4, MA4E, CN 2-12 intact though some difficulty with facial movement on R due to severeedema Laboratory (Last 24 Hours): Recent Results (from the past 24 hour(s)) CBC (WITH DIFF) Component Value Range WBC 13.7 (*) 4.0 - 10.0 x10(3)/mcL RBC 4.65 4.63 - 6.08 x10(6)/mcL Hemoglobin 15.3 13.7 - 17.5 gm/dL Hematocrit 45.0 40.0 - 51.0 % MCV 96.8 (*) 79.0 - 92.0 fL MCH 32.9 (*) 25.6 - 32.2 pg MCHC 34.0 32.0 - 36.5 gm/dL Platelets 173 145 - 370 x10(3)/mcL RDWSD 49.2 (*) 35.0 - 46.0 fL RDWCV 14.1 10.9 - 14.4 % MPV 12.3 (*) 9.0 - 12.0 fL BUN Component Value Range BUN 8 (*) 10 - 20 mg/dL ELECTROLYTES PANEL Component Value Range Sodium 136 135 - 145 mmol/L Potassium Not Perf 3.5 - 5.0 mmol/L Chloride 98 98 - 107 mmol/L CO2 28 22 - 31 mmol/L Anion Gap 10 5 - 15 mmol/L CREATININE Component Value Range Creatinine 0.80 0.80 - 1.50 mg/dL Estimated GFR >60 >=60 GLUCOSE, RANDOM Component Value Range Glucose Lvl 105 60 - 199 mg/dL DIFFERENTIAL, AUTOMATED Component Value Range Neutrophils % 71.4 (*) 34.0 - 71.0 % Neutr Abs (ANC) 9.78 (*) 1.50 - 6.30 x10(3)/mcL Lymphocytes % 17.4 (*) 19.0 - 53.0 % Lymphocytes Abs 2.4 1.0 - 3.6 x10(3)/mcL Monocytes % 10.2 4.0 - 13.0 % Monocyte Abs 1.4 (*) 0.2 - 1.0 x10(3)/mcL Eosinophils % 0.6 0.0 - 7.0 % Eosinophils Abs 0.1 0.0 - 0.5 x10(3)/mcL Basophils % 0.1 0.0 - 2.0 % Basophils Abs 0.0 0.0 - 0.2 x10(3)/mcL Immature Gran % 0.30 0.00 - 0.66 % Galina Gran Abs 0.04 0.00 - 0.05 x10(3)/mcL Microbiology: Blood Cultures: pending Radiology: CT ordered Assessment: 37 yom c/h/o morbid obesity s/p gastric bypass in December, previously c/DM (resolved since weight loss), htn, gout, now c/facial/periorbital cellulitis, ?odontologic process. Hemodynamically stable. Admitting for CT to eval preseptal/orbital cellulitis, abscess, and for ongoing IV antibiotics, IV pain control, IV fluids. Plan: ?? Admit to Hospital Medicine pager [phone], IPI status ?? IV vancomycin (per Pharmacy curbside 2.5 gm loading dose then 1.25 gm IV Q8 hours to target 10-15trough) ?? F/u CT face ?? Consider ENT/Maxilofacial Surgery/Nsg consult pending CT results ?? F/u blood cultures ?? IV analgesia, anti-emetics if needed ?? IVF ?? DVT Prophylaxis ?? Continue home metoprolol as 25 mg of tartrate Q6hrs with hold parameters ?? Pneumovax and Influenza Immunizations given as needed. ?? Discussed Advanced Directives and Code Status. The patient wishesto be Full Code. IPI Certification I certify that I am a [facility] credentialed attending provider with admitting privileges and that the patient meets or has met medical necessity to require an inpatient IPI level of care meeting a minimum of two midnights or is on the [facility] inpatient only procedure list (status C) due to: monitoring of fluidstatus given and inability to regulate fluid balance and the need for administration or restriction of fluids, uncontrolled pain requiring titration of medications to achieve optimal effect and to minimize immediate or severe side effects and cellulitis requiring IV antibiotics. A copy of this document will be sent to the patient's Primary Care Physician and/or Referring Physician. CHE GOMEZ MD 06/04/2013 documented in this encounter ED Notes Birtta Wagner RN - 06/04/2013 2:52 PM EST L eye swelling increased, Unable to fully open. Britta Wagner RN - 06/04/2013 2:17 PM EST Pt c/o 10/10 pressure in face and migraine GOFF. Provider noted. Swelling and redness slightly increasing, marked with outline for observation. Pt denies difficulty swallowing or breathing at this time. Leigha Bello, IN CLASSROOM TUTOR - 06/04/2013 1:50 PM EST S. 37 yo male presents with worsening facial infection. Pt states he noticed a pimple on his right cheek yesterday morning, he saw his PCP who lanced the pimple, sent a sample for culture and started on Bactrim. Last night slightly worse, went to [facility] and the provider added amoxicillin. He stated his cheek became much more painful and swollen during the night and continues to grow. He has taken 3 doses of Bactrim and 2 doses of Amoxicillin. No fever, but has chills, no difficulty swallowing or breathing. He feels the infection is extending into his neck. He is otherwise healthy. PMH, medications, allergies and SH reviewed with patient O. VS and nurses notes reviewed. Pt awake, alert, oriented x 3, skin warm, dry, color pink HEENT NC, right cheek grossly swollen, erythematous, right eye edematous, tender to palpation, eschar 1 cm in diameter at the corner of his mouth right side. US by Dr. Nair shows 1 cm x 1 cm area of fluid 1 cm deep right anterior cheek. Teeth with plaque present, no tenderness to palpation, buccal mucosa right cheek edematous and red, tender to palpation. No trismus. Neck supple, tender right anterior, lateral aspect. Lungs CTAB Heart rrr Extremities without edema, clubbing or cyanosis. Labs: Results for BRADY BILLINGS ( ) as of 06/04/2013 15:12 Ref. Range 06/04/2013 14:10 WBC Latest Range: 4.0-10.0 x10(3)/mcL 13.7 (H) RBC Latest Range: 4.63-6.08 x10(6)/mcL 4.65 Hemoglobin Latest Range: 13.7-17.5 gm/dL 15.3 Hematocrit Latest Range: 40.0-51.0 % 45.0 MCV Latest Range: 79.0-92.0 fL 96.8 (H) MCH Latest Range: 25.6-32.2 pg 32.9 (H) MCHC Latest Range: 32.0-36.5 gm/dL 34.0 RDWSD Latest Range: 35.0-46.0 fL 49.2 (H) RDWCV Latest Range: 10.9-14.4 % 14.1 Platelets Latest Range: 145-370 x10(3)/mcL 173 MPV Latest Range: 9.0-12.0 fL 12.3 (H) Neutr Abs (ANC) Latest Range: 1.50-6.30 x10(3)/mcL 9.78 (H) Neutrophils % Latest Range: 34.0-71.0 % 71.4 (H) Immature Gran % Latest Range: 0.00-0.66 % 0.30 Lymphocytes % Latest Range: 19.0-53.0 % 17.4 (L) Monocytes % Latest Range: 4.0-13.0 % 10.2 Eosinophils % Latest Range: 0.0-7.0 % 0.6 Basophils % Latest Range: 0.0-2.0 % 0.1 Galina Gran Abs Latest Range: 0.00-0.05 x10(3)/mcL 0.04 Lymphocytes Abs Latest Range: 1.0-3.6 x10(3)/mcL 2.4 Monocyte Abs Latest Range: 0.2-1.0 x10(3)/mcL 1.4 (H) Eosinophils Abs Latest Range: 0.0-0.5 x10(3)/mcL 0.1 Basophils Abs Latest Range: 0.0-0.2 x10(3)/mcL 0.0 Sodium Latest Range: 135-145 mmol/L 136 Potassium Latest Range: 3.5-5.0 mmol/L Not Perf Chloride Latest Range: 98-107 mmol/L 98 CO2 Latest Range: 22-31 mmol/L 28 Anion Gap Latest Range: 5-15 mmol/L 10 BUN Latest Range: 10-20 mg/dL 8 (L) Creatinine Latest Range: 0.80-1.50 mg/dL 0.80 Estimated GFR Latest Range: >=60 >60 Glucose Lvl Latest Range: 60-199 mg/dL 105 A. Facial cellulitis P. Vancomycin, consult Hospital Medicine for admission. Leigha Bello APRN 06/04/13 1650 Nourse, Britta Yuen RN - 06/04/2013 12:55 PM EST Pt still awaiting MD evaluation. Reports pain in face increasing and slightly nauseous. No needs at this time. Britta Wagner RN - 06/04/2013 11:49 AM EST Pt ambulated back to room without difficulty. Denies any difficulty swallowing or breathing; Pt notified that if any of that begins to notify RN immediately. Pt c/o intense pressure and pain in face at swelling. Pt awaiting MD evaluation. documented in this encounter Miscellaneous Notes Discharge Summary - Marcie Vargas III, MD - 06/06/2013 11:37 AM EST Inpatient Hospital Medicine - Discharge Summary Patient Name: Brady Billings Patient Age: 37 y.o. Birthdate: 1975 Admit date: 06/04/2013 Discharge date and time: 06/06/2013 Attending Physician: Marcie Vargas III, MD Discharge Diagnoses (Hospital Problems) and Secondary Diagnoses (Chronic Problems): Active Hospital Problems Diagnosis ??? Facial cellulitis Resolved Hospital Problems Diagnosis Date Resolved No resolved problems to display. Active Non-Hospital Problems Diagnosis ??? Venous stasis ??? Varicose veins ??? Candidal intertrigo ??? Dyspnea on exertion ??? Morbid obesity, S/P gastric bypass 01/20/13 [...] chronic gastriti and reactive epithelial changes ??? Peripheral edema ??? Gout and hyperuricemia ??? Umbilical hernia Operations/Major Procedures: None History of Presentation: 37 yom c/h/o DM, morbid obesity, s/p gastric bypass surgery, now c/2 days of R facial pain, swelling, erythema, induration. He noted he had a small pimple there, and then had abrupt onset of the above sx. Saw his PCP yesterday who tried to nusrat said pimple but per pt it was only surface pus and nothing much was expressed. Started on Bactrim. Later went to ED at [facility] and given amoxicillin and referred here for CT since he was too heavy for their scanner. U/s of face by ED staff here no abscess. Does have poor dentition, but did not have tooth pain until facial edema began. Newly involving R eye to having difficulty opening eye, but denies eye pain, diplopia, blurry vision, or other visual changes. Has had low-grade temps and chills. Denies otalgia, hearing loss, odynophagia, dysphagia, new piercings, sick contacts. Hospital Course: He was admitted and treated with IV vancomycin and zosyn. His swelling decreased dramatically as didhis WBC. He remained afebrile. CT of face obtained showing no involvement of post septal orbit. Painwas controlled with oral oxycodone. He is discharged on 10 day course of double strength bactrim with instructions for close follow up with his PCP and dentist. Initial source likely from infected pustule on face rather than tooth given lack of tooth pain however he does have bad dentition and endodontal disese may be root of problem. Important Studies and Lab Data: Labs: Recent Labs Basename 06/05/13 0616 06/04/13 1410 WBC 9.1 13.7* HGB 13.8 15.3 HCT 40.8 45.0 PLATELET 193 173 Recent Labs Basename 06/06/13 0350 06/05/13 0616 06/04/13 1600 06/04/13 1410 NA 140 140 -- 136 K 3.8 3.8 3.7 -- CL 103 104 -- 98 CO2 27 27 -- 28 BUN 9* 8* -- 8* CREATININE 0.77* 0.77* -- 0.80 No results found for this basename: AST:3,ALT:3,ALKPHOS:3,BILITOT:3,BILIDIR:3 in the last 168 hours Recent Labs Basename 06/06/13 0350 06/05/13 0616 CALCIUM 8.8 8.9 PHOS -- -- No results found for this basename: PT:3,INR:3,PTT:3 in the last 168 hours No results found for this basename: CK:3,TROPONINT:3 in the last 168 hours Studies: CT face: Findings There is extensive right-sided facial soft tissue swelling with fat stranding and marked thickening of the right platysmas muscle. The edema is most prominent within the right buccal space. The swelling extends to the preseptal orbit on the right, but no postseptal extension. No discrete abscesses. There is extensive dental disease specially on the right side with numerous carries and endodontal disease characterized by periapical lucencies. The largest lucency involves the posterior right mandible in the expected location of the last molar with partial discontinuity of the mandibular cortex along the lingual surface. Another periapical lucency involves the the 3rd maxillary molar with discontinuity along the gingival surface. A smaller periapical lucency involves the right upper canine. There is extensive buccal soft tissue swelling, but no discrete abscesses. No lymphadenopathy. Impression Extensive right-sided facial swelling presumably secondary to endodontal disease. No discrete abscesses are seen. Pending Studies and Lab Data: No current labs Discharge Conditions/Prognosis: Improving swelling, pain. Filed Vitals: 06/06/13 0540 BP: 143/80 Pulse: 70 Temp: 36.8 ??C (98.2 ??F) Resp: 18 Discharge to: Home Discharge Medications: Your Medications As of 06/06/2013 11:37 AM New Medications Dose Details OXYcodone 5 mg immediate release tablet Commonly known as: ROXICODONE Take 1-2 tablets by mouth every 4 hours as needed for Pain. 5-10 mg Quantity: 20 tablet Refills: 0 sulfamethoxazole-trimethoprim 800-160 mg per tablet Commonly known as: BACTRIM DS Take 2 tablets by mouth 2 times daily. Replaces: sulfamethoxazole-trimethoprim 400-80 mg per tablet 2 tablet Quantity: 40 tablet Refills: 0 Continued medications, unchanged Dose Details Acetaminophen 650 mg Tab Take 1 tablet by mouth every 4 hours as needed for Pain. 650 mg Quantity: 30 tablet Refills: 0 allopurinol 300 mg tablet Commonly known as: ZYLOPRIM Take 300 mg by mouth daily. 300 mg Refills: [address] 500 mcg under the tongue daily. 500 mcg Refills: 0 CALCIUM CITRATE WITH D ORAL Take 600 mg by mouth 2 times daily. 600 mg Refills: 0 furosemide 20 mg tablet Commonly known as: LASIX Take 20 mg by mouth daily. 20 mg Refills: 0 metoprolol tartrate 50 mg tablet Commonly known as: LOPRESSOR Take 50 mg by mouth 2 times daily. 50 mg Refills: 0 multivitamin tablet Commonly known as: THERAGRAN Take 1 tablet by mouth daily. 1 tablet Refills: 0 omeprazole 20 mg capsule Commonly known as: PRILOSEC Take 40 mg by mouth every other day. 40 mg Refills: 0 ursodiol 300 mg capsule Commonly known as: ACTIGALL Take 300 mg by mouth 2 times daily. 300 mg Refills: 0 STOPPED Medications amoxicillin 250 mg capsule Commonly known as: AMOXIL sulfamethoxazole-trimethoprim 400-80 mg per tablet Commonly known as: BACTRIM;SEPTRA Replaced by: sulfamethoxazole-trimethoprim 800-160 mg per tablet Updated Allergies/ADRs: Allergies Allergen Reactions ??? Morphine Nausea And Vomiting Follow-up Recommendations for Providers: 1) Ensure close follow up and dental attention Instructions Given to Patient at Discharge: Provider Instructions Instruction after leaving the hospital Why you were hospitalized: Skin infection of face Call your doctor or seek medical attention if you develop the following: Worsening pain, fevers/chills, inability to eat, decreased vision, double vision, increased swelling Activity level: As tolerated, you need to keep your HEAD elevated at all times, especially during sleep until this resolves Diet: As before Driving: Do NOT drive for 4 hours after taking oxycodone Shower/Bath: Apply warm compress to left side of face 3 x per day until this has resolved Follow-Up Appointments Call your PCP, PEPE HONG DO [phone] for an appointment by the end of the week. Call your dentist for an appointment to be seen within 10-14 days Your Inpatient Doctor(s) at [facility] [place]: Dr. Dr. Fidel Gomez Inpatient Provider Contact Information: For questions regarding this document or issues relating to this hospitalization on the Medical Service, please contact your inpatient physician through the [facility] [employer] . Issues after hours and on weekends will be handled by the Hospitalist staff on-call. Electronically Signed by: MARCIE VARGAS III, MD 06/06/2013 Plan of Care - Julia Craig RN - 06/06/2013 6:07 AM EST Problem: Pain, Acute (Adult, Obstetric) Goal: Acute Pain: Acceptable Pain Control/Comfort Level - Pain, Acute (Adult, Obstetric) Pt alert and oriented x4. Vs stable. Pt continues on Masimo monitoring. Pt is up ad cole. Pt continues to reposition self in bed. Pt c/o 8/10 facial pain and oxycodone was administered per order (see mar) x3 this shift with good effect. At approximately 0151 pt c/o 9/10 facial pain and PRN IV dilaudid was administered per order (see mar) with good effect pt sleeping. Vanco trough drawn this morning. Pt appears to be resting comfortably at this time. Will continue to monitor pt and notify MD of any acute changes. Plan of Care - Alize Bauman RN - 06/05/2013 6:15 PM EST Problem: Pain, Acute (Adult, Obstetric) Goal: Acute Pain: Acceptable Pain Control/Comfort Level - Pain, Acute (Adult, Obstetric) Outcome: Present (see interventions, notes) Patient has reported 8/10 right sided facial pain. Oxycodone 10 mg has been administered (see MAR). Patient says this provides moderate relief. Lesion on right side of face oozing scant amount of drainage; will attempt to collect in specimen cup. Patient encouraged to ambulate and is independent in room. No new skin issues noted at this time. Call estes within reach. Problem: Infection, Risk/Actual (Adult, Obstetric) Goal: Infection, Risk/Actual: Infection Prevention/Resolution/Control Outcome: Present (see interventions, notes) Patient has remained afebrile. Vancomycin and Zosyn infusing (refer to MAR). Vanc trough due 06/06 @ 0330. Encouraged fluids, nutrition and rest. Will continue to monitor and notify MD of any acute changes. Plan of Care - Julia Craig RN - 06/05/2013 4:52 AM EST Problem: Pain, Acute (Adult, Obstetric) Goal: Acute Pain: Acceptable Pain Control/Comfort Level - Pain, Acute (Adult, Obstetric) Pt alert and oriented x4. VS stable. Pt continues on Masimo monitoring. Pt c/o 8/10 facial pain x2 and requested pain medication. PRN IV dilaudid 0.8 mg was administered x2 this shift per order (see mar). At approximately 0426 pt c/o 7/10 facial pain and IV dilaudid was not due. MD Beavers was notified and new order obtained for IV dilaudid 1mg Q1hr. PRN IV dilaudid 1 mg was administered per order (see mar). Pt stated this shift I feel like the swelling is coming down. Pt is up in room independently. Pt continues to reposition self in bed. Will continue to monitor and notify MD of any acute changes. Miscellaneous - Provider, Scanning - 06/04/2013 11:56 PM EST Miscellaneous - Provider, Scanning - 06/04/2013 11:56 AM EST ED Triage - Philomena Lamb RN - 06/04/2013 11:15 AM EST Patient presents with a significantly swollen red right side of his face with a eraser size scab to the right of his mustache. He said he had a pimple appearing spot and yesterday his [employer] lanced the area. He was also seen at the ED at [facility] last night. He was started on a second antibiotic (amoxicillin)last night. No drainage is noted. He has had a low grade fever. He denies any dental pain preceding the swelling. He denies any difficulty swallowing. He said the swelling is continuing to progress. documented in this encounter Plan of Treatment Not on filedocumented as of this encounter Procedures Procedure Name Priority Date/Time Associated Comments Diagnosis VANCOMYCIN, TROUGH Timed 06/06/2013 3:50 AM Res ults for this EST procedure are i n the results section. BASIC METABOLIC PANEL Routine 06/06/2013 3:50 AM Results for this (NON-FASTING) EST procedure are in the results section. ABSCESS/WOUND ASP Routine 06/05/2013 7:47 PM CULTURE, AEROBIC AND EST ANAEROBIC ABSCESS/WOUND Routine 06/05/2013 7:47 PM Results for this ASPIRATE CULTURE EST procedure a re in the results section. DIFFERENTIAL, Routine 06/05/2013 6:16 AM Results for this AUTOMATED EST procedure are i n the results section. CBC (WITH DIFF) Routine 06/05/2013 6:16 AM Result s for this EST procedure are i n the results section. BASIC METABOLIC PANEL Routine 06/05/2013 6:16 AM Results for this (NON-FASTING) EST procedure are in the results section. CT FACIAL BONES W STAT 06/04/2013 6:18 PM Resu lts for this CONTRAST EST procedure are i n the results section. POTASSIUM STAT 06/04/2013 4:00 PM Results f or this EST procedure are i n the results section. BLOOD CULTURE STAT 06/04/2013 2:20 PM Results for this EST procedure are i n the results section. BLOOD CULTURE STAT 06/04/2013 2:20 PM Results for this EST procedure are i n the results section. DIFFERENTIAL, STAT 06/04/2013 2:10 PM Results for this AUTOMATED EST procedure are i n the results section. CREATININE STAT 06/04/2013 2:10 PM Results f or this EST procedure are i n the results section. CBC (WITH DIFF) STAT 06/04/2013 2:10 PM Result s for this EST procedure are i n the results section. BUN STAT 06/04/2013 2:10 PM Results f or this EST procedure are i n the results section. GLUCOSE, RANDOM STAT 06/04/2013 2:10 PM Result s for this EST procedure are i n the results section. ELECTROLYTES PANEL STAT 06/04/2013 2:10 PM Res ults for this EST procedure are i n the results section. documented in this encounter Results (ABNORMAL) Basic Metabolic Panel (non-fasting) (06/06/2013 3:50 AM EST) P athologist Signature Glucose Lvl 84 60 - 199 CERNER mg/dL MILLENNIUM Comment: Diabetes: >=200 mg/dL plus symp toms BUN 9 (L) 10 - 20 mg/dL CERNER MILLENNIU M Creatinine 0.77 (L) 0.80 - 1.50 mg/dL CERNER MILL ENNIUM Comment: Please note that the pediatric reference intervals supplied above were not validated at [facility] [place]. Results from pediatri c patients should be interpreted in conjunction to the patient's age, height and muscle mass. Sodium 140 135 - 145 mmol/L CERNER BEVERLY NIUM Potassium 3.8 3.5 - 5.0 mmol/L CERNER BEVERLY NIUM [...] the following links into your internet browser. http://www.[employer] Technologies[employer].nih.gov/lab-evaluation. shtml http://www.kidney.org/professionals/ Specimen Anatomical Collection Method Collection Time Receive d Time (Source) Location / / Volume Laterality Blood specimen 06/06/2013 3:50 AM 014 3:54 (specimen) EST AM EST Resulting Agency Comment Spec In Lab Che Gomez MD CHEMISTRY ORDERABLES Performing Organization Address [facility] e Number [address] CERNER MILLENNIUM Vancomycin, trough (06/06/2013 3:50 AM EST) P athologist Signature Vanc Trough 14.3 mg/L CERNER MILLENNIUM Comment: Therapeutic range for complicated infect ions such as bacteremia, endocarditis, osteomyelitis, meningitis, and hospital- acquired pneumonia caused by S. aureus: 15-20 mg/L Therapeutic range for other indications: 10-15 mg/L Toxic: >25 mg/L Reference: Vancomycin Therapeutic Monitoring: Diana carlton and Recommendations from the ASHP, IDSA and SIDP Task Force. ??Am J Health- Syst Pharm. 2009; 66:82-98 Specimen Anatomical Collection Method Collection Time Receive d Time (Source) Location / / Volume Laterality Blood specimen 06/06/2013 3:50 AM 014 3:54 (specimen) EST AM EST Resulting Agency Comment Spec In Lab Che Gomez MD CHEMISTRY ORDERABLES Performing Organization Address [facility] e Number [address] CERNER MILLENNIUM Wound Aspirate/Abscess Culture (06/05/2013 7:47 PM EST) Patholo gist Method Time Signature Abscess/Wound CERNER Aspirate ? Patient Name: MEDINA Millan, BRADY Barragan ? Ordered By: MARCIE VARGAS III Culture ? MR#: [id number] ?LOC: ??2EST ? /Sex: ??1975 (37 years), ? Male ? PROCEDURE: Wound Aspirate/Abscess Culture ?SOURCE: Abscess ? COLLECTED: 06/05/2013 19:47 ? BODY SITE: Face ? STARTED: 06/05/2013 21:24 ? STAINS / PREPARATIONS ? Gram Stain Report ? Verified:06/05/2013 23:36 ? Many White Blood Cells seen ? Moderate Gram Positive Cocci seen ? FINAL REPORT ? Final Report ? Verified:06/08/2013 12:30 ? Rare Beta Hemolytic Streptococci, Group A ? PRELIMINARY REPORT ? Preliminary Report ? Verified:06/07/2013 14:05 ? Rare Beta Hemolytic Streptococci, Group A ? Specimen Anatomical Collection Method Collection Time Receive d Time (Source) Location / / Volume Laterality Specimen from FACE STRUCTURE / 06/05/2013 7:47 PM 11/2013 9:24 abscess Unknown EST PM EST (specimen) Resulting Agency Comment Spec In Lab Marcie Vargas III, MD MICROBIOLOGY - GENERAL ORDER NICHOLAS Performing Organization Address City/State/[place] [address] LUCRECIANER MILLENNIUM (ABNORMAL) Differential, Automated (06/05/2013 6:16 AM EST) [facility] Method Time Signature Neutrophils % 69.7 34.0 - CERNER 71.0 % MILLENNIUM Neutr Abs (ANC) 6.33 (H) 1.50 - CERNER 6.30 MILLENNIUM x10(3)/mc L Lymphocytes % 20.8 19.0 - CERNER 53.0 % MILLENNIUM Lymphocytes Abs 1.9 1.0 - 3.6 CERNER x10(3)/mc MILLENNIUM L Monocytes % 7.2 4.0 - CERNER 13.0 % MILLENNIUM Monocyte Abs 0.6 0.2 - 1.0 CERNER x10(3)/mc MILLENNIUM L Eosinophils % 1.9 0.0 - 7.0 CERNER % MILLENNIUM Eosinophils Abs 0.2 0.0 - 0.5 CERNER x10(3)/mc MILLENNIUM L Basophils % 0.1 0.0 - 2.0 CERNER % MILLENNIUM Basophils [...] Location / / Volume Laterality Blood specimen 06/05/2013 6:16 AM 014 6:26 (specimen) EST AM EST Che Gomez MD HEMATOLOGY ORDERABLES Performing Organization Address City/State/[place] [address] CERNER MILLENNIUM (ABNORMAL) Basic Metabolic Panel (non-fasting) (06/05/2013 6:16 AM EST) P athologist Signature Glucose Lvl 85 60 - 199 CERNER mg/dL MILLENNIUM Comment: Diabetes: >=200 mg/dL plus symp toms BUN 8 (L) 10 - 20 mg/dL CERNER MILLENNIU M Creatinine 0.77 (L) 0.80 - 1.50 mg/dL CERNER MILL ENNIUM Comment: Please note that the pediatric reference intervals supplied above were not validated at [facility] [facility]. Results from pediatri c patients should be interpreted in conjunction to the patient's age, height and muscle mass. Sodium 140 135 - 145 mmol/L CERNER BEVERLY NIUM Potassium 3.8 3.5 - 5.0 mmol/L CERNER BEVERLY NIUM Comment: Please note: ??Patients with WBC >100,00 0 may have falsely elevated Potassium levels. ??For accurate Potassium quantif ication in these patients send serum separator tube (gold top) for subsequent determinations. ??Contact the Clinical Chemistry Laboratory if there are any qu estions. Chloride 104 98 - 107 mmol/L CERNER MILLENN IUM CO2 27 22 - 31 mmol/L CERNER MILLENNI UM Anion Gap 9 5 - 15 mmol/L CERNER MILLENNIU M Calcium 8.9 8.5 - 10.5 mg/dL CERNER BEVERLY NIUM [...] Location / / Volume Laterality Blood specimen 06/05/2013 6:16 AM 014 6:26 (specimen) EST AM EST Resulting Agency Comment Spec In Lab Che Gomez MD CHEMISTRY ORDERABLES Performing Organization Address City/State/[place] [address] CERNER MILLENNIUM (ABNORMAL) CBC (with Diff) (06/05/2013 6:16 AM EST) athologist Signature WBC 9.1 4.0 - 10.0 CERNER x10(3)/mcL MILLENNIUM RBC 4.17 (L) 4.63 - CERNER 6.08 MILLENNIUM x10(6)/mcL Hemoglobin 13.8 13.7 - CERNER 17.5 gm/dL MILLENNIUM Hematocrit 40.8 40.0 - CERNER 51.0 % MILLENNIUM MCV 97.8 (H) 79.0 - CERNER 92.0 fL MILLENNIUM MCH 33.1 (H) 25.6 - CERNER 32.2 pg MILLENNIUM MCHC 33.8 32.0 - CERNER 36.5 gm/dL MILLENNIUM Platelets 193 145 - 370 CERNER x10(3)/mcL MILLENNIUM RDWSD 50.5 (H) 35.0 - CERNER 46.0 fL MILLENNIUM RDWCV 14.1 10.9 - CERNER 14.4 % MILLENNIUM MPV 11.6 9.0 - 12.0 CERNER fL MILLENNIUM Specimen Anatomical Collection Method Collection Time Receive d Time (Source) Location / / Volume Laterality Blood specimen 06/05/2013 6:16 AM 014 6:26 (specimen) EST AM EST Resulting Agency Comment Spec In Lab Che Gomez MD HEMATOLOGY ORDERABLES Performing Organization Address City/State/[place] [address] facial bones with contrast (06/04/2013 6:18 PM EST) Anatomical Region Laterality Modality Head Computed Tomography Specimen (Source) Anatomical Collection Method Collection Time Re ceived Time Location / / Volume Laterality 06/04/2013 6:18 PM EST Narrative 06/04/2013 6:[address] Face With Contrast Clinical History facial cellulitis, eval abscess, R maxil sherin dental abscess Comparison None Technique CT Face with contrast. ??110 mL of Omni 350 administered. Findings There is extensive right-sided facial so ft tissue swelling with fat stranding and marked thickening of the right platy smas muscle. The edema is most prominent within the right buccal space. The swelling extends to the preseptal orbit on the right, but no postseptal ex tension. No discrete abscesses. ?? There is extensive dental disease specia lly on the right side with numerous carries and endodontal disease character ized by periapical lucencies. The largest lucency involves the posterior r ight mandible in the expected location of the last molar with partial discontin uity of the mandibular cortex along the lingual surface. Another periapical luce ncy involves the the 3rd maxillary molar with discontinuity along the gingi alison surface. A smaller periapical lucency involves the right upper canine. There is extensive buccal soft tissue swelling, but no discrete abscesses. ?? No lymphadenopathy. Impression Extensive right-sided facial swelling pr esumably secondary to endodontal ?? disease. ??No discrete abscesses are see n. Procedure Note Vic Connolly MD - 06/04/2013Formatti ng of this note might be different from the original. Examination CT Face With Contrast Clinical History facial cellulitis, eval abscess, R maxil sherin dental abscess Comparison None Technique CT Face with contrast. 110 mL of Omni 35 0 administered. Findings There is extensive right-sided facial so ft tissue swelling with fat stranding and marked thickening of the right platy smas muscle. The edema is most prominent within the right buccal space. The swelling extends to the preseptal orbit on the right, but no postseptal ex tension. No discrete abscesses. There is extensive dental disease specia lly on the right side with numerous carries and endodontal disease character ized by periapical lucencies. The largest lucency involves the posterior r ight mandible in the expected location of the last molar with partial discontin uity of the mandibular cortex along the lingual surface. Another periapical luce ncy involves the the 3rd maxillary molar with discontinuity along the gingi alison surface. A smaller periapical lucency involves the right upper canine. There is extensive buccal soft tissue swelling, but no discrete abscesses. No lymphadenopathy. Impression Extensive right-sided facial swelling pr esumably secondary to endodontal disease. No discrete abscesses are seen. Che Gomez MD IMG CT ORDERABLES Potassium (06/04/2013 4:00 PM EST) athologist Signature Potassium 3.7 3.5 - 5.0 CERNER mmol/L [facility] Comment: Please note: ??Patients with WBC >100,00 0 may have falsely elevated Potassium levels. ??For accurate Potassium quantif ication in these patients send serum separator tube (gold top) for subsequent determinations. ??Contact the Clinical Chemistry Laboratory if there are any qu estions. Specimen Anatomical Collection Method Collection Time Receive d Time (Source) Location / / Volume Laterality Blood specimen 06/04/2013 4:00 PM 014 4:14 (specimen) EST PM EST Resulting Agency Comment Spec In Lab Katrina Nair MD CHEMISTRY ORDERABLES Performing Organization Address City/State/[place] [address] [place]HA [place] Blood culture (06/04/2013 2:20 PM EST) [facility] Method Time Signature Blood Culture CERNER ? Patient Name: ROMEL BRADY Barragan ? Ordered By: KATRINA NAIR ? MR#: [id number] ?LOC: ??2EST ? /Sex: ??1975 (37 years), ? Male ? PROCEDURE: Blood Culture ?SOURCE: Blood Pedi ? COLLECTED: 06/04/2013 14:20 ? BODY SITE: Right Antecubital ? STARTED: 06/04/2013 14:38 ?FREE TEXT SOURCE: #1 ? FINAL REPORT ? Final Report ? Verified:06/09/2013 15:01 ? No growth at 5 days. ? PRELIMINARY REPORT ? Preliminary Report ? Verified:06/08/2013 15:01 ? No growth at 4 days. ? Specimen Anatomical Location Collection Method Collection Time Received Time (Source) / Laterality / Volume Blood specimen ANTECUBITAL REGION 06/04/2013 2:20 02/0 10/2013 2:38 (specimen) STRUCTURE / Unknown PM EST PM EST Comment: #1 Resulting Agency Comment Spec In Lab Katrina Nair MD MICROBIOLOGY - BLOOD ORDERAB LES Performing Organization Address City/State/[place] [address] TALHA MCCAINIUM Blood culture (06/04/2013 2:20 PM EST) [facility] Method Time Signature [facility] ? Patient Name: BRADY BILLINGS ? Ordered By: KATRINA NAIR NAHUNMARILEE ? MR#: [id number] ?LOC: ??2EST ? /Sex: ??1975 (37 years), ? Male ? PROCEDURE: Blood Culture ?SOURCE: Blood Pedi ? COLLECTED: 06/04/2013 14:20 ? BODY SITE: Left Wrist ? STARTED: 06/04/2013 14:39 ?FREE TEXT SOURCE: #2 ? FINAL REPORT ? Final Report ? Verified:06/09/2013 15:01 ? No growth at 5 days. ? PRELIMINARY REPORT ? Preliminary Report ? Verified:06/08/2013 15:01 ? No growth at 4 days. ? Specimen Anatomical Collection Method Collection Time Receive d Time (Source) Location / / Volume Laterality Blood specimen STRUCTURE OF LEFT 06/04/2013 2:20 PM 2:38 (specimen) WRIST REGION / EST PM EST Unknown Comment: #2 Resulting Agency Comment Spec In Lab Katrina Nair MD MICROBIOLOGY - BLOOD ORDERAB LES Performing Organization Address City/State/ZIP Code Phon e Number [place] [id number] CERNER MILLENNIUM (ABNORMAL) Differential, Automated (06/04/2013 2:10 PM EST) [facility] Method Time Signature Neutrophils % 71.4 (H) 34.0 - CERNER 71.0 % MILLENNIUM Neutr Abs (ANC) 9.78 (H) 1.50 - CERNER 6.30 MILLENNIUM x10(3)/mc L Lymphocytes % 17.4 (L) 19.0 - CERNER 53.0 % MILLENNIUM Lymphocytes Abs 2.4 1.0 - 3.6 CERNER x10(3)/mc MILLENNIUM L Monocytes % 10.2 4.0 - CERNER 13.0 % MILLENNIUM Monocyte Abs 1.4 (H) 0.2 - 1.0 CERNER x10(3)/mc MILLENNIUM L Eosinophils % 0.6 0.0 - 7.0 CERNER % MILLENNIUM Eosinophils Abs 0.1 0.0 - 0.5 CERNER x10(3)/mc MILLENNIUM L Basophils % 0.1 0.0 - 2.0 CERNER % MILLENNIUM Basophils Abs 0.0 0.0 - 0.2 CERNER x10(3)/mc MILLENNIUM L Immature Gran % 0.30 0.00 - CERNER 0.66 % MILLENNIUM Comment: Immature granulocytes(IG's)percentage an d absolute count will include metamyelocytes, myelocytes, and promyelo cytes. Blood smears from CBCs yielding IG's will be scanned manually for gilbert bautista. If this scan disagrees with the automated IG or if promyelocytes are not ed, a manual differential will be performed. Galina Gran Abs 0.04 0.00 - 0.05 x10(3)/mcL CER NER MILLENNIUM Specimen Anatomical Collection Method Collection Time Receive d Time (Source) Location / / Volume Laterality Blood specimen 06/04/2013 2:10 PM 014 2:19 (specimen) EST PM EST Katrina Nair MD HEMATOLOGY ORDERABLES Performing Organization Address City/[facility]/[place] [address] CERNER MILLENNIUM Glucose, random (06/04/2013 2:10 PM EST) athologist Signature Glucose Lvl 105 60 - 199 CERNER mg/dL MILLENNIUM Comment: Diabetes: >=200 mg/dL plus symp toms Specimen Anatomical Collection Method Collection Time Receive d Time (Source) Location / / Volume Laterality Blood specimen 06/04/2013 2:10 PM 014 2:19 (specimen) EST PM EST Resulting Agency Comment Spec In Lab Katrina Nair MD CHEMISTRY ORDERABLES Performing Organization Address City/[facility]/ZIP Code Phon e Number [address] CERNER MILLENNIUM Creatinine (06/04/2013 2:10 PM EST) athologist Signature Creatinine 0.80 0.80 - 1.50 CERNER mg/dL MILLENNIUM Comment: Please note that the pediatric reference intervals supplied above were not validated at [facility] [place]. Results from pediatri c patients should be interpreted in conjunction to the patient's age, height and muscle mass. Estimated GFR >60 >=60 CERNER MILLENNIU M [...] Location / / Volume Laterality Blood specimen 06/04/2013 2:10 PM 014 2:19 (specimen) EST PM EST Resulting Agency Comment Spec In Lab Katrina Nair MD CHEMISTRY ORDERABLES Performing Organization Address City/[facility]/ZIP Code Phon e Number [address] CERNER MILLENNIUM Electrolytes panel (06/04/2013 2:10 PM EST) P athologist Signature Sodium 136 135 - 145 CERNER mmol/L MILLENNIUM Potassium Not Perf 3.5 - 5.0 CERNER mmol/L MILLENNIUM Comment: Unable to quantitate due to sample hemol ysis. ??Sample redraw suggested. called to georgette in ed 06/04/13 15:03 ab Please note: ??Patients with WBC >100,00 0 may have falsely elevated Potassium levels. ??For accurate Potassium quantif ication in these patients send serum separator tube (gold top) for subsequent determinations. ??Contact the Clinical Chemistry Laboratory if there are any qu estions. Chloride 98 98 - 107 mmol/L CERNER MILLENN IUM CO2 28 22 - 31 mmol/L CERNER MILLENNI UM Anion Gap 10 5 - 15 mmol/L CERNER MILLENNIU M Specimen Anatomical Collection Method Collection Time Receive d Time (Source) Location / / Volume Laterality Blood specimen 06/04/2013 2:10 PM 014 2:19 (specimen) EST PM EST Resulting Agency Comment Spec In Lab Katrina Nair MD CHEMISTRY ORDERABLES Performing Organization Address City/[facility]/[place] [address] CERNER MILLENNIUM (ABNORMAL) BUN (06/04/2013 2:10 PM EST) P athologist Signature BUN 8 (L) 10 - 20 CERNER mg/dL MILLENNIUM Specimen Anatomical Collection Method Collection Time Receive d Time (Source) Location / / Volume Laterality Blood specimen 06/04/2013 2:10 PM 014 2:19 (specimen) EST PM EST Resulting Agency Comment Spec In Lab Katrina Nair MD CHEMISTRY ORDERABLES Performing Organization Address City/[facility]/ZIP Code Phon e Number [place] [phone] CERNER MILLENNIUM (ABNORMAL) CBC (with Diff) (06/04/2013 2:10 PM EST) P athologist Signature WBC 13.7 (H) 4.0 - 10.0 CERNER x10(3)/mcL MILLENNIUM RBC 4.65 4.63 - CERNER 6.08 MILLENNIUM x10(6)/mcL Hemoglobin 15.3 13.7 - CERNER 17.5 gm/dL MILLENNIUM Hematocrit 45.0 40.0 - CERNER 51.0 % MILLENNIUM MCV 96.8 (H) 79.0 - CERNER 92.0 fL MILLENNIUM MCH 32.9 (H) 25.6 - CERNER 32.2 pg MILLENNIUM MCHC 34.0 32.0 - CERNER 36.5 gm/dL MILLENNIUM Platelets 173 145 - 370 CERNER x10(3)/mcL MILLENNIUM RDWSD 49.2 (H) 35.0 - CERNER 46.0 fL MILLENNIUM RDWCV 14.1 10.9 - CERNER 14.4 % MILLENNIUM MPV 12.3 (H) 9.0 - 12.0 CERNER fL MILLENNIUM Specimen Anatomical Collection Method Collection Time Receive d Time (Source) Location / / Volume Laterality Blood specimen 06/04/2013 2:10 PM 014 2:19 (specimen) EST PM EST Resulting Agency Comment Spec In Lab Katrina Nair MD HEMATOLOGY ORDERABLES Performing Organization Address City/[facility]/ZIP Code Phon e Number [place] [phone] CERNER MILLENNIUM documented in this encounter Visit Diagnoses Diagnosis Facial cellulitis - Primary Cellulitis and abscess of face documented in this encounter Administered Medications Inactive Administered Medications - up to 3 most recent administrations Medication Order MAR Action Action Date Dose Rate Site acetaminophen (TYLENOL) tablet 650 Given 06/06/2013 5:53 AM EST 650 mg mg 650 mg, Oral, EVERY 6 HOURS SCHEDULED, First dose (after last modification) on 06/05/13 at 1200, Until Discontinued, Maximum dose of acetaminophen is 4000 mg from all sources in 24 hours., Routine Given 06/05/2013 11:54 PM EST 650 mg Given 06/05/2013 5:38 PM EST 650 mg allopurinol (ZYLOPRIM) tablet 300 mg Given 06/06/2013 8:18 AM EST 300 mg 300 mg, Oral, DAILY, First dose on Fri06/04/13 at 1915, Until Discontinued, Routine Given 06/05/2013 8:19 AM EST 300 mg esomeprazole (NEXIUM) capsule 40 mg Given 06/06/2013 8:18 AM EST 40 mg 40 mg, Oral, DAILY, First dose on Fri06/04/13 at 2100, Until Discontinued, Routine Given 06/04/2013 8:50 PM EST 40 mg heparin (porcine) subcutaneous injection Given 014 5:54 AM EST 5,000 Units 5,000 Units 5,000 Units, Subcutaneous, EVERY 8 HOURS SCHEDULED, First dose on Fri06/04/13 at 2200, Until Discontinued, Routine Given 06/05/2013 9:11 PM EST 5,000 Units Given 06/05/2013 1:19 PM EST 5,000 Units hyaluronidase (ovine) (VITRASE) injection 1-10 Given 0 06/05/2013 5:12 PM EST 1 mL mL 1-10 mL, Subcutaneous, ONCE, 1 dose, On Fri06/05/13 at 1630, Hyaluronidase is supplied in a 1-mL vial at a concentration of 200 units/mL. Dilute with 9 mL of normal saline. This yields the desired concentration of 20 units/mL. Draw up 1 mL increments of the diluted solution into a 1-mL syringe with a 26-g needle. Instill 0.2 -mL aliquots of the solution at least every 2 - 3 centimeters or five evenly spaced aliquots subcutaneously around the periphery of the infiltrated area. Use a new 26-gauge needle for each injection. This is best done within one hour of the extravasation. Discard the remaining solution. , STAT HYDROmorphone (DILAUDID) injection 0.4 m g Given 06/04/2013 8:51 PM EST 0.4 mg 0.4 mg, Intravenous, ONCE, 1 dose, On Fri06/04/13 at 1930, Routine HYDROmorphone (DILAUDID) injection 0.4-0 .8 mg Given 06/04/2013 4:54 PM EST 0.5 mg 0.4-0.8 mg, Intravenous, EVERY 4 HOURS PRN, Starting on Fri06/04/13 at 1519, Until Fri06/04/13 at 1908, Pain, Routine HYDROmorphone (DILAUDID) injection 0.4-0 .8 mg Given 06/05/2013 2:52 AM EST 0.8 mg 0.4-0.8 mg, Intravenous, EVERY 2 HOURS PRN, Starting on Fri06/04/13 at 1915, Until 06/05/13 at 0426, Pain, Routine Given 06/04/2013 11:04 PM EST 0.8 mg Given 06/04/2013 7:22 PM EST 0.8 mg HYDROmorphone (DILAUDID) injection 1 mg Given 06/06/2013 1:51 AM EST 1 mg 1 mg, Intravenous, EVERY 1 HOUR PRN, Starting on 06/05/13 at 0430, Until Fri06/06/13 at 1459, Pain, Routine Given 06/05/2013 8:20 AM EST 1 mg Given 06/05/2013 4:36 AM EST 1 mg iohexol (OMNIPAQUE) 350 mg iodine/mL Given 06/04/2013 6:12 PM ES T 38,500 mg injection 38,500 mg 38,500 mg (110 mL), Intravenous, ONCE PRN, 1 dose, Starting on Fri06/04/13 at 1812, Until Fri06/04/13 at 1812, Per Protocol, Routine metoprolol tartrate (LOPRESSOR) tablet 2 5 mg Given 06/06/2013 8:18 AM EST 25 mg 25 mg, Oral, EVERY 6 HOURS, First dose on Fri06/04/13 at 2000, Until Discontinued, Hold for SBP < 100 or HR < 55 and notify MD, Routine Given 06/06/2013 1:46 AM EST 25 mg Given 06/05/2013 8:53 PM EST 25 mg morphine 4 mg/mL carpuject 2 mg Given 06/04/2013 2:42 PM EST 2 mg 2 mg, Intravenous, ONCE, 1 dose, On Fri06/04/13 at 1500, STAT morphine 4 mg/mL carpuject 2 mg Given 06/04/2013 3:04 PM EST 2 mg 2 mg, Intravenous, ONCE, 1 dose, On Fri06/04/13 at 1530, STAT multivitamin (THERAGRAN) tablet 1 tablet Given 06/06/2013 8:18 AM EST 1 tablet 1 tablet, Oral, DAILY, First dose on Fri06/04/13 at 2000, Until Discontinued Given 06/05/2013 8:18 AM EST 1 tablet Given 06/04/2013 8:52 PM EST 1 tablet ondansetron (ZOFRAN) injection 4 mg Given 06/04/2013 2:42 PM EST 4 mg 4 mg, Intravenous, ONCE, 1 dose, On Fri06/04/13 at 1500, STAT OXYcodone (ROXICODONE) immediate release Given 06/06/2013 12:55 PM EST 10 mg tablet 5-10 mg 5-10 mg, Oral, EVERY 4 HOURS PRN, Starting on 06/05/13 at 1022, Until 06/06/13 at 1459, Pain, STAT Given 06/06/2013 8:18 AM EST 10 mg Given 06/06/2013 3:54 AM EST 10 mg piperacillin-tazobactam (ZOSYN) Given 06/06/2013 4:54 AM EST 3.3 75 g 12.5 mL/hr 3.375 g in dextrose 5% 50 mL 3.375 g, Intravenous, EVERY 8 HOURS, First dose on Fri06/04/13 at 2100, Until Discontinued, Administer over 4 Hours, Indication for (Active or Suspected): Skin/Skin Structure Given 06/05/2013 8:56 PM EST 3.375 g 12.5 mL/hr Given 06/05/2013 1:19 PM EST 3.375 g 12.5 mL/hr senna-docusate (PERICOLACE) 8.6-50 mg per Given 2013 8:18 AM EST 2 tablets tablet 1-4 tablet 1-4 tablet, Oral, 2 TIMES DAILY, First dose on Fri06/04/13 at 2100, Until Discontinued, Start with 1 tablet or liquid equivalent orally twice daily and titrate up to achieve: 1. One bowel movement at least every 48 hours, AND 2. Without straining, Routine Given 06/05/2013 8:55 PM EST 1 tablet sodium chloride 0.9 % flush 5 mL Given 06/06/2013 9:00 AM EST 5 mLs 5 mL, Intravenous, 2 TIMES DAILY, First dose on Fri06/04/13 at 2100, Until Discontinued, Routine Given 06/05/2013 8:58 PM EST 5 mLs Given 06/05/2013 8:21 AM EST 10 mLs sodium chloride 0.9% infusion New Bag 06/04/2013 8:54 PM EST 1,000 mLs 100 mL/hr 1,000 mL, at 100 mL/hr, Intravenous, CONTINUOUS, Starting on Fri06/04/13 at 1915, Until 06/05/13 at 1022 ursodiol (ACTIGALL) capsule 300 mg Given 06/06/2013 8:21 AM EST 300 mg 300 mg, Oral, 2 TIMES DAILY, First dose on Fri06/04/13 at 2100, Until Discontinued, Routine Given 06/05/2013 8:53 PM EST 300 mg Given 06/05/2013 8:19 AM EST 300 mg vancomycin 1 g in dextrose 5% 200 mL Given 06/04/2013 2:14 PM EST 1,000 mg 1,000 mg (1 g), Intravenous, ONCE, On Fri06/04/13 at 1400, 1 dose, Indication for (Active or Suspected): Skin/Skin Structure vancomycin 1.25 g sodium in Given 06/06/2013 4:53 AM EST 1,250 m g 125 mL/hr chloride 0.9% 250 mL 1,250 mg (1.25 g), Intravenous, EVERY 8 HOURS, First dose on 06/05/13 at 0400, Until Discontinued, Administer over 120 Minutes, This medication may have an associated drug lab level. Please check for lab orders, Indication for (Active or Suspected): Skin/Skin Structure Given 06/05/2013 9:08 PM EST 1,250 mg 125 mL/hr Given 06/05/2013 1:00 PM EST 1,250 mg 125 mL/hr vancomycin 1.5 g in sodium chloride 0.9% Given 06/04/2013 8:54 P M EST 1,500 mg 250 mL 1,500 mg (1.5 g), Intravenous, ONCE, 1 dose, On Fri06/04/13 at 1600, Administer over 120 Minutes, This medication may have an associated drug lab level. Please check for lab orders, Indication for (Active or Suspected): Skin/Skin Structure documented in this encounter Active and Recently Administered Medications Times are shown in EST. Scheduled Medication Order 06/04/2013 06/05/2013 06/06/2013 acetaminophen (TYLENOL) tablet 650 mg (CANCELED) 1300 (Given - Provider: Alize Bauman RN)1738 (Given - Provider: Alize Bauman RN)2354 (Given - Provider: Julia Craig RN) 0553 (Given - Provider: Julia cat RN)1200 (Due) 650 mg, Oral, EVERY 6 HOURS SCHEDULED, F irst dose on 06/05/13 at 1200, Until Discontinued, Maximum dose of acetaminophen is 4000 mg from all sources in 24 hours., Routine allopurinol (ZYLOPRIM) tablet 300 mg (CANCELED) 2049 ( Not Given - Provider: Sally Alberto RN - Reason: Patient/family refused - Comment: has already had this am.) 0819 (Given - Provider: Alize Bauman RN) 0818 (Given - Provider: Shane Tobias RN) 300 mg, Oral, DAILY, First dose on Fri at 1915, Until Discontinued, Routine esomeprazole (NEXIUM) capsule 40 mg (CANCELED) 2049 (G iven - Provider: Sally Alberto RN) 0818 (Given - Provider: Esperanza Tobias RN) 40 mg, Oral, DAILY, First dose on 11/08 at 2100, Until Discontinued, Routine heparin (porcine) subcutaneous injection 5,000 Units ( CANCELED) 221 (Given - Provider: Julia Craig RN) 0547 (Given - Provider: Julia cat RN)1319 (Given - Provider: Alize Bauman RN)211 (Given - Provider: Julia Craig RN) 0554 (Given - Provider: Julia cat RN) 5,000 Units, Subcutaneous, EVERY 8 HOURS SCHEDULED, First dose on Fri06/04/13 at 2200, Until Discontinued, Routine hyaluronidase (ovine) (VITRASE) injection 1-10 mL (COMPLETED ) 1630 (Due)171 (Given - Provider: Adair Padgett RN - Comment: RAC) 1-10 mL, Subcutaneous, ONCE, 1 dose, 06/05/13 at 1630, Hyaluronidase is supplied in a 1-mL vial at a concentration of 200 units/mL. Dilute with 9 mL of normal saline. This yields the desired concentra tion of 20 units/mL. Draw up 1 mL increm ents of the diluted solution into a 1-mL syringe with a 26-g needle. Instill 0.2 -mL aliquots of the solution at least every 2 - 3 centimeters or five evenly spac ed aliquots subcutaneously around the pe riphery of the infiltrated area. Use a new 26-gauge needle for each injection. This is best done within one hour of the extravasation. Discard the remaining solution. , STAT HYDROmorphone (DILAUDID) injection 0.4 mg (COMPLETED) 2050 (Given - Provider: Sally Alberto RN) 0.4 mg, Intravenous, ONCE, 1 dose, Fri06/04/13 at 1930, Routine metoprolol tartrate (LOPRESSOR) tablet 25 mg (CANCELED ) 2051 (Given - Provider: Sally Alberto RN) 0245 (Given - Provider: Julia cat RN)0819 (Given - Provider: Alize Bauman RN)1318 (Given - Provider: Alize Bauman RN)2052 (Given - Provider: Julia Craig, MARIE) 0146 (Given - Provider: Julia Craig RN)0818 (Given - Provider: Shane Tobias RN) 25 mg, Oral, EVERY 6 HOURS, First dose o n Fri06/04/13 at 2000, Until Discontinued, Hold for SBP < 100 or HR < 55 and notify MD, Routine morphine 4 mg/mL carpuject 2 mg (COMPLETED) 1442 (Give n - Provider: Britta Wagner RN) 2 mg, Intravenous, ONCE, 1 dose, Fri06/04/13 at 1500, STAT morphine 4 mg/mL carpuject 2 mg (COMPLETED) 1504 (Give n - Provider: Britta Wagner RN) 2 mg, Intravenous, ONCE, 1 dose, Fri06/04/13 at 1530, STAT multivitamin (THERAGRAN) tablet 1 tablet (CANCELED) 20 52 (Given - Provider: Sally Alberto RN) 0818 (Given - Provider: Alize Bauman RN) 0818 (Given - Provider: Shane Tobias RN) 1 tablet, Oral, DAILY, First dose on Fri06/04/13 at 2000, Until Discontinued, Routine ondansetron (ZOFRAN) injection 4 mg (COMPLETED) 1442 ( Given - Provider: Britta Wagner RN) 4 mg, Intravenous, ONCE, 1 dose, Fri06/04/13 at 1500, STAT piperacillin-tazobactam (ZOSYN) 3.375 g in dextrose 5% 50 mL (CANCELED) 224 (Not Given - Provider: Julia Craig RN - Reason: See comment - Comment: Medication did not run in, will give next dose at 5am, MD Beavers notified) 041 (Given - Provider: Julia Craig RN)131 (Given - Provider: Alize Bauman RN)2055 (Given - Provider: Julia Craig, MARIE) 0454 (Given - Provider: Julia Craig, MARIE) 3.375 g, Intravenous, EVERY 8 HOURS, Fir st dose on Fri06/04/13 at 2100, Until Discontinued, for 4 Hours, Indication for (Active or Suspected): Skin/Skin Structure senna-docusate (PERICOLACE) 8.6-50 mg per tablet 1-4 t ablet (CANCELED) 2099 (Not Given - Provider: Sally Alberto RN - Reason: Patient/family refused) 09 (Not Given - Provider: Alize Bauman RN - Reason: Patient/family refused)2054 (Given - Provider: Julia Craig RN) 0818 (Given - Provider: Shane Tobias RN) 1-4 tablet, Oral, 2 TIMES DAILY, First d ose on Fri06/04/13 at 2100, Until Discontinued, Start with 1 tablet or liquid equivalent orally twice daily and titrate up to achieve: 1. One bowel movement at haritha st every 48 hours, AND 2. Without straining, Routine sodium chloride 0.9 % flush 5 mL (CANCELED) 2052 (Give n - Provider: Sally Alberto RN) 0821 (Given - Provider: Yuridia Clark)2057 (Given - Provider: Julia E Kiara, RN) 0900 (Given - Provider: Shane mcgrath RN) 5 mL, Intravenous, 2 TIMES DAILY, First dose on Fri06/04/13 at 2100, Until Discontinued, Routine ursodiol (ACTIGALL) capsule 300 mg (CANCELED) 2052 (Gi raffy - Provider: Sally Alberto RN) 0819 (Given - Provider: Yuridia Clark)2052 (Given - Provider: Julia Craig RN) 0821 (Given - Provider: Shane mcgrath RN) 300 mg, Oral, 2 TIMES DAILY, First dose on Fri06/04/13 at 2100, Until Discontinued, Routine vancomycin 1 g in dextrose 5% 200 mL (COMPLETED) 141 (Given - Provider: Britta Wagner RN) 1 g = 1,000 mg, Intravenous, ONCE, 1 dos e, Fri06/04/13 at 1400, for 90 Minutes, Indication for (Active or Suspected): Skin/Skin Structure vancomycin 1.25 g sodium in chloride 0.9% 250 mL (CANCELED) 0429 (Given - Provider: Julia Craig RN)1300 (Given - Provider: Alize Bauman RN)2108 (Given - Provider: Julia Craig, MARIE) 0453 (Given - Provider: Julia Craig RN)1200 (Due) 1.25 g = 1,250 mg, Intravenous, EVERY 8 HOURS, First dose on Fri06/05/13 at 0400, Until Discontinued, for 120 Minutes, This medication may have an associated drug lab level. Please check for lab orders, Indication for (Active or Suspected): Skin/Skin Structure vancomycin 1.5 g in sodium chloride 0.9% 250 mL (COMPL ETED) 2053 (Given - Provider: Sally Alberto, MARIE) 1.5 g = 1,500 mg, Intravenous, ONCE, 1 d ose, Fri06/04/13 at 1600, for 120 Minutes, This medication may have an associated drug lab level. Please check for lab orders, Indication for (Active or Suspected): Skin/Skin Structure Continuous Medication Order 06/04/2013 06/05/2013 06/06/2013 sodium chloride 0.9% infusion (CANCELED) 2053 (New Bag - Provider: Sally Alberto RN) 1029 (Stopped - Provider: Alize Bauman RN - Comment: Fluids D/C'd.) 1,000 mL, at 100 mL/hr, Intravenous, CON TINUOUS, Starting 06/04/13 at 1915, Until 06/05/13 at 1022 PRN Medication Order 06/04/2013 06/05/2013 06/06/2013 HYDROmorphone (DILAUDID) injection 0.4-0.8 mg (CANCELE D) 1654 (Given - Provider: Priyanka Harris RN) 0.4-0.8 mg, Intravenous, EVERY 4 HOURS P RN, Starting 06/04/13 at 1519, Until 06/04/13 at 1908, Pain, Routine HYDROmorphone (DILAUDID) injection 0.4-0.8 mg (CANCELE D) 1922 (Given - Provider: Alize Bauman RN)2304 (Given - Provider: Julia Craig RN) 0252 (Given - Provider: Julia Craig RN) 0.4-0.8 mg, Intravenous, EVERY 2 HOURS P RN, Starting 06/04/13 at 1915, Until 06/05/13 at 0426, Pain, Routine HYDROmorphone (DILAUDID) injection 1 mg (CANCELED) 0436 (Given - Provider: Julia Craig RN)0820 (Given - Provider: Alize Bauman RN) 0151 (Given - Provider: Julia Craig RN) 1 mg, Intravenous, EVERY 1 HOUR PRN, Sta rting 06/05/13 at 0430, Until 06/06/13 at 1459, Pain, Routine iohexol (OMNIPAQUE) 350 mg iodine/mL injection 38,500 mg (COMPLETED) 181 (Given - Provider: Magdalene Dominguez) 110 mL = 38,500 mg, Intravenous, ONCE TX N, 1 dose, Starting 06/04/13 at 1812, Until 06/04/13 at 1812, Per Protocol, Routine OXYcodone (ROXICODONE) immediate release tablet 5-10 mg 1035 (Given - Provider: Alize E [place], RN)1525 (Given - Provider: Thanh Ríos, MARIE)1954 (Given - Provider: Julia Craig, MARIE)2354 (Given - Provider: Julia Craig, MARIE) 0354 (Given - Provider: Julia cat, MARIE)0818 (Given - Provider: Shane Tobias, MARIE)1255 (Given - Provider: Shane Tobias, MARIE) 5-10 mg, Oral, EVERY 4 HOURS PRN, Starti ng Sat 06/05/13 at 1022, Until 06/06/13 at 1459, Pain, STAT documented in this encounter Care Teams Lower In Supervisor Relationship Specialty Start Date End Date Pepe Hong DO PCP - General 03/04/[address] [place] [address] documented as of this encounter
--- NOTE | 2022-02-07 23:31 | ED.GENADUL_ITS ---
Discharge Plan Disposition Patient Disposition: [facility] Condition: Stable Discharge Details Chief Complaint: Abd Prob Clinical Impression: Intussusception Primary Care Provider: Reji Ferguson ED Provider: Brady Reed Home Meds and New Rx's Prescriptions: No Action Daily Multiple 1 EACH tablet 1 tab-cap PO DAILY cyanocobalamin (vitamin B-12) [Vitamin B-12] 500 MCG tablet 500 mcg Sublingual DAILY Qty: 100 Rx Instructions: Sublingual tabs calcium citrate-vitamin D3 [Citracal + D Maximum] 1 EACH tablet 1 ea PO DAILY Qty: 100 Label Comments: 11/22/15 BID per Pt. PG cholecalciferol (vitamin D3) [Vitamin D3] 2,000 UNIT capsule 2,000 unit PO DAILY buprenorphine-naloxone [Suboxone] 8-2 mg Film 1 film BUCCAL DAILY pantoprazole [Protonix] 40 mg tablet,delayed release (DR/EC) 40 mg PO DAILY Qty: 20 0RF Medical Decision Making This is a 46-year-old male with past medical history of prior substance abuse now on methadone, gastric bypass in 2012, tonsillectomy, diabetes that was subsequently resolved with weight loss, osteoarthritis, GERD, hypertension, peripheral vascular disease, who presents today for abdominal pain. Patient does not normally drink alcohol at all, but has for the last 2 days. Then starting this afternoon he had a gradual onset of stabbing abdominal pain that he states goes from the front to the back. He denies any tearing or ripping sensation. He denies any chest pain or diarrhea. He does admit to nausea but no vomiting. Pain does not seem to be made better with anything. He did come to the ER about 3 and half to 4 hours ago[address] He declined CT scan at that time, but laboratory work-up was done including EKG which was all benign. He was given GI cocktail and Protonix and he had a notable improvement of his symptoms after that. On reassessment at that time by provider Gaston Aguila he demonstrated a notably stable clinical exam and assessment, and patient was requesting discharge home. Fortunately as soon as he got home his pain symptoms returned and he came back to the ER for reassessment. Patient denies any other complaints at this time. No other modifying factors Exam demonstrates none surgical abdomen at this time, mild to moderate tenderness on the left upper and left mid and right mid abdominal areas. No guarding. Distal vascular exam is normal. Differential includes continued gastritis. Lipase is normal before and so pancreatitis is unlikely. Prior EKG was normal he has symptoms appear inconsistent with STEMI. We will add on a troponin level. AAA dissection is less likely but a possibility. Obstruction is a possibility. We will get a CT of his chest and abdomen, will monitor closely treat his pain give a repeat GI cocktail and reassess. 3:[address] scan results have returned and show evidence of a large soft tissue hypodensity within the small bowel concerning for neoplasm or intussusception. Clinical symptoms appear more consistent with intussusception clinically. Patient's pain has required a notable amount of narcotics to help. He is on Suboxone normally. He did forget his Suboxone this morning. We did have slight difficulty contacting Dr. Amos secondary to an issue with the pager system. I did review the case with her. She agrees on the need for repeat CT scan with oral contrast. We will get this. She is also asked that I place admission orders on her behalf. I will do this with pain med orders put in place. Patient remained stable otherwise. Patient will be admitted to the floor. FINDINGS: VASCULATURE: Pulmonary arteries: Not well evaluated on this scan. Aorta: No aortic aneurysm. No aortic dissection. Celiac trunk and mesenteric arteries: No occlusion or significant stenosis. Renal arteries: No occlusion or significant stenosis. CHEST: Lungs: There are small tree-in-bud nodules noted in the left lower lobe. No consolidation. No masses. Pleural spaces: No pneumothorax. No pleural effusion. Heart: No cardiomegaly. No pericardial effusion. ABDOMEN AND PELVIS: Liver: Unremarkable liver. No mass identified. Gallbladder and bile ducts: The gallbladder is unremarkable. No calcified stones. No ductal dilation. Pancreas: . No mass. No ductal dilation. Spleen: Unremarkable. No splenomegaly. Adrenal glands: The adrenal glands are unremarkable. No defined mass. Kidneys and ureters: The kidneys are unremarkable. No hydronephrosis. Stomach and bowel: Incidentally noted is a 4.5 cm soft tissue hypodensity seen within the small bowel with ingested contrast noted surrounding this region. No obstruction. Intraperitoneal space: No free air. No significant fluid collection. Lymph nodes: No enlarged lymph nodes. Bones/joints: No acute fracture. Soft tissues: No significant subcutaneous abnormality. IMPRESSION: 1. No evidence of acute vascular abnormality. 2. Incidentally noted is a partially visualized large soft tissue hypodensity within the small bowel, concerning for neoplasm versus intussusception. A nonemergent evaluation of the entire abdomen pelvis with IV and oral contrast recommended. 3. Small tree-in-bud nodules in the left lower lobe, concerning for infection. Correlate with clinical findings. Thank you for allowing us to participate in the care of your patient. Dictated and Authenticated by: Coreen Montenegro MD 02/08/2022 1:18 AM Eastern Time ([place] & [place]) HPI General Date/Time Provider Initiated Documentation: 02/07/22 23:16 . HPI Narrative: This is a 46-year-old male with past medical history of prior substance abuse now on methadone, gastric bypass in 2012, tonsillectomy, diabetes that was subsequently resolved with weight loss, osteoarthritis, GERD, hypertension, peripheral vascular disease, who presents today for abdominal pain. Patient does not normally drink alcohol at all, but has for the last 2 days. Then starting this afternoon he had a gradual onset of stabbing abdominal pain that he states goes from the front to the back. He denies any tearing or ripping sensation. He denies any chest pain or diarrhea. He does admit to nausea but no vomiting. Pain does not seem to be made better with anything. He did come to the ER about 3 and half to 4 hours ago[address] He declined CT scan at that time, but laboratory work-up was done including EKG which was all benign. He was given GI cocktail and Protonix and he had a notable improvement of his symptoms after that. On reassessment at that time by provider Gaston Aguila he demonstrated a notably stable clinical exam and assessment, and patient was requesting discharge home. Fortunately as soon as he got home his pain symptoms returned and he came back to the ER for reassessment. Patient denies any other complaints at this time. No other modifying factors Related Data Home Medications Medication Instructions Recorded Confirmed multivitamin-ferrous 1 tab-cap PO DAILY 12/29/12 10/30/20 fumarate-folic acid 18 mg-400 mcg tablet (Daily Multiple) cyanocobalamin (vitamin B-12) 500 500 mcg sublingual DAILY ##100 04/20/13 02/08/22 mcg tablet (Vitamin B-12) cholecalciferol (vitamin D3) 50 2,000 unit PO DAILY 05/05/14 02/08/22 mcg (2,000 unit) capsule (Vitamin D3) calcium citrate 315 mg 1 ea PO DAILY #100 tab-caps 11/29/14 02/08/22 calcium-vitamin D3 6.25 mcg (250 unit) tablet (Citracal + Vitamin D Maximum) buprenorphine 8 mg-naloxone 2 mg 1 film buccal DAILY 12/11/19 02/08/22 sublingual film (Suboxone) pantoprazole 40 mg tablet,delayed 40 mg PO DAILY #20 tabs 02/07/22 02/08/22 release (Protonix) Previous Rx's Medication Instructions Recorded pantoprazole 40 mg tablet,delayed 40 mg PO DAILY #20 tabs 02/07/22 release (Protonix) Allergies Allergy/AdvReac Type Severity Reaction Status Date / Time No Known Allergies Allergy Unverified 02/07/22 20:19 General Stated Complaint: Abd Prob JEN: 3 Review of Systems All systems reviewed & are unremarkable except as noted in HPI and below PFSH All Active Problems (Updated 02/08/22 @ 03:43 by Brady Reed DO) Abdominal pain (Acute) Intussusception (Acute) COVID-19 (Acute) 12/19/21- Vaccinated Haresh vaccine Gastric artery bleed (Acute) Acute epigastric pain (Acute) Accelerated hypertension (Acute) 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 (Acute) Peripheral venous insufficiency (Acute) Peripheral edema (Acute) Obstructive sleep apnea syndrome (Acute) Morbid obesity (Acute) gastric sleeve bariatric surgery 01/08 Hammer toe (Acute 03/27/08) degenerative changes foot Depressive disorder (Acute) Epigastric pain (Acute) Medical History Diabetes mellitus (12/29/12) resolved after gastric bypass Essential hypertension (01/28/13) GERD (gastroesophageal reflux disease) (01/31/14) Gout Osteoarthritis Surgical History gastric sleeve (~01/2013) [facility] History of hernia repair History of tonsillectomy Social History Smoking/Tobacco Use Status: Never Smoking risk assessment performed?: Yes Alcohol Intake: current Alcohol Intake frequency: a few times a week Drug use: Never Substance use type: does not use and former substance user Details: on suboxone for vicodin addiction Do you feel safe at home: Yes Do you feel safe in your relationship?: Yes Exam Narrative Exam Narrative: 1.Const: Well-nourished, Well-developed, appearing stated age 2.Eyes: PERRL, no conjunctival injection, and symmetrical lids. 3.ENT: Atraumatic external nose and ears. Moist MM. Neck: Symmetric, trachea midline, No thyromegaly. 4.CVS: +S1/S2, No murmurs or gallops. Peripheral pulses 2+ and equal in all extremities. Brisk capillary refill in all extremities. 5.RESP: Unlabored respiratory effort. Clear to auscultation bilaterally. No wheezes rales or rhonchi 6.GI: Soft, nondistended. No guarding or rebound. Mild tenderness in the left upper and left mid and right mid abdomen. No pulsatile mass. 7.MSK: Normocephalic/Atraumatic, Extremities w/o deformity or ttp No cyanosis or clubbing, Normal movement of all extremities. Distal exam demonstrates +2 posterior tibial pulses bilaterally. Mild +1 pitting edema bilaterally. 8.Skin: Warm, Dry. No rashes or lesions. 9.Neuro: base ply hand II-XII grossly intact. Sensation grossly intact, no focal neurologic deficits. 10.Psych: (AAO) x3. Appropriate mood and affect Course Vital Signs Vital signs: Vital Signs Temperature 36.6 C 02/07/22 23:27 Pulse 76 02/07/22 23:27 Respiratory Rate 18 02/07/22 23:27 Blood Pressure 178/98 H 02/07/22 23:27 Pulse Oximetry 100 02/07/22 23:27 Temperature 36.6 C 02/07/22 23:27 Temperature Source Oral 02/07/22 23:27 Pulse 76 02/07/22 23:27 Respiratory Rate 18 02/07/22 23:27 Blood Pressure 178/98 H 02/07/22 23:27 Pulse Oximetry 100 02/07/22 23:27 Oxygen Delivery Method Room Air 02/07/22 23:27 Oxygen Flow Rate 0 02/07/22 23:27 Pain Level 10 02/07/22 23:27
--- OUTSIDE RECORDS SUMMARY | 2022-02-07 23:31 | XMS_ITS | Encounter Summary ---
:1975 Author Organization [facility] Address [address] [place] [address] Care Team Providers Name Role Phone HalRobert pham Primary Care Provider Reason for Visit Reason Comments Patient Education Bariatric Surgery Program pr eoperative class Encounter Details Date Type Department Care Team Description 12/17/2012 Office Visit General Surgery at [facility] obesity (Primary Dx); [facility] T, BARREL TESTER Hypertension; [facility] Typ e 2 diabetes mellitus; [facility] Obstructive sleep apnea (adult) (pediatr ic) [place], [place] [facility] [id number] [place] [id number] [phone] Social History Tobacco Use Types Packs/Day Years Used Date Never Smoker Sex Assigned at Date Recorded Not on file documented as of this encounter Patient Instructions Patient InstructionsNarcisoshonda Abbey Mathur - 12/16/2012 1:32 PM EDT BARIATRIC SURGERY DISCHARGE INFORMATION CONTACT INFORMATION: [phone] Surgeons: Lexi Abdullahi Laycock and Trus [phone] Conservation Policy Analyst: [phone] (Friday through Friday, 8:00 AM -5:00 PM) Dietitian: [phone] Non-business hours: [phone], ask for general surgeon research professional FOR EMERGENCIES: CALL 911 (trouble breathing, chest [...] had open gastric bypass and have layne: [place] should be removed 10 - 12 days after surgery. This can be done at [facility] or via Primary Care Provider (PCP). Do [...] 200 on more than 3 rechecks, [facility] or [facility] specialist for [...] Follow up with primary care doctor or sustainable agriculture specialist in 1-2 weeks. Bring meter to [...] (MEDICATION FOR SWELLING WATER PILLS): Check with team prior to discharge regarding Lasix dosing- may hold or decrease dose Check with your surgical team prior to [...] yearly for life. documented in this encounter Progress Notes Gisella Mai RD - 12/17/2012 11:11 AM EDT Brady attended a comprehensive two hour pre-operative class today, which included discussion of preand post operative instructions included in the [facility] Bariatric Surgery Program Education Handbook. One hour of today's group visit was spent in review of dietary and post op vitamin and mineral supplementation. Some of the topics reviewed today included: pre-operative and post-operative dietary recommendations post-op vitamin and mineral supplementation Brady appeared to have a good understanding of the information presented, and asked appropriate questions. All his questions were answered. [facility] Crandall - 12/16/2012 1:30 PM EDT Brady attended a comprehensive two hour pre-operative class today, which included discussion of preand post operative instructions included in the [facility] Bariatric Surgery Program Education Handbook. The one hour nutrition component of the class was taught by the BSP RD. OR date: 01/20/13 Updates since last visit: Wt down 5 pounds Individualized plan of care: ?? Close glucose monitoring during hospital stay ?? CPAP use during hospital stay ?? Close blood pressure monitoring post discharge Recommendations for post discharge VTE prophylaxis (unless change in condition during hospitalization that would contraindicate treatment): Enoxaparin 40 mg BID x 10 days post discharge. Prescription x1 provided at today's visit: (faxed to pharmacy) Ursodiol 300 mg BID x 6 months, to start at 2 weeks post-operatively for cholelithiasis prevention He will continue Omeprazole 20 mg once daily x 3 months, to start upon discharge for ulcer prevention Bariatric Surgery Program Pathway and review of status with the requirements of the Bariatric Surgery Program 1. Education: He previously attended a Introduction to the [facility] Bariatric Surgery Program seminar, a two hour meeting that provides a program overview as well as expectations. The [facility] Bariatric Surgery Program Educational seminar requirement (3 seminars with post-testing) has been met. The [facility] Educational Handbook was provided at visit #1. 2. Pre-operative programmatic evaluations have been done, as noted in previous pathway review. 3. Bariatric Surgery Program evaluations with RD and MIS SPECIALIST have taken place, as noted in previous pathway documentation 4. Weight requirements have been achieved and documented. 5. All pre-operative requirements were achieved. 6. Surgical consultation has taken place, and he has been approved to proceed with surgery by surgeon and insurer. Next steps in pathway: ?? During hospitalization for bariatric surgery, a standard bariatric surgery order set is followed. ?? Routine post-operative follow up with labwork is done at months 1,4,12,18 and 24, yearly thereafter, and PRN. High risk patients are followed more frequently. Some of the topics reviewed during group discussion today included: day of surgery and post-op routine care/ locations: Admissions/SDP/PACU//3/2 [place] units medications that increase the risk of bleeding including NSAIDS, ASA and Plavix to be avoided per guidelines pre and post-operatively DVT/VTE prevention and signs of DVT/PE. Inpatient management for VTE prevention: venodynes, ambulation, Enoxaparin 40 units BID during inpatient stay. Indications for extended Enoxaparin 10 days post discharge: a. patients with BMI >60 or b. 2 or more of the following: age >50, BMI >50, male gender, sleep apnea, varicose veins, venous insufficiency, history of oral contraceptive or hormone or post-menopause hormone replacement use within 30 days of surgery, and current smoking guidelines for patients on Coumadin per prescribing physician or Anticoagulation Clinic diabetes and hypertension monitoring post-operatively signs and symptoms of infection as well as emergency signs and symptoms common post-operative complaints management of sleep apnea during hospitalization and post operatively. The importance of post-operative follow-up with Sleep Center after weight loss was stressed. recommendations for psychiatric medications- should continue uninterrupted after surgery activity post surgery/ return to work recommendations pre-operative and post-operative dietary recommendations post-op vitamin and mineral supplementation routine [facility]SP post-operative follow-up: 1,4, 12,18, 24 months and yearly for LIFE routine Primary Care post-operative follow up: at 10-14 days after surgery to monitor chronic health problems such as diabetes and hypertension, since the requirement for antihypertensive and diabeticmedications may decrease or be discontinued A preliminary copy of the discharge instructions was provided, which is also available in the patient handbook. Brady appeared to have a good understanding of the information presented, and asked appropriate questions. He satisfactorily completed the post-test administered, and achieved a grade of 100%. All hisquestions were answered. Time spent in individual counseling and coordination of care: 5 minutes Time spent in group counselin minutes documented in this encounter Plan of Treatment Not on filedocumented as of this encounter Visit Diagnoses Diagnosis Morbid obesity - Primary Hypertension Unspecified essential hypertension Type 2 diabetes mellitus Type II or unspecified type diabetes ra litus without mention of complication, not stated as uncontrolled Obstructive sleep apnea (adult) (pediatr ic) documented in this encounter Care Teams Instrumentation Fitter Relationship Specialty Start Date End Date Robert Hong DO PCP - General 03/04/[address] [place] [address] documented as of this encounter
--- OUTSIDE RECORDS SUMMARY | 2022-02-07 23:31 | XMS_ITS | Encounter Summary ---
:1975 Author Organization [facility] Address [address] [place] [address] Care Team Providers Name Role Phone HalRobert Primary Care Provider Reason for Visit Reason Comments Morbid Obesity Bariatric Surgery Program pr eoperative visit #2 Encounter Details Date Type Department Care Team Description 12/03/2012 Office Visit General Surgery at Abbey Crandall (Primary Dx); [facility] T, CONCEPT ARTIST Morbid obesity; Replaced by [facility] Hyp ertension; [facility] Type 2 diabetes mellitus; [place], [place] GENERAL SURGERY Venous stasis; [id number] [place] [address] Vitamin D deficiency [phone] Social History Tobacco Use Types Packs/Day Years Used Date Never Smoker Sex Assigned at Date Recorded Not on file documented as of this encounter Last Filed Vital Signs Vital Sign Reading Time Taken Comments Blood Pressure 146/97 12/03/2012 1:00 PM EDT Pulse 107 12/03/2012 1:00 PM EDT Temperature - - Respiratory Rate - - Oxygen Saturation - - Inhaled Oxygen Concentration - - Weight 218 kg (480 lb 9.6 oz) 12/03/2012 1:00 PM EDT Height 190.5 cm (6' 3) 12/03/2012 1:00 PM EDT Body Mass Index 60.07 12/03/2012 1:00 PM EDT documented in this encounter Patient Instructions Patient InstructionsAbbey Crandall - 12/03/2012 12:08 PM EDT BARIATRIC SURGERY PROGRAM SECOND VISIT Contact information: [facility] Admin coordinator Michelle: [phone] Dietitian: [phone] Surgeons/ nurse practitioner: [phone] Nurse line: [phone] 1. Pending information: have labwork done today- unit receptionist area 3L (1 flight below our clinic) Call Crystal tomorrow regarding scheduling surgery (see card for phone number) Ongoing weight loss is encouraged. There is a no weight gain policy between visits. The surgeon mayopt to delay your surgery if you gain weight between visits. Bring the Educational Handbook to the surgeon's visit. After your surgical consultation, all pertinent information will be faxed to your insurer for approval, which can take a few weeks. Your surgery date and pre-operative class will be scheduled after you are approved by your insurer. We cannot predict your OR date in advance of approval- please do not ask for an estimate. Only the [facility] can provide you with a date AFTER APPROVAL by your insurer. Some insurers, such as [employer] and [employer], approve quickly so you can likely get the OR date on the day you have a surgeon visit Pre-op Class: Michelle will schedule, pending your OR date. Prepare for the Pre-op Class by doing the followin. Review the program handbook and come to class with a list of questions. 2. Watch the videos on shopping, meal planning and emotional eating on the [facility] website under Bariatric Surgery ([email or web address]). 3. Go to [employer] and review the education materials ([email or web address] :60 Seconds). 4. Come prepared to the class to discuss meal planning. 5. Bring your supplements and the medication you will be taking to prevent ulcers after surgery. 6. Come with tips and suggestions that my be helpful to others. Questions for your doctor, specialist or pharmacist: Ask your doctor about medication suggestions if you currently take medications that are larger than the size of a tylenol. Large pills need to be crushed (if permitted by the drug small business consultant) or taken in liquid form for TWO WEEKS after surgery. Diabetic oral medication often does not need to be taken after surgery) ?? If you take antinflammatory medications or steroid medicationsfor arthritis or asthma, please check with your doctor. These medications will likely need to be held 1 week prior to and at least a fewweeks after surgery. documented in this encounter Progress Notes Abbey Crandall - 12/07/2012 9:08 AM EDT BARIATRIC SURGERY PROGRAM NUTRITION EDUCATION 2nd Pre-Operative Visit Shared Medical Appointment Brady Billings attended a 2 hour shared medical appointment today for his second pre-operative visit Mr. Billings is a morbidly obese male who has been referred for nutrition evaluation and diet instruction in anticipation of bariatric surgery. 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 Advised patient that bariatric surgery is a weight loss tool not a solution; and ultimately weight loss will be achieved through proper eating and exercise habits. He was given suggestions for how to incorporate dietary and lifestyle changes into his daily schedule. Patient was given a copy of the program handbook at the initial appointment which includes specific information on all nutritional recommendations and guidelines. He was also given contact information for further nutritional questions. Mr. Billings showed good understanding of the concepts discussed. Nutrition Topics Covered at Today's Appointment: ?? Pre-operative Surgical Diet ?? Purpose of diet ?? Appropriate foods ?? Protein goals ?? Carbohydrate goals ?? Calorie goals ?? Keeping a food log ?? Hydration and Appropriate Beverages ?? Post-Operative Diets (Stages I-IV) ?? Importance of following diet stages ?? Appropriate foods ?? Sample Menus ?? Vitamin/Mineral Supplementation ?? Common Food Intolerances ?? Dumping Syndrome ?? Sugar Alcohols The appointment consisted of 60 minutes of group education and counseling. Abbey Crandall - 12/02/2012 5:50 PM EDT Reason for visit: Brady is a 37 y.o. year-old male who presents for review of progress since initial visit, and discussion of risks and benefits of bariatric surgery. He is accompanied to today's visit by his girlfriend Tiff and Uncle Guero. Mr. Billings's bariatric procedure of choice: RNY gastric bypass History of present illness: see notes from 10/01/12. He has lost 21 pounds since his first visit, and is making healthy dietary choices. BARIATRIC SURGERY PROGRAM PATHWAY Review of progress with the requirements of the Bariatric Surgery Program: 1. Education: He has attended a Introduction to the [facility] Bariatric Surgery Program seminar, a comprehensive two hour meeting that provides a program overview, education on bariatric surgeries offered at [facility], risks and benefits, as well as patient expectations and follow up, in December 2011. [facility] Bariatric Surgery Program Educational seminars viewed: 3, in February 2012. Grades on post-testin-100% The BSP Educational Handbook is provided at visit #1. 2. Pre-operative programmatic evaluations: PCP evaluation and letter of support to proceed with surgery, BSP labwork and psychological evaluation. Also- cardiology, rehab medicine consults 3. Bariatric Surgery Program evaluations with RD and LEAD PRINCIPAL TECHNICAL ARCHITECT: 10/01 and 10/26/12 and today. 4. Weight history: 501 pounds on 06/06/06, 502 pounds on 05/03/10, 519 pounds on 02/25/12, 511 pounds.497 pounds on 05/15/12. Current weight: 480 pounds, weight at visit #1: 501 pounds. 5. Gallbladder status: intact, not studied. 6. Insurer specific requirements: 6 months supervised counseling [place] Medicaid, completed 7. BSP Team meeting discussion: no 8. Next steps in pathway: ?? Since all BSP requirements and testing have been completed: surgical consultation has been scheduled with ?? Following surgical consultation, if approved to proceed to surgery by surgeon and insurer: an operative date and Pre-operative Education Class, a 2 hour class taught by the Bariatric LEAD PRINCIPAL TECHNICAL ARCHITECT and RD will be scheduled ?? During hospitalization for bariatric surgery, a standard bariatric surgery order set is followed. ?? Routine post-operative follow up with labwork is done at months 1,4,12,18 and 24, yearly thereafter, and PRN. High risk patients are followed more frequently. Problem List ??? Preoperative class V obesity [...] Tonsillectomy and adenoidectomy 1991 ??? Dental extractions Recent diagnostic screening/ evaluations since initial visit: - Cardiology evaluation on 10/26: This 37 year old male with past medical history of morbid obesity, uncontrolled hypertension, newly diagnosed (mildly uncontrolled) type 2 diabetes mellitus, uncontrolled severe sleep apnea, chronic lymphedema, arthritis, and is now being seen for preoperative risk stra tification prior to planned bariatric surgery. His lymphedema and dyspnea on exertion with 1 flight of stairs can be interpreted as chronic diastolic heart failure, but it is likely to improve as his weight improves. We feel that further evaluation with stress testing or catheterization is unlikely to be helpful. The patient's weight prevents us from performing most types of stress testing and prevents heart catheterization in the event of a positive stress test. The only kind of test that is theoretically possible is a dobutamine stress echo, and even that would have poor performance in a morbidly obese patient.The treatment for his medical conditions, including potential coronary disease, is bariatric surgery. To get him through this surgery safely, he needs improved medical management. We have advised him to double his beta michael to Toprol 100 mg per day, to achieve a target heart rate of 60-70 bpm. I also recommend treating his cholesterol to a goal LDL of less than 70 mg/dL, although I do not have acces to his recent lipids (done with his PCP). His goal blood pressure should be less than 130 mm Hg systolic, given his comorbid diabetes. These changes can be effected by his primary doctor, whom he is s cheduled to see tomorrow. I expect his blood pressure will improve with the increased dose of beta michael, and improved as he uses BiPAP more effectively for sleep apnea. Based on the RCRI, the patient has a score of 1 (one point for CHF). This gives him a perioperative cardiovascular risk of 1%. The patient is agreeable to this plan. He understands to come back to the office if he has new cardiovascular symptoms or diagnoses, such as coronary disease, congestive heartfailure, or other problems. I provided him with my card. The case was reviewed with the attending Dr. Rodriguez, and the plan was formulated in conjunction with him. - Rehab medicine consults on 10/26/12 (see edh) - Sleep Center follow up yesterday, new mask and pressure decrease recommended. - Counseling visit scheduled for 12/30/12, when his therapist returns from maternity leave. - Labwork done today: Results for BRADY BILLINGS ( ) Ref. Range 12/03/2012 16:21 WBC Latest Range: 4.0-10.0 x10(3)/mcL 10.8 (H) RBC Latest Range: 4.63-6.08 x10(6)/mcL 5.41 Hemoglobin Latest Range: 13.7-17.5 gm/dL 17.4 Hematocrit Latest Range: 40.0-51.0 % 50.8 MCV Latest Range: 79.0-92.0 fL 93.9 (H) MCH Latest Range: 25.6-32.2 pg 32.2 MCHC Latest Range: 32.0-36.5 gm/dL 34.3 RDWSD Latest Range: 35.0-46.0 fL 46.5 (H) RDWCV Latest Range: 10.9-14.4 % 13.7 Platelets Latest Range: 145-370 x10(3)/mcL 327 MPV Latest Range: 9.0-12.0 fL 11.1 Sodium Latest Range: 135-145 mmol/L 138 Potassium Latest Range: 3.5-5.0 mmol/L 4.0 Chloride Latest Range: 98-107 mmol/L 99 CO2 Latest Range: 22-31 mmol/L 23 Anion Gap Latest Range: 5-15 mmol/L 16 (H) BUN Latest Range: 10-20 mg/dL 21 (H) Creatinine Latest Range: 0.80-1.50 mg/dL 1.15 Estimated GFR Latest Range: >=60 >60 Glucose Lvl Latest Range: 60-199 mg/dL 133 Calcium Latest Range: 8.5-10.5 mg/dL 9.6 Hemoglobin A1C Latest Range: 4.3-6.1 % 6.7 (H) Est Avg Gluc No range found 146 Total Protein Latest Range: 6.4-8.3 gm/dL 8.4 (H) Albumin Latest Range: 3.2-5.2 gm/dL 4.8 Total Bilirubin Latest Range: 0.2-1.3 mg/dL 0.7 Bili, Direct Latest Range: 0.0-0.3 mg/dL 0.2 Alk Phos Latest Range: 40-120 unit/L 77 AST Latest Range: 0-39 unit/L 38 ALT Latest Range: 0-55 unit/L 50 Free T4 Latest Range: 0.90-1.60 ng/dL 1.29 TSH Latest Range: 0.27-4.20 mcIU/mL 4.08 Changes to review of systems/ medications since initial visit: He is checking glucose daily, [id number] , ~150 after meals. Toprol was doubled with improvement in his blood pressure. Overall changes to comorbidities are noted in Updated Problem list. Review of plans for post-operative support after discharge: girlfriend Tiff and Uncle Guero Exam: Blood pressure 146/97, pulse 107, height 190.5 cm (6' 3), weight 217.999 kg (480 lb 9.6 oz). Discussion of bariatric surgeries performed at [facility], risks and benefits, and the [facility] Bariatric Surgery Program requirements: The risks of immediate and intermediate school teacher complications as well as the benefits of gastric bypass, sleevegastrectomy and gastric banding surgeries, as outlined extensively in the Bariatric Surgery Program Handbook, which is a >90 page document, were reviewed. He is aware that all bariatric surgeries are elective procedures. The mechanism by which gastric bypass, sleeve gastrectomy and adjustable gastric banding surgeries lead to weight loss was reviewed. The concept that bariatric surgery is a tool for weight loss and not a cure for obesity was again emphasized. The need for commitment to nursing home lifestyle changes, with healthy diet and regular physicalactivity was stressed to achieve and sustain nursing home weight loss. Benefits of bariatric surgery discussed: estimated loss of 50% - 70% of excess body weight with gastric bypass, estimated ~50% with sleeve gastrectomy, estimated 30-50% with adjustable banding, with patients rarely achieving their ideal bodyweight, especially patients with BMIs >50. improvement or resolution of weight related comorbidities such as obesity- related hypertension, sleep apnea, NAFLD/ JIANG, esophageal reflux, pseudotumor cerebri, restrictive lung disease and hyperlipidemia when anticipated weight loss is achieved. diabetes improvement occurs in the majority of patients shortly after gastric bypass and sleeve gastrectomy, often prior to discharge from the hospital, prior to any weight loss Diabetes improvement in adjustable gastric banding is directly correlated with weight loss patients also generally feel better, with improvement in self-esteem and activity levels. Potential but rare risks of gastric bypass, sleeve gastrectomy and gastric banding discussed: inability to perform the operation <0.02% bleeding and splenic injury with the need for blood transfusion heart and lung complications, including prolonged mechanical ventilation and possible tracheostomy wound infection and seroma, rare in laparoscopic patients, ~10% in open gastric bypass patients. DVT with fatal pulmonary emboli. Prophylactic measures used including Enoxaparin, sequential compression devices and early ambulation. rhabdomyolysis nutritional deficiencies, including protein-calorie malnutrition, vitamins B12, B1, D, folate, irondeficiency and anemia. (less likely, but possible with banding) gallstones, significantly decreased by prophylactic treatment with Ursodiol for 6 months post-operatively. peripheral neuropathy transient telogen effluvium patients weighing >350 pounds with increased risks related to radiology equipment weight limits,which may necessitate return to OR for evaluation Risks specific to gastric bypass discussed: anastomotic leakage with the development of peritonitis and abscess, potentially leading to sepsis,renal failure and . anastomotic stricture and ulcer lifetime risk of small bowel obstruction lifetime risk of internal and incisional hernias. Risk of incisional hernia ~20% in open gastric bypass surgery, extremely rare in laparoscopic patients. potential risk for renal calculi, increased with chronic poor hydration and prior history of renal calculi Risks specific to laparoscopic sleeve gastrectomy discussed: leak at the staple line with the development of peritonitis and abscess, potentially leading to sepsis, renal failure and . stricture of gastric remnant with need for dilatation prolonged nausea and vomiting need to convert to gastric bypass because of poor weight loss Risks specific to adjustable gastric banding discussed: Vomiting Stomal obstruction Gastric perforation Gastric prolapse (slippage) Band erosion Pouch/esophageal dilation Esophagitis/ GERD port and tubing complications such as flipped port, port infection, breakage and disconnection of tubing slower and generally less weight loss than gastric bypass need for more frequent follow up Potential secondary effects of bariatric surgeries discussed: weight regain/ poor weight loss influenced by eating behaviors and lack of a regular exercise program. Drinking high calorie liquids, frequent snacking or ingestion of large amounts of soft foods willcause weight gain after surgery. dumping syndrome including lactose intolerance vs. food intolerances sagging skin in any area, such as the face, torso and extremities following weight loss. Body contouring surgery may not be a covered benefit by the individual's insurer, and is associated with scarring, risk of infection etc. He was strongly advised that if unable to accept the possibility of skin redundancy following weight loss, then he should not proceed with bariatric surgery. Bariatric surgeryis done for health reasons, not to improve physical appearance. transfer of addictions or symptom substitution behavior. When food is no longer available to secure a sense of comfort and/or relieve stress, some may turn to alcohol or illicit substances, while others may turn to excessive shopping, gambling or other indiscretions. Brady was advised that bariatric surgery would likely be ineffective for those who: receive a great deal of satisfaction from eating have active eating disorders including binge eating disorder and bulimia are in the midst of serious personal or unstable psychiatric problems Other information discussed: For females of child-bearing age: avoidance of for at least 18-24 months post-operatively.Use of contraception is recommended. Bariatric Surgery Follow up for LIFE: Gastric bypass and sleeve gastrectomy: months 1,4,12,18 and 24, yearly thereafter. More frequent follow up done as clinically indicated. A visit at 8 months post-op is optional. Adjustable gastric banding: same as gastric bypass, with frequent follow up for the first 2 years recommended to achieve optimal weight loss, then yearly and as needed. Labwork: done at all routine visits except 1 month post op Post-operative support group meetings: held on the first Friday of every month. All patients are encouraged to attend. Vitamin and mineral supplementation for LIFE: B12 500 mcg sublingual daily, calcium citrate 600 mg with vitamin D 400- 500 mg BID, multivitamins once a day. Iron in the form of ferrous fumarate is taken with vitamin C once a day for menstruating females or those with iron deficiency or anemia. He appeared to have a good understanding of the information presented at today's meeting, and seems to have reasonable and realistic expectations of bariatric surgery. He previously signed an agreementstating that he is willing to comply with instructions, lifetime vitamin and mineral supplementationand programmatic follow up. Assessment/ Plan: 37 y.o. year old male with Class V obesity with established obesity-related chronic disease. Currently, bariatric surgery is the best treatment available for morbid obesity, providing the only mechanism for reproducible, effective, and sustained weight loss. He has been cleared by cardiology to proceed with surgery. ?? The importance of preoperative BIPAP use was stressed. Hopefully the new mask and decrease in pressure setting will facilitate increased use. Mr.. Billings is interested in a laparoscopic approach to gastric bypass surgery, and meets BSP requirements. He is aware that conversion to an open procedure is possible. Ongoing weight loss was encouraged. An intraoperative liver biopsy may be considered to rule out liver pathology, since he has type type diabetes and hypertension. His Bariatric Surgery VTE Risk Assessment score, as determined at visit #1 is elevated, which indicates that enoxaparin 40 mg SQ BID is recommended during inpatient stay, as well as 10 days post discharge. Mr. Billings has met the requirements of the [facility] Bariatric Surgery Program, and has an appointment today for surgical consultation. He was encouraged to call with any questions or concerns. Data reviewed: Visit #2 questionnaire labwork Cardiology, rehab medicine visits Information reviewed with patient: 1. [facility] Bariatric Surgery Program Educational Handbook, bariatric surgery patient agreement and risks and benefits of gastric bypass, sleeve gastrectomy and adjustable gastric banding surgery reviewed in detail. Pending/ other: - Copy of recent sleep center follow up - Ongoing weight loss encouraged Time spent in counseling: Individual planning and coordination of care: 5 minutes Group counselin minutes Questions regarding [facility] Bariatric Surgery Program patients: please call Kaushik Crandall APRN at [phone] or [phone] beeper [phone]. documented in this encounter Plan of Treatment Not on filedocumented as of this encounter Results T4, free (12/03/2012 4:21 PM EDT) athologist Signature Free T4 1.29 0.90 - 1.60 CERNER ng/dL MILLENNIUM Specimen Anatomical Collection Method Collection Time Receive d Time (Source) Location / / Volume Laterality Blood specimen 12/03/2012 4:21 PM 013 4:30 (specimen) EDT PM EDT Resulting Agency Comment Spec In Lab Candi Gallegos MD CHEMISTRY ORDERABLES Performing Organization Address City/[facility]/ZIP Code Phon e Number [address] CERNER MILLENNIUM TSH (12/03/2012 4:21 PM EDT) athologist Signature TSH 4.08 0.27 - 4.20 CERNER mcIU/mL MILLENNIUM Specimen Anatomical Collection Method Collection Time Receive d Time (Source) Location / / Volume Laterality Blood specimen 12/03/2012 4:21 PM 013 4:30 (specimen) EDT PM EDT Resulting Agency Comment Spec In Lab Candi Gallegos MD CHEMISTRY ORDERABLES Performing Organization Address City/[facility]/ZIP [facility] [place] [address] CERNER MILLENNIUM (ABNORMAL) Hemoglobin A1c (12/03/2012 4:21 PM EDT) Analysis Performed At [facility] Time Signature Hemoglobin A1C 6.7 (H) 4.3 - 6.1 CERNER % MILLENNIUM Comment: The [place] Diabetes [employer] (ADA) has stated that HbA1c values >or= 6.5% are consistent with the diagnosis of coleman betes mellitus. In the absence of hyperglycemia (i.e. plasma glucose > 200 mg/dL) or classic symptoms of hyperglycemia a repeat measurement of Hb A1c should be performed on a separate sample to confirm the diagnosis. The ADA also considers an HbA1c value be tween 5.7% and 6.4% to be consistent with an increased risk of diabetes (pred iabetes). Patients with an HbA1c value in this range should be counseled about their increased risk of progressing to diabetes. Reference: Position Statement: Standards of Medical Care in Diabetes 2013. Diabetes Care 2013:36;suppl 1:S11 -S66. Est Avg Gluc 146 mg/dL CERNER MILLENNIUM Comment: eAG equivalents for HbA1c percentages: HbA1c(%) ?eAG(mg/dL) 6.0 ?126 6.5 ?140 7.0 ?154 7.5 ?169 8.0 ?183 8.5 ?197 9.0 ?212 9.5 ?226 10.0 ? 240 Limitations: The eAG calculation has not been validated on women, individuals below 18 years old and above 70 years old, and individuals with hemoglobinopathies. Additional resources are available on ADA website: ??http://professional.diabetes.org/gluc osecalculator.aspx Mele KUMAR, Fidelia J, Alex R, et al. ??Tr anslating the A1C assay into estimated average glucose values. ??Diabetes Care 2008:31(8):2932-7899. Specimen Anatomical Collection Method Collection Time Receive d Time (Source) Location / / Volume Laterality Blood specimen 12/03/2012 4:21 PM 013 4:30 (specimen) EDT PM EDT Resulting Agency Comment Spec In Lab Candi Gallegos MD CHEMISTRY ORDERABLES Performing Organization Address City/State/[place] [address] CERNER MILLENNIUM (ABNORMAL) Comprehensive metabolic panel (non-fasting) (12/03/2012 4:21 PM EDT) athologist Signature Glucose Lvl 133 60 - 199 CERNER mg/dL MILLENNIUM Comment: Diabetes: >=200 mg/dL plus symp toms BUN 21 (H) 10 - 20 mg/dL CERNER MILLENNIU M Creatinine 1.15 0.80 - 1.50 mg/dL CERNER MILL ENNIUM Comment: Please note that the pediatric reference intervals supplied above were not validated at [facility]. Results from pediatri c patients should be interpreted in conjunction to the patient's age, height and muscle mass. Sodium 138 135 - 145 mmol/L CERNER BEVERLY NIUM Potassium 4.0 3.5 - 5.0 mmol/L CERNER BEVERLY NIUM Comment: Please note: ??Patients with WBC >100,00 0 may have falsely elevated Potassium levels. ??For accurate Potassium quantif ication in these patients send serum separator tube (gold top) for subsequent determinations. ??Contact the Clinical Chemistry Laboratory if there are any qu estions. Chloride 99 98 - 107 mmol/L CERNER MILLENN IUM CO2 23 22 - 31 mmol/L CERNER MILLENNI UM Anion Gap 16 (H) 5 - 15 mmol/L CERNER MILLENNIU M Calcium 9.6 8.5 - 10.5 mg/dL CERNER BEVERLY NIUM Total Protein 8.4 (H) 6.4 - 8.3 gm/dL CERNER MIL LENNIUM Albumin 4.8 3.2 - 5.2 gm/dL CERNER MILLENN IUM AST 38 0 - 39 unit/L CERNER MILLENNIU M ALT 50 0 - 55 unit/L CERNER MILLENNIU M Alk Phos 77 40 - 120 unit/L CERNER MILLENN IUM Total Bilirubin 0.7 0.2 - 1.3 mg/dL CERNER M ILLENNIUM Bili, Direct 0.2 0.0 - 0.3 mg/dL CERNER MILL ENNIUM [...] Location / / Volume Laterality Blood specimen 12/03/2012 4:21 PM 013 4:30 (specimen) EDT PM EDT Resulting Agency Comment Spec In Lab Candi Gallegos MD CHEMISTRY ORDERABLES Performing Organization Address City/State/ZIP Code Phon e Number [place] [phone] CERNER MILLENNIUM (ABNORMAL) Hemogram (12/03/2012 4:21 PM EDT) P athologist Signature WBC 10.8 (H) 4.0 - 10.0 CERNER x10(3)/mcL MILLENNIUM RBC 5.41 4.63 - CERNER 6.08 MILLENNIUM x10(6)/mcL Hemoglobin 17.4 13.7 - CERNER 17.5 gm/dL MILLENNIUM Hematocrit 50.8 40.0 - CERNER 51.0 % MILLENNIUM MCV 93.9 (H) 79.0 - CERNER 92.0 fL MILLENNIUM MCH 32.2 25.6 - CERNER 32.2 pg MILLENNIUM MCHC 34.3 32.0 - CERNER 36.5 gm/dL MILLENNIUM Platelets 327 145 - 370 CERNER x10(3)/mcL MILLENNIUM RDWSD 46.5 (H) 35.0 - CERNER 46.0 fL [facility] RDWCV 13.7 10.9 - CERNER 14.4 % [facility] MPV 11.1 9.0 - 12.[address] [facility] Specimen Anatomical Collection Method Collection Time Receive d Time (Source) Location / / Volume Laterality Blood specimen 12/03/2012 4:21 PM 013 4:30 (specimen) EDT PM EDT Resulting Agency Comment Spec In Lab Candi Gallegos MD HEMATOLOGY ORDERABLES Performing Organization Address City/State/[place] [address] [facility] documented in this encounter Visit Diagnoses Diagnosis TSH elevation - Primary Other abnormal blood chemistry Morbid obesity Hypertension Unspecified essential hypertension Type 2 diabetes mellitus Type II or unspecified type diabetes ra litus without mention of complication, not stated as uncontrolled Venous stasis Unspecified venous (peripheral) insuffic iency Vitamin D deficiency Unspecified vitamin D deficiency documented in this encounter Care Teams Liquid Waste Treatment Plant Operator Relationship Specialty Start Date End Date Robert Hong DO PCP - General 03/04/[address] [place] [address] documented as of this encounter
--- OUTSIDE RECORDS SUMMARY | 2022-02-07 23:31 | XMS_ITS | Encounter Summary ---
:1975 [place] [address] Care Team Providers Name Role Phone Robert Hong DO Primary Care Provider Encounter Details Date Type Department Care Team Description 10/01/2012 Office Visit General Surgery at [facility] Robert Soliz DO [address] [place], [place] [id number] [place] [address] Social History Tobacco Use Types Packs/Day Years Used Date Never Smoker Sex Assigned at Date Recorded Not on file documented as of this encounter Plan of Treatment Not on filedocumented as of this encounter Visit Diagnoses Not on filedocumented in this encounter Care Teams Spinning Frame Fixer Relationship Specialty Start Date End Date Robert Hong DO PCP - General 03/04/[address] [place], [place] [id number] documented as of this encounter
--- OUTSIDE RECORDS SUMMARY | 2022-02-07 23:31 | XMS_ITS | Encounter Summary ---
:1975 [place] [address] Care Team Providers Name Role Phone Robert Hong DO Primary Care Provider Encounter Details Date Type Department Care Team Description 01/20/2013 Anesthesia Event Main Operating Room Thanh Murray MD [facility] [place] [address] [facility] Chandrika Sloan MD [facility] [place] [address] [place] [address] Anesthesia Record Procedure Summary Procedure Name Responsible Anesthesia Start Anesthesia Stop Anesthesiologist Time Time @LAPAROSCOPIC Thanh Thomas MD 01/20/13 1359 01/20/13 1732 GASTROPLASTY W/ KATIE-EN-Y CONSTRUCTION (WRVU 29.4) (N/A Abdomen) Events Date Time Event Comment 01/20/2013 1306 1359 AN Verify 1359 Start 1359 An Start Data 1414 An Induction 1416 An Intubation 1422 Anesthesia Ready 1447 Procedure Start 1450 Break/Relief In anusha relief 1503 Break/Relief Out 1509 Quick Note OGT and temp pro be d/c'd per surgeon preference 1540 Handoff The patient's ch art was reviewed. The current anestetic course as well as the anesthetic plans were also review ed. 1623 Quick Note 30 fr bougie zaira ceci under surgeon visualization 1646 Quick Note Bougie d/c'd. Zuleyka gabriel performing EGD 1719 Extubation/LMA Out 1719 an stop data 1732 Stop Name Total Midazolam 2 mg fentaNYL 250 mcg IV Lidocaine 100 mg Propofol 260 mg Rocuronium 150 mg Ondansetron 8 mg Glycopyrrolate 0.4 mg ceFAZolin (ANCEF) 3g in dextrose 5% 100 mL 3 g oxymetazoline (AFRIN) 0.05 % nasal spray 2 spray 2 spr ay meTOPROLOL (LOPRESSOR) injection 5 mg HYDROmorphone 1 mg ketorolac (Toradol) (30 mg/mL) injection 30 mg lactated ringers infusion 1,000 mL 0 mL Agents Name O2 Air Desflurane (et) Blood No blood administrations on file. Lines, Drains, and Airways Type Details Placement Removal Urethral Catheter 01/20/13; indwelling 01/20/13 0000 by 01/21/13 0000 by double lumen catheter; Berenice Sage RN Acker man, Hillary 100% silicone; 16; M, RN inserted; 1; drainage bag to dependent drainage; 01/21/13 (not present on assessment) Incision 01/20/13; abdomen (6 01/20/13 0000 by 12/24/21 1 715 by trocar sites.); Berenice Sage RN Muller, Dier ale L 12/24/21 (LDA cleanup utility RA#[id number]); 1715 (LDA cleanup utility RA#[id number]) PIV 01/20/13; 1236; 01/20/13 1236 by 01/22/13 1337 b y 01/22/13; 1337 Maggy Escalona RN Ackerman, Hillary M, RN (RETIRED) Mask Ventilation: 01/20/13 1416 by 01/20/13 1719 by Non-Surgical Airway Adjunct (2) (Easy BMV Alexander Avery Schindler, Matthew with 9cm oral airway MARCK Rivera CRNA present); ETT Type: Cuffed, Oral; ETT Size: 8.5 mm (RETIRED) NG/OG Tube Oral; Orogastric 01/20/13 1422 by 01/20/13 1509 by Alexander Avery Schindler, Matthew CRNA A, CRNA documented in this encounter Social History Tobacco Use Types Packs/Day Years Used Date Never Smoker Alcohol Use Standard Drinks/Week Comments No 0 (1 standard drink = 0.6 oz pure alcoho l) Sex Assigned at Date Recorded Not on file documented as of this encounter OR Notes Anesthesia Postprocedure Evaluation - Thanh Thomas MD - 01/20/2013 6:42 PM EDT Patient: Brady Billings Procedure(s) Performed: Procedure(s): @LAPAROSCOPIC GASTROPLASTY, LAPAROSCOPIC LIVER BIOPSY ENDOSCOPY, UPPER GI, DIAGNOSTIC, WITH OR WITHOUT SPECIMENS Actual Anesthetic: general Patient location: PACU Post-op pain: Adequate analgesia, having pain but hypoventilates when treated, comfortable, drifts off to sleep Post-op nausea: no nausea or vomiting Last Vitals: Filed Vitals: 01/20/13 1815 BP: 121/62 Pulse: 84 Temp: Resp: Post-op cardiovascular and respiratory status: is stable Level of consciousness: awake, alert and oriented Complications: no apparent complications and tolerated the procedure well Fluid Status: normal Anesthesia Preprocedure Evaluation - Chandrika Sloan MD - 01/19/2013 2:30 PM EDT Images from the original note were not included. Pre-Anesthesia Evaluation for: Brady Billings a 37 y.o. male. Procedure(s): @LAPAROSCOPIC GASTROPLASTY, LAPAROSCOPIC LIVER BIOPSY ENDOSCOPY, UPPER GI, DIAGNOSTIC, WITH OR WITHOUT SPECIMENS Patient Active Problem List Diagnosis ??? Venous stasis ??? Varicose veins [...] reactive epithelial changes ??? Peripheral edema ??? Leg ulcer, left ??? Gout and hyperuricemia ??? Vitamin d deficiency (17) with PTH elevation (91) on 01/29/12 ??? Umbilical hernia ??? Hernia No past medical history on file. Past Surgical History Procedure Date ??? Tonsillectomy and adenoidectomy 1991 ??? Dental surgery extractions History Substance Use Topics ??? Smoking status: Never Smoker ??? Smokeless tobacco: Not on file ??? Alcohol Use: Not on file History Drug Use Not on file No Known Allergies Medications: MAR and/or home medications have been reviewed. Physical Exam: There were no vitals filed for this visit. There is no height or weight on file to calculate BMI. Airway Assessment: Mallampati: II TM distance: >3 FB Neck ROM: full Cardiovascular Assessment: Rhythm: regular Pulmonary Assessment: Dental Assessment: [facility] [place] Assessment: IV access: Peripheral line Anesthesia Plan: ASA 3 general, with a(n) intravenous induction Morbidly obese (BMI 65) 37 y/o male with HTN, DM, GERD, gout, peripheral edema, LVG presents for laparoscopic gastroplasty. Plan GETA +/- arterial line. Region - Other Informed Consent: Anesthetic plan and risks discussed with patient. Plan discussed with VETERINARY PRACTITIONER. [facility] [place]. Assessment: documented in this encounter Miscellaneous Notes Addendum Note - Brady Hamm MD - 01/20/2013 7:44 PM EDT Addendum created 01/20/131943 by Brady Hamm MD Modules edited:Orders documented in this encounter Plan of Treatment Not on filedocumented as of this encounter Visit Diagnoses Not on filedocumented in this encounter Administered Medications Inactive Administered Medications - up to 3 most recent administrations Medication Order MAR Action Action Date Dose Rate Site ceFAZolin (ANCEF) 3g in dextrose 5% Given 01/20/2013 1:59 PM EDT 3 g 100 mL 3 g, Intravenous, EVERY 3 HOURS, First dose on Fri01/20/13 at 1230, Until Discontinued, Administer over 30 Minutes, Intra-Operative (Intra-Procedure), Indication for (Active or Suspected): Prophylaxis fentaNYL 50mcg/mL injection Given 01/20/2013 3:00 PM EDT 50 mcg PRN, Starting on Fri01/20/13 at 1414, Until Fri01/20/13 at 1732, Pain, Anesthesia Intra-op, Routine Given 01/20/2013 2:46 PM EDT 50 mcg Given 01/20/2013 2:14 PM EDT 150 mcg glycopyrrolate (ROBINUL) injection Given 01/20/2013 1:59 PM EDT 0.4 mg PRN, Starting on Fri01/20/13 at 1359, Until Fri01/20/13 at 1732, Anesthesia Intra-op, Routine HYDROmorphone (PF) (DILAUDID) 2 mg/mL Given 01/20/2013 5:25 PM E DT 0.4 mg injection PRN, Starting on Fri01/20/13 at 1616, Until Fri01/20/13 at 1732, Pain, Anesthesia Intra-op, Routine Given 01/20/2013 4:16 PM EDT 0.6 mg ketorolac (TORADOL) injection Given 01/20/2013 5:10 PM EDT 30 mg PRN, Starting on Fri01/20/13 at 1710, Until Fri01/20/13 at 1732, Pain, Anesthesia Intra-op, Routine lactated ringers infusion 1,000 mL New Bag 01/20/2013 2:45 PM EDT mL 1,000 mL, at 100 mL/hr, Intravenous, CONTINUOUS, Starting on Fri01/20/13 at 1230, Until Fri01/20/13 at 2139, Day of Surgery (Day of Procedure) New Bag 01/20/2013 1:59 PM EDT mL New Bag 01/20/2013 12:40 PM EDT 1,000 mLs 100 mL/hr lidocaine (PF) (XYLOCAINE) 100 mg/5 mL (2 %) Given 2:14 PM EDT 100 mg injection PRN, Starting on Fri01/20/13 at 1414, Until Fri01/20/13 at 1732, Anesthesia Intra-op, Routine metoprolol (LOPRESSOR) injection Given 01/20/2013 1:59 PM EDT 5 mg PRN, Starting on Fri01/20/13 at 1359, Until Fri01/20/13 at 1732, High Blood Pressure, Anesthesia Intra-op, Routine midazolam (VERSED) injection Given 01/20/2013 1:59 PM EDT 2 mg PRN, Starting on Fri01/20/13 at 1359, Until Fri01/20/13 at 1732, Sleep, Anesthesia Intra-op, Routine ondansetron (ZOFRAN) injection Given 01/20/2013 5:05 PM EDT 8 mg PRN, Starting on Fri01/20/13 at 1705, Until Fri01/20/13 at 1732, Nausea, Anesthesia Intra-op, Routine oxymetazoline (AFRIN) 0.05 % nasal spray 2 Given 01/20 1:59 PM EDT 2 sprays spray 2 spray, Each Nare, ONCE, 1 dose, On Fri01/20/13 at 1500, Cement Gun Operator recommended duration is 3 days., Day of Surgery (Day of Procedure), Routine propofol (DIPRIVAN) 10 mg/mL bolus injection Given 2:14 PM EDT 260 mg (Anesthesia) PRN, Starting on Fri01/20/13 at 1414, Until Fri01/20/13 at 1732, Anesthesia Intra-op rocuronium (ZEMURON) injection Given 01/20/2013 4:51 PM EDT 10 mg PRN, Starting on Fri01/20/13 at 1414, Until Fri01/20/13 at 1732, Anesthesia Intra-op, Routine Given 01/20/2013 4:16 PM EDT 20 mg Given 01/20/2013 3:47 PM EDT 20 mg documented in this encounter Care Teams Geophysics Teacher Relationship Specialty Start Date End Date Robert Hong DO PCP - General 03/04/[address] [place] [address] [address] [place] [address] documented as of this encounter
--- OUTSIDE RECORDS SUMMARY | 2022-02-07 23:31 | XMS_ITS | Encounter Summary ---
:1975 Author Organization [facility] [place] [place] [address] Care Team Providers Name Role Phone HalRobert pham Primary Care Provider Encounter Details Date Type Department Care Team Description 10/26/2012 Office Visit Psychiatry and Alphonse Salmeron, [facility] Behavioral Health PT (Primary Dx) [facility] [place] [address] PHYSICAL MEDICINE & [phone] [place] [address] Social History Tobacco Use Types Packs/Day Years Used Date Never Smoker Sex Assigned at Date Recorded Not on file documented as of this encounter Progress Notes Alphonse Salmeron, PT - 10/26/2012 4:52 PM EDT Physical Therapy Evaluation Patient profile: Pt. is a 37 y.o. male seen this date as an outpt for pre-op gastric bypass evaluation PMH: No past medical history on file. Past Surgical History Procedure Date ??? Tonsillectomy and adenoidectomy 1991 ??? Dental surgery extractions Social History: Patient is , lives in [place], [place] Stairs: 4 with a rail to enter. Pt states he does not use the railing but pulls on the railings on the porch above. Baseline Mobility/Equipment at home: Once pt up the entry steps he is able to stay on one level. Pt does not use an assistive device for ambulation, states he tries to walk around the block at home. Heis currently not employed, enjoys TV, video games, helps some around the house. Pt states he does the dishes Precautions/Special Considerations: 6' 3, LE edema Subjective: Pt states that he and his have just returned from vacationing at [place] where he did quite a bit of walking in the sand. He feels this is the cause of his (L) heel pain Objective: Pt seen for evaluation today in conjunction with OT Pain: (L) heel pain posterior aspect increased with wt bearing (see above). Pt states he has been icing his heel and that generally it is feeling better. (B) knee pain Vital Signs: Pt on RA Sp02: 97% HR: 114 - pt states his resting heartrate is usually higher than this but was unable to state the rate Mental Status: alert, oriented to person, place, and time Musculoskeletal: Pt is (R) hand dominant ROM: WFL with soreness (L) heel Strength: WFL Sensation: WFL Bed Mobility: Supine><Sit: independently, reviewed logrolling technique Transfers: Sit><Stand: without assistance Gait: Distance: Pt amb across gym and back Device used: no assistive device Level of assist: independent Gait pattern: increased external rotation (L) LE throughout gait cycle Balance: Sitting: Pt able to maintain unsupported sitting balance without assistance Standing: Pt able to maintain standing balance without assistive device Informed Consent: The patient and significant other understands the PT treatment plan and goals. . Education: family and significant other have been educated on mobility considerations post gastric bypass surgery and verbalize understanding. A: Pt recognizes the value of continuing to work on strength and mobility in preparation for gastricbypass procedure. Pt and family's questions answered to their apparent satisfaction. . Plan: Pt and family preparing for gastric bypass procedure. 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
--- OUTSIDE RECORDS SUMMARY | 2022-02-07 23:31 | XMS_ITS | Encounter Summary ---
:1975 [place] [address] Care Team Providers Name Role Phone Robert Hong DO Primary Care Provider Encounter Details Date Type Department Care Team Description 12/15/2012 Notes Only General Surgery at [facility] Abbey Crandall, OVEN EQUIPMENT REPAIRER [facility] [place] [address] GENERAL SURGERY [phone] [place], [place] [address] (Wo rk) Social History Tobacco Use Types Packs/Day Years Used Date Never Smoker Sex Assigned at Date Recorded Not on file documented as of this encounter Progress Notes Abbey Crandall - 12/15/2012 1:03 PM EDT Brady had a mild TSH elevation on 10/01. Repeat TSH improved, normal Free T4. No further testing/ treatment needed Results for BRADY BILLINGS ( ) Ref. 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
--- OUTSIDE RECORDS SUMMARY | 2022-02-07 23:31 | XMS_ITS | Encounter Summary ---
:1975 Author Organization [place] [id number] Care Team Providers Name Role Phone HalPepe Primary Care Provider Encounter Details Date Type Department Care Team Description 01/20/2013 Surgery Main Operating Room Ori Barboza MD @LAPAROSCOPIC [facility] GASTROPLASTY W/ Hospital DR HAINESENYahirY GENESIS [facility] GENERAL SURGE RY (WRVU 29.4) [place] [id number] [place] [id number] 00 [phone] Social History Tobacco Use Types Packs/Day Years Used Date Never Smoker Alcohol Use Standard Drinks/Week Comments No 0 (1 standard drink = 0.6 oz pure alcoho l) Sex Assigned at Date Recorded Not on file documented as of this encounter Last Filed Vital Signs Vital Sign Reading Time Taken Comments Blood Pressure 125/66 01/22/2013 6:50 AM EDT Pulse 57 01/22/2013 6:50 AM EDT Temperature 36.5 ??C (97.7 ??F) 01/22/2013 6:50 AM EDT Respiratory Rate 18 01/22/2013 6:50 AM EDT Oxygen Saturation 98% 01/22/2013 6:50 AM EDT Inhaled Oxygen Concentration - - Weight 207.7 kg (458 lb) 01/20/2013 12:16 PM EDT Height 190.5 cm (6' 3) 01/20/2013 12:16 PM EDT Body Mass Index 57.25 01/20/2013 12:16 PM EDT documented in this encounter Discharge Instructions Patient InstructionsWanda Leija MD - 01/22/2013 7:53 AM EDT BARIATRIC SURGERY DISCHARGE INFORMATION CONTACT INFORMATION: [phone] Surgeons: Dr. Barboza [phone] Technical Solutions Consultant: [phone] (Friday through Friday, 8:00 AM -5:00 PM) Dietitian: [phone] Non-business hours: [phone], ask for general surgeon purification operator helper FOR EMERGENCIES: CALL 911 (trouble breathing, chest [...] you had open gastric bypass and have chuy: [place] should be removed 10 - 12 days after surgery. This can be done at [facility] or via Primary Care Provider (PCP). Do [...] 200 on more than 3 rechecks, [facility] or diabetic specialist for specific [...] Follow up with primary care doctor or health and nutrition specialist in 1-2 weeks. Bring meter to [...] 1975 Admit date: 01/20/2013 Attending Physician: Fior humphrey. providers found Patient discharged to home with [...] Office of Care Management (OCM) / Clinical Conveyor Technician (CRC)/ Initial Assessment Discussed patient with Provider Team and in multidisciplinary discharge-planning rounds. Reviewed record and interviewed patient. Introduced/reviewed CRC role and services accepted. REASON for HOSPITALIZATION: Gastroplasty IVF boluses for low urine output IVF 200cc/hr PMH See admit H&P PREVIOUS FUNCTIONAL STATUS: independent CURRENT FUNCTIONAL STATUS:independent - walking around [place] SOCIAL / FAMILY SUPPORTS:Lives with Tiff in [place], [place] ADVANCE DIRECTIVES: none on file HEALTH /PRESCRIPTION COVERAGE:[facility] CURRENT HOME/COMMUNITY SERVICES/EQUIPMENT: DME:CPAP Home Health Agency: Other: ANALYTICS LEADER REFERRAL: Available if needed PRIMARY CARE PHYSICIAN: PEPE HONG DO [address] / [facility] [address] POTENTIAL DISCHARGE NEEDS: Lovenox injections - patient successfully self injected this morning and feels good about managing that at home. Patient's pharmacy of choice does not have Lovenox 40mg or roxicet liquid. Patient prefers to use the [facility] outpatient pharmacy at discharge. PATIENT/FAMILY EDUCATION NEEDS:lovenox injections ANTICIPATED BARRIERS TO DISCHARGE:none expected TRANSPORTATION @ D/C: family available PLAN: Home with support of family. MD notified of patient's choice of [facility] outpatient pharmacy for d/c scripts. CRC will continue to monitor progress, follow for continuity of care and assist with discharge planning while hospitalized. Miranda Carr RN, BSN covering CRC Sujata Potter pager [phone]. . Wanda Leija MD - 01/21/2013 5:49 AM EDT General [...] Last 3 Shifts 01/20 701 - 01/21 07 In: 3560 [I.V.:3560] Out: 659 [Urine:659] 01/20 1901 - 01/21 0700 In: 1478 [I.V.:1478] Out: 324 [Urine:324] 01/19 [...] hours No results found for this basename: PHART:3,QMH9LXB:3,PO2ART:3,IWQ8XVG:3 in the last 168 hours IMAGING: ASSESSMENT / PLAN: Brady Billings is a 37 y.o. male s/p katie en y gastric bypass with the following active issues: Active Issue Treatment Oligura Pain Conrol Post Gastric bypass diet changes Increased infusion rate, Bolus IVF CEMENT HANDLER Bariatric program, bariatric diets Neuro Pain is well-controlled on Dilaudid CEMENT HANDLER. Transition to orals Activity Activity as tolerated, [...] on abdomen. Patient rates pain 9/10, using CEMENT HANDLER with reported relief. Patient resting in naps. RT called to assist patient with CPAP. Aragon with small amount urine, dark mali. notified of urine output at 2230 of 25 mlfor 1 hour. IV infusing. Love Good RN - 01/20/2013 8:[address] Hamm notified of low urine output, urine looks very concentrated, 1L IV bolus ordered. Wanda Leija MD - 01/20/2013 6:20 PM EDT Post-Operative Progress Note Patient: Brady Billings s/p Surgery: 01/20/2013 [id number] Procedure(s) (LRB): @LAPAROSCOPIC GASTROPLASTY, (N/A) LAPAROSCOPIC LIVER BIOPSY (N/A) ENDOSCOPY, UPPER GI, DIAGNOSTIC, WITH OR WITHOUT SPECIMENS (N/A) Surgeon(s) and Role: * Candi Braboza MD - Primary * Darci Redding MD [...] stable. - continue all post-operative care - CEMENT HANDLER for pain. WANDA LEIJA MD 01/20/2013 6:21 [...] ??? Type 2 diabetes mellitus diagnosed in 2013 A. Current treatment: none B. Monitoring: twice [...] through dieting have been unsuccessful over the watermelon inspector. The team Advised patient that bariatric surgery [...] are the prescriptions that you need to pickler helper. We sent them to a specific pharmacy, so you will need to go there to get them. [facility] [address] enoxaparin 40 mg/0.4 mL Syrg injection furosemide [...] Provider Department Center 02/11/2013 3:30 PM Bariatric, [facility] [address] [place] [address] CLIN 02/11/2013 4:00 PM Candi Barboza MD [facility] [address] [place] [address] Outpatient Services/Studies: No discharge procedures on file. Instructions Given to Patient at Discharge:. An After Visit Summary was printed and given to the patient. Provider Instructions BARIATRIC SURGERY DISCHARGE INFORMATION CONTACT INFORMATION: [phone] Surgeons: Dr. Barboza [phone] Technical Solutions Consultant: [phone] (Friday through Friday, 8:00 AM -5:00 PM) Dietitian: [phone] Non-business hours: [phone], ask for general surgeon purification operator helper FOR EMERGENCIES: CALL 911 (trouble breathing, chest [...] you had open gastric bypass and have chuy: Chuy should be removed 10 - 12 days after surgery. This can be done at [facility] or via Primary Care Provider (PCP). Do [...] 200 on more than 3 rechecks, [facility] or [facility] specialist for [...] Follow up with primary care doctor or health and nutrition specialist in 1-2 weeks. Bring meter to [...] Contact Information: Divison of General Surgery ??? [facility] ??? [address] ??? [place] [address] ??? [phone] ??? ~~~~~~~~~~~~~~~~~~~~~~~~~~~~~~~~~~~~~~~~~~~~~~~~~~~~~~~~~~~~~~~~~~~ Signed: WANDA LEIJA MD 01/22/2013 [...] Patient transitioned onto oral pain medications and CEMENT HANDLER discontinued; states tolerable level of comfort this [...] met Patient reports adequate pain control with CEMENT HANDLER and Toradol. Patient slept fair. Turns self [...] Barboza MD - 01/20/2013 5:17 PM EDT [facility] Operative Note Patient Name: Brady Billings : [id number] MR#: [id number] Case Date: 01/20/2013 Surgeon: Surgeon(s) and Role: * Candi Barboza MD [...] position. The abdomen was entered using the [facility] [employer] trocar system. The 10-mm port was placed [...] distal bowel was chosen to create the [id number] jejunojejunostomy. The duodenal, afferent limb was approximated [...] suture in two layers with a 30 American Bougie (blunt-tipped) in place. The Bougie was [...] resident. CANDI BARBOZA MD 01/20/2013 Miscellaneous - Provider, Franc - 01/20/2013 2:15 PM EDT documented [...] Glucose 102 60 - 199 CERNER mg/dL [facility] Comment: Supplemental ranges: <110 mg/dL before meals <200 mg/dL all other times of the day Specimen Anatomical Collection Method Collection Time Receive d Time (Source) Location / / Volume Laterality Blood specimen 01/22/2013 11:23 3 (specimen) AM EDT 11:23 AM EDT Candi Barboza MD POINT OF CARE TEST ORDERABLE S Performing Organization Address City/[facility]/ZIP [place] [address] CERNER MILLENNIUM POCT Glucose (01/22/2013 8:22 AM EDT) athologist Signature POC Glucose 111 60 - 199 CERNER mg/dL [facility] Comment: Supplemental ranges: <110 mg/dL before meals <200 mg/dL all other times of the day Specimen Anatomical Collection Method Collection Time Receive d Time (Source) Location / / Volume Laterality Blood specimen 01/22/2013 8:22 AM 013 8:22 (specimen) EDT AM EDT Candi Barboza MD POINT OF CARE TEST ORDERABLE S Performing Organization Address City/State/ZIP Code Phon [place] [address] CERNER MILLENNIUM (ABNORMAL) BMP w/fasting Glucose (01/22/2013 5:06 AM EDT) athologist Signature Glucose 109 (H) 65 - [...] of Diabetes Mellitus, Position Statement from the [employer]. ??Diabete s Care, Volume 33, Supplement 1, Apr 2009 BUN 14 10 - 20 mg/dL CERNER MILLENNIU M Creatinine 0.74 (L) 0.80 - 1.50 mg/dL CERNER [facility]ILL [facility]UM Comment: Please note that the pediatric reference intervals supplied above were not validated at [facility]. Results from pediatri c patients should be [...] Barboza MD CHEMISTRY ORDERABLES Performing Organization Address City/[facility] Phon e Number [address] CERNER MILLENNIUM POCT Glucose (01/21/2013 8:44 PM EDT) athologist Signature POC Glucose 130 60 - [...] CARE TEST ORDERABLE S Performing Organization Address City/[facility] Phon e Number [address] CERNER MILLENNIUM POCT Glucose (01/21/2013 7:07 PM EDT) P athologist Signature POC Glucose 123 60 - 199 CERNER mg/dL MILLENNIUM Comment: Supplemental ranges: <110 mg/dL before meals <200 mg/dL all other times of the day Specimen Anatomical Collection Method Collection Time Receive d Time (Source) Location / / Volume Laterality Blood specimen 01/21/2013 7:07 PM 09/26/2 013 7:07 (specimen) EDT PM EDT Candi Barboza MD POINT OF CARE TEST ORDERABLE S Performing Organization Address City/State/ZIP Code Phon e Number [address] CERNER MILLENNIUM POCT Glucose [...] CARE TEST ORDERABLE S Performing Organization Address City/[facility]/ZIP Code Phon e Number [address] CERNER MILLENNIUM POCT Glucose [...] Organization Address City/State/ZIP Code Phon e Number [address] CERNER MILLENNIUM POCT Glucose [...] Organization Address City/State/ZIP Code Phon e Number [place] [id number] CERNER MILLENNIUM (ABNORMAL) Differential, Automated (01/21/2013 4:49 AM EDT) [facility] Method Time Signature Neutrophils % 82.2 (H) [...] Baltazar MD HEMATOLOGY ORDERABLES Performing Organization Address City/[facility]/[place] [address] CERNER MILLENNIUM Phosphorus (01/21/2013 4:49 AM EDT) P athologist Signature Phosphorus 3.2 2.5 - 4.5 CERNER mg/dL MILLENNIUM Specimen Anatomical Collection Method Collection Time Receive d Time (Source) Location / / Volume Laterality Blood specimen 01/21/2013 4:49 AM 013 4:57 (specimen) EDT AM EDT Resulting Agency Comment Spec In Lab Darci Baltazar MD CHEMISTRY ORDERABLES Performing Organization Address [facility]/ZIP Code Phon e Number [address] CERNER MILLENNIUM Magnesium (01/21/2013 4:49 AM EDT) athologist Signature Magnesium 0.70 0.69 - 1.07 CERNER mmol/L [facility] Specimen Anatomical Collection Method Collection Time Receive d Time (Source) Location / / Volume Laterality Blood specimen 01/21/2013 4:49 AM 013 4:57 (specimen) EDT AM EDT Resulting Agency Comment Spec In Lab Darci Baltazar MD CHEMISTRY ORDERABLES Performing Organization Address City/[facility]/ZIP [facility] Phon e Number [address] CERNER MILLENNIUM (ABNORMAL) Glucose, fasting (01/21/2013 4:49 AM EDT) P athologist Signature Glucose 152 (H) 65 - 99 CERNER Fasting mg/dL [facility] Comment: ?Fasting* Glucose Interpretive C riteria Normal [...] of Diabetes Mellitus, Position Statement from the [employer]. ??Diabete s Care, Volume 33, Supplement 1, Apr 2009 Specimen Anatomical Collection Method Collection Time Receive d Time (Source) Location / / Volume Laterality Blood specimen 01/21/2013 4:49 AM 013 4:57 (specimen) EDT AM EDT Resulting Agency Comment Spec In Lab Darci Baltazar MD CHEMISTRY ORDERABLES Performing Organization Address City/[facility] Phon e Number [address] CERNER MILLENNIUM Creatinine (01/21/2013 4:49 AM EDT) athologist Signature Creatinine 0.81 0.80 - 1.50 CERNER mg/dL MILLENNIUM Comment: Please note that the pediatric reference intervals supplied above were not validated at [facility]. Results from pediatri c patients should be [...] Baltazar MD CHEMISTRY ORDERABLES Performing Organization Address City/[facility]/ZIP [facility] [place] [address] CERNER MILLENNIUM BUN (01/21/2013 4:49 AM EDT) athologist Signature BUN 16 10 - 20 CERNER mg/dL MILL[facility]UM Specimen Anatomical Collection Method Collection Time Receive d Time (Source) Location / / Volume Laterality Blood specimen 01/21/2013 4:49 AM 013 4:57 (specimen) EDT AM EDT Resulting Agency Comment Spec In Lab Darci Baltazar MD CHEMISTRY ORDERABLES Performing Organization Address City/[facility] Code Phon e Number [address] CERNER MILLENNIUM Electrolytes panel (01/21/2013 [...] Baltazar MD CHEMISTRY ORDERABLES Performing Organization Address City/[facility] Phon e Number [address] CERNER MILLENNIUM (ABNORMAL) CBC (with Diff) (01/21/2013 4:49 AM EDT) athologist Signature WBC 11.1 (H) 4.0 - 10.0 CERNER x10(3)/mcL MILLENNIUM RBC 4.35 (L) 4.63 - CERNER 6.08 MILLENNIUM x10(6)/mcL Hemoglobin 13.9 13.7 - CERNER 17.5 gm/dL [facility]ILL[facility] Hematocrit 41.5 40.0 - CERNER 51.0 % MILLENNIUM MCV 95.4 (H) 79.0 - CERNER 92.0 fL MILLENNIUM MCH 32.0 25.6 - CERNER 32.2 pg MILLENNIUM MCHC 33.5 32.0 - CERNER 36.5 gm/dL MILLENNIUM Platelets 257 145 - 370 CERNER x10(3)/mcL MILLENNIUM RDWSD 45.9 35.0 - CERNER 46.0 fL MILLENNIUM RDWCV 13.2 10.9 - CERNER 14.4 % MILLENNIUM MPV 10.7 9.0 - 12.0 CERNER fL [facility] Specimen Anatomical Collection Method Collection Time Receive d Time (Source) Location / / Volume Laterality Blood specimen 01/21/2013 4:49 AM 013 4:57 (specimen) EDT AM EDT Resulting Agency Comment Spec In Lab Darci Baltazar MD HEMATOLOGY ORDERABLES Performing Organization Address City/State/ZIP Code Phon e Number [address] CERNER MILLENNIUM POCT Glucose [...] Organization Address City/State/ZIP Code Phon e Number [address] CERNER MILLENNIUM POCT Glucose [...] CARE TEST ORDERABLE S Performing Organization Address City/[facility]/ZIP Code Phon e Number [address] [facility] Specimen to Pathology (surgical or derm) (01/20/2013 3:13 PM EDT) Specimen Anatomical Collection Method Collection Time Receive d Time (Source) Location / / Volume Laterality AP Specimen 01/20/2013 3:13 PM 3 3:13 EDT PM EDT Narrative C[facility]ER [facility] - 01/20/2013 3:13 PM E DT Specimen requisition ordered. ??Separate Pathology report to follow Candi Barboza MD PATHOLOGY/CYTOLOGY ORDERABLE S Performing Organization Address City/[facility]/ZIP Code Phon e Number [address] CERNER [facility] Surgical Pathology Report (01/20/2013 3:12 PM EDT) Component Value Ref Test Analysis Performed At [facility] Range Method Time Signature Surgical CERNER Pathology ? [facility] Report ? Provider: ?? CANDI BARBOZA ? Pt. Name: ?? BRADY WORLEY ? Acc #: ?[id number] ?Pt. MRN: ?[id number] ? Col Date: ?? 3 ? /Sex: [...] Organization Address City/State/ZIP [place] [address] CERNER MILLENNIUM POCT Glucose (01/20/2013 12:35 PM EDT) athologist Signature POC Glucose 116 60 - 199 CERNER mg/dL [facility] Comment: Supplemental ranges: <110 mg/dL before meals <200 mg/dL all other times of the day Specimen Anatomical Collection Method Collection Time Receive d Time (Source) Location / / Volume Laterality Blood specimen 01/20/2013 12:35 3 (specimen) PM EDT 12:35 PM EDT Candi Barboza MD POINT OF CARE TEST ORDERABLE S Performing Organization Address City/State/[place] [address] [facility] documented in this encounter Visit Diagnoses Not on filedocumented in this encounter Administered Medications Inactive Administered Medications - up to 3 most recent administrations Medication Order MAR Action Action Date Dose Rate Site BUpivacaine (PF) Given 01/20/2013 3:01 PM 40 mg 19- Surgical Site (MARCAINE) 0.25 % (2.5 EDT mg/mL) injection ONCE PRN, Starting on Fri01/20/13 at 1501, Until Fri01/20/13 at 2145, Intra-Operative (Intra-Procedure), Routine documented in this encounter Active and Recently Administered Medications Times are shown in EDT. Scheduled Medication Order 01/20/2013 01/21/2013 01/22/2013 ceFAZolin (ANCEF) 3g in dextrose 5% 100 mL (CANCELED) 1230 (Due)1359 (Given - Provider: Wanda Avery CRNA)1530 (Due)1830 (Due)2130 (Due) 3 g, Intravenous, EVERY 3 HOURS, First d ose on Fri01/20/13 at 1230, Until Discontinued, for 30 Minutes, Intra-Operative (Intra-Procedure), Indication (Active or Suspected): Prophylaxis docusate sodium (COLACE) oral liquid 50-200 mg (CANCEL ED) 2245 (Not Given - Provider: Elinor Cee RN - Reason: NPO) 0900 (Given - Provider: Sachi Melo, MARIE)2048 (Given - Provider: Shashank Chang RN) 0900 (Given - Provider: Michelle Polanco, MARIE) 50-200 [...] Procedure), Routine enoxaparin (LOVENOX) injection 40 mg 232 (Given - Provider: Kayleigh Diaz RN) 0900 (Given - Provider: Sachi Melo RN)2047 (Given - Provider: Shashank Chang RN) 0900 (Given - Provider: Michelle Polanco RN) 40 mg, Subcutaneous, EVERY 12 HOURS SCHE [...] insulin aspart (NOVOLOG) PEN injection 1-4 Units ([facility]) 1911 (Given - Provider: Cindy Nascimento, MARIE)232 (Given - Provider: Kayleigh Diaz RN) 0900 [...] Melo RN - Reason: Order parameters not met)2044 (Not Given - Provider: Shashank Chang RN [...] Routine ketorolac (TORADOL) injection 30 mg (CANCELED) 2354 (G luis f - Provider: Elinor Cee RN - Comment: [...] Nare, ONCE, 1 dose, Fri at 1500, Rn Occupational recommended duration is 3 days., Day of Surgery (Day of Procedure), Routine sennosides (SENOKOT) 8.8 mg/5 mL oral syrup 8.8-35.2 m g (CANCELED) 2245 (Not Given - Provider: Elinor Cee RN - Reason: NPO) 0900 (Given - Provider: Sachi Melo RN)2048 (Given - Provider: Shashank Chang RN) 0900 (Given - Provider: Michelle Polanco, MARIE) 8.8-35.2 mg, Oral, 2 TIMES DAILY, First [...] MARIE) 1045 (Given - Provider: Angelina Mcdaniel , MARIE) 5 mL, Intravenous, EVERY 12 HOURS, First dose on Fri01/20/13 at 2245, Until Discontinued, Routine sodium chloride 0.9% 500 mL IV bolus (COMPLETED) 0846 (Given - Provider: Sachi Melo, MARIE) Intravenous, ONCE, 1 dose, [facility] 01/21/13 at 0900 Continuous Medication Order 01/20/2013 01/21/2013 01/22/2013 HYDROmorphone (DILAUDID) 1 mg/mL CEMENT HANDLER 30 mL (CANCELED) 1815 (New Syringe/Cartridge - Provider: Cindy Nascimento RN) Intravenous, CEMENT HANDLER ONLY, Starting Fri01/20/13 at 1830, Until T hu 01/21/13 at 1000 lactated ringers infusion 1,000 [...] 1815 (New Bag - P rovider: Cindy Nascimento RN)2230 (Rate/Dose Change - Provider: Elinor Cee RN - Comment: IVF infusing at 100ml when admitted from PACU) 0111 (New Bag - Provider: Elinor Cee RN)0555 (Rate/Dose Change - Provider: Elinor Cee RN)0624 (New Bag - Provider: Elinor Cee RN)1149 (New Bag - Provider: Sachi Melo, MARIE)1326 (Stopped - Provider: Sachi Melo RN) 200 mL/hr, at 200 mL/hr, Intravenous, CO NTINUOUS, Starting Fri01/20/13 at 1830, Until Nicole 01/21/13 at 1307 PRN Medication Order 01/20/2013 01/21/2013 [...] Cindy Nascimento, MARIE)2030 (Given - Provider: Love Good, MARIE)2039 (Given - Provider: Love Good RN) 0.2-0.4 mg, Intravenous, EVERY 5 [...] Routine HYDROmorphone (DILAUDID) injection 0.5 mg (CANCELED) 170 (Given - Provider: Sachi Melo RN) 0.5 mg, Intravenous, EVERY 2 HOURS PRN, Starting Nicole 01/21/13 at 0959, Until Fri01/22/13 at 1515, Pain, Routine OXYcodone (ROXICODONE) 5 mg/5 mL solution 20 mg (CANCELED) 2001 (Given - Provider: Shashank Chang, RN)2304 (Given - Provider: Shashank Chang, RN) 0356 (Given - Provider: Shashank Chang, RN)0707 (Given - Provider: Shashank Chang, RN)0953 (Given - Provider: Angelina Mcdaniel, MARIE)1245 (Given - Provider: Angelina Mcdaniel, MARIE) 20 mg, Oral, EVERY 3 HOURS PRN, Starting Nicole 01/21/13 at 1637, Until Fri01/22/13 at 1515, Pain, Routine OXYcodone-acetaminophen (ROXICET) 5-325 mg/5 mL oral solution 10-20 mL (CANCELED) 1125 (Given - Provider: Hiren Melo, MARIE)1204 (Given - Provider: Sachi eMlo, MARIE)1604 (Given - Provider: Sachi Melo, MARIE) 10-20 mL, Oral, EVERY 4 HOURS PRN, Start ing Nicole 01/21/13 at 0958, Until Nicole 01/21/13 at 1638, Pain, Maximum dose of acetaminophen is 4000 mg from all sources in 24 hours., Routine documented in this encounter Care Teams Rig Welder Relationship Specialty Start Date End Date Pepe Hong DO PCP - General 03/04/[address] [place] [address] documented as of this encounter
--- OUTSIDE RECORDS SUMMARY | 2022-02-07 23:31 | XMS_ITS | Encounter Summary ---
:1975 [place] [address] Care Team Providers Name Role Phone Robert Hong DO Primary Care Provider Reason for Visit Reason Comments Hernia Encounter Details Date Type Department Care Team Description 03/12/2012 Office Visit General Surgery at Irina Barboza MD Hernia (Primary Dx) [facility] [address] [place] [address] [place] [id number] [phone] (Wo rk) Social History Tobacco Use Types Packs/Day Years Used Date Never Assessed Sex Assigned at Date Recorded Not on file documented as of this encounter Last Filed Vital Signs Vital Sign Reading Time Taken Comments Blood Pressure 177/100 03/12/2012 2:35 PM EST Pulse 93 03/12/2012 2:35 PM EST Temperature 36.3 ??C (97.3 ??F) 03/12/2012 2:35 PM EST Respiratory Rate 20 03/12/2012 2:35 PM EST Oxygen Saturation 95% 03/12/2012 2:35 PM EST Inhaled Oxygen Concentration - - Weight 235.9 kg (520 lb) 03/12/2012 2:35 PM EST Height 190.5 cm (6' 3) 03/12/2012 2:35 PM EST Body Mass Index 65 03/12/2012 2:35 PM EST documented in this encounter Progress Notes Irina Barboza MD - 04/30/2012 10:58 PM EST Mr. Billings is referred by ROBERT HONG DO for evaluation of an umbilical hernia. This 36 y.o.male notes a recent history of a small lump around his umbilicus. Although it has been asymptomatic most of this time, over the last several months he notes that it has gotten steadily larger. During this time, he also notes that the hernia has become more uncomfortable, particularly with lifting or other activities. He denies any symptoms or signs of incarceration or strangulation but a recent visitto his PCP prompted this referral because the hernia was incarcerated on exam.. Past History: Patient Active Problem List Diagnoses Code ??? Hernia 553.9 Morbid Obesity BMI 65 DM GERD Gout Peripheral edema HTN Medications: Current Outpatient Prescriptions on File Prior to Visit Medication Sig Dispense Refill ??? hydroCODone-acetaminophen (VICODIN) 5-500 mg per tablet 1 Tablet(s), PO, Three times daily,PRN Allergies Review of patient's allergies indicates no known allergies. Social: He denies excess tobacco or alcohol use. No drug use. No family history on file. Review of systems: Review of systems is [...] physical examination, this is a well appearing very obese male. His abdomen is nontender and without palpable masses. The umbilical hernia itself is easily reducible today. I cannot fully appreciatethe size of the fascial defect, but it seems relatively small. His lower extremities and edematous and neurological exam are grossly normal. Impression. Symptomatic umbilical hernia. Because it is bothering him, I agree that elective repair is indicated. The majority (20 minutes) of this 30 minute visit was spent discussing the nature of hernia surgery and its associated risks, including recurrent hernias and infection. He seems fully informed and is ready to proceed sometime in the new year if it becomes more troublesome. IRINA BARBOZA MD Cc ROBERT HONG DO documented in this encounter Plan of Treatment Not on filedocumented as of this encounter Visit Diagnoses Diagnosis Hernia of unspecified site of abdominal cavity without mention of obstruction or gangrene - Primary documented in this encounter Care Teams Beauty Culturist Apprentice Relationship Specialty Start Date End Date Robert Hong DO PCP - General 03/04/[address] [place] [address] documented as of this encounter
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
--- OUTSIDE RECORDS SUMMARY | 2022-02-07 23:31 | XMS_ITS | Encounter Summary ---
:1975 Author Organization [facility] [place] [address] Care Team Providers Name Role Phone Robert Hong DO Primary Care Provider Encounter Details Date Type Department Care Team Description 10/26/2012 Follow-Up General [facility], DR [place], unspecified [facility] Yana garcia (Primary [place]x) [place] [address] Social History Tobacco Use Types Packs/Day Years Used Date Never Smoker Sex Assigned at Date Recorded Not on file documented as of this encounter Last Filed Vital Signs Vital Sign Reading Time Taken Comments Blood Pressure - - Pulse - - Temperature - - Respiratory Rate - - Oxygen Saturation - - Inhaled Oxygen Concentration - - Weight 231.3 kg (509 lb 14.4 oz) 10/26/2012 12:21 PM EDT Height 190.5 cm (6' 3) 10/26/2012 12:21 PM EDT Body Mass Index 63.73 10/26/2012 12:21 PM EDT documented in this encounter Patient Instructions Patient InstructionsFoGisella victor, RD - 10/26/2012 8:42 AM EDT BARIATRIC SURGERY PROGRAM FIRST VISIT Contact information: [facility] Admin coordinator Michelle: [phone] Dietitian: [phone] Surgeons/ nurse practitioner: [phone] Nurse line: [phone] Recommendations to do list after today's visit: Bariatric Surgery Program educational information: Read the Bariatric Surgery Program Educational Handbook thoroughly, highlight important areas to remember. Write down any questions that you may have to discuss at next visit. Bring the Handbook to ALL pre-operative visits, including the surgeon visit. Keep the handbook in asafe place for easy retrieval. Nutrition: 1) Practice post-op GB diet recommendations prior to surgery to support post-op success and long-term weight loss: Eat 3 meals daily, spaced about 4-6 hours apart. Keep eating 3 meals per day- great job! Avoid bagels- have Robert's bagel thins instead with 1-2TBSP peanut butter or egg instead. Take your time when eating meals, at least 20-30 minutes per meal. Continue to log your food! Call your doctor about the fluid in your legs. Also ask about checking your blood sugars at home. Sip 48-64 oz hydrating fluid daily between meals and avoid drinking with meals. Use smaller plates/bowls/utensils for meals and eat smaller portions. Plan meals 1 wk in advance and shop with a list. 2) Start/continue taking a complete multivitamin daily. 3) Exercise with the eventual goal of 30 minutes minimum 5 days per week or exercise as recommended by MD. Start slow- even 5-10 minutes once or twice a day is great. Check out the track at your local school and walk laps there, or go with [employer]. 4) Practice this Meal Format: Protein first [...] of starch = 1 slice toast, ?? Portuguese muffin, ?? cup cooked potato, rice, or [...] in advance of approval. Only the OR senior power scheduler can provide you with a date. Questions for your doctor, specialist or pharmacist: Ask your doctor about medication suggestions if you currently take medications that are larger than the size of a tylenol. Large pills need to be crushed (if permitted by the drug detention officer) or taken in liquid form for TWO WEEKS after surgery. Diabetic oral medication often does not need to be taken after surgery) ?? If you take antinflammatory medications or steroid medications for arthritis or asthma, please check with your doctor. These medications will likely need to be held 1 week prior to and at least a few weeks after surgery. documented in this encounter Progress Notes Gisella Mai RD - 10/26/2012 8:37 AM EDT Bariatric Surgery Program Initial Nutrition Assessment SUBJECTIVE -Unhappy about weight being up. Was in [place] last week. Did walk more. Retaining fluids.Admits feeling guilty about eating fried food while there. -Reports lasix dose is 40mg daily, was only on twice a day for a few days. -Did keep a food diary. Brady Laurel Billings is being seen today for a second preoperative evaluation in anticipation of weightloss surgery. Weight History: Date Weight (lbs) HT BMI Comments ~11/2011 549 75 67.7 Highest Weight Reports that this wt was taken at PCP early in the fall 02/20/12 511.2 75.25 63.5 Initial program weight 10/01/12 501 62.8 1st pre-op visit 10/26/12 509# 63.9 2nd pre-op visit EWL % Surgery 1 month post-op 4 months post-op Goal Weight: 350# - patient reports that he was 370# ~10 years ago and felt great.(50-70% EWL based on today's wt = 279-343#) Recent Changes in Dietary/Lifestyle Habits since last visit: ?? [x] Smaller portions- less cheese also ?? [ ] Eating slower ?? [ ] More fruits, vegetables, and whole grains ?? [ ] Leaner proteins ?? [ ] Lower calorie cooking methods (baking, broiling, grilling, etc.) ?? [ ] Nutrition Counseling with PCP or RD- saw Manasa Ingram RD ?? [ ] No longer buying tempting foods from grocery store ?? [ ] Cutting out soda ?? [ ] Eating regular meals ?? [ ] Increased physical activity ?? Date changes implemented:09/2012 Exercise: ?? Type: walking, limited by foot pain Typical Daily Intake: Breakfast 2 poached eggs, 2 ww toast w butter/yogurt (salvadorean or lt n fit), banana/bagel AM Snack Drinks a lot of water Lunch [place] (tuna, ham or turkey), celery or chips PM Snack none Supper Cheeseburger w bun (mustard), hot dog/chicken, broccoli/2 slices pizza, 4 onion rings/ribs, mac n cheese/fried clams/fried rice, crab ragoons, chicken HS Snack Grapes or carrots Beverages: ?? Hydrating beverages: ~5 liters/day ?? Caffeinated beverages: none ?? Juice/sports drinks: none ?? Soda: none ?? ETOH: none Supplements/Vitamins: MVI, Vitamin D rx- 69638 IU weekly Summary Brady Barragan Awa returns for a second preoperative evaluation to assess changes made in lifestyle since initial visit. Patient has unfortunately gain 8# since last visit 4 weeks ago. Patient was on vacation last week and admits to making poor food choices, though noted in food diary that foods prior to this often high in carbohydrate, sodium, and fat. Patient does c/o fluid in legs, he is on lasix, though was encouraged to call his PCP to discuss, along w asking about checking his BG at home given A1c 7.5%. Discussed slowly adding in walking as well, even if 5 minutes twice a day. Patient did havePT/OT appointment today and given exercises there as well. Will f/u with patient again to review lifestyle changes and review food diary in 3 weeks. Patient is aware that he is required to lose 20# prior to surgery. NUTRITION DIAGNOSIS: - Obesity related to physical inactivity and over consumption as evidenced by BMI of 63.9%. INTERVENTION: 1) Practice post-op GB diet recommendations prior to surgery to support post-op success and long-term weight loss: Eat 3 meals daily, spaced about 4-6 hours apart. Keep eating 3 meals per day- great job! Avoid bagels- have Robert's bagel thins instead with 1-2TBSP peanut butter or egg instead. Take your time when eating meals, at least 20-30 minutes per meal. Continue to log your food! Call your doctor about the fluid in your legs. Also ask about checking your blood sugars at home. Sip 48-64 oz hydrating fluid daily between meals and avoid drinking with meals. Use smaller plates/bowls/utensils for meals and eat smaller portions. Plan meals 1 wk in advance and shop with a list. 2) Start/continue taking a complete multivitamin daily. 3) Exercise with the eventual goal of 30 minutes minimum 5 days per week or exercise as recommended by MD. Start slow- even 5-10 minutes once or twice a day is great. Check out the track at your local school and walk laps there, or go with [employer]. 4) Practice this Meal Format: Protein first [...] of starch = 1 slice toast; ?? Portuguese muffin; 1 small chanel or wrap; ?? [...] as of this encounter Visit Diagnoses Diagnosis Obesity, unspecified - Primary documented in this encounter Care Teams Flight Follower Relationship Specialty Start Date End Date Robert Hong DO PCP - General 03/04/[address] [place] [address] documented as of this encounter
--- OUTSIDE RECORDS SUMMARY | 2022-02-07 23:31 | XMS_ITS | Encounter Summary ---
:1975 Author Organization [facility] [place] [address] Care Team Providers Name Role Phone Robert Hong DO Primary Care Provider Reason for Visit Reason Onset Date Comments Other 03/06/2012 Recieved a referal o n this pt for immediate care Encounter Details Date Type Department Care Team Description 03/06/2012 Telephone General Surgery at [facility] Kylah Christianson Other (Recieved a [facility] Bridget RN referal o n this pt for Drive immediate care) [place] [phone] Social History Tobacco Use Types Packs/Day Years Used Date Never Assessed Sex Assigned at Date Recorded Not on file documented as of this encounter Miscellaneous Notes Telephone Encounter - Kylah Christianson RN - 03/06/2012 9:37 AM EST TELEPHONE NOTE Date of call: 03/06/2012 Time of call: 9:25 AM Caller: Received a referral from Robert Hong MD [facility] in [facility]. He is referring Brady Billings for an incarcerated hernia. Reason for call: I called the pt to see how he is doing. PT can't get here today. He denies n/v and fevers. He reports having this hernia for a couple of years and that it has gotten worse. Dr Hong was unable to reduce the hernia. PT is having regular BMs and has no pain. Assessment: Pt has a Medical HX of: GERD, Gout, Difficult to Control Hypertension, Peripheral edema, Rectal bleeding, Morbid obesity BMI65, Hypertension,Diabetes. Plan/Instructions: I called Dr. Hong's office and spoke with him and he is aware that the pt won't be seen today as the pt can't come here. He reports that the pt is in the early stages of the Bariatric program. I told Brady we would call him back with a plan. Pt agreed with the plan. PT will beseen next week. PT is aware of the seriousness of a strangulated hernia and we reviewed s/s and whathe should do in case his symptoms worsen. PT will report to the closest ER for evaluation . PT agreed with the plan. documented in this encounter Plan of Treatment Not on filedocumented as of this encounter Visit Diagnoses Not on filedocumented in this encounter Care Teams Hot Dip Plating Supervisor Relationship Specialty Start Date End Date Robert Hong DO PCP - General 03/04/[address] [place] [address] documented as of this encounter
--- OUTSIDE RECORDS SUMMARY | 2022-02-07 23:31 | XMS_ITS | Encounter Summary ---
:1975 Author Organization [facility] [place] [address] Care Team Providers Name Role Phone Robert Hong DO Primary Care Provider Encounter Details Date Type Department Care Team Description 10/18/2012 Orders Only General Surgery at [facility] in d deficiency [facility] T, MOUTHPIECE MAKER (Primary Dx) [facility] [address] [place] [address] GENERAL SURGERY [phone] [place] [id number] Social History Tobacco Use Types Packs/Day Years Used Date Never Smoker Sex Assigned at Date Recorded Not on file documented as of this encounter Plan of Treatment Not on filedocumented as of this encounter Visit Diagnoses Diagnosis Vitamin D deficiency - Primary Unspecified vitamin D deficiency documented in this encounter Care Teams Director Of Sustainability Relationship Specialty Start Date End Date Robert Hong DO PCP - General 03/04/[address] [place], [place] [id number] documented as of this encounter
--- OUTSIDE RECORDS SUMMARY | 2022-02-07 23:31 | XMS_ITS | Encounter Summary ---
:1975 Author Organization [facility] [place] [address] Care Team Providers Name Role Phone HalRobert pham Primary Care Provider Encounter Details Date Type Department Care Team Description 10/26/2012 Office Visit Psychiatry and Medardo Emanuel, Morbid ob esity Behavioral Health OT (Primary Dx) [place] [phone] Social History Tobacco Use Types Packs/Day Years Used Date Never Smoker Sex Assigned at Date Recorded Not on file documented as of this encounter Progress Notes Medardo Emanuel, OT - 10/26/2012 4:03 PM EDT Occupational Therapy Evaluation Patient profile: Brady Billings is a 37 y.o. male patient of Abbey Crandall APRN, seen for preop bariatric surgery evaluation. PMH: Morbid obesity HTN Type 2 diabetes mellitus Obstructive sleep apnea GERD Venous stasis Lower extremity edema Secondary hyperparathyroidism Past Surgical History Procedure Date ??? Tonsillectomy and adenoidectomy 1991 ??? Dental surgery extractions Social History: Patient lives with his . Home Setup: 4 steps onto porch, then one level. DME: none Baseline ADL/Mobility: assists with shoes and socks. Pt doesn't work, reports does the dishes. Tries to walk at home. 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 Objective: Seen today for OT evaluation. Seen in conjunction with PT Cognitive Status/Behavior: alert, oriented to person, place, and time Communication: No deficits Vision & Perception: functional Range of motion, strength, coordination: Hand dominance: right Bilateral UEs are within functional limitations BLEs functional. Did hurt his left ankle this past week on vacation, did a lot of walking on the beach. Sensation: no c/o numbness/tingling in hands or feet Activities of Daily Living: Reports has to assist with shoes and socks. Issued truck despatcher and long handed shoe horn. Wears sandals 90% of the time. Functional Mobility: Supine to sit: indep Sit to stand: indep from w/c and hi/lo mat Ambulation: indep 50 feet, no LOB Stand to sit: indep Sit to supine: indep from mat using log roll technique Balance: good sitting. Fair+ standing. IADL???s: Assistance available to patient. Endurance: Information taken from last recorded vitals in flowsheet. Last value Range last 8 hrs Heart Rate Heart Rate: [80] Blood Pressure BP: (160)/(0) SpO2 SpO2: [94 %] 97% on RA, HR 114 Pain: Left ankle, which injured over vacation. Also reports some pain in knees from all the walking last week on vacation. Skin: Not assessed Informed Consent: The patient agrees to and understands the OT treatment plan and goals. Education: family and patient educated on role of Occupational Therapy, expectations s/p bariatric surgery, adaptive equipment for ADLs, energy conservation techniques. Patient status, treatment, and mobility recommendations discussed with nursing. Assessment: Pt seen today for preop bariatric surgery evaluation. Pt is independent at baseline with ADLs exceptshoes and socks, is able to walk without device. Pt issued long handled shoe horn and truck despatcher for ADLs. Pt and educated on process/expectations after bariatric surgery. DO not anticipate need for follow up OT services after surgery. Eval Date: 10/26/2012 Total time spent with patient: 35 minutes Total timed interventions: 0 minutes Pager: [phone] MEDARDO EMANUEL OT 10/26/2012 Occupational Therapy Rehabilitation Department documented in this encounter Plan of Treatment Not on filedocumented as of this encounter Visit Diagnoses Diagnosis Morbid obesity - Primary documented in this encounter Care Teams Marine Engineering Technicians Relationship Specialty Start Date End Date Robert Hong DO PCP - General 03/04/[address] [place] [address] [address] [place] [address] documented as of this encounter
--- OUTSIDE RECORDS SUMMARY | 2022-02-07 23:31 | XMS_ITS | Encounter Summary ---
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 [ ] Boredom ?? [ ] Stress ?? [ ] Fatigue ?? [x] Physical Hunger ?? [ ] Eating on a Schedule ?? [ ] Other: Recent Changes in Dietary/Lifestyle Habits: ?? [x] Smaller portions ?? [ ] Eating slower ?? [ ] More fruits, vegetables, and whole grains ?? [ ] Leaner proteins ?? [ ] Lower calorie cooking methods (baking, broiling, grilling, etc.) ?? [x] Nutrition Counseling with PCP or RD- saw Manasa Ingram RD ?? [ ] No longer buying tempting foods from grocery store ?? [x] Cutting out soda ?? [x] Eating regular meals ?? [x] Increased physical activity ?? Date changes implemented:01/2012 Exercise: ?? Type: walking, limited by foot pain ?? Duration: very limited- goes around block, takes 20 minutes, or just down street a few hundred feet. ?? Frequency: 2-3 times per week ?? Intensity: easy Dieting History: Type of Diet Wt Lost (lbs.) Wt. Regain (lbs.) Dates Duration Comments RD visits 11.2# Patient saw Manasa Ingram RD from 02/20/12-06/26/12 6 consecutive visits Pseudoephedrine 86 140 2001 8 months Wt Watchers 10 0 2009 3 months Atkins 10 10 2008 4 months Typical Daily Intake: Breakfast [employer]: Bagel w low fat cream cheese, energy drink (80calories) today- goes out rarely/2 toast with peanut butter/banana/yogurt (bhutanese Chobani)/skips on occasion AM Snack Drinks a lot of water Lunch 4 slices of low sodium turkey rolled w a 3 slices of cheese/wrap PM Snack Banana/grapes (~30) Supper Cheeseburger w bun (mustard), green beans (plain), tuna salad w shells HS Snack none Beverages: ?? Hydrating beverages: 3-6 liters/day ?? Caffeinated beverages: none- only had this morning ?? Juice/sports drinks: none ?? Soda: none ?? ETOH: none Supplements/Vitamins: none Food dislikes: brussel sprouts Food Allergies/Intolerances: ?? [ ] Gluten ?? [ ] Lactose ?? [x] None Summary Brady Billings has been referred for nutrition evaluation and diet instruction in anticipation ofbariatric surgery. Previous conservative attempts at weight loss through dieting have been unsuccessful over the [facility]. Predicted weight loss with surgery is an estimated 50-70% of excess body weight. Advised pt that bariatric surgery is a tool, not a solution; and ultimately, weight loss will be achieved through propereating and exercise habits. He showed good understanding of the concepts discussed. Patient does have a 20# wt loss requirement prior to surgery, though has lost 10.2# so far. Patient also needs to work further on his dietary changes, notably reducing calorie and fat intake, eating breakfast daily, taking a MVI, and logging his food. Patient is agreeable to these suggested changes and will come back for review in 3-4 weeks. NUTRITION DIAGNOSIS: - Obesity related to physical inactivity and over consumption as evidenced by BMI of 62.8% INTERVENTION: 1) Patient to practice post-op GB [...] of starch = 1 slice toast; ?? Bahraini muffin; 1 small chanel or wrap; ?? [...] Treatment Scheduled Referrals Name Type Priority Associated Order Schedule Diagnoses Referral to Outpatient Referral Routine Vitamin d Ordered: Cardiology deficiency 10/01/2012 Secondary hyperparathyroid ism Screening for iron deficiency anemi a Morbid obesity Hypertension Type 2 diabetes mellitus Obstructive sleep apnea (adult) (pediatric) GERD (gastroesophageal reflux disease) Venous stasis Lower extremity edema Referral to Physical Outpatient Referral Routine Vitamin d Ordered: Therapy deficiency 10/01/2012 Secondary hyperparathyroid ism Screening for iron deficiency anemi a Morbid obesity Hypertension Type 2 diabetes mellitus Obstructive sleep apnea (adult) (pediatric) GERD (gastroesophageal reflux disease) Venous stasis Lower extremity edema Referral to Outpatient Referral Routine Vitamin d Ordered: Occupational Therapy deficiency 10/01/2012 Secondary hyperparathyroid ism Screening for iron deficiency anemi a Morbid obesity Hypertension Type 2 diabetes mellitus Obstructive sleep apnea (adult) (pediatric) GERD (gastroesophageal reflux disease) Venous stasis Lower extremity edema documented as of this encounter Procedures Procedure Name Priority Date/Time Associated Diagnosis Comme nts PTH Routine 10/01/2012 11:57 Morbid obesity Results for this AM EDT Hypertension procedure are in Type 2 diabetes mellitus the results Obstructive sleep apnea sect ion. (adult) (pediatr ic) GERD (gastroesophageal reflux disease) Vitamin d defici ency Secondary hyperparathyroid ism Screening for iron deficiency anemia CMP W/FASTING Routine 10/01/2012 11:57 Morbid obesity Results for this GLUCOSE AM EDT Hypertension procedure are in Type 2 diabetes mellitus the results Obstructive sleep apnea sect ion. (adult) (pediatr ic) GERD (gastroesophageal reflux disease) Vitamin d defici ency Secondary hyperparathyroid ism Screening for iron deficiency anemia HEMOGRAM Routine 10/01/2012 11:57 Morbid obesity Results for this AM EDT Hypertension procedure are in Type 2 diabetes mellitus the results Obstructive sleep apnea sect ion. (adult) (pediatr ic) GERD (gastroesophageal reflux disease) Vitamin d defici ency Secondary hyperparathyroid ism Screening for iron deficiency anemia VITAMIN A Routine 10/01/2012 11:57 Morbid obesity Results for this AM EDT Hypertension procedure are in Type 2 diabetes mellitus the results Obstructive sleep apnea sect ion. (adult) (pediatr ic) GERD (gastroesophageal reflux disease) Vitamin d defici ency Secondary hyperparathyroid ism Screening for iron deficiency anemia VITAMIN D, Routine 10/01/2012 11:57 Morbid obesity Results for this 25-HYDROXY AM EDT Hypertension procedure are in Type 2 diabetes mellitus the results Obstructive sleep apnea sect ion. (adult) (pediatr ic) GERD (gastroesophageal reflux disease) Vitamin d defici ency Secondary hyperparathyroid ism Screening for iron deficiency anemia H. PYLORI Routine 10/01/2012 11:57 Morbid obesity Results for this ANTIBODY, IGG AM EDT GERD (gastroesophageal proc edure are in reflux disease) the results section. TSH Routine 10/01/2012 11:57 Vitamin d defic iency Results for this AM EDT Secondary procedure are i n hyperparathyroidism the resu lts section. PREALBUMIN Routine 10/01/2012 11:57 Morbid obesity Results for this AM EDT Hypertension procedure are in Type 2 diabetes mellitus the results Obstructive sleep apnea sect ion. (adult) (pediatr ic) GERD (gastroesophageal reflux disease) Vitamin d defici ency Secondary hyperparathyroid ism Screening for iron deficiency anemia HEMOGLOBIN A1C Routine 10/01/2012 11:57 Morbid obesity Results for this AM EDT Hypertension procedure are in Type 2 diabetes mellitus the results Obstructive sleep apnea sect ion. (adult) (pediatr ic) GERD (gastroesophageal reflux disease) Vitamin d defici ency Secondary hyperparathyroid ism Screening for iron deficiency anemia GAMMA GT Routine 10/01/2012 11:57 Morbid obesity Results for this AM EDT Hypertension procedure are in Type 2 diabetes mellitus the results Obstructive sleep apnea sect ion. (adult) (pediatr ic) GERD (gastroesophageal reflux disease) Vitamin d defici ency Secondary hyperparathyroid ism Screening for iron deficiency anemia FERRITIN Routine 10/01/2012 11:57 Morbid obesity Results for this AM EDT Hypertension procedure are in Type 2 diabetes mellitus the results Obstructive sleep apnea sect ion. (adult) (pediatr ic) GERD (gastroesophageal reflux disease) Vitamin d defici ency Secondary hyperparathyroid ism Screening for iron deficiency anemia documented in this encounter Results H. pylori Antibody, IgG (10/01/2012 11:57 AM EDT) P athologist Signature H pylori Ab Neg Neg [facility] Specimen Anatomical Collection Method Collection Time Receive d Time (Source) Location / / Volume Laterality Blood specimen 10/01/2012 11:57 3 8:17 (specimen) AM EDT AM EDT Resulting Agency Comment Spec In Lab Candi Gallegos MD IMMUNOLOGY ORDERABLES Performing Organization Address City/[facility]/[place] [address] CERNER MILLENNIUM (ABNORMAL) TSH (10/01/2012 11:57 AM EDT) P athologist Signature TSH 4.53 (H) 0.27 - 4.20 CERNER mcIU/mL MILLENNIUM Specimen Anatomical Collection Method Collection Time Receive d Time (Source) Location / / Volume Laterality Blood specimen 10/01/2012 11:57 3 (specimen) AM EDT 12:47 PM EDT Resulting Agency Comment Spec In Lab Candi Gallegos MD CHEMISTRY ORDERABLES Performing Organization Address City/[facility]/ZIP Code Phon e Number [address] CERNER MILLENNIUM Gamma GT (10/01/2012 11:57 AM EDT) P athologist Signature GGT 60 8 - 61 CERNER unit/L MILLENNIUM Specimen Anatomical Collection Method Collection Time Receive d Time (Source) Location / / Volume Laterality Blood specimen 10/01/2012 11:57 3 (specimen) AM EDT 12:47 PM EDT Resulting Agency Comment Spec In Lab Candi Gallegos MD CHEMISTRY ORDERABLES Performing Organization Address City/[facility]/Z[place] [address] CERNER MILLENNIUM PTH (10/01/2012 11:57 AM EDT) athologist Signature PTH 65 15 - 65 CERNER pg/mL MILLENNIUM Specimen Anatomical Collection Method Collection Time Receive d Time (Source) Location / / Volume Laterality Blood specimen 10/01/2012 11:57 3 (specimen) AM EDT 12:47 PM EDT Resulting Agency Comment Spec In Lab Candi Gallegos MD CHEMISTRY ORDERABLES Performing Organization Address City/[facility]/Z[place] [address] CERNER MILLENNIUM (ABNORMAL) VIT D Total Evaluation (10/01/2012 11:57 AM EDT) P athologist Signature 25-OH Vit D 16 (L) 30 - 100 CERNER Total ng/mL [facility] Comment: Deficient <10 ng/mL Insufficient 10 to [...] Location / / Volume Laterality Blood specimen 10/01/2012 11:57 3 (specimen) AM EDT 12:47 PM EDT Resulting Agency Comment Spec In Lab Candi Gallegos MD CHEMISTRY ORDERABLES Performing Organization Address City/[facility]/ZIP Code Phon e Number [address] CERNER MILLENNIUM Vitamin A (10/01/2012 11:57 AM EDT) P athologist Signature Vitamin A 60.7 32.5 - 78.0 CERNER mcg/dL [facility] Comment: Test Performed by: [place] [address] Bond Broker: Philomena Garcia, Ph. D. Specimen Anatomical Collection Method Collection Time Receive d Time (Source) Location / / Volume Laterality Blood specimen 10/01/2012 11:57 3 1:22 (specimen) AM EDT PM EDT Resulting Agency Comment Spec In Lab Candi Gallegos MD CHEMISTRY ORDERABLES Performing Organization Address City/[facility]/ZIP Code Phon e Number [address] CERNER MILLENNIUM Ferritin (10/01/2012 11:57 AM EDT) P athologist Signature Ferritin 111 30 - 400 CERNER ng/mL MILLENNIUM Comment: Pediatric reference ranges not verified at [facility], interpret with caution. Reference ranges for females greater aram n 50 years of age approach values for men, i.e., 30-400 ng/mL. Specimen Anatomical Collection Method Collection Time Receive d Time (Source) Location / / Volume Laterality Blood specimen 10/01/2012 11:57 3 (specimen) AM EDT 12:47 PM EDT Resulting Agency Comment Spec In Lab Candi Gallegos MD CHEMISTRY ORDERABLES Performing Organization Address City/State/[place] [address] CERNER MILLENNIUM (ABNORMAL) Hemoglobin A1c (10/01/2012 11:57 AM EDT) Analysis Performed At Patho logist Time Signature Hemoglobin A1C 7.5 (H) 4.3 - 6.1 CERNER % MILLENNIUM Comment: The [place] Diabetes Association (ADA) has stated that HbA1c [...] Care 2013:36;suppl 1:S11 -S66. Est Avg Gluc 169 mg/dL CERNER MILLENNIUM Comment: eAG equivalents for HbA1c percentages: HbA1c(%) ?eAG(mg/dL) 6.0 ?126 6.5 ?140 7.0 ?154 7.5 ?169 8.0 ?183 8.5 ?197 9.0 ?212 9.5 ?226 10.0 ? 240 Limitations: The eAG calculation has not been validated on women, individuals below 18 years old and above 70 years old, and individuals with hemoglobinopathies. Additional resources are available on [facility] ADA website: ??http://professional.diabetes.org/gluc osecalculator.aspx Mele KUMAR, Fidelia J, Alex R, et al. ??Tr anslating the A1C assay into estimated average glucose values. ??Diabetes Care 2008:31(8):8145-9562. Specimen Anatomical Collection Method Collection Time Receive d Time (Source) Location / / Volume Laterality Blood specimen 10/01/2012 11:57 3 (specimen) AM EDT 12:47 PM EDT Resulting Agency Comment Spec In Lab Candi Gallegos MD CHEMISTRY ORDERABLES Performing Organization Address City/[facility]/ZIP Code Phon e Number [address] [facility] Prealbumin (10/01/2012 11:57 AM EDT) athologist Signature Prealbumin 27 20 - 40 CERNER mg/dL MILLENNIUM Comment: Prealbumin levels are generally lower in the pediatric population; adult concentrations are usually attained near puberty. Specimen Anatomical Collection Method Collection Time Receive d Time (Source) Location / / Volume Laterality Blood specimen 10/01/2012 11:57 3 (specimen) AM EDT 12:47 PM EDT Resulting Agency Comment Spec In Lab Candi Gallegos MD CHEMISTRY ORDERABLES Performing Organization Address City/State/[place] [address] CERNER MILLENNIUM (ABNORMAL) CMP w/fasting Glucose (10/01/2012 11:57 AM EDT) athologist Signature Glucose 206 (H) 65 - 99 CERNER Fasting mg/dL [...] of Diabetes Mellitus, Position Statement from the [place] Diabetes Association. ??Diabete s Care, Volume 33, Supplement 1, Apr 2009 BUN 16 10 - 20 mg/dL CERNER MILLENNIU M Creatinine 0.73 (L) 0.80 - 1.50 mg/dL CERNER MILL ENNIUM Comment: Please note that the pediatric reference intervals supplied above were not validated at [facility]. Results from pediatri c patients should be [...] - 107 mmol/L CERNER MILLENN IUM CO2 22 22 - 31 mmol/L CERNER MILLENNI UM Anion Gap 15 5 - 15 mmol/L CERNER MILLENNIU M Calcium 9.5 8.5 - 10.5 mg/dL CERNER BEVERLY NIUM Total Protein 8.1 6.4 - 8.3 gm/dL CERNER MIL LENNIUM Albumin 4.5 3.2 - 5.2 gm/dL CERNER MILLENN IUM AST 30 0 - 39 unit/L CERNER MILLENNIU M ALT 31 0 - 55 unit/L CERNER MILLENNIU M Alk Phos 79 40 - 120 unit/L CERNER MILLENN IUM Total Bilirubin 0.6 0.2 - 1.3 mg/dL CERNER M ILLENNIUM [...] Location / / Volume Laterality Blood specimen 10/01/2012 11:57 3 (specimen) AM EDT 12:47 PM EDT Resulting Agency Comment Spec In Lab Candi Gallegos MD CHEMISTRY ORDERABLES Performing Organization Address City/State/ZIP Code Phon e Number [place] [id number] CERNER MILLENNIUM (ABNORMAL) Hemogram (10/01/2012 11:57 AM EDT) P athologist Signature WBC 8.5 4.0 - 10.0 CERNER x10(3)/mcL MILLENNIUM RBC 5.27 4.63 - CERNER 6.08 MILLENNIUM x10(6)/mcL Hemoglobin 17.0 13.7 - CERNER 17.5 gm/dL MILLENNIUM Hematocrit 48.8 40.0 - CERNER 51.0 % MILLENNIUM MCV 92.6 (H) 79.0 - CERNER 92.0 fL MILLENNIUM MCH 32.3 (H) 25.6 - CERNER 32.2 pg MILLENNIUM MCHC 34.8 32.0 - CERNER 36.5 gm/dL MILLENNIUM Platelets 283 145 - 370 CERNER x10(3)/mcL MILLENNIUM RDWSD 44.9 35.0 - CERNER 46.0 fL MILLENNIUM RDWCV 13.4 10.9 - CERNER 14.4 % MILLENNIUM MPV 11.6 9.0 - 12.0 CERNER fL [facility] Specimen Anatomical Collection Method Collection Time Receive d Time (Source) Location / / Volume Laterality Blood specimen 10/01/2012 11:57 3 (specimen) AM EDT 12:47 PM EDT Resulting Agency Comment Spec In Lab Candi Gallegos MD HEMATOLOGY ORDERABLES Performing Organization Address City/State/[place] [address] [facility] documented in this encounter Visit Diagnoses Diagnosis Morbid obesity - Primary Hypertension Unspecified essential hypertension Type 2 diabetes mellitus Type II or unspecified type diabetes ra litus without mention of complication, not stated as uncontrolled Obstructive sleep apnea (adult) (pediatr ic) GERD (gastroesophageal reflux disease) Esophageal reflux Vitamin D deficiency Unspecified vitamin D deficiency Secondary hyperparathyroidism Secondary hyperparathyroidism (of renal origin) Screening for iron deficiency anemia Venous stasis Unspecified venous (peripheral) insuffic iency Lower extremity edema Edema documented in this encounter Care Teams Finished Goods Stock Clerk Relationship Specialty Start Date End Date Pepe Hong DO PCP - General 03/04/[address] [place] [address] documented as of this encounter
--- OUTSIDE RECORDS SUMMARY | 2022-02-07 23:31 | XMS_ITS | Encounter Summary ---
:1975 Author Organization [facility] [place] [address] Care Team Providers Name Role Phone HalRobert pham Primary Care Provider Reason for Visit Reason Comments Obesity Encounter Details Date Type Department Care Team Description 12/03/2012 [facility] APRN [facility] [place] [address] TSH elevation (Primary Dx); [facility] Candi Gallegos MD [facility] [place] [address] Morbid obesity; [facility] Hypertens ion; Aries Type 2 diabetes mellitus; [place], [place] Venous stasis; [phone] Vitamin D deficiency [phone] Social History Tobacco Use Types Packs/Day Years Used Date Never Smoker Sex Assigned at Date Recorded Not on file documented as of this encounter Progress Notes Candi Gallegos MD - 12/03/2012 10:18 PM EDT Brady Billings is a 37 y.o. male [...] in the workup by Abbey Crandall APRN He had a number of questions regarding the procedure and I spent approximately 15 to 20 minutes of our 30-minute visit discussing the pros and cons of bariatric surgery and our outcomes here at [facility]. We went over the small but significant risks of anastomotic leak and deep vein thrombosis, as well as associated with the procedure. He is very understanding of the serious nature of this procedure and would like to go ahead with surgery. We have tentatively made arrangements for his surgery to be scheduled some time in the near future, and I would be happy to see him on a p.r.n. basis should other problems develop in the interim. documented in this encounter Plan of Treatment Not on filedocumented as of this encounter Procedures Procedure Name Priority Date/Time Associated Comments Diagnosis HEMOGRAM Routine 12/03/2012 4:21 PM TSH elevation Results for this EDT Morbid obesity procedure are in Hypertension the results Type 2 diabetes section. mellitus Venous stasis Vitamin D deficiency TSH Routine 12/03/2012 4:21 PM TSH elevation Results for this EDT Morbid obesity procedure are in the results section. T4, FREE Routine 12/03/2012 4:21 PM TSH elevation Results for this EDT Morbid obesity procedure are in the results section. HEMOGLOBIN A1C Routine 12/03/2012 4:21 PM TSH elevation Results for this EDT Morbid obesity procedure are in Hypertension the results Type 2 diabetes section. mellitus Venous stasis Vitamin D deficiency COMPREHENSIVE Routine 12/03/2012 4:21 PM TSH elevation Results for this METABOLIC PANEL EDT Morbid obesity procedure are in (NON-FASTING) Hypertension the results Type 2 diabetes section. mellitus Venous stasis Vitamin D deficiency documented in this encounter Results T4, free (12/03/2012 4:21 PM EDT) P athologist Signature Free T4 1.29 0.90 - 1.60 CERNER ng/dL MILLENNIUM Specimen Anatomical Collection Method Collection Time Receive d Time (Source) Location / / Volume Laterality Blood specimen 12/03/2012 4:21 PM 013 4:30 (specimen) EDT PM EDT Resulting Agency Comment Spec In Lab Candi Gallegos MD CHEMISTRY ORDERABLES Performing Organization Address City/State/[place] [address] CERNER MILLENNIUM TSH (12/03/2012 4:21 PM EDT) P athologist Signature TSH 4.08 0.27 - 4.20 CERNER mcIU/mL MILLENNIUM Specimen Anatomical Collection Method Collection Time Receive d Time (Source) Location / / Volume Laterality Blood specimen 12/03/2012 4:21 PM 013 4:30 (specimen) EDT PM EDT Resulting Agency Comment Spec In Lab Candi Gallegos MD CHEMISTRY ORDERABLES Performing Organization Address City/State/[place] [address] CERNER MILLENNIUM (ABNORMAL) Hemoglobin A1c (12/03/2012 4:21 PM EDT) Analysis Performed At Patho logist Time Signature Hemoglobin A1C 6.7 (H) 4.3 - 6.1 CERNER % MILLENNIUM Comment: The [place] Diabetes Association (ADA) has stated that HbA1c [...] with hemoglobinopathies. Additional resources are available on [facility] ADA website: ??http://professional.diabetes.org/gluc osecalculator.aspx Mele KUMAR, Fidelia J, Alex R, et al. ??Tr anslating the A1C assay into estimated average glucose values. ??Diabetes Care 2008:31(8):0153-3942. Specimen Anatomical Collection Method Collection Time Receive d Time (Source) Location / / Volume Laterality Blood specimen 12/03/2012 4:21 PM 013 4:30 (specimen) EDT PM EDT Resulting Agency Comment Spec In Lab Candi Gallegos MD CHEMISTRY ORDERABLES Performing Organization Address City/State/[place] [address] CERNER MILLENNIUM (ABNORMAL) Comprehensive [...] intervals supplied above were not validated at [facility]. Results from pediatri c patients should be [...] Organization Address City/State/[place] [address] CERNER MILLENNIUM (ABNORMAL) Hemogram [...] 46.5 (H) 35.0 - CERNER 46.0 fL MILLENNIUM RDWCV 13.7 10.9 - CERNER 14.4 % MILLENNIUM MPV 11.1 9.0 - 12.0 CERNER fL MILLENNIUM Specimen Anatomical Collection Method Collection Time Receive d Time (Source) Location / / Volume Laterality Blood specimen 12/03/2012 4:21 PM 013 4:30 (specimen) EDT PM EDT Resulting Agency Comment Spec In Lab Candi Gallegos MD HEMATOLOGY ORDERABLES Performing Organization Address City/State/[place] [address] [facility] documented in this encounter Visit Diagnoses Diagnosis TSH elevation - Primary Other abnormal blood chemistry Morbid obesity Hypertension Unspecified essential hypertension Type 2 diabetes mellitus Type II or unspecified type diabetes ra litus without mention of complication, not stated as uncontrolled Venous stasis Unspecified venous (peripheral) insuffic iency Vitamin D deficiency Unspecified vitamin D deficiency documented in this encounter Care Teams Stationary Engineer Relationship Specialty Start Date End Date Robert Hong DO PCP - General 03/04/[address] [place] [address] documented as of this encounter
--- OUTSIDE RECORDS SUMMARY | 2022-02-07 23:31 | XMS_ITS | Encounter Summary ---
:1975 [place] [address] Care Team Providers Name Role Phone HalRobert pham Primary Care Provider Encounter Details Date Type Department Care Team Description 10/26/2012 Office Visit Cardiology at [facility] Damian Rodriguez, Preop cardiovascular [facility] MD exam (Primary Dx) [facility] [id number] CARDIOLOGY DEPT. [phone] [place] [id number] Social History Tobacco Use Types Packs/Day Years Used Date Never Smoker Sex Assigned at Date Recorded Not on file documented as of this encounter Last Filed Vital Signs Vital Sign Reading Time Taken Comments Blood Pressure 160/0 10/26/2012 1:22 PM EDT wrist Pulse 80 10/26/2012 1:22 PM EDT Temperature - - Respiratory Rate - - Oxygen Saturation 94% 10/26/2012 1:22 PM EDT Inhaled Oxygen Concentration - - Weight 230.9 kg (509 lb) 10/26/2012 1:22 PM EDT Height 192.4 cm (6' 3.75) 10/26/2012 1:22 PM EDT Body Mass Index 62.37 10/26/2012 1:22 PM EDT documented in this encounter Progress Notes Damian Rodriguez MD - 10/27/2012 6:55 AM EDT STAFF ADDENDUM: I have reviewed the available records, interviewed and examined the patient. I have discussed the patient's medical history, differential diagnosis, and plan of therapy with Dr Beebe and have reviewed their note dated 10/26/2012 and I agree with their note and plan of therapy. Brock Beebe - 10/26/2012 4:25 PM EDT OUTPATIENT CARDIOLOGY CONSULTATION This 37 year old male with past medical history of long-standing morbid obesity, hypertension, newlydiagnosed type 2 diabetes mellitus, vitamin D deficiency, hyperuricemia presents to the cardiology clinic for preoperative evaluation prior to planned bariatric surgery as part of the [facility] bariatric program. He has chronic lymphedema that is stable on Lasix. He has chronic dyspnea on exertion with half a flight of stairs, for the last few years. His weight has been roughly stable at around 500-510 pounds. He admits to recent weight gain of 8 pounds in the last few weeks, but his weight has recently declined 2 pounds to 509 pounds. He is not on a restricted calorie diet. He is workingon portion control and healthier eating. Is not on a restricted sodium diet. He denies any history of chest pain, chest pressure, or chest discomfort. He denies any history of syncope, presyncope, racing heart rate, palpitations, or racing heart rate. He admits to poorly controlled sleep apnea on BiPAP mask, for which he is scheduled to see a sleep medicine specialist in [facility] on November 04. He is newly diagnosed type 2 diabetes mellitus, for which he is scheduled to to see his primary doctor tomorrow. For his blood pressure, he does not check it at home. It is usually 140 systolic in the outpatient office. His medications have been unchanged for the last year. Review of Symptoms: Gen: no fevers, no chills, no weight changes, no night sweats ENT: no oral bleeding, no epistaxis CV: no chest pain, no angina, no LH/syncope, no orthopnea, no PND Pulm: (+) MARINELLI, no cough, no wheezing Abd: no nausea, no vomitting, no diarrhea, no hematochezia/melena Ext: (+) swelling, no pain Neuro: no headaches, no weakness, no numbness, no tingling Skin: no rashes Psych: no confusion, no depression, no anxiety Heme: no easy bleeding, no new lumps : no hematuria, no dysuria Endocrine: no polydipsia/polyuria, no heat/cold intolerance Past medical history: Hypertension for several years Newly diagnosed type 2 diabetes mellitus Hyperuricemia Severe sleep apnea on BiPAP Chronic lymphedema for last 3-5 years Lumbar arthritis No history of gallbladder disease No prior history of hyperlipidemia, myocardial infarction, or stroke per patient No prior history of stress test or catheterization per patient Outpatient medications: Lasix 40 mg by mouth daily Lisinopril 20 mg by mouth daily Toprol 50 mg by mouth daily Allopurinol 300 mg by mouth daily Omeprazole 40 mg by mouth daily Vitamin D 50,000 units by mouth daily No known drug allergies Family history: Mother of breast cancer at age 47. Father is unknown to the patient. The Social history: Patient is a never smoker. He drinks one to 2 drinks socially once or twice a month. 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 He's not perform this duty for 2 years, owing to his to his weight. BP 160/0 Pulse 80 Ht 192.4 cm (6' 3.75) Wt 230.881 kg (509 lb) BMI 62.37 kg/m2 SpO2 94% BP 160/90 General: In no acute distress, nondiaphoretic, nontachypneic Head: normocephalic, atraumatic ENT: clear oropharynx, moist mucous membranes, midline trachea, supple neck CV: JVP unable to assess, S1S2 regularly regular, no murmurs/rubs/gallops, no RV heave, PMI nonpalpable Lungs: Clear to auscultation bilaterally, no wheezes/rales/rhonchi, Abdomen: soft, NT/ND, no hepatosplenomegaly Ext: no clubbing, cyanosis. 4+ predominantly nonpitting edema with elephantine changes. pedal pulses1+. Neurologic: Cranial nerves 3-12 intact, no focal weakness of the extremities Skin: (+) rash with lymphedema Back: no spinal TTP ECG: SR with LVH (by rosa criteria), no ischemia or infarction, no conduction disease Hgb A1c 7.5% Cr 0.73 Lipid Panel No results found for this basename: CHLPL, HDL, CHOLHDL, TRIG, LDLCHOL, LDLDIRECT Assessment/Plan: This 37 year old male with past medical history of morbid obesity, uncontrolled hypertension, newly diagnosed (mildly uncontrolled) type 2 diabetes mellitus, uncontrolled severe sleep apnea, chronic lymphedema, arthritis, and is now being seen for preoperative risk stratification prior to planned bariatric surgery. His lymphedema [...] that is theoretically possible is a dobutamine stree echo, and even that would have poor performance in a morbidly obese patient. The treatment for his medical conditions, including potential coronary disease, is bariatric surgery.To get him through this surgery safely, he needs improved medical management. We have advised him todouble his beta michael to Toprol 100 mg [...] by his primary doctor, whom he is sc heduled to see tomorrow. I expect his blood [...] plan was formulated in conjunction with him. Brock Beebe MD Last Chalker Pager [phone] Daytime documented in this encounter Plan of Treatment Not on filedocumented as of this encounter Procedures Procedure Name Priority Date/Time Associated Diagnosis Comme nts EKG 12-LEAD Routine 10/26/2012 1:25 PM Preop cardiovascular R esults for this EDT exam procedure are i n the results section. documented in this encounter Results EKG 12 Lead (10/26/2012 1:25 PM EDT) [facility] gist Method Time Signature Ventricular rate 98 BPM MUSE SYSTEM Atrial Rate 98 BPM MUSE SYSTEM P-R Interval 190 ms MUSE SYSTEM QRS Duration 96 ms MUSE SYSTEM Q-T Interval 350 ms MUSE SYSTEM QTC Calculated 446 ms MUSE SYSTEM (Bezet) Calculated P [place] 20 degrees MUSE SYSTEM Calculated R [place] -22 degrees MUSE SYSTEM Calculated T [place] 13 degrees MUSE SYSTEM INTERPRETATION Normal sinus rhythm MUSE SYSTEM Minimal voltage criteria for LVH, may be normal variant Borderline ECG No previous ECGs available Confirmed by Moises SEGOVIA [facility] ([id number]) on 10/27/2012 9:04:34 PM Specimen Anatomical Collection Method Collection Time Receive d Time (Source) Location / / Volume Laterality 10/26/2012 1:25 PM 3 9:04 EDT PM EDT Damian Rodriguez MD ECG ORDERABLES Performing Organization Address City/State/ZIP Code Phon e Number MUSE SYSTEM documented in this encounter Visit Diagnoses Diagnosis Preop cardiovascular exam - Primary Pre-operative cardiovascular examination documented in this encounter Care Teams Compliance Technician Relationship Specialty Start Date End Date Robert Hong DO PCP - General 03/04/[address] [place] [address] documented as of this encounter
[2022-02-07] MEDS: MORPHine 4 MG/ML SYR IVP (23:48)
[2022-02-07 23:50] LABS: Troponin I < 50 ng/L (<or=60)
[2022-02-07] MEDS: Normal Saline 1,000 ML 1000 ML IV (23:51)
[2022-02-08] VITALS (14 sets, daily range): BP systolic 117–202; BP diastolic 66–116; PULSE 49–73; RESP 9–22; TEMP 35.8–36.7; O2SAT 93–100; BMI 26.0
[2022-02-08] MEDS: Omnipaque 350 MG/ML 100 ML BTL IJ ×2 (00:13→06:26)
[2022-02-08] MEDS: HYDROmorphone 2 MG/ML SYR 1 MG IVP ×6 (01:06→15:45)
--- NOTE | 2022-02-08 01:18 | DI.VRAD_ITS ---
Addendum created by Coreen Turner MD on 02/08/2022 1:28:12 AM EDT: THIS REPORT CONTAINS FINDINGS THAT MAY BE CRITICAL TO PATIENT CARE. The findings were verbally communicated via telephone conference with GIANNI GUERRERO at 1:21 AM EDT on 02/08/2022. The findings were acknowledged and understood. Nonemergent evaluation was recommended due to current contrast bolus, however if there is clinical concern for critical pathology, a sooner repeat scan may be obtained at the discretion of the provider. Initial report created on 02/08/2022 1:18:05 AM EDT: PROCEDURE INFORMATION: Exam: CTA Chest With Contrast CTA Abdomen With Contrast Exam date and time: 02/08/2022 12:05 AM Age: 46 years old Clinical indication: Severe abd pain, front to back, HX gastric bypass; Abdominal pain; Prior surgery; Surgery date: 6+ months TECHNIQUE: Imaging protocol: Computed tomographic angiography of the chest with contrast. Computed tomographic angiography of the abdomen with contrast. 3D rendering (Not supervised by radiologist): MIP and/or 3D reconstructed images were created by the technologist. Radiation optimization: All CT scans at this facility use at least one of these dose optimization techniques: automated exposure control; mA and/or kV adjustment per patient size (includes targeted exams where dose is matched to clinical indication); or iterative reconstruction. Contrast material: OMNI 350; Contrast volume: 100 ml; Contrast route: INTRAVENOUS (IV); COMPARISON: CT THORAX ABD/PEL CTA 10/30/2020 12:21 PM FINDINGS: VASCULATURE: Pulmonary arteries: Not well evaluated on this scan. Aorta: No aortic aneurysm. No aortic dissection. Celiac trunk and mesenteric arteries: No occlusion or significant stenosis. Renal arteries: No occlusion or significant stenosis. CHEST: Lungs: There are small tree-in-bud nodules noted in the left lower lobe. No consolidation. No masses. Pleural spaces: No pneumothorax. No pleural effusion. Heart: No cardiomegaly. No pericardial effusion. ABDOMEN AND PELVIS: Liver: Unremarkable liver. No mass identified. Gallbladder and bile ducts: The gallbladder is unremarkable. No calcified stones. No ductal dilation. Pancreas: . No mass. No ductal dilation. Spleen: Unremarkable. No splenomegaly. Adrenal glands: The adrenal glands are unremarkable. No defined mass. Kidneys and ureters: The kidneys are unremarkable. No hydronephrosis. Stomach and bowel: Incidentally noted is a 4.5 cm soft tissue hypodensity seen within the small bowel with ingested contrast noted surrounding this region. No obstruction. Intraperitoneal space: No free air. No significant fluid collection. Lymph nodes: No enlarged lymph nodes. Bones/joints: No acute fracture. Soft tissues: No significant subcutaneous abnormality. IMPRESSION: 1. No evidence of acute vascular abnormality. 2. Incidentally noted is a partially visualized large soft tissue hypodensity within the small bowel, concerning for neoplasm versus intussusception. A nonemergent evaluation of the entire abdomen pelvis with IV and oral contrast recommended. 3. Small tree-in-bud nodules in the left lower lobe, concerning for infection. Correlate with clinical findings. Dictated and Authenticated by: Coreen Turner MD. Ordering:NOEMI Abreu MD
--- NOTE | 2022-02-08 03:30 | DI.CT_ITS ---
Exam(s) CT ABDOMEN PELVIS W EXAM: CT ABDOMEN PELVIS W CLINICAL HISTORY: suspect intussusception TECHNIQUE: Imaging Protocol: Axial computed tomography images with coronal and sagittal reformatted images were created and reviewed CONTRAST MATERIAL: Intravenous: Omnipaque 350 Contrast volume:100 mL Oral: Yes COMPARISON: CT CT THORAX ABDOMEN CTA from 02/08/2022 FINDINGS: ABDOMEN: Lung Bases: Normal where visualized. Liver: Normal density. No measurable mass. Portal, Superior Mesenteric, and Splenic Veins: Unremarkable. Gallbladder and Biliary Tract: No radiodense calculus or dilation. Pancreas: Normal density, no abnormal calcifications or inflammatory process. Spleen: Normal. Adrenals: No masses seen. Kidneys: Normal size, contour and axis. No radiodense stones or obstructive uropathy. No masses seen. Abdominal Aorta: Abdominal portion non-dilated. Minimal atherosclerosis. Bowel: No obstruction or bowel wall thickening. No evidence of appendicitis. There is a loop of chito l in the left abdomen telescoping within the small bowel consistent with a jejuno jejunal intussuscep tion. The oral contrast does advance beyond this point. No obvious lead point is seen. There is no pneumatosis. There is mild dilatation of the small bowel. There is diverticulosis seen in the sigm oid colon, but no evidence of acute diverticulitis. Prior history of gastric bypass surgery. Peritoneal Cavity: No ascites, collection or mesenteric inflammatory response. No free air. Lymph Nodes: Within normal limits. Bones: Within normal limits for the patient's age. Soft Tissues: Unremarkable. PELVIS: Bladder: Symmetric distention, no gross wall thickening. Reproductive Organs: Unremarkable as visualized. Lymph Nodes: Within normal limits. Bones: Within normal limits for the patient's age. 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 No obviously point is seen. No pneu matosis is present. RADIATION DOSE DELIVERED: 820.88mGy.cm Total DLP DATA REPOSITORY: All CT scans at this facility are submitted to the National Radiology Data Registry (NRDR) Dose Index Registry (DIR) with the [employer] (ACR). RADIATION OPTIMIZATION: All CT scans at this facility use at least one of these dose optimization te chniques: automated exposure control; mA and/or kV adjustment per patient size (includes targeted exa ms where dose is matched to clinical indication); or iterative reconstruction.
[2022-02-08 03:48] LABS: Abs Immature Grans 0.02 10^3/uL (0.0-0.06); Absolute Basophil Count 0.02 10^3/uL (0.0-0.2); Absolute Eosinophil Count 0.01 10^3/uL (0.0-0.7); Absolute Monocyte Count 0.44 10^3/uL (0.1-0.8); Basophils % 0.4; Eosinophils % 0.2; HCT 35.7 % (40.0-50.0); HGB 11.5 g/dL (13.5-17.5); Immature Grans % 0.4; Lymphocytes % 21.5; MCH 28.5 pg (27.0-33.0); MCHC 32.2 % (32.0-36.0); MCV 88 fL (80-95); MPV 9.8 fL (8.0-11.0); Monocytes % 7.9; Neutrophils % 69.6; Platelet Count 280 10^3/uL (130-400); RBC 4.04 10^6/uL (4.36-5.78); RDW 14.7 % (11.8-14.1); RDW-SD 47.6 fL; WBC 5.59 10^3/uL (4.4-10.8)
[2022-02-08 03:54] LABS: Source Nasal/Nares
[2022-02-08 04:05] LABS: ALT 21 U/L (16-63); AST 26 U/L (15-37); Albumin 4.2 g/dL (3.4-5.0); Alkaline Phosphatase 79 U/L (46-116); Anion Gap 7.2 mmol/L (3-11); BUN 14 mg/dL (7-18); Bilirubin, Total 0.6 mg/dL (0.2-1.0); CO2 27.8 mmol/L (21.0-32.0); CREATININE 0.6 mg/dL (0.70-1.30); Calcium 9.1 mg/dL (8.5-10.1); Chloride 103 mmol/L (98-107); Estimated GFR 122.07 (mL/min/1.73m2); Glucose 94 mg/dL (74-106); Lipase 71 U/L (73-393); Potassium 3.9 mmol/L (3.5-5.1); Sodium 138 mmol/L (136-145); Total Protein 7.6 g/dL (6.4-8.2)
--- OUTSIDE RECORDS SUMMARY | 2022-02-08 04:15 | XMS_ITS | Encounter Summary ---
:1975 [place] [address] Care Team Providers Name Role Phone Robert Hong DO Primary Care Provider Reason for Visit Reason Comments Medication Refill Encounter Details Date Type Department Care Team Description 09/06/2014 Refill General Surgery at [facility] Abbey Crandall, [facility] [place] [address] GENERAL SURGERY [phone] [place] [id number] (Wo rk) Social History Tobacco Use Types [...] on filedocumented in this encounter Care Teams Industrial Hire Sales Assistant Relationship Specialty Start Date End Date Robert Hong DO PCP - General 03/04/[address] [place], [place] [id number] documented as of this encounter
--- OUTSIDE RECORDS SUMMARY | 2022-02-08 04:15 | XMS_ITS | Encounter Summary ---
:1975 Author Organization [facility] [address] Care Team Providers Name Role Phone Robert Hong DO Primary Care Provider Encounter Details Date Type Department Care Team Description 04/04/2016 Telephone General Surgery at [facility] Ruth West, [place] [address] Social History Tobacco Use Types Packs/Day Years Used Date Never Smoker Smokeless Tobacco: Never Used Alcohol Use Standard Drinks/Week Comments No 0 (1 standard drink = 0.6 oz pure alcoho l) Sex Assigned at Date Recorded Not on file documented as of this encounter Miscellaneous Notes Telephone Encounter - Ruth West - 04/04/2016 1:44 PM EST Bariatric Surgery Program Phone call to patient after he did not show up to his appointment today. He apologized and reported that he thought his appointment was tomorrow. Provided patient with Michelle's phone number and patient plans to call her to reschedule his appointment. documented in this encounter Plan of Treatment Not on filedocumented as of this encounter Visit Diagnoses Not on filedocumented in this encounter Care Teams Web Design Intern Relationship Specialty Start Date End Date Robert Hong DO PCP - General 03/04/[address] [place] [address] documented as of this encounter
--- OUTSIDE RECORDS SUMMARY | 2022-02-08 04:15 | XMS_ITS | Encounter Summary ---
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 Morbid obesity ([facility]); [place] [address] [facility] HTN (hypertension); [address] [place], [place] Gout; [place] [id number] EDUARDA (obstructive sleep apnea); [phone] Hypoventilation associated with obesity ([facility]); (Work) OA (osteoarthritis) Social History Tobacco Use Types Packs/Day Years Used Date Never Smoker Alcohol Use Standard Drinks/Week Comments No 0 (1 standard drink = 0.6 oz pure alcoho l) Sex Assigned at Date Recorded Not on file documented as of this encounter Last Filed Vital Signs Vital Sign Reading Time Taken Comments Blood Pressure 122/78 01/24/2010 1116 EDT Pulse 76 01/24/2010 1116 EDT Temperature - - Respiratory Rate - - Oxygen Saturation - - Inhaled Oxygen Concentration - - Weight 230.2 kg (507 lb 6.4 oz) 01/24/2010 1116 EDT Height 191.4 cm (6' 3.35) 01/24/2010 1116 EDT Body Mass Index 62.83 01/24/2010 1116 EDT documented in this encounter Ordered Prescriptions Prescription Sig Dispensed Refills Start Date End Date indomethacin (INDOCIN) 25 Take 1 Cap by 30 Each 3 010 mg capsule mouth 3 times daily as needed. ergocalciferol (DRISDOL; Take 1 Cap by 12 Cap 3 01/25/20 10 04/02/2010 VITAMIN D2) 50,000 unit mouth once a week. capsuleIndications: Vitamin D deficiency documented in this encounter Discharge Disposition Disposition Code Departure Means Destination Auto Discharge documented in this encounter Progress Notes Paloma Perkins NP - 01/24/2010 1208 EDT SUBJECTIVE: Brady returns to our office today for continued medically supervised weight loss in preparation for laparoscopic sleeve gastrectomy surgery. He is a 34 y.o. 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 He comorbidities include gastroesophagitis, hypoventilation disorder, obstructive sleep apnea, venous insufficiency, hypertension, osteoarthritis and gout. Went for initial sleep eval but canceled sleep study due to moving. Will now get that rescheduled Has not been wearing compression stockings and complains that lasix causes a gout flare. Still needs the behavior skills and post op nutrition class. Still needs a support group. Otherwise, he denies any changes to his medical history or medications since his previous visit. Brady met with our program dietitian for 30 minutes to review preoperative dietary recommendations.I consulted with the dietitian following her visit with the patient and agree with her findings and recommendations. OBJECTIVE: On physical examination today, his BP 122/78 Pulse 76 Ht 191.4 cm (75.35) Wt 230.155 kg (507 lb 6.4 oz) and Body mass index is 62.83 kg/(m^2).. ASSESSMENT AND PLAN: Brady will return to our office in a few weeks for continued medically-supervised weight loss in preparation for surgery. He understands that he will need to demonstrate more focus on changes in behavior regarding nutrition and life style and complete the program requirements before we will PA him for surgery. This was discussed with Juice and his at this visit today. His appears completely supportive of the program requirements. Paloma Perkins NP Mindy Rey RD - 01/24/2010 1150 EDT PRE OP NUTRITION FOLLOW UP NOTE Bariatric Clinic Nutrition Pre-op Visit Visit Number: [id number] Desired surgery: Gastric Sleeve Subjective: Very disappointed in weight gain. Moved again past month, missed class and no appointment in Nov. Not food logging. Claims same intake of 2-3 meals. Should be taking lasix for fluid retention but this causes gout so he doesn't take. Food logs: not maintained Meal pattern: Average caloric intake: Meal composition: Snacking: Exercise: some walking as he can, has access to gym for $5 per day but hasn't gone Objective: Weight: 507.4 lb Weight loss from last visit: +14.4 lb Total weight loss: Weight loss goal: 0 Approximately to 470 lb Surgery Date: Significant Medications and Supplements: n/a Assessment: Patient has made poor progress in making lifestyle changes Comments: no food logging, weight possibly up from fluid retention and no diuretic. Legs appear swollen and red-defer to BATTER MIXER HELPER. Enc pt revisit PCP and ask for different diuretic. Reviewed sodium in foods-patient and appear to already limit Na intake. Enc restart of food logs, 3 meals per day and more exercise. Enc consistent monthly visits. Plan: Diet Goals: Eat smaller meals, Keep food records, Eat more slowly, Start taking a daily vitamin, Calorie goal 2000 lopez and low sodium Exercise Goals: Increase time to 150 min per week Weight Loss Goal: to 470 lb Weight Loss Remaining to Goal: 37.4 lb Reviewed: Food/Activity Record-not maintained Next Visit: Pre-op follow-up visit documented in this encounter Miscellaneous Notes Scanned Note-Null - Ancelmo, Proposal Rep - 10/15/2010 1532 EDT documented in this encounter Plan of Treatment Not on filedocumented as of this encounter Visit Diagnoses Diagnosis Vitamin D deficiency - Primary Unspecified vitamin D deficiency Morbid obesity (HCC-CMS) (HCC) Morbid obesity HTN (hypertension) Unspecified essential hypertension Gout Gout, unspecified EDUARDA (obstructive sleep apnea) Obstructive sleep apnea (adult) (pediatr ic) Hypoventilation associated with obesity (HCC) Obesity hypoventilation syndrome OA (osteoarthritis) Osteoarthrosis, unspecified whether gene ralized or localized, unspecified site documented in this encounter Discontinued Medications Medication Sig Discontinue Reason Start Date End Date indomethacin (INDOCIN) 25 Take 25 mg by Reorder 0 01/24/2010 mg capsule mouth 3 times daily as needed. documented as of this encounter Care Teams Mercantile Agent Relationship Specialty Start Date End Date Robert Hong DO PCP - General 03/03/09 02/22/10 [address] [place] [address] documented as of this encounter
--- OUTSIDE RECORDS SUMMARY | 2022-02-08 04:15 | XMS_ITS | Encounter Summary ---
:1975 Author Organization [facility] [place] [address] Care Team Providers Name Role Phone HalRobert Primary Care Provider Reason for Visit Reason Comments Follow-up Follow Up Surgery Encounter Details Date Type Department Care Team Description 06/28/2014 Office Visit General Surgery at [facility] [place] without obstruction [facility] and without [address] [place] SURGERY [address] [place] [address] [phone] Social History Tobacco Use Types Packs/Day Years [...] gangrene documented in this encounter Care Teams Merchandiser Relationship Specialty Start Date End Date Robert Hong DO PCP - General 03/04/[address] [place] [address] documented as of this encounter
--- OUTSIDE RECORDS SUMMARY | 2022-02-08 04:15 | XMS_ITS | Encounter Summary ---
:1975 Author Organization [facility] Address [address] [place] [address] Care Team Providers Name Role Phone Robert Hong DO Primary Care Provider Encounter Details Date Type Department Care Team Description 06/09/2009 Abstract [facility] Parveen Hong DO Bariatric Surgery - [address] [place] [address] [place] [address] [place], [place] [address] [phone] Social History Tobacco Use Types Packs/Day Years [...] daily. added in this encounter Care Teams Wire Mesh Filter Fabricator Relationship Specialty Start Date End Date Robert Hong DO PCP - General 03/03/09 02/22/10 [address] [place], [place] [id number] documented as of this encounter
--- OUTSIDE RECORDS SUMMARY | 2022-02-08 04:15 | XMS_ITS | Encounter Summary ---
:1975 Author Organization [facility] [address] Care Team Providers Name Role Phone Robert Hong DO Primary Care Provider Encounter Details Date Type Department Care Team Description 05/25/2018 Telephone General Surgery at [facility] [place] [address] Social History Tobacco Use Types Packs/Day [...] on filedocumented in this encounter Care Teams Paint Preparer Relationship Specialty Start Date End Date Robert Hong DO PCP - General 03/04/[address] [place], [place] [address] documented as of this encounter
--- OUTSIDE RECORDS SUMMARY | 2022-02-08 04:15 | XMS_ITS | Encounter Summary ---
:1975 Author Organization [facility] Address [address] [place] [address] Care Team Providers Name Role Phone HalRobert Primary Care Provider Reason for Visit Reason Comments Follow-up Bariatric Surgery Program llo up Encounter Details Date Type Department Care Team Description 08/31/2014 Follow-Up General Surgery at Abbey Crandall Di sorder of iron metabolism; [facility] GOODS LAYER Status post bariatric surgery; [facility] Int estinal malabsorption; [facility] [place] [address] GENERAL SURGERY [phone] [place] [address] (Wo rk) Social History Tobacco Use Types [...] victor, RD - 08/31/2014 8:59 AM EDT [facility] Admin coordinator Michelle: [phone] Dietitian: [phone] Surgeons/ nurse practitioner: [phone] Nurse line: [phone] Your excess body weight lost: 88.6%- great job! Testing: Labwork: Today. Go to Tobacco Curer Area [address], which is 1 flight below [...] 3 meals and 2-3 snacks daily- continue ~7109-8460 calories per day as long as you [...] of every month from 1-2 PM at [facility]- no registration required Back on Track group visits are held the Friday of the month [facility] 1-2 PM- call Michelle to register [phone] Internet resources: www.The Pocket Agency www.ForeScout Technologies www.Cloudy.fr www.NanoMas Technologies (dede Goyal) https://www.facebook.com/[facility] – SEILINGBariatricSurgery Books & Magazines: - Recipes for Life After Weight Loss Surgery by Quita Brasher - Shrink Yourself by Dr Catrachito Zacarias - Nutrition Action Health Letter subscribe at www.EarLenst.org/nah/ - Eating Well - Cooking Light documented [...] (muscle milk- 16g/scoop x 2 mixed with israeli yogurt) AM Snack 10am: fruit or 5-10 [...] 1 every other week, though had 3-4 Jordan Iced Tea's last weekend Caffeine: none Meals: 3/day. ?? Feels full/satisfied after eating [x]Yes []No ?? Feels hungry [x]never []sometimes []most of the time [] always ?? Drinks with meals []Yes [x]No ?? Has had dumping syndrome [x]Yes []No Foods/Symptoms: Fried food, Pakistani- avoids ?? Practices portion control [x]Yes - [...] to check calcium dose. Noted calories ~ 0390-7176 per day with wt reportedly stable x [...] deny snoring, etc. He returned machine to [facility]. No Sleep Center follow up A. [...] is done by the primary health care marketing specialist: please send a copy to the Bariatric Surgery Program, General Surgery Clinic, [facility], attention Abbey Crandall APRN. Questions regarding [facility] Bariatric Surgery Program patients: please call Kaushik Crandall APRN at [phone] or [phone] beeper [phone]. E-mail: [email or web address] documented in this encounter Plan of Treatment Not on filedocumented as of this encounter Visit Diagnoses Diagnosis Disorder of iron metabolism Other disorders of iron metabolism Status post bariatric surgery Bariatric surgery status Intestinal malabsorption Unspecified intestinal malabsorption Vitamin D deficiency Unspecified vitamin D deficiency documented in this encounter Care Teams Mophead Sewer Relationship Specialty Start Date End Date Robert Hong DO PCP - General 03/04/[address] [place] [address] documented as of this encounter
--- OUTSIDE RECORDS SUMMARY | 2022-02-08 04:15 | XMS_ITS | Encounter Summary ---
:1975 Author Organization [facility] Address [address] [place] [address] Care Team Providers Name Role Phone Robetr Hong DO Primary Care Provider Josie Ramirez MD Primary Care Provider Robert Hong DO Primary Care Provider Josie Ramirez MD Primary Care Provider Encounter Details Date Type Department Care Team Description 10/16/2009 Documentation Visit [facility] Briseida Perkins, Bariatric Surgery - CLOTH EXAMINER [place] [address] [place] [address] [place] [address] [phone] Social History Tobacco Use Types Packs/Day Years Used Date Never Assessed Sex Assigned at Date Recorded Not on file documented as of this encounter Plan of Treatment Not on filedocumented as of this encounter Visit Diagnoses Not on filedocumented in this encounter Care Teams Sand Sifter Relationship Specialty Start Date End Date Robert Hong DO PCP - General 03/03/09 02/22/[address] [place] [address] Josie Ramirez MD PCP - General 02/23/10 05/14/10 [place] [address] Robert Hong DO PCP - General 05/15/10 05/20/[address] [place] [address] [place] [address] Josie Ramirez MD PCP - General 05/21/10 [address] [place] [address] documented as of this encounter
--- OUTSIDE RECORDS SUMMARY | 2022-02-08 04:15 | XMS_ITS | Encounter Summary ---
:1975 Author Organization [facility] Address [address] [place] [address] Care Team Providers Name Role Phone Robert Hong Primary Care Provider Reason for Visit Reason Onset Date Comments Other 12/29/2009 Encounter Details Date Type Department Care Team Description 12/29/2009 Telephone [facility] Bariatric [facility] Paloma griffith APRN Other Surgery - [place] [address] [facility] [address] [place], [place] [address] [place] [address] [phone] Social History Tobacco Use Types Packs/Day Years Used Date Never Smoker Alcohol Use Standard Drinks/Week Comments No 0 (1 standard drink = 0.6 oz pure alcoho l) Sex Assigned at Date Recorded Not on file documented as of this encounter Miscellaneous Notes Telephone Encounter - Paloma Perkins NP - 01/08/2010 0900 EDT I received a letter from [facility] [place] regarding Mr Billings no- showing his PSG consult. He also no-showed an appt here and has not responded to our phone calls regarding interest in continuing with this program. elephone Encounter - Leena Thomas - 12/29/2009 1532 EDT Juice did not show for a class on Dec 05 and cancelled an appt for , called and left [facility] for Juice to check-in with us about continuing with the program. documented in this encounter Plan of Treatment Not on filedocumented as of this encounter Visit Diagnoses Not on filedocumented in this encounter Care Teams Pipe Smoker Machine Operator Relationship Specialty Start Date End Date Robert Hong DO PCP - General 03/03/09 02/22/[address] [place] [address] [place] [address] documented as of this encounter
--- OUTSIDE RECORDS SUMMARY | 2022-02-08 04:15 | XMS_ITS | Encounter Summary ---
:1975 Author Organization [facility] Address [address] [place] [address] Care Team Providers Name Role Phone Robert Hong DO Primary Care Provider Encounter Details Date Type Department Care Team Description 08/01/2009 Abstract [facility] Parveen Hong DO Bariatric Surgery - [address] [place] [address] [place] [address] [place], [place] [address] [phone] Social History Tobacco Use Types Packs/Day Years Used Date Never Assessed Sex Assigned at Date Recorded Not on file documented as of this encounter Plan of Treatment Not on filedocumented as of this encounter Visit Diagnoses Not on filedocumented in this encounter Care Teams Electric Tape Slitter Relationship Specialty Start Date End Date Robert Hong DO PCP - General 03/03/09 02/22/[address] [place] [address] documented as of this encounter
--- OUTSIDE RECORDS SUMMARY | 2022-02-08 04:15 | XMS_ITS | Encounter Summary ---
:1975 Author Organization [facility] Address [address] [place] [address] Care Team Providers Name Role Phone Robert Hong DO Primary Care Provider Encounter Details Date Type Department Care Team Description 06/27/2009 Abstract Used for ABSTRACTING Data Robert Hong DO [phone] [address] [place] [address] (Wo rk) Social History Tobacco Use Types Packs/Day Years Used Date Never Assessed Sex Assigned at Date Recorded Not on file documented as of this encounter Plan of Treatment Not on filedocumented as of this encounter Visit Diagnoses Not on filedocumented in this encounter Care Teams Food Storeroom Clerk Relationship Specialty Start Date End Date Robert Hong DO PCP - General 03/03/09 02/22/10 [address] [place] [address] documented as of this encounter
--- OUTSIDE RECORDS SUMMARY | 2022-02-08 04:15 | XMS_ITS | Encounter Summary ---
:1975 Author Organization [facility] Address [facility] [place] [address] Care Team Providers Name Role Phone Hal Robert Primary Care Provider Reason for Visit Reason Comments Follow-up Bariatric Surgery Program fo llo up Encounter Details Date Type Department Care Team Description 01/18/2015 Follow-Up General Surgery at Abbey Crandall t loss, non-intentional; [facility] T, BHAVANI Disorder of iron metabolism; [facility] Sta tus post bariatric surgery; [facility] Intestinal malabsorption; [place], [place] GENERAL SURGERY Secondary hyperparathyroidism; [address] [place] [address] Vitamin D deficiency; [phone] Protein-calorie malnutrition; (Work) Protein-calorie undernutrition Social History [...] Crandall T - 01/17/2015 9:10 PM EDT [facility] Admin coordinator Michelle: [phone] Dietitian: [phone] Surgeons/ nurse practitioner: [phone] Nurse line: [phone] Your excess body weight lost: 96.6% Testing: Labwork: Today. Go to [facility] Area [address], which is 1 flight below the General Surgery Clinic. Please note that you will always receive a letter with lab results and recommendations. Please read this letter carefully and follow recommendations. The letter also contains information regarding yournext lab draw. Next visit: March Routine visits are done at 4.8,12, 18 and 24 months after surgery, and yearly thereafter. Please call [phone] if you do not receive an appointment [...] a week - Your Daily Goals: ??? 1876-2864 calories per day (300 calories per meal, [...] of every month from 1-2 PM at [facility]- no registration required Back on Track group visits are held the [facility] the [facility]- call Michelle to register [phone] Internet resources: www.51aiya.com www.Corona Labs www.Pro-Cure Therapeutics www.SmashFly (dede Goyal) https://www.Hedge Community.com/[facility]WTONBariatricSurgery Books & Magazines: - Recipes for Life [...] deny snoring, etc. He returned machine to [facility]. 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 He is leery of increasing calories due to concern about weight gain and becoming obese again. Dietary history: A RD was not available for today's visit. 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 Questions regarding [facility] Bariatric Surgery Program patients: please call Kaushik Crandall APRN at [phone] or [phone] beeper [phone]. E-mail: [email or web address] documented in this encounter Plan of Treatment [...] Resulting Agency Comment Spec In Lab Candi Gallgeos MD CHEMISTRY ORDERABLES Performing Organization Address City/[facility]/[place] [address] CERNER MILLENNIUM Folate, serum (01/18/2015 4:35 PM EDT) athologist Signature Folate Lvl 19.0 4.6 - 34.8 CERNER ng/mL MILLENNIUM Specimen Anatomical Collection Method Collection Time Receive d Time (Source) Location / / Volume Laterality Blood specimen 01/18/2015 4:35 PM 015 4:46 (specimen) EDT PM EDT Resulting Agency Comment Spec In Lab Candi Gallegos MD CHEMISTRY ORDERABLES Performing Organization Address City/[facility]/[place] [address] CERNER MILLENNIUM (ABNORMAL) Vitamin B12 (01/18/2015 4:35 PM EDT) [facility] [place] Signature Vitamin B-12 1,271 (H) 207 - 974 CERNER pg/mL MILLENNIUM Specimen Anatomical Collection Method Collection Time Receive d Time (Source) Location / / Volume Laterality Blood specimen 01/18/2015 4:35 PM 015 4:46 (specimen) EDT PM EDT Resulting Agency Comment Spec In Lab Candi Gallegos MD CHEMISTRY ORDERABLES Performing Organization Address City/[facility]/[place] [address] CERNER MILLENNIUM Vitamin B1, whole blood (01/18/2015 4:35 PM EDT) athologist Signature Vit B1 Lvl WB 132 70 - 180 CERNER nmol/L MILLENNIUM Comment: Test Performed by: [email or web address] [address], [place] [address] Pantograph Setter: Anna Garcia Specimen Anatomical Collection Method Collection Time Receive d Time (Source) Location / / Volume Laterality Blood specimen 01/18/2015 4:35 PM 015 9:12 (specimen) EDT AM EDT Resulting Agency Comment Spec In Lab Candi Gallegos MD CHEMISTRY ORDERABLES Performing Organization Address City/[facility]/[place] [address] CERNER MILLENNIUM VIT D [...] considered to be insu fficient or deficient. http://Splashscore/[facility] LAWTONnatlkidneyfoundat ion [email or web address] The IDS iSYS Vitamin D Immunoassay detec [...] Organization Address City/State/[place] [address] CERNER MILLENNIUM PTH (01/18/2015 4:35 PM EDT) P athologist Signature PTH 40 15 - 65 CERNER pg/mL MILLENNIUM Specimen Anatomical Collection Method Collection Time Receive d Time (Source) Location / / Volume Laterality Blood specimen 01/18/2015 4:35 PM 015 4:46 (specimen) EDT PM EDT Resulting Agency Comment Spec In Lab Candi Gallegos MD CHEMISTRY ORDERABLES Performing Organization Address [facility] Phon e Number [address] CERNER MILLENNIUM Ferritin (01/18/2015 4:35 PM EDT) P athologist Signature Ferritin 120 30 - 400 CERNER ng/mL MILLENNIUM Comment: Pediatric reference ranges not verified at [facility], interpret with caution. Reference ranges for females greater aram n 50 years of age approach values for men, i.e., 30-400 ng/mL. Specimen Anatomical Collection Method Collection Time Receive d Time (Source) Location / / Volume Laterality Blood specimen 01/18/2015 4:35 PM 015 4:46 (specimen) EDT PM EDT Resulting Agency Comment Spec In Lab Candi Gallegos MD CHEMISTRY ORDERABLES Performing Organization Address [facility] Code Phon e Number [address] CERNER MILLENNIUM (ABNORMAL) Iron [...] Gallegos MD CHEMISTRY ORDERABLES Performing Organization Address [facility] Phon e Number [address] CERNER MILLENNIUM (ABNORMAL) Prealbumin [...] Organization Address City/State/[place] [address] CERNER MILLENNIUM (ABNORMAL) Comprehensive [...] intervals supplied above were not validated at [facility]. Results from pediatri c patients should be [...] the following links into your internet browser. [email or web address] [email or web address] Specimen Anatomical Collection Method Collection Time Receive d Time (Source) Location / / Volume Laterality Blood specimen 01/18/2015 4:35 PM 015 4:46 (specimen) EDT PM EDT Resulting Agency Comment Spec In Lab Candi Gallegos MD CHEMISTRY ORDERABLES Performing Organization Address City/State/ZIP Code Phon e Number [place] [id number] CERNER MILLENNIUM (ABNORMAL) Hemogram [...] % MILLENNIUM MPV 11.0 9.0 - 12.0 [facility] Specimen Anatomical Collection Method Collection Time Receive d Time (Source) Location / / Volume Laterality Blood specimen 01/18/2015 4:35 PM 015 4:46 (specimen) EDT PM EDT Resulting Agency Comment Spec In Lab Candi Gallegos MD HEMATOLOGY ORDERABLES Performing Organization Address City/State/[place] [address] [facility] documented in this encounter Visit Diagnoses [...] malnutrition documented in this encounter Care Teams Registered Sales Assistant Relationship Specialty Start Date End Date Robert Hong DO PCP - General 03/04/[address] [place] [address] documented as of this encounter
--- OUTSIDE RECORDS SUMMARY | 2022-02-08 04:15 | XMS_ITS | Encounter Summary ---
:1975 Author Organization [facility] Address [address] [place] [address] Care Team Providers Name Role Phone Robert Hong Primary Care Provider Reason for Visit Reason Comments Obesity pre op Encounter Details Date Type Department Care Team Description 09/18/2009 Office Visit [facility] Jeremy Fernando Morbi d obesity Bariatric Surgery - MD ([facility] (Primary Dx) [address] [address] [place], [place] [phone] Social History Tobacco Use Types Packs/Day [...] meals/ often skips breakfast Average caloric intake: 6084-4400 per pt Meal composition: has increased fruits [...] lopez foods: fruits/veggies/ lean proteins. Pt eating 9160-1579 cals/day, rec stay under 2500 (optimal 7278-1064).Walking after supper most nights. Plan: Diet Goals: [...] obesity documented in this encounter Care Teams Real Estate Underwriter Relationship Specialty Start Date End Date Robert Hong DO PCP - General 03/03/09 02/22/10 [facility] [place] [address] documented as of this encounter
--- OUTSIDE RECORDS SUMMARY | 2022-02-08 04:15 | XMS_ITS | Encounter Summary ---
:1975 Author Organization [place] [address] Care Team Providers Name Role Phone Robert Hong DO Primary Care Provider Encounter Details Date Type Department Care Team Description 06/12/2017 Office Visit General Surgery at Mike Crandall APRN [facility] [place] [address] DH PATIENT NOT SEEN [facility] [address], [place] [address] Social History Tobacco Use Types Packs/Day [...] SEEN documented in this encounter Care Teams Forming Operator Relationship Specialty Start Date End Date Robert Hong DO PCP - General 11/7/[address] [place] [address] documented as of this encounter
--- OUTSIDE RECORDS SUMMARY | 2022-02-08 04:15 | XMS_ITS | Encounter Summary ---
:1975 Author Organization [facility] Address [address] [place] [address] Care Team Providers Name Role Phone HalRobert pham Primary Care Provider Reason for Visit Reason Comments Obesity Encounter Details Date Type Department Care Team Description 02/19/2010 Office Visit [facility] Paloma Perkins obesity (CMS-HCC); Bariatric Surgery - S, LECTURER IN COMPUTER SCIENCE HTN (hypertension); [address] [place] [id number] Social History Tobacco Use Types Packs/Day Years [...] this encounter Miscellaneous Notes Scanned Note-Null - Electronic Instrument Trades Worker, Scan - 02/21/2011 1114 EDT documented in this encounter Plan of Treatment Not on filedocumented as of this encounter Visit Diagnoses Diagnosis Morbid obesity (HCC-CMS) (HCC) Morbid obesity HTN (hypertension) Unspecified essential hypertension Gout Gout, unspecified documented in this encounter Care Teams Philosophy Faculty Relationship Specialty Start Date End Date Robert Hong DO PCP - General 03/03/09 02/22/[address] [place] [address] documented as of this encounter
--- OUTSIDE RECORDS SUMMARY | 2022-02-08 04:15 | XMS_ITS | Encounter Summary ---
:1975 Author Organization [facility] [place] [address] Care Team Providers Name Role Phone HalRobert castaneda Primary Care Provider Reason for Visit Reason Comments Follow-up Bariatric Surgery Program llo up Encounter Details Date Type Department Care Team Description 04/04/2016 Office Visit General Surgery at Mike Crandall APRN [facility] [address] PATIENT NOT SEEN [facility] Ruth [address], [place] [address] Social History Tobacco Use Types Packs/Day [...] SEEN documented in this encounter Care Teams Gate Operator Relationship Specialty Start Date End Date Robert Hong DO PCP - General 03/04/[address] [place] [address] documented as of this encounter
--- OUTSIDE RECORDS SUMMARY | 2022-02-08 04:15 | XMS_ITS | Encounter Summary ---
:1975 Author Organization [facility] Address [address] [place] [address] Care Team Providers Name Role Phone Josie Ramirez MD Primary Care Provider Reason for Visit Reason Comments Obesity Encounter Details Date Type Department Care Team Description 06/18/2010 Office Visit [facility] [place] Paloma Perkins Andree mcqueen obesity (CMS-HCC); Bariatric Surgery - S, OPEN HEARTH STOCKYARD SUPERVISOR HTN (hypertension); [place] [address] [facility] Gout; [address] [place], [place] [address] [phone] Social History Tobacco Use Types Packs/Day Years [...] this encounter Miscellaneous Notes Scanned Note-Null - Vocational Horticulture Instructor, Scan - 03/29/2011 1037 EST documented in [...] daily. added in this encounter Care Teams Freight Separator Relationship Specialty Start Date End Date Josie Ramirez MD PCP - General 05/21/10 [address], [place] [address] documented as of this encounter
--- OUTSIDE RECORDS SUMMARY | 2022-02-08 04:15 | XMS_ITS | Encounter Summary ---
:1975 Author Organization [facility] Address [address] [place] [address] Care Team Providers Name Role Phone Robert Hong Primary Care Provider Reason for Visit Reason Comments Obesity pre op Encounter Details Date Type Department Care Team Description 10/09/2009 Office Visit [facility] Jeremy Fernando Morbi d obesity Bariatric Surgery - ([facility]) (Primary Dx) [address] [address] [place], [place] [phone] Social History Tobacco Use Types Packs/Day [...] encounter Miscellaneous Notes Scanned Note-Null - Ancelmo, Recruiting Intern - 10/05/2010 0719 EDT documented in this encounter Plan of Treatment Not on filedocumented as of this encounter Visit Diagnoses Diagnosis Morbid obesity (HCC-CMS) (HCC) - Primary Morbid obesity documented in this encounter Care Teams Database Support Relationship Specialty Start Date End Date Robert Hong DO PCP - General 03/03/09 02/22/10 [facility] [address] [place] [address] documented as of this encounter
--- OUTSIDE RECORDS SUMMARY | 2022-02-08 04:15 | XMS_ITS | Encounter Summary ---
:1975 Author Organization [facility] Address [address] [place] [address] Care Team Providers Name Role Phone Robert Hong Primary Care Provider Encounter Details Date Type Department Care Team Description 06/06/2009 Hospital Encounter [facility] MD Thanh [address] [facility] [address] [place] [address] [place], [place] [phone] (Wo rk) Social History Tobacco Use Types Packs/Day Years Used Date Never Assessed Sex Assigned at Date Recorded Not on file documented as of this encounter Discharge Disposition Disposition Code Departure Means Destination Home or Self Fpc documented in this encounter Procedure Notes Physician [...] ? JAILENE ALSTON Reports generated via electr [employer] interface contain original data; ? LAB however they are lacking the format of the original report. ? Caution should be taken when reading/interpreting unformatted reports. ? Name: ? BRADY BILLINGS ? Accession #: ? [id number] ? : ? 1975 (Age: 33) ??M [...] Rosa's ? Gross Description: ? Received in [facility]' s fixative labelled Awa, Brady and antrum is a 0.7 x 0.2 x 0.2 cm biopsy. ??The specimen is submitted intact as (A). ? Received in [facility]'s fixat paris labelled Awa, Brady and GE junction is a 0.8 x 0.2 x 0.2 cm biopsy. ??The specimen is submitted intact as (B). ??(DARWIN ? Tessitore)/ljn ? End of Report ? Specimen Performing Organization Address City/State/ZIP Code Phon e Number [facility] [address] [place] [address] [facility] [address] [place] [address] documented in this encounter Visit Diagnoses Not on filedocumented in this encounter Care Teams Primer Powder Blender Wet Relationship Specialty Start Date End Date Robert Hong, DO PCP - General 03/03/09 02/22/[address] [place] [place] [address] documented as of this encounter
--- OUTSIDE RECORDS SUMMARY | 2022-02-08 04:15 | XMS_ITS | Encounter Summary ---
:1975 Author Organization [facility] Address [facility] [place] [address] Care Team Providers Name Role Phone HalRobert pham Primary Care Provider Reason for Visit Reason Comments Follow-up Bariatric Surgery Program an nual follow up Encounter Details Date Type Department Care Team Description 06/11/2016 Office Visit General Surgery at Mike Crandall APRN [facility] [place] [address] Protein-calorie undernutrition; [facility] Ruth West, CHARLEE Vitamin D deficiency; [facility] Disorder of iron metabolism; Drive Status post bariatric surger y; [place], [place] Intestinal mimi bsorption, unspecified type [id number] Social History Tobacco Use Types Packs/Day Years [...] InstructionsRuth West - 06/11/2016 2:30 PM EST [facility] Admin coordinator Michelle: [phone] Dietitian: [phone] Surgeons/ nurse practitioner: [phone] Nurse line: [phone] Your excess body weight lost: 97% Work on gaining 10-20 pounds back. Testing: Labwork: Today. Go to Dragline Engineer Area 3L, which is 1 flight [...] after surgery, and yearly thereafter. Please call [phone] if you do not receive an appointment [...] intake. Start tracking intake, such as trying MyfitGlobal Wine Export Pal, to help increase calorie intake. Try [...] every month from 1-2 PM at [facility]- no registration required Internet resources: www.TalentSky www.Metrolight www.TalkTo www.Broadlink (dede Goyal) https://www.Global Active.com/[facility] Bariatric surgery apps- [facility] Post-irina Books & Magazines: - Recipes for [...] Tracking Intake: none Daily Oral Intake: Breakfast Lithuanian Yogurt Or 1 cup Kashi Go Lean cereal and yogurt Or 4 eggs AM Snack Handful of peanuts Or granola bar/ trail mix bar Lunch Beaman with 3 oz turkey on 2 slices [...] patient start tracking intake, such as on Fathom Online Pal, to help increase calorie intake and [...] deny snoring, etc. He returned machine to [facility]. No Sleep Center follow up A. [...] times daily. (2) tabs 2 times daily. 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 Questions regarding [facility] Bariatric Surgery Program patients: please call Kaushik Crandall APRN at [phone] or [phone] [phone]. E-mail: documented in this encounter Plan of Treatment Not on filedocumented as of this encounter Visit Diagnoses Diagnosis Protein-calorie undernutrition Unspecified protein-calorie malnutrition Vitamin D deficiency Unspecified vitamin D deficiency Disorder of iron metabolism Other disorders of iron metabolism Status post bariatric surgery Bariatric surgery status Intestinal malabsorption, unspecified ty pe documented in this encounter Care Teams Underwriting Internship Relationship Specialty Start Date End Date Robert Hong DO PCP - General 03/04/[address] [place] [address] documented as of this encounter
--- OUTSIDE RECORDS SUMMARY | 2022-02-08 04:15 | XMS_ITS | Encounter Summary ---
:1975 Author Organization [facility] Address [address] [place] [address] Care Team Providers Name Role Phone Josie Ramirez MD Primary Care Provider Reason for Visit Reason Comments Obesity class Encounter Details Date Type Department Care Team Description 02/26/2010 Office Visit [facility] Amelia Alvarez, Dyst hymic disorder Bariatric Surgery - PhD (Primary Dx) [id number] [place] [address] [phone] Social History Tobacco Use Types Packs/Day [...] - - Weight 230.2 kg (507 lb 9.6 oz) 02/26/2010 1021 EDT Height 191.4 cm (6' 3.35) 02/26/2010 1021 EDT Body Mass Index 62.85 02/26/2010 1021 EDT documented in this encounter Progress Notes Amelia Alvarez, PhD - 02/26/2010 1239 EDT Behavioral Skills Group Progress Note Name: Brady Billings : 1975 Procedure: 1.5 hour Psychoeducational Group S: The focus of this session was on introducing the behavioral skills necessary for weight loss and weight loss maintenance after surgery. Educational information was provided on topics including: energy balance, ???mindless margin,?? portion control, overcoming emotional eating, and increasing physical activity. Patients were encouraged to reflect on how they can reengineer their lifestyles, incorporating these strategies for long-term success with weight loss maintenance. This group also focused on the importance of setting realistic and achievable goals. O: Vitals: Height 191.4 cm (75.35), weight 230.246 kg (507 lb 9.6 oz). A: Level of Participation: Engaged Diagnosis: 300.4 P: Follow-up with behavioral support at patient???s or team???s request. Amelia Alvarez, PHD Licensed Psychologist - Doctorate 02/26/2010 12:39 documented in this encounter Miscellaneous Notes Scanned Note-Null - Ancelmo, Staff Technologist - 01/30/2011 0929 EDT documented in this encounter Plan of Treatment Not on filedocumented as of this encounter Visit Diagnoses Diagnosis Dysthymic disorder - Primary documented in this encounter Care Teams Rope Laying Machine Operator Relationship Specialty Start Date End Date Josie Ramirez MD PCP - General 02/23/10 05/14/10 [place] [address] documented as of this encounter
--- OUTSIDE RECORDS SUMMARY | 2022-02-08 04:15 | XMS_ITS | Encounter Summary ---
:1975 Author Organization [facility] Address [address] [place] [address] Care Team Providers Name Role Phone Josie Ramirez MD Primary Care Provider Reason for Visit Reason Onset Date Comments Other 07/04/2010 no showed appt Encounter Details Date Type Department Care Team Description 07/04/2010 Telephone [facility] Paloma Perkins, Ot her (no showed appt) Bariatric Surgery - LAUNDRY EQUIPMENT OPERATOR [place] [address] [place] [address] [place] [address] [phone] Social History Tobacco Use Types Packs/Day Years [...] on filedocumented in this encounter Care Teams Manager Portable Relationship Specialty Start Date End Date Josie Ramirez MD PCP - General 05/21/10 [address] [place] [address] documented as of this encounter
--- OUTSIDE RECORDS SUMMARY | 2022-02-08 04:15 | XMS_ITS | Encounter Summary ---
:1975 [place] [address] Care Team Providers Name Role Phone HalRobert pham Primary Care Provider Reason for Visit Reason Onset Date Comments Medication Refill 06/06/2014 Encounter Details Date Type Department Care Team Description 06/06/2014 Telephone General Surgery at [facility] Kylah Christianson, Medication Refill [facility] [place] [address] Social History Tobacco Use Types Packs/Day [...] is s/p Patient Name: Brady Billings : [id number] MR#: [id number] Case Date: 01/20/2013 Surgeon: Surgeon(s) and Role: [...] on filedocumented in this encounter Care Teams Proposition Player Relationship Specialty Start Date End Date Robert Hong DO PCP - General 03/04/[address] [place] [address] documented as of this encounter
--- OUTSIDE RECORDS SUMMARY | 2022-02-08 04:15 | XMS_ITS | Encounter Summary ---
:[address] [facility] Address [address] [place] [address] Care Team Providers Name Role Phone Robert Hong DO Primary Care Provider Josie Ramirez MD Primary Care Provider Robert Hong DO Primary Care Provider Josie Ramirez MD Primary Care Provider Encounter Details Date Type Department Care Team Description 08/04/2009 Documentation Visit [facility] Mindy Young R D Bariatric Surgery - [address] [place], [place] [id number] Social History Tobacco Use Types Packs/Day Years [...] on filedocumented in this encounter Care Teams Oracle Bpm Consultant Relationship Specialty Start Date End Date Robert Hong DO PCP - General 03/03/09 02/22/10 [address] [place] [address] Josie Ramirez MD PCP - General 02/23/10 05/14/10 [address] [place] [address] Robert Hong DO PCP - General 05/15/10 05/20/10 [address] [facility] [address] Josie Ramirez MD PCP - General 05/21/10 [address] [facility] [place] [facility] [place] [address] documented as of this encounter
--- OUTSIDE RECORDS SUMMARY | 2022-02-08 04:15 | XMS_ITS | Encounter Summary ---
:1975 Author Organization [facility] [place] [address] Care Team Providers Name Role Phone Robert Hong DO Primary Care Provider Encounter Details Date Type Department Care Team Description 10/30/2020 Ancillary Procedure Radiology Library at Andres Galloway [facility] [address] [place] [address] [phone] (Wo rk) Social History Tobacco Use Types [...] Name Priority Date/Time Associated Diagnosis Comme nts FILM LIBRARY Routine 10/30/2020 2:47 PM Results f or this STORAGE ONLY CT EDT procedure ar e in CHEST ABDOMEN the results PELVIS section. documented in this encounter Results Film Library- Storage Only CT Chest Abdomen Pelvis (10/30/2020 2:47 PM EDT) Specimen (Source) Anatomical Location Collection Method / Collectio n Time Received Time / Laterality Volume Narrative RAD - 10/30/2020 2:47 PM EDT This exam is auto-finalizing. It's purpo se is for storage only. Jared Galloway MD Jennifer FILM LIBRARY ORDERABLES Performing Organization Address City/State/ZIP Code Phon e Number [facility] [place] documented in this encounter Visit Diagnoses Not on filedocumented in this encounter Care Teams Cancer Registry Manager Relationship Specialty Start Date End Date Robert Hong DO PCP - General 03/04/12 [address] [facility] [address] [place] [address] documented as of this encounter
--- OUTSIDE RECORDS SUMMARY | 2022-02-08 04:15 | XMS_ITS | Encounter Summary ---
:1975 Author Organization [facility] [place] [address] Care Team Providers Name Role Phone Robert Hong DO Primary Care Provider Encounter Details Date Type Department Care Team Description 02/15/2016 Telephone General Surgery at [facility] [place] [address] Social History Tobacco Use Types Packs/Day [...] on filedocumented in this encounter Care Teams Air Table Operator Relationship Specialty Start Date End Date Robert Hong DO PCP - General 03/04/[address] [place], [place] [address] documented as of this encounter
--- OUTSIDE RECORDS SUMMARY | 2022-02-08 04:15 | XMS_ITS | Encounter Summary ---
:1975 [place] [address] Care Team Providers Name Role Phone Robert Hong DO Primary Care Provider Encounter Details Date Type Department Care Team Description 11/02/2020 Telephone General Surgery at [facility] [place] [address] Social History Tobacco Use Types Packs/Day [...] on filedocumented in this encounter Care Teams Occupational Therapy Supervisor Relationship Specialty Start Date End Date Robert Hong DO PCP - General 03/04/[address] [place] [address] documented as of this encounter
--- OUTSIDE RECORDS SUMMARY | 2022-02-08 04:15 | XMS_ITS | Encounter Summary ---
:1975 Author Organization [facility] Address [address] [place] [address] Care Team Providers Name Role Phone Robert Hong DO Primary Care Provider Reason for Referral Consult (Routine) - Closed Specialty Diagnoses / Procedures Referred By Contact Refer red To Contact Sleep Medicine Diagnoses Morbid obesity ([facility]) ([facility]) EDUARDA (obstructive sleep apnea) Preoperative testing Paloma Perkins [facility] TOOL ROOM MACHINIST 1 [facility] [address] [place] [address] [address] [place] [address] Phone: Fax: Referral ID Status Reason Start Date Expiration Date Visits V isits Requested Authorized [id number] Closed Specialty 11/08/2009 1 1 Services Required Question Answer Reason for Request: preop testing, past hx untre ated EDUARDA Comments Will need a split night study Reason for Visit Reason Comments Obesity #2 Encounter Details Date Type Department Care Team Description 11/08/2009 Office Visit [facility] Paloma Perkins d obesity (CMS-HCC); Bariatric Surgery - S, TOOL ROOM MACHINIST HTN (hypertension); [place] [address] [facility]; [address] [place], [place] EDUARDA (obstructive sleep apnea ); [place] [phone] Dyslipidemia; [phone] Hypothyroid; (Work) Preoperative testing Social History Tobacco [...] a daily vitamin and Calorie goal <2000 lopez Exercise Goals: Increase time to 150 min per week Weight Loss Goal: to approx 470 lb Weight Loss Remaining to Goal: 23 lb Reviewed: Food/Activity Record, not reviewed as not brought in Next Visit: Pre-op follow-up visit, post op nutrition class 12/05 Paloma Swanson, DANILO - 11/08/2009 1338 EDT ROBERT HONG [address] [place] [address] Hong : Thank you for [...] is not on file. 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 For exercise Brady is walking for exercise 1 mile daily Friday thru .. Brady met with our program business process expert for 30 minutes to review preoperative dietary recommendations.I did consult our business process expert following her visit with the patient and [...] visit in discussion of possible short and technical proposal writer risks andcomplications of bariatric surgery as they [...] encounter Miscellaneous Notes Scanned Note-Null - Ancelmo, Manager Implementation - 12/03/2010 1011 EDT canned Note- Null - Physician Morales MD - 11/15/2009 1613 EDT documented in this encounter Plan of Treatment Scheduled Referrals Name Type Priority Associated Diagnoses Order S chedule AMB CONSULT SLEEP Outpatient Referral Routine Morbid obesity O rdered: CENTER ([facility]) 11/08/2009 EDUARDA (obstructive sleep apnea) Preoperative testing [...] this encounter Visit Diagnoses Diagnosis Morbid obesity ([facility]) (HCC) Morbid obesity HTN (hypertension) Unspecified essential hypertension Gout Gout, unspecified EDUARDA (obstructive sleep apnea) Obstructive sleep apnea (adult) (pediatr ic) Dyslipidemia Other and unspecified hyperlipidemia Hypothyroid Unspecified hypothyroidism Preoperative testing Preoperative examination, unspecified documented in this encounter Care Teams Rn Faculty Relationship Specialty Start Date End Date Robert Hong DO PCP - General 03/03/09 02/22/10 [address] [place] [address] documented as of this encounter
--- OUTSIDE RECORDS SUMMARY | 2022-02-08 04:15 | XMS_ITS | Encounter Summary ---
:1975 Author Organization [facility] Address [facility] [place] [address] Care Team Providers Name Role Phone Robert Hong DO Primary Care Provider Encounter Details Date Type Department Care Team Description 10/30/2020 Ancillary Procedure [place] [address] Social History Tobacco Use Types Packs/Day [...] who have questions please contact the health child care centre director that requested your imaging first. ? Narrative 10/30/2020 6:59 PM EDT EXAMINATION: REQUEST FOR 2ND READ CT CHEST ABDOMEN PELVIS CLINICAL HISTORY: Sharp stabbing abdomin al pain in the midepigastric that radiated to the back, history of Rina-en -Y. ??Concern for gastric bleeding from read at outside hospital; [facility]; Date of exam [id number]; I believe a reinterpretation of this exam may alter care of Patient. Yes TECHNIQUE: Following bolus administration of intrav enous contrast agent multidetector helical CT examination of the chest, abd omen and pelvis was performed at [facility]. Study is submitted for second opinion. [...] abd omen and pelvis was performed at [facility]. Study is submitted for second opinion. [...] ho have questions please contact the health child care centre director that requested your imaging first. Cosme Blake MD IMG OUTSIDE INTERPRETATION O RDERABLES documented in this encounter Visit Diagnoses Not on filedocumented in this encounter Care Teams Reconciliation Accountant Relationship Specialty Start Date End Date Robert Hong DO PCP - General 03/04/[address] [place] [address] documented as of this encounter
--- OUTSIDE RECORDS SUMMARY | 2022-02-08 04:15 | XMS_ITS | Encounter Summary ---
:1975 Author Organization [facility] Address [address] [place] [address] Care Team Providers Name Role Phone Robert Hong Primary Care Provider Reason for Visit Reason Comments Obesity Encounter Details Date Type Department Care Team Description 08/07/2009 Office Visit [facility] Jeremy Fernando Morbi d obesity Bariatric Surgery - MD ([facility]) (Primary Dx) [address] [address] [place], [place] [phone] Social History Tobacco Use Types Packs/Day [...] high-fat items, Keep food records, Calorie goal [phone] and Increase fruit and vegetables Exercise Goals: [...] this encounter Visit Diagnoses Diagnosis Morbid obesity ([facility]) (HCC) - Primary Morbid obesity documented in this encounter Historical Medications This list may reflect changes made after this encounter. Medication Sig Dispensed Refills Start Date End Date ASPIRIN/ACETAMINOPHEN/CAFF Take 1 Tab by mouth 0 EINE (EXCEDRIN EXTRA as needed. STRENGTH ORAL) added in this encounter Care Teams Security Sales Manager Relationship Specialty Start Date End Date Robert Hong DO PCP - General 03/03/09 02/22/[address] [place] [address] [place] [address] documented as of this encounter
--- OUTSIDE RECORDS SUMMARY | 2022-02-08 04:15 | XMS_ITS | Encounter Summary ---
:1975 Author Organization [facility] Address [address] [place] [address] Care Team Providers Name Role Phone Josie Ramirez MD Primary Care Provider Reason for Visit Reason Comments Obesity pre op Encounter Details Date Type Department Care Team Description 04/02/2010 Office Visit [facility] Paloma Perkins HTN ( hypertension) (Primary Dx); Bariatric Surgery - S, PRESS CATCHER Morbid obesity (CMS-HCC); [place] [address] [facility] Gout; [address] [place], [place] EDUARDA (obstructive sleep apnea ) [place] [address] [phone] Social History Tobacco Use Types Packs/Day Years [...] in this encounter Progress Notes Paloma Perkins, CLAIMS COORDINATOR - 04/02/2010 1023 EST 04/02/2010 SUBJECTIVE: Brady [...] this encounter Miscellaneous Notes Scanned Note-Null - Substation Engineer, Isidro - 03/13/2011 1027 EST documented [...] weeks added in this encounter Care Teams Joint Terminal Attack Controller Relationship Specialty Start Date End Date Josie Ramirez MD PCP - General 02/23/10 05/14/10 [place] [address] documented as of this encounter
--- OUTSIDE RECORDS SUMMARY | 2022-02-08 04:15 | XMS_ITS | Encounter Summary ---
:1975 Author Organization [facility] Address [address] [place] [address] Care Team Providers Name Role Phone Josie Ramirez MD Primary Care Provider Encounter Details Date Type Department Care Team Description 10/04/2021 Lab Requisition [facility] Outr Resulting Lab, Pathology & Laboratory Provider [facility] [address] [id number] Social History Tobacco Use Types Packs/Day Years [...] HIV 1 and 2 NegativeComment: If Negative [facility] Antibody/p24 acute HIV-1 LABORATORY Antigen, 4th infection is SERVICES Generation suspected in a high risk patient, submit plasma specimen for HIV-1 RNA quantitation test. Specimen Blood - Venous blood (substance) Narrative [facility] LABORATORY SERVICES - 10/05/2021 10:14 EDT Fourth Generation assay performed on the Siemens Centaur XPT. Performing Organization Address City/State/ZIP Code Phon e Number [facility] LABORATORY [address] [place] [address] SERVICES documented in this encounter Visit Diagnoses Not on filedocumented in this encounter Care Teams Pie Bakery Laborer Relationship Specialty Start Date End Date Josie Ramirez MD PCP - General 05/21/10 [address] [place] [address] documented as of this encounter
--- OUTSIDE RECORDS SUMMARY | 2022-02-08 04:16 | XMS_ITS | Encounter Summary ---
:1975 [place] [address] Care Team Providers Name Role Phone HalRobert pham Primary Care Provider Encounter Details Date Type Department Care Team Description 02/02/2013 Telephone General Surgery at [facility] Jose Guadalupe Santos MD [facility] [place] [address] GENERAL SURGERY [phone] [place], [place] [address] (Wo rk) Social History Tobacco [...] on filedocumented in this encounter Care Teams Car Head Liner Installer Relationship Specialty Start Date End Date Robert Hong DO PCP - General 03/04/[address] [place] [address] documented as of this encounter
--- OUTSIDE RECORDS SUMMARY | 2022-02-08 04:16 | XMS_ITS | Encounter Summary ---
:1975 [place] [address] Care Team Providers Name Role Phone Robert Hong DO Primary Care Provider Encounter Details Date Type Department Care Team Description 11/16/2012 Follow-Up General Surgery at [facility], [place] [address] Social History Tobacco Use Types Packs/Day [...] BARIATRIC SURGERY PROGRAM FIRST VISIT Contact information: [facility] Admin coordinator Michelle: [phone] Dietitian: [phone] Surgeons/ nurse practitioner: [phone] Nurse line: [phone] Recommendations to do list after today's visit: Evaluations/ testing: -Call your counselor and set up more visits. -Have your recent doctor visits notes sent to us about your diabetes. Fax to Michelle at [phone] -Call your sleep doctor and see if [...] take place in the General Surgery Clinic, [facility] Area 4L 2nd visits with dietitian and nurse practitioner ([facility]- Shared Medical Appointment) Surgical consultation Pre-op class: [...] of starch = 1 slice toast, ?? Swedish muffin, ?? cup cooked potato, rice, or [...] in advance of approval. Only the OR sports intern can provide you with a date. Questions for your doctor, specialist or pharmacist: Ask your doctor about medication suggestions if you currently take medications that are larger than the size of a tylenol. Large pills need to be crushed (if permitted by the drug insurance counselor) or taken in liquid form for TWO [...] bothering him from walking in sandals at [place] 3-4 weeks ago. Starting to feel better now. Typical Daily Intake: Breakfast 2 ww toast, 2 eggs/sami yogurt AM Snack fruit Lunch [place] (tuna, turkey) on ww chanel w mustard [...] through dieting have been unsuccessful over the long distance billing operator. Predicted weight loss with surgery is an [...] of starch = 1 slice toast; ?? Swedish muffin; 1 small chanel or wrap; ?? [...] on filedocumented in this encounter Care Teams Wood Finisher Apprentice Relationship Specialty Start Date End Date Robert Hong DO PCP - General 03/04/12 [address] [place] [address] documented as of this encounter
--- OUTSIDE RECORDS SUMMARY | 2022-02-08 04:16 | XMS_ITS | Encounter Summary ---
:1975 Author Organization [place] [address] Care Team Providers Name Role Phone HalRobert pham Primary Care Provider Reason for Visit Reason Comments Obesity Encounter Details Date Type Department Care Team Description 12/03/2012 [facility] [place] [address] TSH elevation (Primary Dx); [facility] Candi Gallegos MD [facility] [place] [address] Morbid obesity; [facility] Hypertens ion; Aries Type 2 diabetes mellitus; [place], [place] Venous stasis; [id number] Vitamin D deficiency [phone] Social History Tobacco Use Types Packs/Day Years [...] bariatric surgery and our outcomes here at [facility]. We went over the small but significant [...] Organization Address City/State/[place] [address] CERNER MILLENNIUM TSH (12/03/2012 [...] Organization Address City/State/[place] [address] CERNER MILLENNIUM (ABNORMAL) Hemoglobin A1c (12/03/2012 4:21 PM EDT) Analysis Performed At Patho logist Time Signature Hemoglobin A1C 6.7 (H) 4.3 - 6.1 CERNER % MILLENNIUM Comment: The [place] Diabetes Association (ADA) has stated that HbA1c [...] with hemoglobinopathies. Additional resources are available on [facility] ADA website: ??http://professional.diabetes.org/gluc osecalculator.aspx Mele KUMAR, Fidelia J, Alex R, et al. ??Tr anslating the A1C assay into estimated average glucose values. ??Diabetes Care 2008:31(8):4293-6425. Specimen Anatomical Collection Method Collection Time Receive d Time (Source) Location / / Volume Laterality Blood specimen 12/03/2012 4:21 PM 013 4:30 (specimen) EDT PM EDT Resulting Agency Comment Spec In Lab Candi Gallegos MD CHEMISTRY ORDERABLES Performing Organization Address City/State/[place] [address] CERNER MILLENNIUM (ABNORMAL) Comprehensive [...] intervals supplied above were not validated at [facility]. Results from pediatri c patients [...] Organization Address City/State/[place] [address] CERNER MILLENNIUM (ABNORMAL) Hemogram [...] Organization Address City/State/[place] [address] [facility] documented in this encounter Visit Diagnoses Diagnosis TSH elevation - Primary Other abnormal blood chemistry Morbid obesity Hypertension Unspecified essential hypertension Type 2 diabetes mellitus Type II or unspecified type diabetes ra litus without mention of complication, not stated as uncontrolled Venous stasis Unspecified venous (peripheral) insuffic iency Vitamin D deficiency Unspecified vitamin D deficiency documented in this encounter Care Teams Food Demonstrator Relationship Specialty Start Date End Date Robert Hong DO PCP - General 03/04/[address] [place] [address] documented as of this encounter
--- OUTSIDE RECORDS SUMMARY | 2022-02-08 04:16 | XMS_ITS | Encounter Summary ---
:1975 [place] [address] Care Team Providers Name Role Phone HalRobert pham Primary Care Provider Reason for Visit Reason Onset Date Comments Constipation 01/25/2013 Encounter Details Date Type Department Care Team Description 01/25/2013 Telephone General Surgery at [facility] [place]ylah [place] [address] Social History Tobacco Use Types Packs/Day [...] on filedocumented in this encounter Care Teams Rock Duster Relationship Specialty Start Date End Date Robert Hong DO PCP - General 03/04/[address] [place] [address] documented as of this encounter
--- OUTSIDE RECORDS SUMMARY | 2022-02-08 04:16 | XMS_ITS | Encounter Summary ---
:1975 Author Organization [place] [id number] Care Team Providers Name Role Phone HalPepe Primary Care Provider Encounter Details Date Type Department Care Team Description 01/20/2013 Surgery Main Operating Room Ori Barboza MD @LAPAROSCOPIC [facility] GASTROPLASTY W/ [facility] DR HAINESENYahirY GENESIS [facility] GENERAL SURGE RY (WRVU 29.4) [place] [id number] [place] [phone] Social History Tobacco Use Types Packs/Day Years [...] EDT BARIATRIC SURGERY DISCHARGE INFORMATION CONTACT INFORMATION: [phone] Surgeons: Dr. Barboza [phone] Slitter Scorer Cut Off Operator: [phone] (Friday through Friday, 8:00 AM -5:00 PM) Dietitian: [phone] Non-business hours: [phone], ask for general surgeon construction project coordinator FOR EMERGENCIES: CALL 911 (trouble breathing, chest [...] had open gastric bypass and have chuy: [place] should be removed 10 - 12 days after surgery. This can be done at [facility] or via Primary Care Provider (PCP). Do [...] 200 on more than 3 rechecks, call [facility] physician or diabetic specialist for specific [...] Follow up with primary care doctor or curriculum specialist in 1-2 weeks. Bring meter to [...] Office of Care Management (OCM) / Clinical Sales Engineer (CRC)/ Initial Assessment Discussed patient with Provider Team and in multidisciplinary discharge-planning rounds. Reviewed record and interviewed patient. Introduced/reviewed CRC role and services accepted. REASON for HOSPITALIZATION: Gastroplasty IVF boluses for low urine output IVF 200cc/hr PMH See admit H&P PREVIOUS FUNCTIONAL STATUS: independent CURRENT FUNCTIONAL STATUS:independent - walking around [place] SOCIAL / FAMILY SUPPORTS:Lives with Tiff in [place], [place] ADVANCE DIRECTIVES: none on file HEALTH /PRESCRIPTION COVERAGE:[facility] CURRENT HOME/COMMUNITY SERVICES/EQUIPMENT: DME:CPAP Home Health Agency: Other: [employer] SUPERVISOR REFERRAL: Available if needed PRIMARY CARE PHYSICIAN: PEPE HONG DO [address] / [facility] [address] POTENTIAL DISCHARGE NEEDS: Lovenox injections - patient successfully self injected this morning and feels good about managing that at home. Patient's pharmacy of choice does not have Lovenox 40mg or roxicet liquid. Patient prefers to use the [facility] outpatient pharmacy at discharge. PATIENT/FAMILY EDUCATION NEEDS:lovenox injections ANTICIPATED BARRIERS TO DISCHARGE:none expected TRANSPORTATION @ D/C: family available PLAN: Home with support of family. MD notified of patient's choice of [facility] outpatient pharmacy for d/c scripts. CRC will continue to monitor progress, follow for continuity of care and assist with discharge planning while hospitalized. Miranda Carr RN, BSN covering CRC Sujata Potter pager [phone]. . Wanda Leija MD - 01/21/2013 5:49 [...] hours No results found for this basename: PHART:3,NZN2OIJ:3,PO2ART:3,KMK6PUN:3 in the last 168 hours IMAGING: ASSESSMENT / PLAN: Brady Billings is a 37 y.o. male s/p katie en y gastric bypass with the following active issues: Active Issue Treatment Oligura Pain Conrol Post Gastric bypass diet changes Increased infusion rate, Bolus IVF TAPPER BALANCE WHEEL SCREW HOLE Bariatric program, bariatric diets Neuro Pain is well-controlled on Dilaudid TAPPER BALANCE WHEEL SCREW HOLE. Transition to orals Activity Activity as tolerated, [...] on abdomen. Patient rates pain 9/10, using TAPPER BALANCE WHEEL SCREW HOLE with reported relief. Patient resting in naps. [...] Note Patient: Brady Billings s/p Surgery: 01/20/2013 [id number] Procedure(s) (LRB): @LAPAROSCOPIC GASTROPLASTY, (N/A) LAPAROSCOPIC LIVER [...] stable. - continue all post-operative care - TAPPER BALANCE WHEEL SCREW HOLE for pain. WANDA LEIJA MD 01/20/2013 6:21 [...] through dieting have been unsuccessful over the rat exterminator. The team Advised patient that bariatric surgery [...] are the prescriptions that you need to medicinal plant picker. We sent them to a specific pharmacy, so you will need to go there to get them. [facility] [address] enoxaparin 40 mg/0.4 mL Syrg injection furosemide [...] Provider Department Center 02/11/2013 3:30 PM Bariatric, Maintenance Groundskeeper [facility] [address] [place] [address] CLIN 02/11/2013 4:00 PM Candi Barboza MD [facility] [address] [place] [address] Outpatient Services/Studies: No discharge procedures on file. Instructions Given to Patient at Discharge:. An After Visit Summary was printed and given to the patient. Provider Instructions BARIATRIC SURGERY DISCHARGE INFORMATION CONTACT INFORMATION: [phone] Surgeons: Dr. Barboza [phone] Slitter Scorer Cut Off Operator: [phone] (Friday through Friday, 8:00 AM -5:00 PM) Dietitian: [phone] Non-business hours: [phone], ask for general surgeon construction project coordinator FOR EMERGENCIES: CALL 911 (trouble breathing, chest [...] after surgery. This can be done at [facility] or via Primary Care Provider (PCP). Do [...] 200 on more than 3 rechecks, [facility] or diabetic specialist for [...] Follow up with primary care doctor or curriculum specialist in 1-2 weeks. Bring meter to [...] Contact Information: Divison of General Surgery ??? [facility] ??? [address] ??? [place] [address] ??? [phone] ??? ~~~~~~~~~~~~~~~~~~~~~~~~~~~~~~~~~~~~~~~~~~~~~~~~~~~~~~~~~~~~~~~~~~~ Signed: WANDA LEIJA MD 01/22/2013 [...] Patient transitioned onto oral pain medications and TAPPER BALANCE WHEEL SCREW HOLE discontinued; states tolerable level of comfort this [...] met Patient reports adequate pain control with TAPPER BALANCE WHEEL SCREW HOLE and Toradol. Patient slept fair. Turns self [...] Barboza MD - 01/20/2013 5:17 PM EDT [facility] Operative Note Patient Name: Brady Billings : [id number] MR#: [id number] Case Date: 01/20/2013 Surgeon: Surgeon(s) and Role: [...] position. The abdomen was entered using the [employer] CyLab trocar system. The 10-mm port was placed [...] distal bowel was chosen to create the [id number] jejunojejunostomy. The duodenal, afferent limb was approximated [...] suture in two layers with a 30 Guaman[place] Bougie (blunt-tipped) in place. The Bougie was [...] Glucose 102 60 - 199 CERNER mg/dL [facility] Comment: Supplemental ranges: <110 mg/dL before meals <200 mg/dL all other times of the day Specimen Anatomical Collection Method Collection Time Receive d Time (Source) Location / / Volume Laterality Blood specimen 01/22/2013 11:23 3 (specimen) AM EDT 11:23 AM EDT Candi Barboza MD POINT OF CARE TEST ORDERABLE S Performing Organization Address City/[facility]/ZIP [place] [address] CERNER MILLENNIUM POCT Glucose (01/22/2013 8:22 AM EDT) athologist Signature POC Glucose 111 60 - 199 CERNER mg/dL [facility] Comment: Supplemental ranges: <110 mg/dL before meals <200 mg/dL all other times of the day Specimen Anatomical Collection Method Collection Time Receive d Time (Source) Location / / Volume Laterality Blood specimen 01/22/2013 8:22 AM 013 8:22 (specimen) EDT AM EDT Candi Barboza MD POINT OF CARE TEST ORDERABLE S Performing Organization Address City/State/ZIP Code Phon [place] [facility] [address] CERNER MILLENNIUM (ABNORMAL) BMP [...] of Diabetes Mellitus, Position Statement from the [place] [employer]. ??Diabete s Care, Volume 33, Supplement 1, Apr 2009 BUN 14 10 - 20 mg/dL CERNER MILLENNIU M Creatinine 0.74 (L) 0.80 - 1.50 mg/dL C[facility]ER [facility] Comment: Please note that the pediatric reference intervals supplied above were not validated at [facility]. Results from pediatri c patients [...] Barboza MD CHEMISTRY ORDERABLES Performing Organization Address City/[facility] Phon e Number [address] CERNER MILLENNIUM POCT Glucose [...] CARE TEST ORDERABLE S Performing Organization Address City/[facility] Phon e Number [address] CERNER MILLENNIUM POCT Glucose [...] Organization Address City/State/ZIP Code Phon e Number [address] CERNER MILLENNIUM POCT Glucose [...] CARE TEST ORDERABLE S Performing Organization Address City/[facility]/ZIP Code Phon e Number [address] CERNER MILLENNIUM POCT Glucose [...] Organization Address City/State/ZIP Code Phon e Number [address] CERNER MILLENNIUM POCT Glucose [...] Organization Address City/State/ZIP Code Phon e Number [place] [id number] CERNER MILLENNIUM (ABNORMAL) Differential, Automated (01/21/2013 4:49 AM EDT) [facility] Method Time Signature Neutrophils % 82.2 (H) [...] Baltazar MD HEMATOLOGY ORDERABLES Performing Organization Address City/[facility]/[place] [address] CERNER MILLENNIUM Phosphorus (01/21/2013 4:49 AM EDT) P athologist Signature Phosphorus 3.2 2.5 - 4.5 CERNER mg/dL [facility] Specimen Anatomical Collection Method Collection Time Receive d Time (Source) Location / / Volume Laterality Blood specimen 01/21/2013 4:49 AM 013 4:57 (specimen) EDT AM EDT Resulting Agency Comment Spec In Lab Darci Baltazar MD CHEMISTRY ORDERABLES Performing Organization Address [facility]/ZIP Code Phon e Number [address] CERNER MILLENNIUM Magnesium (01/21/2013 4:49 AM EDT) athologist Signature Magnesium 0.70 0.69 - 1.07 CERNER mmol/L [facility] Specimen Anatomical Collection Method Collection Time Receive d Time (Source) Location / / Volume Laterality Blood specimen 01/21/2013 4:49 AM 013 4:57 (specimen) EDT AM EDT Resulting Agency Comment Spec In Lab Darci Baltazar MD CHEMISTRY ORDERABLES Performing Organization Address City/[facility]/ZIP [facility] Phon e Number [address] CERNER MILLENNIUM (ABNORMAL) Glucose, fasting (01/21/2013 4:49 AM EDT) P athologist Signature Glucose 152 (H) 65 - 99 CERNER Fasting mg/dL [facility] Comment: ?Fasting* Glucose Interpretive C riteria [...] of Diabetes Mellitus, Position Statement from the [place] [employer]. ??Diabete s Care, Volume 33, Supplement 1, Apr 2009 Specimen Anatomical Collection Method Collection Time Receive d Time (Source) Location / / Volume Laterality Blood specimen 01/21/2013 4:49 AM 013 4:57 (specimen) EDT AM EDT Resulting Agency Comment Spec In Lab Darci Baltazar MD CHEMISTRY ORDERABLES Performing Organization Address City/[facility] Phon e Number [address] CERNER MILLENNIUM Creatinine (01/21/2013 4:49 AM EDT) athologist Signature Creatinine 0.81 0.80 - 1.50 CERNER mg/dL [facility] Comment: Please note that the pediatric reference intervals supplied above were not validated at [facility]. Results from pediatri c patients [...] Baltazar MD CHEMISTRY ORDERABLES Performing Organization Address City/[facility]/ZIP [facility] [place] [address] CERNER MILLENNIUM BUN (01/21/2013 4:49 AM EDT) athologist Signature BUN 16 10 - 20 CERNER mg/dL [facility] Specimen Anatomical Collection Method Collection Time Receive d Time (Source) Location / / Volume Laterality Blood specimen 01/21/2013 4:49 AM 013 4:57 (specimen) EDT AM EDT Resulting Agency Comment Spec In Lab Darci Baltazar MD CHEMISTRY ORDERABLES Performing Organization Address City/[facility] Code Phon e Number [address] CERNER MILLENNIUM Electrolytes panel [...] Baltazar MD CHEMISTRY ORDERABLES Performing Organization Address City/[facility] Phon e Number [address] CERNER MILLENNIUM (ABNORMAL) CBC [...] MPV 10.7 9.0 - 12.0 [facility] fL [facility] Specimen Anatomical Collection Method Collection Time Receive d Time (Source) Location / / Volume Laterality Blood specimen 01/21/2013 4:49 AM 013 4:57 (specimen) EDT AM EDT Resulting Agency Comment Spec In Lab Darci Baltazar MD HEMATOLOGY ORDERABLES Performing Organization Address City/State/ZIP Code Phon e Number [address] CERNER MILLENNIUM POCT Glucose [...] Organization Address City/State/ZIP Code Phon e Number [address] CERNER MILLENNIUM POCT Glucose [...] CARE TEST ORDERABLE S Performing Organization Address City/[facility]/ZIP Code Phon e Number [address] [facility] Specimen to Pathology (surgical or derm) (01/20/2013 3:13 PM EDT) Specimen Anatomical Collection Method Collection Time Receive d Time (Source) Location / / Volume Laterality AP Specimen 01/20/2013 3:13 PM 3 3:13 EDT PM EDT Narrative CERNER [facility] - 01/20/2013 3:13 PM E DT Specimen requisition ordered. ??Separate Pathology report to follow Candi Barboza MD PATHOLOGY/CYTOLOGY ORDERABLE S Performing Organization Address City/[facility]/ZIP Code Phon e Number [address] CERNER [facility] Surgical Pathology Report (01/20/2013 3:12 PM EDT) Component Value Ref Test Analysis Performed At [facility] Range Method Time Signature Surgical CERNER Pathology ? [facility] Report ? Provider: ?? CANDI BARBOZA ? Pt. Name: ?? BRADY WORLEY ? Acc #: ?[id number] ?Pt. MRN: ?[id number] ? Col Date: ?? 3 ? /Sex: [...] Organization Address City/State/[place] [address] CERNER MILLENNIUM POCT Glucose (01/20/2013 12:35 PM EDT) athologist Signature POC Glucose 116 60 - 199 CERNER mg/dL [facility] Comment: Supplemental ranges: <110 mg/dL before meals <200 mg/dL all other times of the day Specimen Anatomical Collection Method Collection Time Receive d Time (Source) Location / / Volume Laterality Blood specimen 01/20/2013 12:35 3 (specimen) PM EDT 12:35 PM EDT Candi Barboza MD POINT OF CARE TEST ORDERABLE S Performing Organization Address City/State/[place] [address] [facility] documented in this encounter Visit Diagnoses Not [...] insulin aspart (NOVOLOG) PEN injection 1-4 Units ([facility]) 1911 (Given - Provider: Cindy Nascimento, [...] Nare, ONCE, 1 dose, Fri at 1500, Core Blower Operator recommended duration is 3 days., Day [...] Sachi Melo, MARIE) Intravenous, ONCE, 1 dose, [facility] 01/21/13 at 0900 Continuous Medication Order 01/20/2013 01/21/2013 01/22/2013 HYDROmorphone (DILAUDID) 1 mg/mL TAPPER BALANCE WHEEL SCREW HOLE 30 mL (CANCELED) 1815 (New Syringe/Cartridge - Provider: Cindy Nascimento RN) Intravenous, TAPPER BALANCE WHEEL SCREW HOLE ONLY, Starting Fri01/20/13 at 1830, Until T [...] Sachi Melo, MARIE)1326 (Stopped - Provider: Sachi Meol RN) 200 mL/hr, at 200 mL/hr, Intravenous, [...] Hiren Melo, MARIE)1204 (Given - Provider: Sachi Melo, MARIE)1604 (Given - Provider: Sachi Melo, MARIE) 10-20 mL, Oral, EVERY 4 HOURS PRN, Start ing Nicole 01/21/13 at 0958, Until Nicole 01/21/13 at 1638, Pain, Maximum dose of acetaminophen is 4000 mg from all sources in 24 hours., Routine documented in this encounter Care Teams Paper Processing Machine Helper Relationship Specialty Start Date End Date Pepe Hong DO PCP - General 03/04/[address] [place] [address] documented as of this encounter
--- OUTSIDE RECORDS SUMMARY | 2022-02-08 04:16 | XMS_ITS | Encounter Summary ---
:1975 Author Organization [facility] [place] [address] Care Team Providers Name Role Phone Robert Hong DO Primary Care Provider Encounter Details Date Type Department Care Team Description 06/06/2014 Orders Only General Surgery at [facility] Kylah Christianson, [place] [address] Social History Tobacco Use Types Packs/Day [...] on filedocumented in this encounter Care Teams Review Specialist Relationship Specialty Start Date End Date Robret Hong DO PCP - General 03/04/[address] [place], [place] [address] documented as of this encounter
--- OUTSIDE RECORDS SUMMARY | 2022-02-08 04:16 | XMS_ITS | Encounter Summary ---
:1975 [place] [address] Care Team Providers Name Role Phone Robert Hong DO Primary Care Provider Reason for Visit Reason Comments Hernia Encounter Details Date Type Department Care Team Description 12/16/2013 Follow-Up General Surgery at Irina Barboza MD Umbilical hernia [facility] (Primary Dx) [facility] [address] [place] [address] [place] [address] [phone] (Wo rk) Social History Tobacco Use Types [...] gangrene documented in this encounter Care Teams Prison Warden Relationship Specialty Start Date End Date Robert Hong DO PCP - General 03/04/[address] [place] [address] documented as of this encounter
--- OUTSIDE RECORDS SUMMARY | 2022-02-08 04:16 | XMS_ITS | Encounter Summary ---
:1975 [place] [address] Care Team Providers Name Role Phone Robert Hong DO Primary Care Provider Encounter Details Date Type Department Care Team Description 01/20/2013 Anesthesia Event Main Operating Room Thanh Murray MD [facility] [place] [place] [address] [facility] Chandrika Sloan MD [facility] [place] [address] [place] [address] Anesthesia Record Procedure Summary Procedure Name [...] Assessment: Rhythm: regular Pulmonary Assessment: Dental Assessment: [facility] Assessment: IV access: Peripheral line Anesthesia Plan: ASA 3 general, with a(n) intravenous induction Morbidly obese (BMI 65) 37 y/o male with HTN, DM, GERD, gout, peripheral edema, LVG presents for laparoscopic gastroplasty. Plan GETA +/- arterial line. Region - Other Informed Consent: Anesthetic plan and risks discussed with patient. Plan discussed with DRY CHARGE PROCESS ATTENDANT. [facility]. Assessment: documented in this encounter Miscellaneous Notes [...] ONCE, 1 dose, On Fri01/20/13 at 1500, Umbrella Frame Maker recommended duration is 3 days., Day of [...] mg documented in this encounter Care Teams Zoology Professor Relationship Specialty Start Date End Date Robert Hong DO PCP - General 03/04/[address] [place] [address] [address] [place] [address] documented as of this encounter
--- OUTSIDE RECORDS SUMMARY | 2022-02-08 04:16 | XMS_ITS | Encounter Summary ---
:1975 Author Organization [place] [address] Care Team Providers Name Role Phone HalRobert Primary Care Provider Reason for Visit Reason Comments Follow Up Surgery Encounter Details Date Type Department Care Team Description 02/11/2013 Office Visit General Surgery at [facility], Andree Lyman obesity [facility] (Primary Dx) [facility] GENERAL SURGERY [address] [place] [address] [phone] Social History Tobacco Use Types Packs/Day Years [...] First Post-operative Follow up visit Contact information: [facility] Admin coordinator Michelle: [phone] Dietitian: [phone] Surgeons/ nurse practitioner: [phone] Nurse line: [phone] Your excess body weight lost: 26.9% Next [...] of every month from 1-2 PM at [facility] Internet resources: www.Fitday.BioArray www.CuroverseDailyCuciniale.BioArray Www.TheRank By SearchorldAccordingtoEggFace.BioArray Www.choosemyplate.gov www.DealerTracknessPal.BioArray Books: - Recipes for Life after Weight [...] Primary documented in this encounter Care Teams Caul Fat Puller Relationship Specialty Start Date End Date Robert Hong DO PCP - General 03/04/[address] [place] [address] documented as of this encounter
--- OUTSIDE RECORDS SUMMARY | 2022-02-08 04:16 | XMS_ITS | Encounter Summary ---
:1975 [place] [address] Care Team Providers Name Role Phone HalRobert pham Primary Care Provider Reason for Visit Reason Comments Advice Only panni consult Encounter Details Date Type Department Care Team Description 03/03/2014 [facility] Umbilical hernia [facility] DR Chris PLASTIC SURGERY [place] [address] [phone] Social History Tobacco Use Types Packs/Day Years [...] aspirin products (unless otherwise advised by patient's PCP/Staff Anesthesiologist for cardiac symptoms), fish oil, Vitamin E [...] questions or concerns prior to surgery. Darwin Fostre MD - 03/03/2014 3:17 PM EST Plastic [...] possibilities. He has been provided with the [facility] patient informationbrochure as well as their standard [...] Gallegos for hernia repair Procedure: Panniculectomy CPT: 03253 Surgical site: Abdomen Side: N/a Anesthesia: General [...] gangrene documented in this encounter Care Teams Time Study Clerk Relationship Specialty Start Date End Date Robert Lyn DO PCP - General 03/04/[address] [place] [address] documented as of this encounter
--- OUTSIDE RECORDS SUMMARY | 2022-02-08 04:16 | XMS_ITS | Encounter Summary ---
:1975 [place] [address] Care Team Providers Name Role Phone Robert Hong DO Primary Care Provider Encounter Details Date Type Department Care Team Description 01/26/2013 Telephone General Surgery at [facility] Jose Guadalupe Santos MD [facility] [place] [address] GENERAL SURGERY [phone] [place], [place] [address] (Wo rk) Social History Tobacco Use Types Packs/Day Years Used Date Never Smoker Alcohol Use Standard Drinks/Week Comments No 0 (1 standard drink = 0.6 oz pure alcoho l) Sex Assigned at Date Recorded Not on file documented as of this encounter Miscellaneous Notes Telephone Encounter - Jose Guadalupe Santos MD - 01/26/2013 1:28 AM EDT called from [facility]. Discharged Friday following gastric bypass with Dr. Gallegos. Acute onset pain under his ribcage on the right (11:30pm), Sharp knife under the right ribs, worsewith deep breath, Didn't take any pain medication. No fevers, chills, tolerating diet, BM today. Was being evaluated at [facility], so told to await further investigation. documented in this encounter Plan of Treatment Not on filedocumented as of this encounter Visit Diagnoses Not on filedocumented in this encounter Care Teams Beauty Shop Manager Relationship Specialty Start Date End Date Robert Hong DO PCP - General 03/04/[address] [place] [address] documented as of this encounter
--- OUTSIDE RECORDS SUMMARY | 2022-02-08 04:16 | XMS_ITS | Encounter Summary ---
:1975 Author Organization [facility] Address [address] [place] [address] Care Team Providers Name Role Phone Robert Hong DO Primary Care Provider Reason for Visit Reason Comments Follow-up Bariatric Surgery Program 4 month post operative check Encounter Details Date Type Department Care Team Description 05/27/2013 Follow-Up General Surgery at [facility] Type 2 diabetes mellitus; [facility] T, TAPPER HAND Disorder of iron metabolism; [facility] Sta tus post bariatric surgery; Drive Intestinal malabsorption; [place], [place] GENERAL SURGERY Hypertension; [id number] [place] [address] Obstructive sleep apnea (adult) (pediatr ic); [phone] Vitamin D defic iency; (Work) Screening for [...] victor, RD - 05/26/2013 12:[address] [facility] Admin coordinator Michelle: [phone] Dietitian: [phone] Surgeons/ nurse practitioner: [phone] Nurse line: [phone] Your excess body weight lost: 40.7%- great job Monitor your blood pressure My D-H Using Formotus you will be able to send messages to your providers, view your test results, renew prescriptions, schedule appointments, and much more. Follow these instructions to enter your personal Formot[employer] account for the first time: 1. Start your internet browser. Go to www.NextGen Platform and click on the Formotus link. 2. Click SIGN UP NOW to go to the NEW MEMBER SIGN UP page. Testing: Labwork: Today. Go to Detail Technician Area 3L, which is 1 flight [...] of every month from 1-2 PM at [facility] Back on Track group visits are held monthly Internet resources: www.Wysada.com www.gamesGRABR www.Movable Www.RIWI (dede Goyal) [email or web address]/[email or web address] NORMANBariatricSurgery Books & Magazines: - Recipes for Life [...] surgery, denies snoring, etc returned machine to [facility]. No Sleep Center follow up A. PSG [...] If labwork is done by the primary pharmacist critical care: please senda copy to the Bariatric Surgery Program, General Surgery Clinic, [facility], attention Abbey Crandall APRN. Plastic Surgery Clinic evaluation for skin redundancy: done no sooner than 18 months post-operatively when weight loss has been stable for a few months. In general, patients with a BMI >30-35 are not considered candidates due to increased risk of complications unless there are compelling health concerns. Questions regarding [facility] Bariatric Surgery Program patients: please call Kaushik Crandall APRN at [phone] or [phone] beeper [phone]. A Mai Gisella Fong, RD - 05/26/2013 [...] 500mcg daily Iron n/a Vitamin D Rx 18469 IU weekly Daily Oral Intake: Breakfast 7-7:30am: [...] agreeable to increasing calories to goal of 6823-6777 calories per day, ideally closerto 1200 per [...] Gallegos MD CHEMISTRY ORDERABLES Performing Organization Address [facility] Phon e Number [address] CERNER MILLENNIUM Folate, serum (05/27/2013 11:43 AM EST) P athologist Signature Folate Lvl >20.0 4.6 - 34.8 CERNER ng/mL [facility]ILLENNIUM Specimen Anatomical Collection Method Collection Time Receive d Time (Source) Location / / Volume Laterality Blood specimen 05/27/2013 11:43 4 (specimen) AM EST 11:50 AM EST Resulting Agency Comment Spec In Lab Candi Gallegos MD CHEMISTRY ORDERABLES Performing Organization Address City/[facility]/[place] [address] CERNER MILLENNIUM (ABNORMAL) Vitamin [...] Gallegos MD CHEMISTRY ORDERABLES Performing Organization Address [facility] [place] [address] CERNER MILLENNIUM Vitamin B1, whole blood (05/27/2013 11:43 AM EST) athologist Signature Vit B1 Lvl WB 135 70 - 180 CERNER nmol/L [facility] Comment: Test Performed by: [email or web address] [address] Geriatric Case Manager: Philomena Garcia, Ph. D. Specimen Anatomical Collection Method Collection Time Receive d Time (Source) Location / / Volume Laterality Blood specimen 05/27/2013 11:43 4 1:39 (specimen) AM EST PM EST Resulting Agency Comment Spec In Lab Candi Gallegos MD CHEMISTRY ORDERABLES Performing Organization Address City/[facility]/ZIP Code Phon e Number [address] CERNER MILLENNIUM VIT D Total Evaluation (05/27/2013 11:43 AM EST) athologist Signature 25-OH Vit D 36 30 - 100 CERNER Total ng/mL [facility] Comment: Deficient <10 ng/mL Insufficient 10 [...] Organization Address City/State/ZIP Code Phon e Number [address] CERNER MILLENNIUM PTH (05/27/2013 11:43 AM EST) athologist Signature PTH 63 15 - 65 CERNER pg/mL [facility]NI[facility] Specimen Anatomical Collection Method Collection Time Receive d Time (Source) Location / / Volume Laterality Blood specimen 05/27/2013 11:43 4 (specimen) AM EST 11:50 AM EST Resulting Agency Comment Spec In Lab Canid Gallegos MD CHEMISTRY ORDERABLES Performing Organization Address [facility]ZIP Code Phon e Number [address] CERNER MILLENNIUM Ferritin (05/27/2013 11:43 AM EST) athologist Signature Ferritin 79 30 - 400 CERNER ng/mL [facility] Comment: Pediatric reference ranges not verified at [facility], interpret with caution. Reference ranges for females greater aram n 50 years of age approach values for men, i.e., 30-400 ng/mL. Specimen Anatomical Collection Method Collection Time Receive d Time (Source) Location / / Volume Laterality Blood specimen 05/27/2013 11:43 4 (specimen) AM EST 11:50 AM EST Resulting Agency Comment Spec In Lab Candi Gallegos MD CHEMISTRY ORDERABLES Performing Organization Address [facility]/ZIP Code Phon e Number [address] CERNER MILLENNIUM Iron and [...] Gallegos MD CHEMISTRY ORDERABLES Performing Organization Address [facility]/[place] [address] CERNER MILLENNIUM Hemoglobin A1c (05/27/2013 11:43 AM EST) athologist Signature Hemoglobin A1C 5.4 <=5.6 % [facility] Comment: As of 2013 the methodology [...] 1, S67-74 Est Avg Gluc 108 mg/dL [facility] Comment: eAG equivalents for HbA1c percentages: [...] into estimated average glucose values. ??Diabetes Care 2008:31(8):7413-6311. Specimen Anatomical Collection Method Collection Time Receive d Time (Source) Location / / Volume Laterality Blood specimen 05/27/2013 11:43 4 (specimen) AM EST 11:50 AM EST Resulting Agency Comment Spec In Lab Candi Gallegos MD CHEMISTRY ORDERABLES Performing Organization Address [facility]/ZIP Code Phon e Number [address] CERNER MILLENNIUM (ABNORMAL) Prealbumin [...] Gallegos MD CHEMISTRY ORDERABLES Performing Organization Address [facility]/ZIP Code Phon e Number [address] CERNER MILLENNIUM Comprehensive metabolic panel (non-fasting) (05/27/2013 11:43 AM EST) athologist Signature Glucose Lvl 99 60 - 199 CERNER mg/dL [facility] Comment: Diabetes: >=200 mg/dL plus symp toms BUN 11 10 - 20 mg/dL CERNER MILLENNIU M Creatinine 0.88 0.80 - 1.50 mg/dL CERNER [facility]ILL ENNI[facility] Comment: Please note that the pediatric reference intervals supplied above were not validated at [facility]. Results from pediatri c patients should be [...] Organization Address City/State/[place] [address] CERNER MILLENNIUM (ABNORMAL) Hemogram [...] Organization Address City/State/ZIP Code Phon e Number [place] [phone] [facility] documented in this encounter Visit Diagnoses [...] malnutrition documented in this encounter Care Teams Manager Appointment Relationship Specialty Start Date End Date Robert Hong DO PCP - General 03/04/[address] [place] [address] documented as of this encounter
--- OUTSIDE RECORDS SUMMARY | 2022-02-08 04:16 | XMS_ITS | Encounter Summary ---
:1975 [place] [address] Care Team Providers Name Role Phone HalRobert Primary Care Provider Encounter Details Date Type Department Care Team Description 06/02/2014 Hospital Encounter Same Day Program at [facility], Jurgen matthew Lobo MD [facility] [place] [address] [place] [address] [phone] Social History Tobacco Use Types Packs/Day Years [...] may be used if needed and are xosc-mrf-otatofs (OTC) medications available at most local pharmacies. Prunes or prune juice, taken daily, can also be helpful for constipation treatment or pr evention and are available at most [employer]. Driving Restrictions*: - No driving if you [...] with the General Surgery Outpatient Clinic - [address] in 2-4 weeks. You will recieve a letter in the mail and/or a phone call with information about this appointment. Please call [phone] (clinic number for appointments) to confirm date and time of your appointment, or if you do not receive information about your appointment in a timely manner. Your surgeon may not be [employer], especially during the night or on weekends, [...] mg-unit Tablet (2) tabs 2 times daily. [id number] Take 1 tablet by 180 tablet 3 [...] Barboza MD - 06/02/2014 5:50 PM EST [facility] Operative Note Patient Name: Brady Billings : [id number] MR#: [id number] Case Date: 06/02/2014 Surgeon: Surgeon(s) and Role: [...] fascial edges were then reapproximated with a [id number] #1 Prolene suture. The stalk was tacked [...] Routine documented in this encounter Care Teams Presser All Around Relationship Specialty Start Date End Date Robert Lyn DO PCP - General 03/04/[address] [place] [address] documented as of this encounter
--- OUTSIDE RECORDS SUMMARY | 2022-02-08 04:16 | XMS_ITS | Encounter Summary ---
:1975 [place] [address] Care Team Providers Name Role Phone HalPepe Primary Care Provider Encounter Details Date Type Department Care Team Description 01/20/2013 - Hospital Encounter 4 [facility] JabariCandi, 01/22/[address] [facility] [address] [place] GENERAL SURGERY [id number] [place] [address] [phone] Social History Tobacco Use Types Packs/Day Years [...] EDT BARIATRIC SURGERY DISCHARGE INFORMATION CONTACT INFORMATION: [phone] Surgeons: Dr. Barboza [phone] Gambling Floor Supervisor: [phone] (Friday through Friday, 8:00 AM -5:00 PM) Dietitian: [phone] Non-business hours: [phone], ask for general surgeon family intervention specialist FOR EMERGENCIES: CALL 911 (trouble breathing, chest [...] had open gastric bypass and have layne: [place] should be removed 10 - 12 days after surgery. This can be done at [facility] or via Primary Care Provider (PCP). Do [...] 200 on more than 3 rechecks, call [facility] or diabetic specialist for specific [...] Follow up with primary care doctor or security systems specialist in 1-2 weeks. Bring meter to [...] documented as of this encounter Progress Notes Angeilna Mcdaniel RN - 01/22/2013 1:33 PM EDT [...] Office of Care Management (OCM) / Clinical Clinical Science Consultant (CRC)/ Initial Assessment Discussed patient with Provider Team and in multidisciplinary discharge-planning rounds. Reviewed record and interviewed patient. Introduced/reviewed CRC role and services accepted. REASON for HOSPITALIZATION: Gastroplasty IVF boluses for low urine output IVF 200cc/hr PMH See admit H&P PREVIOUS FUNCTIONAL STATUS: independent CURRENT FUNCTIONAL STATUS:independent - walking around [place] SOCIAL / FAMILY SUPPORTS:Lives with Tiff in [place], [place] ADVANCE DIRECTIVES: none on file HEALTH /PRESCRIPTION COVERAGE:[facility] CURRENT HOME/COMMUNITY SERVICES/EQUIPMENT: DME:CPAP Home Health Agency: Other: ASSEMBLER ADJUSTER REFERRAL: Available if needed PRIMARY CARE PHYSICIAN: PEPE HONG DO [address] / [facility] [address] POTENTIAL DISCHARGE NEEDS: Lovenox injections - patient successfully self injected this morning and feels good about managing that at home. Patient's pharmacy of choice does not have Lovenox 40mg or roxicet liquid. Patient prefers to use the [facility] outpatient pharmacy at discharge. PATIENT/FAMILY EDUCATION NEEDS:lovenox injections ANTICIPATED BARRIERS TO DISCHARGE:none expected TRANSPORTATION @ D/C: family available PLAN: Home with support of family. notified of patient's choice of [facility] outpatient pharmacy for d/c scripts. CRC will continue to monitor progress, follow for continuity of care and assist with discharge planning while hospitalized. Miranda Carr RN, BSN covering CRC Sujata Potter pager [phone]. . Wanda Lea MD - 01/21/2013 5:49 [...] hours No results found for this basename: PHART:3,JSZ2VCR:3,PO2ART:3,WRU9KWR:3 in the last 168 hours IMAGING: ASSESSMENT / PLAN: Brady Billings is a 37 y.o. male s/p katie en y gastric bypass with the following active issues: Active Issue Treatment Oligura Pain Conrol Post Gastric bypass diet changes Increased infusion rate, Bolus IVF MELTER CLERK Bariatric program, bariatric diets Neuro Pain is well-controlled on Dilaudid MELTER CLERK. Transition to orals Activity Activity as tolerated, [...] on abdomen. Patient rates pain 9/10, using MELTER CLERK with reported relief. Patient resting in naps. [...] Note Patient: Brady Billings s/p Surgery: 01/20/2013 [id number] Procedure(s) (LRB): @LAPAROSCOPIC GASTROPLASTY, (N/A) LAPAROSCOPIC LIVER [...] stable. - continue all post-operative care - MELTER CLERK for pain. WANDA LEIJA MD 01/20/2013 6:21 [...] through dieting have been unsuccessful over the joint terminal attack controller. The team Advised patient that bariatric surgery [...] are the prescriptions that you need to roller picker. We sent them to a specific pharmacy, so you will need to go there to get them. [facility] [place] [address] enoxaparin 40 mg/0.4 mL Syrg injection furosemide [...] Provider Department Center 02/11/2013 3:30 PM Bariatric, Turbine Operator [facility] 02/11/2013 4:00 PM Candi Barboza MD [facility] [address] [place] [address] Outpatient Services/Studies: No discharge procedures on file. Instructions Given to Patient at Discharge:. An After Visit Summary was printed and given to the patient. Provider Instructions BARIATRIC SURGERY DISCHARGE INFORMATION CONTACT INFORMATION: [phone] Surgeons: Dr. Barboza [phone] Gambling Floor Supervisor: [phone] (Friday through Friday, 8:00 AM -5:00 PM) Dietitian: [phone] Non-business hours: [phone], ask for general surgeon family intervention specialist FOR EMERGENCIES: CALL 911 (trouble breathing, chest [...] had open gastric bypass and have layne: [place] should be removed 10 - 12 days after surgery. This can be done at [facility] or via Primary Care Provider (PCP). Do [...] 200 on more than 3 rechecks, [facility] or diabetic specialist for specific [...] Follow up with primary care doctor or security systems specialist in 1-2 weeks. Bring meter to [...] Contact Information: Divison of General Surgery ??? [facility] ??? [address] ??? [place] [address] ??? [phone] ??? ~~~~~~~~~~~~~~~~~~~~~~~~~~~~~~~~~~~~~~~~~~~~~~~~~~~~~~~~~~~~~~~~~~~ Signed: WANDA LEIJA MD 01/22/2013 [...] in bed. Plan of Care - Sachi eMlo RN - 01/21/2013 3:37 PM EDT Problem: Pain, Acute (Adult, Obstetric) Goal: Acute Pain: Acceptable Pain Control/Comfort Level - Pain, Acute (Adult, Obstetric) Patient transitioned onto oral pain medications and MELTER CLERK discontinued; states tolerable level of comfort this [...] met Patient reports adequate pain control with MELTER CLERK and Toradol. Patient slept fair. Turns self [...] Barboza MD - 01/20/2013 5:17 PM EDT [facility] Operative Note Patient Name: Brady Billings : [id number] MR#: [id number] Case Date: 01/20/2013 Surgeon: Surgeon(s) and Role: [...] position. The abdomen was entered using the Invenshure trocar system. The 10-mm port was placed [...] distal bowel was chosen to create the bttj-mx-kaap jejunojejunostomy. The duodenal, afferent limb was approximated [...] suture in two layers with a 30 Urdu Bougie (blunt-tipped) in place. The Bougie was [...] Organization Address City/State/[place] [address] CERNER MILLENNIUM POCT Glucose [...] Organization Address City/State/[place] [address] CERNER MILLENNIUM (ABNORMAL) BMP [...] of Diabetes Mellitus, Position Statement from the [place] [employer]. ??Diabete s Care, Volume 33, Supplement 1, Apr 2009 BUN 14 10 - 20 mg/dL CERNER MILLENNIU M Creatinine 0.74 (L) 0.80 - 1.50 mg/dL CERNER MILL ENNIUM Comment: Please note that the pediatric reference intervals supplied above were not validated at [facility]. Results from pediatri c [...] Barboza MD CHEMISTRY ORDERABLES Performing Organization Address City/[facility] Care [facility]/ZIP Code Phon e Number [address] CERNER MILLENNIUM POCT Glucose [...] Organization Address City/State/ZIP Code Phon e Number [address] CERNER MILLENNIUM POCT Glucose [...] Organization Address City/State/[place] [address] CERNER MILLENNIUM POCT Glucose [...] PM 013 4:31 (specimen) EDT PM EDT Cadni Barboza MD POINT OF CARE TEST ORDERABLE S Performing Organization Address City/[facility]/ZIP Code Phon e Number [address] CERNER MILLENNIUM POCT Glucose [...] CARE TEST ORDERABLE S Performing Organization Address City/[facility]/[place] [address] CERNER MILLENNIUM POCT Glucose [...] Organization Address City/State/[place] [address] CERNER MILLENNIUM (ABNORMAL) Differential, Automated (01/21/2013 4:49 AM EDT) [facility] Method Time Signature Neutrophils % 82.2 [...] Organization Address City/State/[place] [address] CERNER MILLENNIUM Phosphorus (01/21/2013 4:49 AM EDT) athologist Signature Phosphorus 3.2 2.5 - 4.5 CERNER mg/dL [facility] Specimen Anatomical Collection Method Collection Time Receive d Time (Source) Location / / Volume Laterality Blood specimen 01/21/2013 4:49 AM 013 4:57 (specimen) EDT AM EDT Resulting Agency Comment Spec In Lab Darci Baltazar MD CHEMISTRY ORDERABLES Performing Organization Address City/[facility]/ZIP Code Phon e Number [address] CERNER MILLENNIUM Magnesium (01/21/2013 4:49 AM EDT) athologist Signature Magnesium 0.70 0.69 - 1.07 CERNER mmol/L [facility] Specimen Anatomical Collection Method Collection Time Receive d Time (Source) Location / / Volume Laterality Blood specimen 01/21/2013 4:49 AM 013 4:57 (specimen) EDT AM EDT Resulting Agency Comment Spec In Lab Darci Baltazar MD CHEMISTRY ORDERABLES Performing Organization Address City/[facility]/ZIP Code Phon e Number [address] [facility] (ABNORMAL) Glucose, fasting (01/21/2013 4:49 AM EDT) athologist Signature Glucose 152 (H) 65 - 99 CERNER Fasting mg/dL [facility] Comment: ?Fasting* Glucose Interpretive C riteria Normal [...] of Diabetes Mellitus, Position Statement from the [place] Diabetes Association. ??Diabete s Care, Volume 33, Supplement 1, Apr 2009 Specimen Anatomical Collection Method Collection Time Receive d Time (Source) Location / / Volume Laterality Blood specimen 01/21/2013 4:49 AM 013 4:57 (specimen) EDT AM EDT Resulting Agency Comment Spec In Lab Darci Baltazar MD CHEMISTRY ORDERABLES Performing Organization Address City/[facility] Phon e Number [address] CERNER MILLENNIUM Creatinine (01/21/2013 4:49 AM EDT) [facility] Signature Creatinine 0.81 0.80 - 1.50 CERNER mg/dL MILLENNIUM Comment: Please note that the pediatric reference intervals supplied above were not validated at [facility]. Results from pediatri c [...] Baltazar MD CHEMISTRY ORDERABLES Performing Organization Address City/[facility] [place] [address] CERNER MILLENNIUM BUN (01/21/2013 4:49 AM EDT) athologist Signature BUN 16 10 - 20 CERNER mg/dL MILLENNIUM Specimen Anatomical Collection Method Collection Time Receive d Time (Source) Location / / Volume Laterality Blood specimen 01/21/2013 4:49 AM 013 4:57 (specimen) EDT AM EDT Resulting Agency Comment Spec In Lab Darci Baltazar MD CHEMISTRY ORDERABLES Performing Organization Address [facility]/[place] [address] CERNER MILLENNIUM Electrolytes panel [...] Baltazar MD CHEMISTRY ORDERABLES Performing Organization Address City/[facility]/[place] [address] CERNER MILLENNIUM (ABNORMAL) CBC [...] Baltazar MD HEMATOLOGY ORDERABLES Performing Organization Address City/[facility]/ZIP Code Phon e Number [address] CERNER MILLENNIUM POCT Glucose [...] CARE TEST ORDERABLE S Performing Organization Address City/[facility]/ZIP Code Phon e Number [address] CERNER MILLENNIUM POCT Glucose [...] Organization Address City/State/ZIP Code Phon e Number [address] [facility] Specimen to Pathology (surgical or derm) (01/20/2013 3:13 PM EDT) Specimen Anatomical Collection Method Collection Time Receive d Time (Source) Location / / Volume Laterality AP Specimen 01/20/2013 3:13 PM 3 3:13 EDT PM EDT Narrative CERNER MILLENNIUM - 01/20/2013 3:13 PM E DT Specimen requisition ordered. ??Separate Pathology report to follow Candi Barboza MD PATHOLOGY/CYTOLOGY ORDERABLE S Performing Organization Address City/[facility]/[place] [address] [facility] Surgical Pathology Report (01/20/2013 3:12 PM EDT) Component Value Ref Test Analysis Performed At [facility] gist Range Method Time Signature Surgical CERNER Pathology ? Formerly named [facility] Report ? Provider: ?? JABARI, CANDI Lobo ? Pt. Name: ?? BRADY WORLEY ? Acc #: ?[id number] ?Pt. MRN: ?[id number] ? Col Date: ?? 3 ? /Sex: [...] Organization Address City/State/[place] [address] CERNER MILLENNIUM POCT Glucose (01/20/2013 12:35 PM EDT) athologist Signature POC Glucose 116 60 - 199 CERNER mg/dL [facility] Comment: Supplemental ranges: <110 mg/dL before meals <200 mg/dL all other times of the day Specimen Anatomical Collection Method Collection Time Receive d Time (Source) Location / / Volume Laterality Blood specimen 01/20/2013 12:35 3 (specimen) PM EDT 12:35 PM EDT Candi Barboza MD POINT OF CARE TEST ORDERABLE S Performing Organization Address City/State/ZIP Code Phon e Number [place] [id number] TALHA BAY documented in [...] New Syringe/Cartridge 01/20/2013 6:1 5 PM EDT MELTER CLERK 30 mL Intravenous, MELTER CLERK ONLY, Starting on Fri01/20/13 at 1830, Until [...] 40 mg (CANCELED) 1000 (Given - Provider: aSchi Melo RN) 0900 (Given - Provider: Michelle [...] Nare, ONCE, 1 dose, Fri at 1500, Chartered Wealth Manager recommended duration is 3 days., Day of [...] 01/20/2013 01/21/2013 01/22/2013 HYDROmorphone (DILAUDID) 1 mg/mL MELTER CLERK 30 mL (CANCELED) 1815 (New Syringe/Cartridge - Provider: Cindy Nascimento, MARIE) Intravenous, MELTER CLERK ONLY, Starting Fri01/20/13 at 1830, Until T [...] (CANCELED) 1815 (New Bag - P rovider: Cidny Nascimento, MARIE)2230 (Rate/Dose Change - Provider: Elinor [...] Provider: Love Good RN)2040 (Given - Provider: Love Good RN) 0.2-0.4 [...] Routine documented in this encounter Care Teams Thoracic Medicine Specialist Relationship Specialty Start Date End Date Pepe Hong DO PCP - General 03/04/[address] [place] [address] [address] [place] [address] documented as of this encounter
--- OUTSIDE RECORDS SUMMARY | 2022-02-08 04:16 | XMS_ITS | Encounter Summary ---
:1975 Author Organization [place] [id number] Care Team Providers Name Role Phone HalRobert Primary Care Provider Encounter Details Date Type Department Care Team Description 06/02/2014 Surgery Main Operating Room Ori Barboza MD [facility]; [facility] AGE 5 OR OVER ([facility], [place]) GENERAL SURGE RY 6.59) [place] [id number] [place] [phone] Social History Tobacco Use Types Packs/Day Years [...] may be used if needed and are sjfi-sls-vivwyxj (OTC) medications available at most local pharmacies. [...] with the General Surgery Outpatient Clinic - [address] in 2-4 weeks. You will recieve a letter in the mail and/or a phone call with information about this appointment. Please call [phone] (clinic number for appointments) to confirm date and time of your appointment, or if you do not receive information about your appointment in a timely manner. Your surgeon may not be Tarp Repairer, especially during the night or on weekends, [...] mg-unit Tablet (2) tabs 2 times daily. uwuawdpluziz-wram-yyznct Take 1 tablet by 180 tablet 3 [...] Barboza MD - 06/02/2014 5:50 PM EST [facility] Operative Note Patient Name: Brady Billings : [id number] MR#: [id number] Case Date: 06/02/2014 Surgeon: Surgeon(s) and Role: [...] fascial edges were then reapproximated with a [id number] #1 Prolene suture. The stalk was tacked [...] Routine documented in this encounter Care Teams Mother Repairer Relationship Specialty Start Date End Date Robert Lyn DO PCP - General 03/04/[address] [place] [address] documented as of this encounter
--- OUTSIDE RECORDS SUMMARY | 2022-02-08 04:16 | XMS_ITS | Encounter Summary ---
:1975 Author Organization [facility] Address [address] [place] [address] Care Team Providers Name Role Phone HalRobert Primary Care Provider Reason for Visit Reason Comments Morbid Obesity Bariatric Surgery Program pr eoperative visit #2 Encounter Details Date Type Department Care Team Description 12/03/2012 Office Visit General Surgery at Abbey Crandall (Primary Dx); [facility] T, TELEVISION PARTS TESTER Morbid obesity; [facility] Hyp ertension; [facility] Type 2 diabetes mellitus; [place], [place] GENERAL SURGERY Venous stasis; [id number] [place] [address] Vitamin D deficiency [phone] Social History Tobacco Use Types Packs/Day Years [...] BARIATRIC SURGERY PROGRAM SECOND VISIT Contact information: [facility] Admin coordinator Michelle: [phone] Dietitian: [phone] Surgeons/ nurse practitioner: [phone] Nurse line: [phone] 1. Pending information: have labwork done today- medical reception area 3L (1 flight below our clinic) [...] not ask for an estimate. Only the [facility] can provide you with a date AFTER APPROVAL by your insurer. Some insurers, such as [employer] and [employer], approve quickly so you can likely get the OR date on the day you have a surgeon visit Pre-op Class: Michelle will schedule, pending your OR date. Prepare for the Pre-op Class by doing the followin. Review the program handbook and come to class with a list of questions. 2. Watch the videos on shopping, meal planning and emotional eating on the [facility] website under Bariatric Surgery ([email or web address]). 3. Go to DataPad and review the education materials ([email or web address]). 4. Come prepared to the class to [...] be crushed (if permitted by the drug switch cleaner) or taken in liquid form for TWO [...] through dieting have been unsuccessful over the machine long goods helper. Advised patient that bariatric surgery is a [...] He has attended a Introduction to the [facility] Bariatric Surgery Program seminar, a comprehensive two hour meeting that provides a program overview, education on bariatric surgeries offered at [facility], risks and benefits, as well as patient expectations and follow up, in December 2011. [facility] Bariatric Surgery Program Educational seminars viewed: 3, in February 2012. Grades on post-testin-100% The BSP Educational Handbook is provided at visit #1. 2. Pre-operative programmatic evaluations: PCP evaluation and letter of support to proceed with surgery, BSP labwork and psychological evaluation. Also- cardiology, rehab medicine consults 3. Bariatric Surgery Program evaluations with RD and FINISHED GOODS INSPECTOR: 10/01 and 10/26/12 and today. 4. Weight [...] 2 hour class taught by the Bariatric FINISHED GOODS INSPECTOR and RD will be scheduled ?? During [...] initial visit: He is checking glucose daily, [id number] , ~150 after meals. Toprol was doubled with improvement in his blood pressure. Overall changes to comorbidities are noted in Updated Problem list. Review of plans for post-operative support after discharge: girlfriend Tiff and Uncle Guero Exam: Blood pressure 146/97, pulse 107, height 190.5 cm (6' 3), weight 217.999 kg (480 lb 9.6 oz). Discussion of bariatric surgeries performed at [facility], risks and benefits, and the [facility] Bariatric Surgery Program requirements: The risks of immediate and machine long goods helper complications as well as the benefits of [...] again emphasized. The need for commitment to jail lifestyle changes, with healthy diet and regular physicalactivity was stressed to achieve and sustain jail weight loss. Benefits of bariatric surgery discussed: [...] Billings has met the requirements of the [facility] Bariatric Surgery Program, and has an appointment today for surgical consultation. He was encouraged to call with any questions or concerns. Data reviewed: Visit #2 questionnaire labwork Cardiology, rehab medicine visits Information reviewed with patient: 1. [facility] Bariatric Surgery Program Educational Handbook, bariatric surgery patient agreement and risks and benefits of gastric bypass, sleeve gastrectomy and adjustable gastric banding surgery reviewed in detail. Pending/ other: - Copy of recent sleep center follow up - Ongoing weight loss encouraged Time spent in counseling: Individual planning and coordination of care: 5 minutes Group counselin minutes Questions regarding [facility] Bariatric Surgery Program patients: please call Kaushik Crandall APRN at [phone] or [phone] beeper [phone]. documented in this encounter Plan of Treatment [...] Gallegos MD CHEMISTRY ORDERABLES Performing Organization Address City/[facility]/ZIP Code Phon e Number [address] CERNER MILLENNIUM TSH (12/03/2012 4:21 PM EDT) athologist Signature TSH 4.08 0.27 - 4.20 CERNER mcIU/mL MILLENNIUM Specimen Anatomical Collection Method Collection Time Receive d Time (Source) Location / / Volume Laterality Blood specimen 12/03/2012 4:21 PM 013 4:30 (specimen) EDT PM EDT Resulting Agency Comment Spec In Lab Candi Gallegos MD CHEMISTRY ORDERABLES Performing Organization Address City/[facility]/ZIP [facility] [place] [address] CERNER MILLENNIUM (ABNORMAL) Hemoglobin A1c (12/03/2012 4:21 PM EDT) Analysis Performed At [facility] Time Signature Hemoglobin A1C 6.7 (H) 4.3 - 6.1 CERNER % MILLENNIUM Comment: The [place] Diabetes Association (ADA) has stated that HbA1c [...] into estimated average glucose values. ??Diabetes Care 2008:31(8):7381-6576. Specimen Anatomical Collection Method Collection Time Receive d Time (Source) Location / / Volume Laterality Blood specimen 12/03/2012 4:21 PM 013 4:30 (specimen) EDT PM EDT Resulting Agency Comment Spec In Lab Candi Gallegos MD CHEMISTRY ORDERABLES Performing Organization Address City/State/[place] [address] CERNER MILLENNIUM (ABNORMAL) Comprehensive [...] intervals supplied above were not validated at [facility]. Results from pediatri c patients should be [...] Organization Address City/State/ZIP Code Phon e Number [place] [id number] CERNER MILLENNIUM (ABNORMAL) Hemogram [...] 46.5 (H) 35.0 - CERNER 46.0 fL [facility] RDWCV 13.7 10.9 - CERNER 14.4 % [facility] MPV 11.1 9.0 - 12.0 CERNER [facility] Specimen Anatomical Collection Method Collection Time Receive d Time (Source) Location / / Volume Laterality Blood specimen 12/03/2012 4:21 PM 013 4:30 (specimen) EDT PM EDT Resulting Agency Comment Spec In Lab Candi Gallegos MD HEMATOLOGY ORDERABLES Performing Organization Address City/State/[place] [address] [facility] documented in this encounter Visit Diagnoses Diagnosis TSH elevation - Primary Other abnormal blood chemistry Morbid obesity Hypertension Unspecified essential hypertension Type 2 diabetes mellitus Type II or unspecified type diabetes ra litus without mention of complication, not stated as uncontrolled Venous stasis Unspecified venous (peripheral) insuffic iency Vitamin D deficiency Unspecified vitamin D deficiency documented in this encounter Care Teams Air Drill Operator Relationship Specialty Start Date End Date Robert Hong DO PCP - General 03/04/[address] [place] [address] documented as of this encounter
--- OUTSIDE RECORDS SUMMARY | 2022-02-08 04:16 | XMS_ITS | Encounter Summary ---
:1975 Author Organization [facility] Address [address] [place] [address] Care Team Providers Name Role Phone HalRobert pham Primary Care Provider Reason for Visit Reason Comments Patient Education Bariatric Surgery Program pr eoperative class Encounter Details Date Type Department Care Team Description 12/17/2012 Office Visit General Surgery at Abbey Crandall obesity (Primary Dx); [facility] T, METAL CUT OFF SAW OPERATOR Hypertension; [facility] Typ e 2 diabetes mellitus; [facility] Obstructive sleep apnea (adult) (pediatr ic) [place], [place] GENERAL SURGERY [address] [place] [id number] [phone] Social History Tobacco Use Types Packs/Day Years Used Date Never Smoker Sex Assigned at Date Recorded Not on file documented as of this encounter Patient Instructions Patient InstructionsNarcisoshonda Abbey Mathur - 12/16/2012 1:32 PM EDT BARIATRIC SURGERY DISCHARGE INFORMATION CONTACT INFORMATION: [phone] Surgeons: Lexi Abdullahi Laycock and Trus [phone] Transportation Design Engineer: [phone] (Friday through Friday, 8:00 AM -5:00 PM) Dietitian: [phone] Non-business hours: [phone], ask for general surgeon pre owned sales consultant FOR EMERGENCIES: CALL 911 (trouble breathing, [...] had open gastric bypass and have layne: Aurora should be removed 10 - 12 days after surgery. This can be done at [facility] or via Primary Care Provider (PCP). Do [...] 200 on more than 3 rechecks, [facility] or diabetic specialist for [...] Follow up with primary care doctor or blood bank specialist in 1-2 weeks. Bring meter to [...] preand post operative instructions included in the [facility] Bariatric Surgery Program Education Handbook. One hour [...] preand post operative instructions included in the [facility] Bariatric Surgery Program Education Handbook. The one [...] He previously attended a Introduction to the [facility] Bariatric Surgery Program seminar, a two hour meeting that provides a program overview as well as expectations. The [facility] Bariatric Surgery Program Educational seminar requirement (3 seminars with post-testing) has been met. The BSP Educational Handbook was provided at visit #1. 2. Pre-operative programmatic evaluations have been done, as noted in previous pathway review. 3. Bariatric Surgery Program evaluations with RD and LOOK OUT TOWER FIRE WATCHER have taken place, as noted in previous [...] surgery and post-op routine care/ locations: Admissions/SDP/PACU//3/2 [place] units medications that increase the risk of [...] ic) documented in this encounter Care Teams Senior Java Programmer Analyst Relationship Specialty Start Date End Date Robert Hong DO PCP - General 03/04/[address] [place] [address] documented as of this encounter
--- OUTSIDE RECORDS SUMMARY | 2022-02-08 04:16 | XMS_ITS | Encounter Summary ---
:1975 Author Organization [facility] [place] [address] Care Team Providers Name Role Phone Robert Hong DO Primary Care Provider Reason for Referral Surgical (Routine) - Closed Specialty Diagnoses / Procedures Referred By Contact Refer red To Contact Plastic Surgery Diagnoses Status post bariatric surgery Symptomatic abdominal panniculus Abbey Crandall, [facility] Plastic Surg 4m FITNESS CONSULTANT [facility] D [facility] [place] [address] [place] [address] Referral ID Status Reason Start Date Expiration Date Visits V isits Requested Authorized [id number] Closed Assume 01/24/2014 07/23/2014 1 1 Subset of Care Reason for Visit Reason Comments Follow-up Bariatric Surgery Program 1 year postoperativevisit #1 Encounter Details Date Type Department Care Team Description 01/13/2014 Follow-Up General Surgery at Abbey Crandall, pe 2 diabetes mellitus; [facility] FITNESS CONSULTANT Status post bariatric surgery; [facility] Int estinal malabsorption; [facility] Vitamin D deficiency; [place] [address] GENERAL SURGERY Protein-calorie undernutrition; [phone] [place], [place] [address] Symptomatic abdominal panniculus [phone] (Wo rk) Social History Tobacco Use Types [...] 11:51 AM EDT BSP Admin coordinator Michelle: [phone] Dietitian: [phone] Surgeons/ nurse practitioner: [phone] Nurse line: [phone] Your excess body weight lost: 75.7%- Great job! Testing: Labwork: Today. Go to Director Of Digital Marketing Area 3L, which is 1 flight below [...] of every month from 1-2 PM at [facility]- no registration required Back on Track group visits are held the Friday of the month atfrom 1-2 PM- call Michelle to register [phone] Internet resources: www.BigSwerve www.ProDeaf www.Garlik www.Rocket Internet.Music Kickup (dede Goyal) https://www.facebook.[email or web address]/[email or web address] PAWHUSKABariatricSurgery Books & Magazines: - Recipes for Life [...] deny snoring, etc. He returned machine to [facility]. No Sleep Center follow up A. 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 Questions regarding [facility] Bariatric Surgery Program patients: please call Kaushik Crandall APRN at [phone] or [phone] beeper [phone]. E-mail: [email or web address] Gisella Mai RD - 01/12/2014 11:45 AM [...] go lean mixed into light yogurt or urdu yogurt AM Snack banana Lunch 12-12:30pm: wheat [...] athologist Signature Hemoglobin A1C 5.0 <=5.6 % [facility] Comment: Reference Range: 4.3 ? 5.6% 5.7 [...] 1, S67-74 Est Avg Gluc 97 mg/dL [facility] Comment: eAG equivalents for HbA1c percentages: HbA1c(%) ?eAG(mg/dL) 6.0 ?126 6.5 ?140 7.0 ?154 7.5 ?169 8.0 ?183 8.5 ?197 9.0 ?212 9.5 ?226 10.0 ? 240 Limitations: The eAG calculation has not been validated on women, individuals below 18 years old and above 70 years old, and individuals with hemoglobinopathies. Additional resources are available on [facility] website: http://Reko Global Water/[facility] PAWHUSKAadacalc Mele KUMAR, Fidelia J, Alex R, et al. ??Tr anslating the A1C assay into estimated average glucose values. ??Diabetes Care 2008:31(8):1174-0672. Specimen Anatomical Collection Method Collection Time Receive d Time (Source) Location / / Volume Laterality Blood specimen 01/13/2014 2:06 PM 014 2:12 (specimen) EDT PM EDT Resulting Agency Comment Spec In Lab Candi Gallegos MD CHEMISTRY ORDERABLES Performing Organization Address City/[facility]/[place] [address] CERNER MILLENNIUM Folate, serum (01/13/2014 2:06 PM EDT) P athologist Signature Folate Lvl >20.0 4.6 - 34.8 CERNER ng/mL MILLENNIUM Specimen Anatomical Collection Method Collection Time Receive d Time (Source) Location / / Volume Laterality Blood specimen 01/13/2014 2:06 PM 014 2:12 (specimen) EDT PM EDT Resulting Agency Comment Spec In Lab Candi Gallegos MD CHEMISTRY ORDERABLES Performing Organization Address City/[facility] [place] [address] CERNER MILLENNIUM (ABNORMAL) Vitamin B12 (01/13/2014 2:06 PM EDT) P athologist Signature Vitamin B-12 995 (H) 207 - 974 CERNER pg/mL MILLENNIUM Specimen Anatomical Collection Method Collection Time Receive d Time (Source) Location / / Volume Laterality Blood specimen 01/13/2014 2:06 PM 014 2:12 (specimen) EDT PM EDT Resulting Agency Comment Spec In Lab Canid Gallegos MD CHEMISTRY ORDERABLES Performing Organization Address City/[facility]/ZIP [facility] [place] [address] CERNER MILLENNIUM Vitamin B1, whole blood (01/13/2014 2:06 PM EDT) athologist Signature Vit B1 Lvl WB 115 70 - 180 CERNER nmol/L [facility] Comment: Test Performed by: [facility] [employer] [address], [place] [address] State Game Warden: Philomena Garcia, Ph. D. Specimen Anatomical Collection Method Collection Time Receive d Time (Source) Location / / Volume Laterality Blood specimen 01/13/2014 2:06 PM 014 2:47 (specimen) EDT PM EDT Resulting Agency Comment Spec In Lab Candi Gallegos MD CHEMISTRY ORDERABLES Performing Organization Address City/[facility]/ZIP Code Phon e Number [address] CERNER MILLENNIUM VIT D Total Evaluation (01/13/2014 2:06 PM EDT) athologist Signature 25-OH Vit D 51 30 - 100 CERNER Total ng/mL [facility] Comment: Deficient <10 ng/mL Insufficient 10 to 29 ng/mL Sufficient 30 to 100 ng/mL Potential Intoxication >100 ng/mL According to the US National Osteoporosi s Foundation, Vitamin D concentrations >30 ng/mL are sufficient to protect bone health. ??The National Kidney Foundation has similarly stated that pat ients with Vitamin D concentrations <30ng/mL should be considered to be insu fficient or deficient. http://Reko Global Water/DHMCnatlkidneyfoundat ion http://Reko Global Water/DHMCVitD The IDS iSYS Vitamin D Immunoassay detec [...] Gallegos MD CHEMISTRY ORDERABLES Performing Organization Address City/[facility]/ZIP Code Phon e Number [address] CERNER MILLENNIUM PTH (01/13/2014 2:06 PM EDT) athologist Signature PTH 32 15 - 65 CERNER pg/mL MILLENNIUM Specimen Anatomical Collection Method Collection Time Receive d Time (Source) Location / / Volume Laterality Blood specimen 01/13/2014 2:06 PM 014 2:12 (specimen) EDT PM EDT Resulting Agency Comment Spec In Lab Candi Gallegos MD CHEMISTRY ORDERABLES Performing Organization Address City/[facility] Phon e Number [address] CERNER MILLENNIUM Ferritin (01/13/2014 2:06 PM EDT) athologist Signature Ferritin 119 30 - 400 CERNER ng/mL MILLENNIUM Comment: Pediatric reference ranges not verified at [facility], interpret with caution. Reference ranges for females greater aram n 50 years of age approach values for men, i.e., 30-400 ng/mL. Specimen Anatomical Collection Method Collection Time Receive d Time (Source) Location / / Volume Laterality Blood specimen 01/13/2014 2:06 PM 014 2:12 (specimen) EDT PM EDT Resulting Agency Comment Spec In Lab Candi Gallegos MD CHEMISTRY ORDERABLES Performing Organization Address City/[facility] Phon e Number [address] CERNER MILLENNIUM Iron and [...] Gallegos MD CHEMISTRY ORDERABLES Performing Organization Address City/[facility] [place] [address] CERNER MILLENNIUM (ABNORMAL) Prealbumin [...] Gallegos MD CHEMISTRY ORDERABLES Performing Organization Address City/[facility] [place] [address] CERNER MILLENNIUM (ABNORMAL) Comprehensive [...] intervals supplied above were not validated at [facility]. Results from pediatri c patients should be [...] Total Bilirubin 1.1 0.2 - 1.3 mg/dL [facility] M ILLENNIUM Bili, Direct 0.3 0.0 [...] the following links into your internet browser. http://Reko Global Water/DHnkdep http://Reko [employer] Water/DHMCnkf Specimen Anatomical Collection Method Collection Time Receive d Time (Source) Location / / Volume Laterality Blood specimen 01/13/2014 2:06 PM 014 2:12 (specimen) EDT PM EDT Resulting Agency Comment Spec In Lab Candi Gallegos MD CHEMISTRY ORDERABLES Performing Organization Address City/State/[place] [address] CERNER MILLENNIUM (ABNORMAL) Hemogram [...] Organization Address City/State/[place] [address] [facility] documented in this encounter Visit Diagnoses Diagnosis Type 2 diabetes mellitus Type II or unspecified type diabetes ra litus without mention of complication, not stated as uncontrolled Status post bariatric surgery Bariatric surgery status Intestinal malabsorption Unspecified intestinal malabsorption Vitamin D deficiency Unspecified vitamin D deficiency Protein-calorie undernutrition Unspecified protein-calorie malnutrition Symptomatic abdominal panniculus Localized adiposity documented in this encounter Care Teams Hasher Operator Relationship Specialty Start Date End Date Robert Hong DO PCP - General 03/04/[address] [place] [address] documented as of this encounter
--- OUTSIDE RECORDS SUMMARY | 2022-02-08 04:16 | XMS_ITS | Encounter Summary ---
:1975 Author Organization [facility] [place] [address] Care Team Providers Name Role Phone HalPepe Primary Care Provider Reason for Visit Reason Comments Facial Swelling Encounter Details Date Type Department Care Team Description 06/04/2013 - Hospital Encounter [facility] 2 Leigha Avelar APRN [facility] [place] [address] Facial cellulitis 06/06/2013 [facility] [place] [address] Marcie Castro III, [place] [address] [place] [id number] Social History Tobacco Use Types Packs/Day Years [...] Appointments Call your PCP, PEPE HONG DO [phone] for an appointment by the end of the week. Call your dentist for an appointment to be seen within 10-14 days Your Inpatient Doctor(s) at [facility]: Dr. Gomez, Dr. Vargas documented in [...] spent >30 minutes (Day of Discharge Code 88784) involved in the final examination of the [...] AM EST Clinical Pharmacist Note-Vanc Brady Billings [id number] 1975 Brady Billings is a 37 y.o. [...] have. Alternately, during off-hours you may call [phone] to contact a pharmacist. WANDA REECE RPH [...] with hyaluronidase. Alize Bauman RN and [facility].notified. Pt will report any sx [...] hernia ID: 37 y.o. Male presents to [facility] with R facial swelling and pain x 2 days History of Present Illness: HPI 37 yom c/h/o DM, morbid obesity, s/p gastric bypass surgery, now c/2 days of R facial pain, swelling, erythema, induration. He noted he had a small pimple there, and then had abrupt onset of the above sx. Saw his PCP yesterday who tried to nsurat said pimple but per pt it was only surface pus and nothing much was expressed. Started on Bactrim. Later went to ED at [facility] and given amoxicillin and referred here for [...] GASTROPLASTY, performed by Candi Gallegos MD at [facility] OR ??? Unlisted laparoscopic proc, liver 01/20/2013 LAPAROSCOPIC LIVER BIOPSY performed by Candi Gallegos MD at [facility] OR ??? Upper gi endoscopy, diagnostic 01/20/2013 ENDOSCOPY, UPPER GI, DIAGNOSTIC, WITH OR WITHOUT SPECIMENS performed by Candi Gallegos MD at [facility] OR Prior To Admission Medications: (Not in [...] of two midnights or is on the [facility] inpatient only procedure list (status C) due [...] 06/04/2013 documented in this encounter ED Notes Britta Wagner RN - 06/04/2013 2:52 PM EST L eye swelling increased, Unable to fully open. Britta Wagner RN - 06/04/2013 2:17 PM EST Pt c/o 10/10 pressure in face and migraine GOFF. Provider noted. Swelling and redness slightly increasing, marked with outline for observation. Pt denies difficulty swallowing or breathing at this time. Leigha Bello, ROOFER GYPSUM - 06/04/2013 1:50 PM EST S. 37 yo male presents with worsening facial infection. Pt states he noticed a pimple on his right cheek yesterday morning, he saw his PCP who lanced the pimple, sent a sample for culture and started on Bactrim. Last night slightly worse, went to [facility] and the provider added amoxicillin. He stated [...] Medicine for admission. Leigha Bello APRN 06/04/13 [address], Britta Yuen RN - 06/04/2013 12:55 [...] on Bactrim. Later went to ED at [facility] and given amoxicillin and referred here for [...] Appointments Call your PCP, PEPE HONG DO [phone] for an appointment by the end of the week. Call your dentist for an appointment to be seen within 10-14 days Your Inpatient Doctor(s) at [facility]: Dr. Dr. Fidel Gomez Inpatient Provider Contact Information: For questions regarding this document or issues relating to this hospitalization on the Medical Service, please contact your inpatient physician through the [facility] Sewing Machine Maintenance Mechanic . Issues after hours and on weekends [...] a pimple appearing spot and yesterday his TRAIL CONSTRUCTION WORKER lanced the area. He was also seen at the ED at [facility] last night. He was started on a [...] intervals supplied above were not validated at [facility]. Results from pediatri c patients should [...] the following links into your internet browser. http://www.[place] Youboy Networkdep.nih.gov/lab-evaluation. shtml http://www.kidney.org/professionals/ Specimen Anatomical Collection Method Collection Time Receive d Time (Source) Location / / Volume Laterality Blood specimen 06/06/2013 3:50 AM 014 3:54 (specimen) EST AM EST Resulting Agency Comment Spec In Lab Che Gomez MD CHEMISTRY ORDERABLES Performing Organization Address [facility] e Number [address] CERNER MILLENNIUM Vancomycin, trough [...] Gomez MD CHEMISTRY ORDERABLES Performing Organization Address [facility] e Number [address] CERNER MILLENNIUM Wound Aspirate/Abscess Culture (06/05/2013 7:47 PM EST) Patholo gist Method Time Signature Abscess/Wound CERNER Aspirate ? Patient Name: MEDINA Millan, BRADY Barragan ? Ordered By: MARCIE VARGAS III Culture ? MR#: [id number] ?LOC: ??2EST ? /Sex: ??1975 (37 years), [...] Organization Address City/State/[place] [address] LUCRECIANER MILLENNIUM (ABNORMAL) Differential, Automated (06/05/2013 6:16 AM EST) [facility] Method Time Signature Neutrophils % 69.7 [...] Address City/State/[place] [address] CERNER MILLENNIUM (ABNORMAL) Basic [...] intervals supplied above were not validated at [facility]. Results from pediatri c patients should [...] Address City/State/[place] [address] CERNER MILLENNIUM (ABNORMAL) CBC [...] Organization Address City/State/[place] [address] facial [...] Potassium 3.7 3.5 - 5.0 CERNER mmol/L [facility] Comment: Please note: ??Patients with WBC >100,00 [...] Organization Address City/State/[place] [address] TALHA BAY Blood culture (06/04/2013 2:20 PM EST) [facility] Method Time Signature Blood Culture CERNER ? Patient Name: ROMEL BRADY Barragan ? Ordered By: KATRINA NAIR ? MR#: [id number] ?LOC: ??2EST ? /Sex: ??1975 (37 years), [...] Address City/State/[place] [address] TALHA MCCAINIUM Blood culture (06/04/2013 2:20 PM EST) [facility] Method Time Signature Blood Culture [facility] ? Patient Name: BRADY BILLINGS ? Ordered By: KATRINA NAIR NAHUNMARILEE ? MR#: [id number] ?LOC: ??2EST ? /Sex: ??1975 (37 years), [...] Organization Address City/State/ZIP Code Phon e Number [place] [phone] CERNER MILLENNIUM (ABNORMAL) Differential, Automated (06/04/2013 2:10 PM EST) [facility] Method Time Signature Neutrophils % 71.4 [...] Nair MD HEMATOLOGY ORDERABLES Performing Organization Address City/[facility]/[place] [address] CERNER MILLENNIUM Glucose, random [...] Nair MD CHEMISTRY ORDERABLES Performing Organization Address City/[facility]/ZIP Code Phon e Number [address] CERNER MILLENNIUM Creatinine (06/04/2013 2:10 PM EST) athologist Signature Creatinine 0.80 0.80 - 1.50 CERNER mg/dL MILLENNIUM Comment: Please note that the pediatric reference intervals supplied above were not validated at [facility]. Results from pediatri c patients should [...] Nair MD CHEMISTRY ORDERABLES Performing Organization Address City/[facility]/ZIP Code Phon e Number [address] CERNER MILLENNIUM Electrolytes panel [...] Nair MD CHEMISTRY ORDERABLES Performing Organization Address City/[facility]/[place] [address] CERNER MILLENNIUM (ABNORMAL) BUN (06/04/2013 2:10 PM EST) P athologist Signature BUN 8 (L) 10 - 20 CERNER mg/dL MILLENNIUM Specimen Anatomical Collection Method Collection Time Receive d Time (Source) Location / / Volume Laterality Blood specimen 06/04/2013 2:10 PM 014 2:19 (specimen) EST PM EST Resulting Agency Comment Spec In Lab Katrina Nair MD CHEMISTRY ORDERABLES Performing Organization Address City/[facility]/ZIP Code Phon e Number [place] [phone] CERNER MILLENNIUM (ABNORMAL) CBC [...] Nair MD HEMATOLOGY ORDERABLES Performing Organization Address City/[facility]/ZIP Code Phon e Number [place] [phone] CERNER MILLENNIUM documented in [...] Alize Bauman RN) 0818 (Given - Provider: hSane Tobias RN) 1 tablet, Oral, DAILY, First [...] mg (CANCELE D) 1654 (Given - Provider: Piryanka Harris RN) 0.4-0.8 mg, Intravenous, EVERY 4 [...] 110 mL = 38,500 mg, Intravenous, ONCE MT N, 1 dose, Starting 06/04/13 at 1812, Until 06/04/13 at 1812, Per Protocol, Routine OXYcodone (ROXICODONE) immediate release tablet 5-10 mg 1035 (Given - Provider: Alize E Kenilworth, RN)1525 (Given - Provider: Thanh Ríos, MARIE)1954 (Given - Provider: Julia Craig, MARIE)2354 (Given - Provider: Julia Cragi, MARIE) 0354 (Given - Provider: Julia cat, MARIE)0818 (Given - Provider: Shane Tobias, MARIE)1255 (Given - Provider: Shane Tobias, MARIE) 5-10 mg, Oral, EVERY 4 HOURS PRN, Starti ng Sat 06/05/13 at 1022, Until 06/06/13 at 1459, Pain, STAT documented in this encounter Care Teams Inclusion Manager Relationship Specialty Start Date End Date Pepe Hong DO PCP - General 03/04/[address] [place] [address] documented as of this encounter
--- OUTSIDE RECORDS SUMMARY | 2022-02-08 04:16 | XMS_ITS | Encounter Summary ---
:1975 Author Organization [place] [address] Care Team Providers Name Role Phone Robert Hong DO Primary Care Provider Reason for Visit Reason Comments Medication Refill Encounter Details Date Type Department Care Team Description 07/23/2013 Refill General Surgery at [facility] Abbey Crandall, BHAVANI [facility] [place] [address] GENERAL SURGERY [phone] [place], [place] [address] (Wo rk) Social History Tobacco [...] on filedocumented in this encounter Care Teams Hand Frame Surgical Elastic Knitter Relationship Specialty Start Date End Date Robert Hong DO PCP - General 03/04/[address] [place] [address] documented as of this encounter
--- OUTSIDE RECORDS SUMMARY | 2022-02-08 04:16 | XMS_ITS | Encounter Summary ---
:1975 [place] [address] Care Team Providers Name Role Phone Robert Hong DO Primary Care Provider Encounter Details Date Type Department Care Team Description 12/15/2012 Notes Only General Surgery at [facility] Abbey Crandall, DISTRICT TRAFFIC CHIEF [facility] [place] [address] GENERAL SURGERY [phone] [place], [place] [address] (Wo rk) Social History Tobacco [...] on filedocumented in this encounter Care Teams Breeding Manager Relationship Specialty Start Date End Date Robert Hong DO PCP - General 03/04/[address] [place] [address] documented as of this encounter
--- OUTSIDE RECORDS SUMMARY | 2022-02-08 04:16 | XMS_ITS | Encounter Summary ---
:1975 [place] [address] Care Team Providers Name Role Phone Robert Hong DO Primary Care Provider Encounter Details Date Type Department Care Team Description 06/02/2014 Anesthesia Event Main Operating Room Kapil Julian MD [facility] [place] [address] [facility] Regis White CRNA [facility] [place] [address] [place] [address] Anesthesia Record Procedure Summary Procedure Name [...] Anesthesia Ready 1649 1709 Break/Relief In [facility]indi [facility] MARCK urbina 1730 Break/Relief Out 1801 Extubation/LMA [...] of hand); Tiff Hsu, Venus Melchor RN [id number] catheter system; 18 gauge; RM; intradermal injection; [...] GASTROPLASTY, performed by Candi Gallegos MD at [facility] OR ??? Unlisted laparoscopic proc, liver 01/20/2013 LAPAROSCOPIC LIVER BIOPSY performed by Candi Gallegos MD at [facility] OR ??? Upper gi endoscopy, diagnostic 01/20/2013 ENDOSCOPY, UPPER GI, DIAGNOSTIC, WITH OR WITHOUT SPECIMENS [facility] History Substance Use Topics ??? Smoking [...] consented to blood products. Plan discussed with PASTE UP WORKER and attending. Misc. Assessment: documented in this [...] Intra-op documented in this encounter Care Teams Pricer Relationship Specialty Start Date End Date Robert Hong DO PCP - General 03/04/[address] [place] [address] documented as of this encounter
--- OUTSIDE RECORDS SUMMARY | 2022-02-08 04:16 | XMS_ITS | Encounter Summary ---
:1975 Author Organization [facility] [place] [address] Care Team Providers Name Role Phone HalRobert Primary Care Provider Reason for Visit Reason Comments Follow-up Bariatric Surgery Program fo llo up Encounter Details Date Type Department Care Team Description 08/31/2013 Follow-Up General Surgery at Abbey Crandall in-calorie undernutrition; [facility] T, MAKE UP WORKER Status post bariatric surgery; [facility] [place] [place] [address] GENERAL SURGERY [phone] [place] [address] Social History Tobacco Use Types Packs/Day Years [...] victor RD - 08/30/2013 4:13 PM EDT [facility] Admin coordinator Michelle: [phone] Dietitian: [phone] Surgeons/ nurse practitioner: [phone] Nurse line: [phone] Your excess body weight lost: 58.1%- great work! My D-H Using sezmi you will be able to send messages to your providers, view your test results, renew prescriptions, schedule appointments, and much more. Follow these instructions to enter your personal sezmi account for the first time: 1. Start your internet browser. Go to [email or web address].[email or web address]Screen and click on the sezmi link. 2. Click SIGN UP NOW to go to the NEW MEMBER SIGN UP page. Testing: Labwork: Today. Go to Creative Services Intern Area 3L, which is 1 flight below [...] of every month from 1-2 PM at [facility] Back on Track group visits are held monthly Internet resources: www.Poly Adaptive www.i[employer]ex Technologies www.Vitryn www.Fusion Dynamic www.[employer] (dede Goyal) https://www.5minutes.com/[facility]ric[facility] Books & Magazines: - Recipes for Life [...] to deny snoring, etc returned machine to [facility]. No Sleep Center follow up [...] admitted for facial cellulitis on 06/04/13 at [facility] Subjective. 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 Objective: General: 37 y.o. year-old male looks well, appears upbeat. He is accompanied by a friend from [place] who he met via [employer] 8 years ago. Abdomen: soft, non-tender. Abdominal [...] is done by the primary critical care technician: please send a copy to the Bariatric Surgery Program, General Surgery Clinic, [facility], attention Abbey Crandall APRN. Questions regarding [facility] Bariatric Surgery Program patients: please call Kaushik Crandall APRN at [phone] or [phone] beeper [phone]. E-mail: Gisella Mai RD - 08/30/2013 4:12 PM [...] 500mcg daily Iron n/a Vitamin D Rx 90605 IU weekly Daily Oral Intake: Measuring food Breakfast 7-7:30am: 3 eggs/kashi go lean mixed into light yogurt or botswanan yogurt AM Snack banana Lunch 12-12:30pm: 2 [...] Organization Address City/State/[place] [address] CERNER MILLENNIUM documented in this encounter Visit Diagnoses Diagnosis Protein-calorie undernutrition Unspecified protein-calorie malnutrition Status post bariatric surgery Bariatric surgery status Intestinal malabsorption Unspecified intestinal malabsorption documented in this encounter Care Teams Seam Checker Relationship Specialty Start Date End Date Robert Hong DO PCP - General 03/04/[address] [place] [address] documented as of this encounter
--- OUTSIDE RECORDS SUMMARY | 2022-02-08 04:17 | XMS_ITS | Encounter Summary ---
:1975 Author Organization [facility] [place] [address] Care Team Providers Name Role Phone Pepe Hong DO Primary Care Provider Reason for Referral Occupational Therapy (Routine) - Closed Specialty Diagnoses / Procedures Referred By Contact Refer red To Contact Occupational Therapy Diagnoses Vitamin D deficiency Secondary hyperparathyroidism Screening for iron deficiency anemia Morbid obesity Hypertension Type 2 diabetes mellitus Obstructive sleep apnea (adult) (pediatric) GERD (gastroesophageal reflux disease) Abbey Crandall [facility] Venous stasis Lower extremity [place] [phone] Fax: Referral ID Status Reason Start Date Expiration Date Visits V isits Requested Authorized [id number] Closed Evaluate and 10/01/2012 03/30/2013 1 1 Treat hysical Therapy (Routine) - Closed Specialty Diagnoses / Procedures Referred By Contact Refer red To Contact Physical Therapy Diagnoses Vitamin D deficiency Secondary hyperparathyroidism Screening for iron deficiency anemia Morbid obesity Hypertension Type 2 diabetes mellitus Obstructive sleep apnea (adult) (pediatric) GERD (gastroesophageal reflux disease) Abbey Crandall [facility] Pt Rehab Venous stasis [place] [address] [place] [address] Referral ID Status Reason Start Date Expiration Date Visits V isits Requested Authorized [id number] Closed Evaluate and 10/01/2012 03/30/2013 1 1 Treat Consultation (Routine) - Closed Specialty Diagnoses / Procedures Referred By Contact Refer red To Contact Cardiology Diagnoses Vitamin D deficiency Secondary hyperparathyroidism Screening for iron deficiency anemia Morbid obesity Hypertension Type 2 diabetes mellitus Obstructive sleep apnea (adult) (pediatric) GERD (gastroesophageal reflux disease) Abbey Crandall, [facility] 4a Venous stasis Lower extremity edema CASH POSTING CLERK [facility] [address] [facility] [place] [address] [place] [address] Referral ID Status Reason Start Date Expiration Date Visits V isits Requested Authorized [id number] Closed Assume 10/01/2012 03/30/2013 1 1 Subset of Care Reason for Visit Reason Comments Morbid Obesity Bariatric Surgery Program pr eoperative visit #1 Encounter Details Date Type Department Care Team Description 10/01/2012 Office Visit General Surgery at Abbey Crandalli richar obesity (Primary Dx); [facility] [place], CASH POSTING CLERK Hypertension; [facility] Typ e 2 diabetes mellitus; Drive Obstructive sleep apnea (adult) (pediatr ic); [place], [place] GENERAL SURGERY GERD (gastroesophageal reflux disease); [id number] [place] [address] Vitamin d deficiency; [phone] Secondary hyper parathyroidism; (Work) Screening for iron [...] BARIATRIC SURGERY PROGRAM FIRST VISIT Contact information: [facility] Admin coordinator Michelle: [phone] Dietitian: [phone] Surgeons/ nurse practitioner: [phone] Nurse line: [phone] Recommendations to do list after today's visit: [...] take place in the General Surgery Clinic, Newspaper Photojournalist Area 4L 2nd visits with dietitian and [...] you see me again- either log on [email or web address] or use a notebook. Take your time [...] of starch = 1 slice toast, ?? Sierra Leonean muffin, ?? cup cooked potato, rice, or [...] in advance of approval. Only the OR immigration judge can provide you with a date. Questions for your doctor, specialist or pharmacist: Ask your doctor about medication suggestions if you currently take medications that are larger than the size of a tylenol. Large pills need to be crushed (if permitted by the drug tunnel elastic operator zigzag) or taken in liquid form for TWO [...] gastrectomy surgery. He was previously evaluated by [facility] Bariatric Surgery Program in 2009, reports that he was asked to leave the program due to forgetting his educational materials. He is accompanied by his uncle Guero to today's visit. BARIATRIC SURGERY PROGRAM PATHWAY Review of progress with the requirements of the Bariatric Surgery Program: 1. Education: He has attended a Introduction to the [facility] [place] seminar, a comprehensive two hour meeting that provides a program overview, education on bariatric surgeries offered at [facility], risks and benefits, as well as patient expectations and follow up, in December 2011. [facility] [place] [place] [facility] Educational seminars viewed: 3, in February 2012. Grades on post-testin-100% The [facility] Educational Handbook is provided at visit #1. 2. Pre-operative programmatic evaluations: PCP evaluation and letter of support to proceed with surgery, BSP labwork and psychological evaluation 3. Bariatric Surgery Program evaluations with RD and AREA MANAGER: today. 4. Weight history: 501 pounds on [...] weight loss have been unsuccessful in the organizational development specialist. Refer to nutrition noteby [facility] dietitian for weight and dieting history, 24 hour dietary intake and recent dietary changes. Motivating factors for seeking surgery for bariatric surgery: see RD note Patient research in addition to attendance at [facility] Bariat[place] Surgery Informational meeting and online Educational [...] 2. Psychological evaluation done by [facility] following sessions on 02/19, 03/17, 03/31 and [...] with his girlfriend, who is a certified pastry sous chef and daughter age8 (Cesar) in [place]. [place] Plans for post-operative support: girlfriend and [...] chest pain, squeezing, pressure [] history of GA, previous PCI/ PTCA, cardiac surgery [] VTE, [...] of treatment of obesity and of the [facility] Bariatric Surgery Program: Mr.. Billings is aware that other treatments for obesity are available, ie, dietary, behavior modification, weight loss medications, exercise as well as surgical weight loss methods. The risks and benefits of bariatric surgery, including gastric bypass, adjustable gastric banding and sleeve gastrectomy are discussed at every Introduction to the [facility] Bariat[facility] [place] Program meeting and all Educational Seminars, and will be reviewed in detail at the second pre- operative visit. The importance of incorporating lifestyle activity and regular exercise, such as walking, or swimming, after discussion and approval by his primary vision care associate, prior to surgery, as well as post-operatively, was stressed. He is aware of our programmatic approach which includes four bariatric surgeons, as well as a dietitian and nurse practitioner. Mandatory requirements include: 1. attendance at a two hour Introduction to the [facility] Bariat[place] seminar 2. view 3 [...] research bariatric surgery, via the internet, the [facility] Bariatric Surgery Program website at [email or web address], books, and journals. In addition, information on bariatric surgery is available at the [employer] Library at [facility]. Assessment/ Plan: 36 y.o. year old male [...] BiPAP use to decrease the risk of elly and post- operative complications ?? Given his [...] psychological evaluation. Information given to patient: 1. [facility] Bariatric Surgery Education Handbook, a 102 page document (revision 07/2011) which contains extensive information regarding pre and post-operative care including: a copy of the Patient Agreement, illustrations of GI anatomy and gastric bypass, gastric banding and sleeve gastrectomy surgeries, [facility] Rehab Medicine recommendations and exercises prior to surgery, gastric bypass, gastric banding and sleeve gastrectomy risks and benefits, dietary information including the pre-operative and post-operative diets, DVT prevention guidelines,information on medications that can increase the risk of bleeding, pre-op preparation information, post-operative instructions and contact numbers. 2. Advised to take the following medications: Complete multivitamin with minerals Studies and consults suggested to primary vision care associate: PEPE HONG DO 1. Follow up regarding [...] encouraged - 2nd visits with RD and AREA MANAGER Questions regarding [facility] Bariat[place] Surgery Program patients: please call Kaushik Crandall APRN at [phone] or [phone] G[address] Mai RD - 09/28/2012 4:02 [...] ?? [x] Improved Health ?? [ ] longterm weight loss ?? [x] Improved quality of [...] goes out rarely/2 toast with peanut butter/banana/yogurt (somali Chobani)/skips on occasion AM Snack Drinks a [...] through dieting have been unsuccessful over the longterm. Predicted weight loss with surgery is an [...] of starch = 1 slice toast; ?? Sierra Leonean muffin; 1 small chanel or wrap; ?? [...] Signature H pylori Ab Neg Neg TALHA [facility] Specimen Anatomical Collection Method Collection Time Receive d Time (Source) Location / / Volume Laterality Blood specimen 10/01/2012 11:57 3 8:17 (specimen) AM EDT AM EDT Resulting Agency Comment Spec In Lab Candi Gallegos MD IMMUNOLOGY ORDERABLES Performing Organization Address City/[facility]/[place]IP [place] [address] CERNER MILLENNIUM (ABNORMAL) TSH (10/01/2012 11:57 AM EDT) P athologist Signature TSH 4.53 (H) 0.27 - 4.20 CERNER mcIU/mL MILLENNIUM Specimen Anatomical Collection Method Collection Time Receive d Time (Source) Location / / Volume Laterality Blood specimen 10/01/2012 11:57 3 (specimen) AM EDT 12:47 PM EDT Resulting Agency Comment Spec In Lab Candi Gallegos MD CHEMISTRY ORDERABLES Performing Organization Address City/[facility]/ZIP Code Phon e Number [address] CERNER MILLENNIUM Gamma GT (10/01/2012 11:57 AM EDT) P athologist Signature GGT 60 8 - 61 CERNER unit/L MILLENNIUM Specimen Anatomical Collection Method Collection Time Receive d Time (Source) Location / / Volume Laterality Blood specimen 10/01/2012 11:57 3 (specimen) AM EDT 12:47 PM EDT Resulting Agency Comment Spec In Lab Candi Gallegos MD CHEMISTRY ORDERABLES Performing Organization Address City/[facility]/[place] [address] CERNER MILLENNIUM PTH (10/01/2012 11:57 AM EDT) athologist Signature PTH 65 15 - 65 CERNER pg/mL MILLENNIUM Specimen Anatomical Collection Method Collection Time Receive d Time (Source) Location / / Volume Laterality Blood specimen 10/01/2012 11:57 3 (specimen) AM EDT 12:47 PM EDT Resulting Agency Comment Spec In Lab Candi Gallegos MD CHEMISTRY ORDERABLES Performing Organization Address City/[facility]/[place] [address] CERNER MILLENNIUM (ABNORMAL) VIT D Total Evaluation (10/01/2012 11:57 AM EDT) P athologist Signature 25-OH Vit D 16 (L) 30 - 100 CERNER Total ng/mL [facility] Comment: Deficient <10 ng/mL Insufficient 10 to [...] Gallegos MD CHEMISTRY ORDERABLES Performing Organization Address City/[facility]/ZIP Code Phon e Number [address] CERNER MILLENNIUM Vitamin A (10/01/2012 11:57 AM EDT) P athologist Signature Vitamin A 60.7 32.5 - 78.0 CERNER mcg/dL [facility] Comment: Test Performed by: [place] [address] Print Support Specialist: Philomena Garcia, Ph. D. Specimen Anatomical Collection Method Collection Time Receive d Time (Source) Location / / Volume Laterality Blood specimen 10/01/2012 11:57 3 1:22 (specimen) AM EDT PM EDT Resulting Agency Comment Spec In Lab Candi Gallegos MD CHEMISTRY ORDERABLES Performing Organization Address City/[facility]/ZIP Code Phon e Number [address] CERNER MILLENNIUM Ferritin (10/01/2012 11:57 AM EDT) P athologist Signature Ferritin 111 30 - 400 CERNER ng/mL MILLENNIUM Comment: Pediatric reference ranges not verified at [facility], interpret with caution. Reference ranges for females [...] Organization Address City/State/[place] [address] CERNER MILLENNIUM (ABNORMAL) Hemoglobin A1c (10/01/2012 11:57 AM EDT) Analysis Performed At Patho logist Time Signature Hemoglobin A1C 7.5 (H) 4.3 - 6.1 CERNER % MILLENNIUM Comment: The [place] Diabetes Association (ADA) has stated that HbA1c [...] with hemoglobinopathies. Additional resources are available on [facility] ADA website: ??[email or web address].org/gluc osecalculator.aspx Mele KUMAR, Fidelia J, Alex R, et al. ??Tr anslating the A1C assay into estimated average glucose values. ??Diabetes Care 2008:31(8):9669-9375. Specimen Anatomical Collection Method Collection Time Receive d Time (Source) Location / / Volume Laterality Blood specimen 10/01/2012 11:57 3 (specimen) AM EDT 12:47 PM EDT Resulting Agency Comment Spec In Lab Candi Gallegos MD CHEMISTRY ORDERABLES Performing Organization Address City/[facility]/ZIP Code Phon e Number [address] [facility] Prealbumin (10/01/2012 11:57 AM EDT) athologist [...] Organization Address City/State/[place] [address] CERNER MILLENNIUM (ABNORMAL) CMP [...] of Diabetes Mellitus, Position Statement from the [place] Diabetes Association. ??Diabete s Care, Volume 33, Supplement 1, Apr 2009 BUN 16 10 - 20 mg/dL CERNER MILLENNIU M Creatinine 0.73 (L) 0.80 - 1.50 mg/dL CERNER MILL ENNIUM Comment: Please note that the pediatric reference intervals supplied above were not validated at [facility]. Results from pediatri c [...] Organization Address City/State/ZIP Code Phon e Number [place] [id number] CERNER MILLENNIUM (ABNORMAL) Hemogram [...] MPV 11.6 9.0 - 12.0 CERNER fL [facility] Specimen Anatomical Collection Method Collection Time Receive d Time (Source) Location / / Volume Laterality Blood specimen 10/01/2012 11:57 3 (specimen) AM EDT 12:47 PM EDT Resulting Agency Comment Spec In Lab Candi Gallegos MD HEMATOLOGY ORDERABLES Performing Organization Address City/State/[place] [address] [facility] documented in this encounter Visit [...] Edema documented in this encounter Care Teams Rooming House Operator Relationship Specialty Start Date End Date Pepe Hong DO PCP - General 03/04/[address] [place] [address] documented as of this encounter
--- OUTSIDE RECORDS SUMMARY | 2022-02-08 04:17 | XMS_ITS | Encounter Summary ---
:1975 Author Organization [facility] [place] [address] Care Team Providers Name Role Phone Robert Hong DO Primary Care Provider Reason for Visit Reason Onset Date Comments Other 03/06/2012 Recieved a referal o n this pt for immediate care Encounter Details Date Type Department Care Team Description 03/06/2012 Telephone General Surgery at [facility] Kylah Christianson Other (Recieved a [facility] Bridget RN referal o n this pt for Drive immediate care) [place] [address] Social History Tobacco Use Types Packs/Day Years Used Date Never Assessed Sex Assigned at Date Recorded Not on file documented as of this encounter Miscellaneous Notes Telephone Encounter - Kylah Christianson RN - 03/06/2012 9:37 AM EST TELEPHONE NOTE Date of call: 03/06/2012 Time of call: 9:25 AM Caller: Received a referral from Robert Hong MD [facility] in [facility]. He is referring Brady Billings for an [...] on filedocumented in this encounter Care Teams Painter Ski Edge Relationship Specialty Start Date End Date Robert Hong DO PCP - General 03/04/[address] [place] [address] documented as of this encounter
--- OUTSIDE RECORDS SUMMARY | 2022-02-08 04:17 | XMS_ITS | Encounter Summary ---
:1975 [place] [address] Care Team Providers Name Role Phone Robert Hong DO Primary Care Provider Encounter Details Date Type Department Care Team Description 10/01/2012 Office Visit General Surgery at [facility], [facility] Robert Soliz DO [address] [place], [place] [address] [place] [address] Social History Tobacco Use Types Packs/Day Years Used Date Never Smoker Sex Assigned at Date Recorded Not on file documented as of this encounter Plan of Treatment Not on filedocumented as of this encounter Visit Diagnoses Not on filedocumented in this encounter Care Teams Comb Winder Relationship Specialty Start Date End Date Robert Hong DO PCP - General 03/04/[address] [place], [place] [address] documented as of this encounter
--- OUTSIDE RECORDS SUMMARY | 2022-02-08 04:17 | XMS_ITS | Encounter Summary ---
:1975 Author Organization [facility] [place] [address] Care Team Providers Name Role Phone HalRobert pham Primary Care Provider Encounter Details Date Type Department Care Team Description 10/26/2012 Office Visit Psychiatry and Alphonse Salmeron, Morbid o [facility] Behavioral Health PT (Primary Dx) [facility] [place] [address] PHYSICAL MEDICINE & [phone] [place] [address] Social History Tobacco Use Types Packs/Day Years [...] Social History: Patient is , lives in [place] Stairs: 4 with a rail to [...] his have just returned from vacationing at [place] where he did quite a bit of [...] 0 minutes ALPHONSE SALMERON PT 10/26/2012 Pager: [phone] Physical Therapy Rehabilitation Department documented in this encounter Plan of Treatment Not on filedocumented as of this encounter Visit Diagnoses Diagnosis Morbid obesity - Primary documented in this encounter Care Teams Industrial Manufacturing Technician Relationship Specialty Start Date End Date Robert Hong DO PCP - General 03/04/[address] [place] [address] documented as of this encounter
--- OUTSIDE RECORDS SUMMARY | 2022-02-08 04:17 | XMS_ITS | Encounter Summary ---
:1975 Author Organization [facility] [place] [address] Care Team Providers Name Role Phone Robert Hong DO Primary Care Provider Encounter Details Date Type Department Care Team Description 10/26/2012 Follow-Up General Surgery at [facility], DR WILMER [place], unspecified [facility] Yana garcia (Primary Dx) [place] [address] Social History Tobacco Use Types Packs/Day [...] BARIATRIC SURGERY PROGRAM FIRST VISIT Contact information: [facility] Admin coordinator Michelle: [phone] Dietitian: [phone] Surgeons/ nurse practitioner: [phone] Nurse line: [phone] Recommendations to do list after today's visit: [...] and walk laps there, or go with [employer]. 4) Practice this Meal Format: Protein first [...] of starch = 1 slice toast, ?? Bulgarian muffin, ?? cup cooked potato, rice, or [...] in advance of approval. Only the OR c d still operator can provide you with a date. Questions for your doctor, specialist or pharmacist: Ask your doctor about medication suggestions if you currently take medications that are larger than the size of a tylenol. Large pills need to be crushed (if permitted by the drug sales donor recruitment representative) or taken in liquid form for TWO [...] -Unhappy about weight being up. Was in [place] last week. Did walk more. Retaining fluids.Admits [...] poached eggs, 2 ww toast w butter/yogurt (congolese or lt n fit), banana/bagel AM Snack Drinks a lot of water Lunch [place] (tuna, ham or turkey), celery or chips PM Snack none Supper Cheeseburger w bun (mustard), hot dog/chicken, broccoli/2 slices pizza, 4 onion rings/ribs, mac n cheese/fried clams/fried rice, crab ragoons, chicken HS Snack Grapes or carrots Beverages: ?? Hydrating beverages: ~5 liters/day ?? Caffeinated beverages: none ?? Juice/sports drinks: none ?? Soda: none ?? ETOH: none Supplements/Vitamins: MVI, Vitamin D rx- 51122 IU weekly Summary Brady Barragan Awa returns [...] and walk laps there, or go with [employer]. 4) Practice this Meal Format: Protein first [...] of starch = 1 slice toast; ?? Bulgarian muffin; 1 small chanel or wrap; ?? [...] Primary documented in this encounter Care Teams Captain/Airline Pilot Relationship Specialty Start Date End Date Robert Hong DO PCP - General 03/04/[address] [place] [address] documented as of this encounter
--- OUTSIDE RECORDS SUMMARY | 2022-02-08 04:17 | XMS_ITS | Encounter Summary ---
:1975 Author Organization [facility] [place] [address] Care Team Providers Name Role Phone HalRobert pham Primary Care Provider Encounter Details Date Type Department Care Team Description 10/26/2012 Office Visit Psychiatry and Medardo Emanuel, Morbid ob esity Behavioral Health OT (Primary Dx) [place] [id number] Social History Tobacco Use Types Packs/Day Years [...] to assist with shoes and socks. Issued mixer wet pour and long handed shoe horn. Wears sandals [...] Pt issued long handled shoe horn and mixer wet pour for ADLs. Pt and educated on process/expectations after bariatric surgery. DO not anticipate need for follow up OT services after surgery. Eval Date: 10/26/2012 Total time spent with patient: 35 minutes Total timed interventions: 0 minutes Pager: [phone] MEDARDO EMANUEL OT 10/26/2012 Occupational Therapy Rehabilitation Department documented in this encounter Plan of Treatment Not on filedocumented as of this encounter Visit Diagnoses Diagnosis Morbid obesity - Primary documented in this encounter Care Teams Audit Intern Relationship Specialty Start Date End Date Robert Hong DO PCP - General 03/04/[address] [place] [address] [address] [place] [address] documented as of this encounter
--- OUTSIDE RECORDS SUMMARY | 2022-02-08 04:17 | XMS_ITS | Encounter Summary ---
:1975 Author Organization [facility] [place] [address] Care Team Providers Name Role Phone Robert Hong DO Primary Care Provider Encounter Details Date Type Department Care Team Description 10/18/2012 Orders Only General Surgery at [facility] in d deficiency [facility] T, NUTRITION AND DIETETICS INSTRUCTOR (Primary Dx) [facility] [address] GENERAL SURGERY [phone] [place] [address] Social History Tobacco Use Types Packs/Day Years Used Date Never Smoker Sex Assigned at Date Recorded Not on file documented as of this encounter Plan of Treatment Not on filedocumented as of this encounter Visit Diagnoses Diagnosis Vitamin D deficiency - Primary Unspecified vitamin D deficiency documented in this encounter Care Teams General Engineer Relationship Specialty Start Date End Date Robert Hong DO PCP - General 03/04/[address] [place], [place] [id number] documented as of this encounter
[2022-02-08] MEDS: fentaNYL 100 MCG/2 ML VIAL IVP (04:55)
[2022-02-08] MEDS: Normal Saline Flush 10 ML SYR IVP ×4 (04:56→17:05)
[2022-02-08] MEDS: Lactated Ringers 1,000 ML 75 ML IV (04:57)
[2022-02-08] MEDS: MORPHine 4 MG/ML SYR IVP (05:31)
[2022-02-08] MEDS: Gastrografin 120 ML BTL 20 ML IVP (05:48)
--- NOTE | 2022-02-08 09:11 | DI.VRAD_ITS ---
PROCEDURE INFORMATION: Exam: CT Abdomen And Pelvis With Contrast Exam date and time: 02/08/2022 6:19 AM Age: 46 years old Clinical indication: Abdominal pain; Generalized; Prior surgery; Surgery date: 6+ months; Surgery type: Gastric bypass; Additional info: Suspect intussusception TECHNIQUE: Imaging protocol: Computed tomography of the abdomen and pelvis with contrast. Radiation optimization: All CT scans at this facility use at least one of these dose optimization techniques: automated exposure control; mA and/or kV adjustment per patient size (includes targeted exams where dose is matched to clinical indication); or iterative reconstruction. Contrast material: OMNI 350; Contrast volume: 100 ml; Contrast route: INTRAVENOUS (IV); Other contrast: Oral, breeza with gastrografin , 467; COMPARISON: 1. CT THORAX ABDOMEN CTA 02/08/2022 12:05 AM 2. CTA THORAX/ABDOMEN/PELVIS 10/30/2020 FINDINGS: Lower thorax: Please refer to CTA thorax dictated report from earlier the same day. Liver: No mass. Gallbladder and bile ducts: No calcified stones. No ductal dilation. Pancreas: No discrete mass. Spleen: No splenomegaly. Adrenal glands: Unremarkable. Kidneys and ureters: No hydronephrosis or perinephric stranding. Stomach and bowel: Prior gastric bypass surgery. Prominent hypodensity within small bowel loop in left lower abdomen (coronal series 3, image 44), outlined by ingested oral contrast, and compatible with jejunojejunal intussusception. This corresponds to area of concern on earlier CTA abdomen. No obvious lead point or volvulus. No bowel pneumatosis. Mildly dilated small bowel loops distal to jejunojejunal intussusception, favor reactive ileus. Colonic diverticulosis, without evidence of acute diverticulitis. Appendix: No evidence of appendicitis. Intraperitoneal space: No free air or ascites. Swirling of mid abdominal mesentery with inverted SMA/SMV relationship, similar to prior imaging. Vasculature: Minimal arterial atherosclerotic calcifications. No aneurysm. Lymph nodes: Similar mildly prominent bilateral inguinal lymph nodes, likely reactive/benign. Urinary bladder: Excreted contrast in bladder. Reproductive: Unremarkable as visualized. Bones/joints: Degenerative changes in visualized spine and bony pelvis. Similar chronic mild loss of height of lower thoracic vertebral bodies. Soft tissues: Similar bilateral gynecomastia. Mild diffuse soft tissue stranding, possible anasarca. IMPRESSION: Jejunojejunal intussusception in left lower abdomen (coronal series 3, image 44). No obvious lead point or volvulus. No bowel pneumatosis. Mildly dilated small bowel loops distal to jejunojejunal intussusception, favor reactive ileus. Prior gastric bypass surgery. Additional findings as discussed above. THIS REPORT CONTAINS FINDINGS THAT MAY BE CRITICAL TO PATIENT CARE. The findings were verbally communicated via telephone conference at 8:59 AM EDT on 02/08/[address] Cobos. The findings were acknowledged and understood. Dictated and Authenticated by: French Braga MD. Ordering:NOEMI Abreu MD
--- NOTE | 2022-02-08 09:14 | W.PM.HP.N ---
Date of service: 02/08/22 Time of Service: 09:14 Assessment and Plan Assessment and plan (1) Intussusception: Status: Acute Assessment and plan: continue w/ conservative management if not resolved by this afternoon- will require OR (2) Accelerated hypertension: Status: Acute (3) 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: Status: Acute (4) Peripheral venous insufficiency: Status: Acute (5) Peripheral edema: Status: Acute (6) Obstructive sleep apnea syndrome: Status: Acute (7) Morbid obesity: (8) GERD (gastroesophageal reflux disease): (9) Essential hypertension: (10) Narcotic abuse in remission: Status: Acute History of Present Illness Narrative: ED notes: This is a 46-year-old male with past medical history of prior substance abuse now on methadone, gastric bypass in 2012, tonsillectomy, diabetes that was subsequently resolved with weight loss, osteoarthritis, GERD, hypertension, peripheral vascular disease, who presents today for abdominal pain.? Patient does not normally drink alcohol at all, but has for the last 2 days.? Then starting this afternoon he had a gradual onset of stabbing abdominal pain that he states goes from the front to the back.? He denies any tearing or ripping sensation.? He denies any chest pain or diarrhea.? He does admit to nausea but no vomiting.? Pain does not seem to be made better with anything.? He did come to the ER about 3 and half to 4 hours ago.? He declined CT scan at that time, but laboratory work-up was done including EKG which was all benign.? He was given GI cocktail and Protonix and he had a notable improvement of his symptoms after that.? On reassessment at that time by provider Gaston Aguila he demonstrated a notably stable clinical exam and assessment, and patient was requesting discharge home.? Fortunately as soon as he got home his pain symptoms returned and he came back to the ER for reassessment.? Patient denies any other complaints at this time.? No other modifying factors pt notes currently the pain is no better- RLQ. He has never had anything like this before. He is passing small amount of stool/gas. N/V have improved.. Pain is slightly better. He had laprascopic claude-en-Y surgery 10 yrs ago. He dnies any CP or sob currently. He has never had HI/CVA. He is not DM. No problems w/ anesthesia that he is aware of. Review of Systems All systems reviewed & are unremarkable except as noted in HPI and below PFSH All Active Problems (Updated 02/08/22 @ 09:47 by Herminia Amos DO) Narcotic abuse in remission (Acute) Abdominal pain (Acute) Intussusception (Acute) COVID-19 (Acute) 12/19/21- Vaccinated Haresh vaccine Gastric artery bleed (Acute) Acute epigastric pain (Acute) Accelerated hypertension (Acute) 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 (Acute) Peripheral venous insufficiency (Acute) Peripheral edema (Acute) Obstructive sleep apnea syndrome (Acute) Hammer toe (Acute 03/27/08) degenerative changes foot Depressive disorder (Acute) Epigastric pain (Acute) Medical History (Updated 02/08/22 @ 09:47 by Herminia Amos DO) Diabetes mellitus (12/29/12) resolved after gastric bypass Essential hypertension (01/28/13) GERD (gastroesophageal reflux disease) (01/31/14) Gout Morbid obesity gastric sleeve bariatric surgery 01/08 Osteoarthritis Surgical History gastric sleeve (~01/2013) [facility] [place] History of hernia repair History of tonsillectomy Social History Smoking/Tobacco Use Status: Never Smoking risk assessment performed?: Yes Alcohol Intake: current Alcohol Intake frequency: a few times a week Drug use: Never Substance use type: does not use and former substance user Details: on suboxone for vicodin addiction Do you feel safe at home: Yes Do you feel safe in your relationship?: Yes Meds Allergies and Home Medications Allergies Allergy/AdvReac Type Severity Reaction Status Date / Time No Known Allergies Allergy Unverified 02/07/22 20:19 Home Medications Medication Instructions Recorded Confirmed Type multivitamin-ferrous 1 tab-cap PO DAILY 12/29/12 10/30/20 History fumarate-folic acid 18 mg-400 mcg tablet (Daily Multiple) cyanocobalamin (vitamin B-12) 500 500 mcg sublingual DAILY ##100 04/20/13 02/08/22 History mcg tablet (Vitamin B-12) cholecalciferol (vitamin D3) 50 2,000 unit PO DAILY 05/05/14 02/08/22 History mcg (2,000 unit) capsule (Vitamin D3) calcium citrate 315 mg 1 ea PO DAILY #100 tab-caps 11/29/14 02/08/22 History calcium-vitamin D3 6.25 mcg (250 unit) tablet (Citracal + Vitamin D Maximum) buprenorphine 8 mg-naloxone 2 mg 1 film buccal DAILY 12/11/19 02/08/22 History sublingual film (Suboxone) pantoprazole 40 mg tablet,delayed 40 mg PO DAILY #20 tabs 02/07/22 02/08/22 Rx release (Protonix) Exam Narrative Exam Narrative: PHYSICAL EXAM GENERAL APPEARANCE: Alert, healthy appearance, oriented, in no acute distress SKIN: No rashes.? No breakdown HEAD, EYES, EARS, NECK, THROAT: Head is normocephalic, pupils equal, round, reactive to light and accommodation, ocular movement intact, sclera clear and no jaundice. ?poor denition NECK: Supple, Trachea midline. No JVD. LUNGS: normal respiration/nl chest excursion. ?Clear to auscultation B/l no R/R/W ?HEART: Regular rate and rhythm, EXTREMITY: No edema or cyanosis? no leg pain, redness, swelling.? No IV infiltration multiple tatoos. ABDOMEN: . Nobowel sounds mild pain in RLQ. no BS. no distention or peritonitis. NEURO: no focal neuro deficits. Results Labs Result diagrams: 02/08/22 09:26 02/08/22 03:43 Labs: Laboratory Results - last 24 hr 02/07/22 02/08/22 02/08/22 20:45 02:28 03:43 WBC RBC Hgb Hct MCV MCH MCHC RDW Plt Count MPV Immature Gran % Neutrophils % Lymphocytes % Monocytes % Eosinophils % Basophils % Nucleated RBC % Absolute Neutrophils Absolute Lymphocytes Absolute Monocytes Absolute Eosinophils Absolute Basophils Sodium 138 Potassium 3.9 Chloride 103 Carbon Dioxide 27.8 Anion Gap 7.2 BUN 14 Creatinine 0.6 L Est GFR (CKD-EPI 2020) 122.07 Glucose 94 Calcium 9.1 Total Bilirubin 0.6 AST 26 ALT 21 Alkaline Phosphatase 79 Troponin I < 50 Cancelled Total Protein 7.6 Albumin 4.2 Lipase 71 COVID-19 Source 02/08/22 02/08/22 03:43 03:49 WBC 5.59 RBC 4.04 L Hgb 11.5 L Hct 35.7 L MCV 88 MCH 28.5 MCHC 32.2 RDW 14.7 H Plt Count 280 MPV 9.8 Immature Gran % 0.4 Neutrophils % 69.6 Lymphocytes % 21.5 Monocytes % 7.9 Eosinophils % 0.2 Basophils % 0.4 Nucleated RBC % 0.0 Absolute Neutrophils 3.90 Absolute Lymphocytes 1.20 Absolute Monocytes 0.44 Absolute Eosinophils 0.01 Absolute Basophils 0.02 Sodium Potassium Chloride Carbon Dioxide Anion Gap BUN Creatinine Est GFR (CKD-EPI 2020) Glucose Calcium Total Bilirubin AST ALT Alkaline Phosphatase Troponin I Total Protein Albumin Lipase COVID-19 Source Nasal/Nares Last Vital Signs Temp 36.1 C L 02/08/22 07:23 Pulse 54 L 02/08/22 07:23 Resp 16 02/08/22 07:23 BP 164/99 H 02/08/22 07:23 Pulse Ox 100 02/08/22 07:23
[2022-02-08 09:27] LABS: COVID-19 PCR Negative (Negative)
[2022-02-08 09:33] LABS: Absolute Basophil Count 0.02 10^3/uL (0.0-0.2); Absolute Eosinophil Count 0.04 10^3/uL (0.0-0.7); Absolute Lymphocyte Count 1.24 10^3/uL (1.2-3.4); Absolute Neutrophil Count 2.87 10^3/uL (1.2-6.7); Basophils % 0.4; Eosinophils % 0.9; HCT 33.2 % (40.0-50.0); Lymphocytes % 27.1; MCH 28.7 pg (27.0-33.0); MCHC 33.1 % (32.0-36.0); MCV 87 fL (80-95); MPV 10.2 fL (8.0-11.0); Monocytes % 8.8; Neutrophils % 62.8; Platelet Count 258 10^3/uL (130-400); RBC 3.83 10^6/uL (4.36-5.78); RDW 14.8 % (11.8-14.1); RDW-SD 47.6 fL; WBC 4.57 10^3/uL (4.4-10.8)
--- NOTE | 2022-02-08 09:57 | PDOC.CMIN ---
- If Service Date Differs Date of service: 02/08/22 Time of Service: 09:57 Care Management Initial Assess REASON FOR HOSPITALIZATION:: Intussusception, abdominal pain PAST MEDICAL HISTORY/PAST SURGICAL HISTORY:: All Active Problems (Updated 02/08/22 @ 09:47 by Herminia Amos DO). Narcotic abuse in remission (Acute). Abdominal pain (Acute). Intussusception (Acute). COVID-19 (Acute). 12/19/21-. Vaccinated Haresh vaccine. Gastric artery bleed (Acute). Acute epigastric pain (Acute). Accelerated hypertension (Acute). 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 (Acute). Peripheral venous insufficiency (Acute). Peripheral edema (Acute). Obstructive sleep apnea syndrome (Acute). Hammer toe (Acute 03/27/08). degenerative changes foot. Depressive disorder (Acute). Epigastric pain (Acute). Medical History (Updated 02/08/22 @ 09:47 by Herminia Amos DO). Diabetes mellitus (12/29/12). resolved after gastric bypass. Essential hypertension (01/28/13). GERD (gastroesophageal reflux disease) (01/31/14). Gout. Morbid obesity. gastric sleeve bariatric surgery 01/08. Osteoarthritis. Surgical History . gastric sleeve (~01/2013). [facility] [place]. History of hernia repair. History of tonsillectomy PREVIOUS FUNCTIONAL STATUS/SOCIAL/FAMILY SUPPORTS:: Juice lives in [place] with his Tiff and their two children. He has 2 brothers and a sister who are very supportive. Juice drives and is independent at baseline. 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 CM advised Juice that his return to work date is unknown and will more than likely include restrictions. Juice communicated this to his employer. BRITTANY will continue to follow. CURRENT FUNCTIONAL STATUS:: Juice is lying in bed with the HOB elevated. He is awake, alert and able to engage in conversation. Juice states that his pain is currently a 9 out of 10 pain. Pain starts in his abdomen and radiates to his back. Pain will come and go in waves. BRITTANY spoke with pts Tiff via phone. Ultimately, she is waiting to hear from Juice about next steps and would like to talk with Juice before he goes to the OR, as she has some personal reservations. CM spoke with Juice, he is planning on going to the OR and has been in contact with Deb. ADVANCE DIRECTIVES:: None on file, CM will review and offer forms. Has patient been provided with info about the portal/API?: Yes Did the patient sign up for the portal?: No CODE STATUS:: Full Code INSURANCE COVERAGE / FINANCIAL ISSUES:: Medicaid. [facility] CURRENT HOME/COMMUNITY SERVICES/EQUIPMENT:: HX substance abuse, treatment through [facility]. PRIMARY CARE PHYSICIAN:: [facility] POTENTIAL DISCHARGE NEEDS:: Discharge plan of care, follow up appointments PATIENT/FAMILY EDUCATION NEEDS:: Review discharge instructions, limitations, medications and plan to follow up with community providers. Discuss ask me three. TRANSPORTATION:: Via private vehicle with family. PLAN:: Juice requires close monitoring and further medical evaluation. He is being followed by Surgery. Juice spoke with Dr. Amos this afternoon and is agreeable to go to the OR for a diagnosic Laproscopy. Anticipate, Juice will discharge home via private vehicle with family when medically ready. He will follow his discharge plan of care as prescribed and follow up with community providers. Brady may need a work note.
[2022-02-08 10:10] LABS: Procalcitonin < 0.1 ng/mL
[2022-02-08 10:31] LABS: ALT 18 U/L (16-63); AST 22 U/L (15-37); Albumin 3.8 g/dL (3.4-5.0); Alkaline Phosphatase 72 U/L (46-116); Anion Gap 6.7 mmol/L (3-11); BUN 10 mg/dL (7-18); Bilirubin, Total 0.6 mg/dL (0.2-1.0); C-Reactive Protein 0.08 mg/dL (0.0-0.3); CO2 28.3 mmol/L (21.0-32.0); CREATININE 0.6 mg/dL (0.70-1.30); Calcium 8.8 mg/dL (8.5-10.1); Chloride 104 mmol/L (98-107); Estimated GFR 122.07 (mL/min/1.73m2); Glucose 94 mg/dL (74-106); Potassium 3.7 mmol/L (3.5-5.1); Sodium 139 mmol/L (136-145); Total Protein 6.9 g/dL (6.4-8.2)
[2022-02-08 10:38] LABS: Lab Add On Test DONE
[2022-02-08] MEDS: Buprenorphine/Naloxone 8 mg/2 mg FILM 2 EACH SL (10:48)
[2022-02-08] MEDS: Pantoprazole 40 MG VIAL IVP (11:01)
[2022-02-08 11:04] LABS: Ferritin 14 ng/mL (26-388); Lipase 55 U/L (73-393)
--- NOTE | 2022-02-08 12:00 | DI.RAD_ITS ---
Exam(s) XR ABDOMEN FLAT UPRIGHT EXAM: 2D digital imaging was performed. CLINICAL HISTORY: intussception. COMPARISON: CT CT ABDOMEN PELVIS W from 02/08/2022 TECHNIQUE: Supine and upright views of the abdomen was performed. Three images were obtained. FINDINGS: LUNG BASES: Clear. BOWEL GAS PATTERN: Nondistended. Oral contrast has passed into the colon. No evidence of bowel obstr uction. FREE AIR: None. CALCIFICATIONS: No radiopaque calcifications. OSSEOUS STRUCTURES: Normal for age. Degenerative changes are seen in the spine in the hips bilaterall y. OTHER FINDINGS: I do [place] contrast is seen in the urinary bladder from the patient's recent CT scan . IMPRESSION: No evidence of bowel obstruction. DATA REPOSITORY: RADIATION DOSE DELIVERED:
[2022-02-08 13:08] LABS: Iron 44 ug/dL (65-175); Total Iron Binding Capacity 349 ug/dL (250-450)
--- NOTE | 2022-02-08 14:32 | W.ANESPRE ---
General Info Date of Service Date Performed: 02/08/22 Height: 6 ft 5 in Weight: 99.6 kg Body Mass Index (BMI): 26.0 Surgical Procedure: Operation Date: 02/08/22 14:10 Proposed Procedure Side Surgeon p Exploratory Laparoscopy possible Laparotomy possible Small Bowel Resection Herminia Amos, Meds Allergies and Home Medications Allergies Allergy/AdvReac Type Severity Reaction Status Date / Time No Known Allergies Allergy Unverified 02/07/22 20:19 Home Medication Medication Instructions Recorded multivitamin-ferrous 1 tab-cap PO DAILY 12/29/12 fumarate-folic acid 18 mg-400 mcg tablet (Daily Multiple) cyanocobalamin (vitamin B-12) 500 500 mcg sublingual DAILY ##100 04/20/13 mcg tablet (Vitamin B-12) cholecalciferol (vitamin D3) 50 2,000 unit PO DAILY 05/05/14 mcg (2,000 unit) capsule (Vitamin D3) calcium citrate 315 mg 1 ea PO DAILY #100 tab-caps 11/29/14 calcium-vitamin D3 6.25 mcg (250 unit) tablet (Citracal + Vitamin D Maximum) buprenorphine 8 mg-naloxone 2 mg 2 film buccal DAILY 12/11/19 sublingual film (Suboxone) pantoprazole 40 mg tablet,delayed 40 mg PO DAILY #20 tabs 02/07/22 release (Protonix) Current Visit Medications: Current Medications Generic Name Dose Route Start Last Admin Trade Name Freq PRN Reason Stop Dose Admin Buprenorphine/Naloxone 2 each 02/08/22 08:30 02/08/22 10:48 Buprenorphine/Naloxone 8 Mg/2 Mg Film SL 2 each DAILY CLAY Administration Fentanyl 100 mcg 02/08/22 03:34 02/08/22 04:55 Fentanyl 100 Mcg/2 Ml Vial IVP 100 mcg Q1H PRN PRN Administration Hydromorphone HCl 1 mg 02/08/22 06:49 02/08/22 10:58 Hydromorphone 2 Mg/Ml Syr IVP 1 mg Q1H PRN PRN Administration Sodium Chloride 500 mls @ 0 mls/hr 02/08/22 03:34 Saline 500ml Bag IV PRN PRN As Directed Ringer's Solution 1,000 mls @ 100 mls/hr 02/08/22 05:30 IV INFUSION CLAY IV Miscellaneous Supplies 1 each 02/08/22 03:45 Iv Access IV DIRECTED CLAY Morphine Sulfate 4 mg 02/08/22 05:17 02/08/22 05:31 Morphine 4 Mg/Ml Syr IVP 4 mg Q1H PRN PRN Administration Pantoprazole Sodium 40 mg 02/09/22 08:30 Pantoprazole 40 Mg Vial IVP DAILY [facility] Sodium Chloride 0 ml 02/08/22 03:34 02/08/22 11:00 Normal Saline Flush 10 Ml Syr IVP 50 ml PRN PRN Administration PFSH Active Problems Active Problems: Problem Status Onset Code Narcotic abuse in remission F11.11 Abdominal pain R10.9 Intussusception K56.1 COVID-19 U07.1 Gastric artery bleed K92.2 Acute epigastric pain R10.13 Accelerated hypertension I10 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 I83.009, L97.909 Peripheral venous insufficiency I87.2 Peripheral edema R60.9 Obstructive sleep apnea syndrome G47.33 Hammer toe 03/27/08 M20.40 Depressive disorder F32.9 Epigastric pain R10.13 Medical History Medical History (Updated 02/08/22 @ 09:47 by Herminia Amos DO) Diabetes mellitus (12/29/12) resolved after gastric bypass Essential hypertension (01/28/13) GERD (gastroesophageal reflux disease) (01/31/14) Gout Morbid obesity gastric sleeve bariatric surgery 01/08 Osteoarthritis Surgical History Surgical History gastric sleeve (~01/2013) [facility] [place] History of hernia repair History of tonsillectomy Tobacco Smoking/Tobacco Use Status: Never Alcohol Alcohol Intake: current Alcohol intake frequency: a few times a week Substance Use Substance use: Never Substance use type: does not use and former substance user Details: on suboxone for vicodin addiction Vital Signs and Lab Results Vital Signs Most Recent Vital Signs in EMR: Most Recent Vital Signs Temp Pulse Resp BP Pulse Ox 36.5 C 57 L 16 172/98 H 99 02/08/22 11:07 02/08/22 11:07 02/08/22 11:07 02/08/22 11:07 02/08/22 11:07 Lab Results Result Diagrams: 02/08/22 09:26 02/08/22 09:26 Blood Type / Crossmatch: No Data to Display Complete Blood Count: White Blood Count 4.57 10^3/uL (4.4-10.8) 02/08/22 09:26 Red Blood Count 3.83 10^6/uL (4.36-5.78) L 02/08/22 09:26 Hemoglobin 11.0 g/dL (13.5-17.5) L 02/08/22 09:26 Hematocrit 33.2 % (40.0-50.0) L 02/08/22 09:26 Platelet Count 258 10^3/uL (130-400) 02/08/22 09:26 Complete Metabolic Panel: Sodium 139 mmol/L (136-145) 02/08/22 09:26 Potassium 3.7 mmol/L (3.5-5.1) 02/08/22 09:26 Chloride 104 mmol/L (98-107) 02/08/22 09:26 Carbon Dioxide 28.3 mmol/L (21.0-32.0) 02/08/22 09:26 BUN 10 mg/dL (7-18) 02/08/22 09:26 Creatinine 0.6 mg/dL (0.70-1.30) L 02/08/22 09:26 Est GFR (CKD-EPI 2020) 122.07 (mL/min/1.73m2) 02/08/22 09:26 Calcium 8.8 mg/dL (8.5-10.1) 02/08/22 09:26 Albumin 3.8 g/dL (3.4-5.0) 02/08/22 09:26 Glucose 94 mg/dL (74-106) 02/08/22 09:26 C-Reactive Protein 0.08 mg/dL (0.0-0.3) 02/08/22 09:26 Liver Function Panel: Alanine Aminotransferase (ALT/SGPT) 18 U/L (16-63) 02/08/22 09:26 Aspartate Amino Transf (AST/SGOT) 22 U/L (15-37) 02/08/22 09:26 Coagulation Panel: INR International Normalized Ratio 1.2 (0.9-1.1) H 02/07/22 20:45 Prothrombin Time 11.6 sec (9.3-11.0) H 02/07/22 20:45 Activated Partial Thromboplast Time 24.3 sec (21.0-27.5) 02/07/22 20:45 Cardiac Panel: Troponin I < 50 ng/L (<or=60) 02/07/22 Arterial Blood Gas: No Data to Display Venous Blood Gas: No Data to Display Pancreas Panel: Lipase 55 U/L (73-393) 02/08/22 09:26 Thyroid Panel: No Data to Display Infectious Disease: Coronavirus (COVID-19)(PCR) Negative (Negative) 02/08/22 03:49 Coronavirus 2019 Source Nasal/Nares 02/08/22 03:49 Blood Cultures: No Data to Display Toxicology Panel: No Data to Display Imaging and Studies Imaging and Studies Study information below may be from another EMR and interpreted by another provider. Please see original notes in EMR for more complete details. EKG Summary: 01/2022: sinus rhythm. Anesthesia Assessment and Plan Anesthesia History Personal History: No History of Anesthesia Complications Family History: No Family History of Anesthesia Complications Exercise Tolerance Exercise Tolerance: Metabolic Equivalents>4 Cardiac & Pulmonary Exam Cardiac Exam: Normal S1/S2 Heart Sounds Pulmonary Exam: Clear Bilateral Breath Sounds Implantable Cardiac Device Does patient have a Pacemaker or an ICD?: No Airway Exam Known Difficult Airway: No Mallampati Class: 1 Mouth Opening: Normal (> 3cm) Thyromental Distance: Greater than 3 cm Neck Range of Motion: Full ROM Neck Circumference: Normal Teeth Condition: Normal Dentition ASA Classification ASA Score: ASA 3 Emergency Case?: Yes NPO Status NPO Status: Full Stomach Anesthesia Plan Resuscitation Status: Full Code Anesthesia Technique: General Anesthesia Airway Planned: Endotracheal Tube Pain Management: Epidural (potental epidural due to high risk of opening. ) Monitors Used: Standard Monitors, Arterial Line (+/-) and Central Line (+/-) Preoperative Comments:: 46 yo male with SBO to OR for exploratory laparoscopy. currently inpt receiving suboxone, pantoprazole, hydromorphone. Sig PMHx: opioid abuse (on suboxone), s/p claude-n-y(marginal ulcer in the past with GI bleed), EDUARDA, depression, DM (resolved after GB), never smoker, occ EtOH. Previous Anes: - 2104 Hernia repair with ez mask, LMA 5. - 2012 GB masked with OPA 90mm, no note on ETT placement. Discussed case with surgeon, states that there is a high likelyhood of going open given his history. Discussed risk, benifits, and alternitives of epidural vs nerve blocks combined with general anesthesia. Given the high risk of opening combined with his current suboxone use, plan will be for epidural He understands that this my be excessive if we do not go open. All questions were anwsered.
--- NOTE | 2022-02-08 15:20 | W.PM.PROGNOT ---
Date of Service Date of service: 02/08/22 Time of Service: 15:31 Assessment and Plan Assessment and plan (1) Intussusception: Status: Acute (2) gastric sleeve: Subjective Subjective Interval history since last seen: Patient still complaining of occasional left lower quadrant. She has had no nausea or vomiting. He is requiring pretty consistent narcotic administration. He does have better bowel sounds at this time. He did pass a small amount of gas and a scant amount of stool. He does not feel he can eat and overall he still having a lot of pain and does not feel better. He does have a large amount of stool in his colon on the x-ray. It does not appear to be an obstruction on the x-ray. So it is difficult to say at this point if the obstruction has resolved. I did review his CT. Accordingly that this is in the jejunum. Because of his previous Rina-en-Y gastric bypass it is unclear exactly where this is at. We will plan on doing a diagnostic laparoscopy. The intussusception is not resolved in 4 days he requires a small bowel resection he may require a laparotomy for this. Informed consent is obtained explaining risks and benefits of the procedure including but not limited to: Bleeding, infection, pneumonia, blood clots, he may require a small bowel resection. There is risks of abscess and anastomotic failure. This may be at his Rina-en-Y anastomosis , And this may require revision. There is risks of hernias. Persistent chronic pain. Carries risk of recurrent bowel obstructions. All questions are answered to his satisfaction. He is going to do an epidural for pain plan we will have Zosyn for preop antibiotics. Further recommendations to follow based upon findings in surgery. Routine postoperative care is anticipated. Exam Cardio Other: NSR L: CTA b/l Ab large amount of redundant skin. Post gastric bypass patient. Post laparoscopic changes noted. No hernias.dom: Minimal bowel sounds. No peritonitis. Pain in the left lower quadrant. Objective Last Vital Signs Temp 36.5 C 02/08/22 11:07 Pulse 57 L 02/08/22 11:07 Resp 16 02/08/22 11:07 BP 172/98 H 02/08/22 11:07 Pulse Ox 99 02/08/22 11:07 Laboratory Results - last 24 hr 02/07/22 02/08/22 02/08/22 20:45 02:28 03:43 WBC RBC Hgb Hct MCV MCH MCHC RDW Plt Count MPV Immature Gran % Neutrophils % Lymphocytes % Monocytes % Eosinophils % Basophils % Nucleated RBC % Absolute Neutrophils Absolute Lymphocytes Absolute Monocytes Absolute Eosinophils Absolute Basophils Sodium 138 Potassium 3.9 Chloride 103 Carbon Dioxide 27.8 Anion Gap 7.2 BUN 14 Creatinine 0.6 L Est GFR (CKD-EPI 2020) 122.07 Glucose 94 Calcium 9.1 Iron TIBC Ferritin Total Bilirubin 0.6 AST 26 ALT 21 Alkaline Phosphatase 79 Troponin I < 50 Cancelled C-Reactive Protein Total Protein 7.6 Albumin 4.2 Lipase 71 Procalcitonin COVID-19 Source SARS-CoV-2 (PCR) Add-On Test Request 02/08/22 02/08/22 02/08/22 03:43 03:43 03:49 WBC 5.59 RBC 4.04 L Hgb 11.5 L Hct 35.7 L MCV 88 MCH 28.5 MCHC 32.2 RDW 14.7 H Plt Count 280 MPV 9.8 Immature Gran % 0.4 Neutrophils % 69.6 Lymphocytes % 21.5 Monocytes % 7.9 Eosinophils % 0.2 Basophils % 0.4 Nucleated RBC % 0.0 Absolute Neutrophils 3.90 Absolute Lymphocytes 1.20 Absolute Monocytes 0.44 Absolute Eosinophils 0.01 Absolute Basophils 0.02 Sodium Potassium Chloride Carbon Dioxide Anion Gap BUN Creatinine Est GFR (CKD-EPI 2020) Glucose Calcium Iron 44 L TIBC 349 Ferritin Total Bilirubin AST ALT Alkaline Phosphatase Troponin I C-Reactive Protein Total Protein Albumin Lipase Procalcitonin COVID-19 Source Nasal/Nares SARS-CoV-2 (PCR) Negative Add-On Test Request 02/08/22 02/08/22 02/08/22 09:26 09:26 09:26 WBC 4.57 RBC 3.83 L Hgb 11.0 L Hct 33.2 L MCV 87 MCH 28.7 MCHC 33.1 RDW 14.8 H Plt Count 258 MPV 10.2 Immature Gran % 0.0 Neutrophils % 62.8 Lymphocytes % 27.1 Monocytes % 8.8 Eosinophils % 0.9 Basophils % 0.4 Nucleated RBC % 0.0 Absolute Neutrophils 2.87 Absolute Lymphocytes 1.24 Absolute Monocytes 0.40 Absolute Eosinophils 0.04 Absolute Basophils 0.02 Sodium 139 Potassium 3.7 Chloride 104 Carbon Dioxide 28.3 Anion Gap 6.7 BUN 10 Creatinine 0.6 L Est GFR (CKD-EPI 2020) 122.07 Glucose 94 Calcium 8.8 Iron TIBC Ferritin Total Bilirubin 0.6 AST 22 ALT 18 Alkaline Phosphatase 72 Troponin I C-Reactive Protein 0.08 Total Protein 6.9 Albumin 3.8 Lipase Procalcitonin < 0.1 COVID-19 Source SARS-CoV-2 (PCR) Add-On Test Request 02/08/22 02/08/22 09:26 09:26 WBC RBC Hgb Hct MCV MCH MCHC RDW Plt Count MPV Immature Gran % Neutrophils % Lymphocytes % Monocytes % Eosinophils % Basophils % Nucleated RBC % Absolute Neutrophils Absolute Lymphocytes Absolute Monocytes Absolute Eosinophils Absolute Basophils Sodium Potassium Chloride Carbon Dioxide Anion Gap BUN Creatinine Est GFR (CKD-EPI 2020) Glucose Calcium Iron TIBC Ferritin 14 L Total Bilirubin AST ALT Alkaline Phosphatase Troponin I C-Reactive Protein Total Protein Albumin Lipase 55 Procalcitonin COVID-19 Source SARS-CoV-2 (PCR) Add-On Test Request DONE
[2022-02-08] MEDS: Lactated Ringers 1,000 ML 100 ML IV (16:28)
--- NOTE | 2022-02-08 16:33 | W.ANESNEU ---
Epidural/Spinal Catheter Date Performed: 02/08/22 Procedure Start: 16:20 Procedure Stop: 16:30 Requesting Provider: Herminia Amos Procedure Location: Med/Surg Reason Performed: Postoperative Analgesia Standard Monitors Applied: ECG, Blood Pressure and SpO2 Patient Position: Sitting Sedation Given (Indicate Dose Given): No Sedation given Patient Mental Status: Awake Sterility: Hand Hygiene Procedure Location: Other Epidural Needle: Tuohy 17 Guage Needle Length: Other Needle Approach: Midline Epidural Procedure: Skin Prepped, Sterile Drape Placed, 1% Lidocaine to skin and subcutaneous tissue with 25G needle and Other Catheter Placed?: Catheter Not Placed Paresthesia: None Ultrasound: Used to samir site Number of Attempts (See previous attempts in note section): 3 Procedure Tolerated: Other Procedure Outcome: Unsuccessful Procedure Comment:: Back marked with US, sig shift off midline with rotation, unclear epidural space. attempted at 3 levels, with persistent bony contact despite multiple repositioning. Pt tolerated it fairly. discussed that we didn't want to keep doing this as he is not enjoying this and with 3 attempts, it was a reasonable effort. discussed back up plan of regional anesthesia once in the OR if we go open. Pt agrees with the plan. a sorbaveiw dressing was placed over all of the needle pokes. one of which is oozy. Performed By: Hermes Jimenez
[2022-02-08] MEDS: LORazepam 2 MG/ML VIAL 0.5 MG IVP (17:05)
[2022-02-08] MEDS: PIPERACILLIN/TAZO 3.375 GM in Normal Saline 50 ML IVPB (18:27)
--- NOTE | 2022-02-08 19:03 | W.ANESNERVE ---
Nerve Block Single Injection Procedure Date and Time Date Performed: 02/08/22 Procedure Start: 18:32 Location Where Procedure Performed Procedure Location: Operating Room Procedure Stop: 18:38 Reason Performed: Postoperative Analgesia Requesting Provider: Herminia Amos Timeout Performed Timeout Performed: Yes Monitoring Used ECG, Blood Pressure, SpO2 and ETCO2 Sterility Sterility: Hand Hygiene, Surgical Cap, Surgical Mask, Sterile Gloves, Sterile Drape/Sheet and Chlorhexidine Sedation Given During Procedure Sedation Given (Indicate Dose Given): No Sedation given Patient Mental Status Patient Mental Status: Performed under general anesthesia Nerve Block 1st Nerve Block: Laterality: Bilateral Block Type: Rectus Sheath (Bilateral) Needle / Catheter Used: 100mm SonoPlex II Local Anesthetic Bolus (Indicate Dose Given): Half of Total block solution given into each side and Bupivacaine 0.375% Dose:: 30 mL Additives (Indicate Dose Given): Precedex Dose:: 90 mcg Ultrasound: Sterile probe cover and gel used Ultrasound Image Saved?: Yes Nerve Stimulator: Not Used Paresthesia: None Procedure Tolerated: No Complications Procedure Outcome: Successful Performed By: Hermes Jimenez
[2022-02-08] MEDS: Bupivacaine 0.25% Pres-Free W/EPI 30 ML VIAL (19:42)
--- NOTE | 2022-02-08 20:06 | W.PM.OP ---
Date of service: 02/08/22 Time of Service: 20:06 Operative Note Operative Note DATE OF PROCEDURE: 02/08/22 PRE-OP DIAGNOSIS: Acute abdominal pain/intussusception suggested by CT scan POST-OP DIAGNOSIS: other (Internal hernia/Petersons hernia) PROCEDURE: Attempt a laparoscopy Exploratory laparotomy Reduction of internal hernia Oversew of mesenteric defect SURGEON: Herminia Amos ASSISTING SURGEON: Celsa Cobos ANESTHESIA TYPE: Local By Surgeon, General LMA/ETT and Primary Nerve Block Refer to Anesthesia Record ESTIMATED BLOOD LOSS: 25 PATHOLOGY: none sent COMPLICATIONS: None Patient was transported to: PACU Patient's condition: stable Procedure Description: Patient is a 46-year-old male who presented to the emergency department with acute abdominal pain. CT was obtained which is suggested intussusception in the jejunum. He was admitted for hydration and pain management. It failed to resolve after 12 hours and he still having severe pain. He will be brought to the OR for diagnostic laparoscopy possible laparotomy possible bowel resection. Informed consent is obtained explaining risks and benefits of the procedure including but not limited to: Bleeding, infection, pneumonia, blood clots, hernias, MO, CVA, chronic pain or chronic numbness, anastomotic failure, abscesses, pain control issues(patient is on chronic Suboxone therapy and a history of narcotic abuse). We did attempt to place an epidural, the patient spine was not amendable to epidural placement. He has good IV access. Patient is brought to the operative room suite and placed in the supine position. Anesthesia is administered per the department of anesthesia. He is given a preop dose of Zosyn. NG tube and Aragon catheter are placed. He was prepped and draped in the usual sterile fashion using a Chloro-prep scrub solution. Timeout is performed. Patient has had a previous laparoscopic Rina-en-Y gastric bypass greater than 10 years previously. He has a significant amount of redundant soft tissue A 1 cm vertical midline incision is made at where his approximate umbilicus would be. We attempted to dissect down into the fascia and obtain access. Unfortunately were not able to obtain access. Patient has had a previous hernia repair and there is a mesh. A 4 inch upper abdominal incision in the vertical midline space is created using a #10 blade. Cautery was used to obtain hemostasis and dissect down to the fascia which is opened. Peritoneum was elevated and entered bluntly. The incision is carried superiorly and inferiorly. Morales's are used to provide retraction. We did not open the mesh which had been placed for an umbilical defect. Upon entering the abdomen he actually has minimal adhesions. The bowel is run. The area of the jejunal anastomosis/Rina-en-Y is healthy. He does have a large internal hernia through which most of the bypassed bowel segment has herniated through; this is reduced. All of this bowel is pink and healthy. The bypassed ileum from the stomach to the colon is also pink and healthy. The hernia defect in the upper mesentery is closed with 3-0 Vicryl in a running fashion. There is a small portion of the mesentery and the ileum that is also closed with a 3-0 Vicryl. The abdomen is copiously irrigated with a liter of saline. All irrigation is removed. All structures were returned to their normal anatomic position. He has minimal omentum. 2 pieces of Interceed are placed under the incision. Incision is closed with 0 PDS in a running fashion closing both the facia and the peritoneum. The fat pad is copiously irrigated. The subcutaneous tissue is reconstructed using 3-0 Vicryl. skin is approximated with layne. A nathalia's dressing is then applied to the incision. Patient tolerated procedure well without complication and transferred to the recovery room in stable condition.
--- NOTE | 2022-02-08 20:35 | W.ANESPOSTOP ---
Postoperative Evaluation Date, Time and Location Date Performed: 02/08/22 Time Performed: 08:35 Patient Location: Day Surgery Unit Vital Signs Most Recent Imported Vital Signs: Most Recent Vital Signs Temp Pulse Resp BP Pulse Ox 36.7 C 61 10 L 117/66 96 02/08/22 20:21 02/08/22 20:21 02/08/22 20:21 02/08/22 20:21 02/08/22 20:21 Pain Score Most Recent Pain Score: Most Recent Pain Score Pain Level 9 02/08/22 15:45 Assessment Mental Status: Awake (Alert & Oriented to Patient Baseline) Airway and Respiratory Function: Patent airway with normal (patient baseline) respiratory exam Cardiovascular Function: Hemodynamically Stable Hydration Status: Adequately Hydrated Nausea & Vomiting: No Nausea or Vomiting Pain: Pain is tolerable per patient Peripheral Nerve Block: Regional nerve block not resolved at time of post operative discharge
--- NOTE | 2022-02-08 21:29 | W.PM.PROGNOT ---
Date of Service Date of service: 02/08/22 Time of Service: 21:30 Assessment and Plan Assessment and plan (1) Obstructed internal hernia: Status: Acute (2) Status post exploratory laparotomy: Status: Acute (3) Narcotic abuse in remission: Status: Acute (4) Acute epigastric pain: Status: Acute (5) Accelerated hypertension: Status: Acute (6) 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: Status: Acute (7) Peripheral venous insufficiency: Status: Acute (8) Peripheral edema: Status: Acute (9) Obstructive sleep apnea syndrome: Status: Acute (10) Depressive disorder: Status: Acute (11) GERD (gastroesophageal reflux disease): (12) Gout: (13) gastric sleeve: Assessment and plan: Patient had an internal hernia. Cotter type. This was manually reduced durotomy. He had 2 mesenteric defects that were closed. The intestine was viable and we did not have to revise his anastomosis. He should be able to start eating in the next 24 hours. We will continue with NG decompression for the next 24 hours Start Lovenox in a.m. DC Cardenas catheter in a.m. We will continues to monitor fluid needs overnight Pain control will be compounded because of his Suboxone therapy. Currently he is receiving 2 mg of Dilaudid every 1 hour. He can have 0.5 mg of Ativan every 3 hours. He has Ofirmev thousand ordered IV every 6 hours. And Toradol 15 mg IV every 6 hours. Ice Start ambulation in a.m. Labs ordered in a.m. He also has a mild anemia. Work-up was instituted for anemia. We will give a dose of Venna for in a.m. Continue on PPI Continue on Lovenox. We are unsuccessful in placing a epidural bilateral tap blocks were done by anesthesia. He does have good IV access. Continue with pulmonary toilet and ambulation. He should not require any further antibiotics. Sounds at risk and scant back up against the dresser count has varied forearms and 90s terms picking for my fingers I see AThe patient is doing well post-op. Their pain is well controlled. They are having no nausea or vomiting. The pt is not having any chest pain or SOB, productive cough; no calf pain or swelling. The pt is making good urine. The pt pain is adequately controlled. The case was discussed with nursing and patient?s progress reviewed. All of the pt's home medications were addressed and adjusted accordingly for their oral intact status. HEENT: no jaundice. no eye pain/drainage/redness/swelling. Mild sore throat Cardio- NSR no chest pain, BP stable. Pulm: no sob or productive cough. no hemoptysis Incision- clean/dry. Dressing intact no excessive bleeding or drainage I discussed with the patient and/or there family about the findings in surgery and the pt's progress. We reviewed expectations for progress in the hospital; what the pt could expect for recovery time and length of stay. We discussed the importance of walking and pulmonary toilet to avoid blood clots and pneumonia. Continue current plans for pulmonary toilet, GI and DVT prophylaxis. We shall continue the current plan for pain management as it is at an appropriate level, and working well for the pt. Appropriate measures will be taken for constipation prevention, and this was also reviewed with the pt. The wound care plan was reviewed with nursing as well. see orders AThe patient is doing well post-op. Their pain is well controlled. They are having no nausea or vomiting. The pt is not having any chest pain or SOB, productive cough; no calf pain or swelling. The pt is making good urine. The pt pain is adequately controlled. The case was discussed with nursing and patient?s progress reviewed. All of the pt's home medications were addressed and adjusted accordingly for their oral intact status. Pt is still very sleepy and I'm not sure he was fully understanding what I was trying to explain to him, HEENT: no jaundice. no eye pain/drainage/redness/swelling. Mild sore throat Cardio- NSR no chest pain, BP stable. Pulm: no sob or productive cough. no hemoptysis Incision- clean/dry. Dressing intact no excessive bleeding or drainage PICOs in place. I discussed with the patient and/or there family about the findings in surgery and the pt's progress. We reviewed expectations for progress in the hospital; what the pt could expect for recovery time and length of stay. We discussed the importance of walking and pulmonary toilet to avoid blood clots and pneumonia. Continue current plans for pulmonary toilet, GI and DVT prophylaxis. We shall continue the current plan for pain management as it is at an appropriate level, and working well for the pt. Appropriate measures will be taken for constipation prevention, and this was also reviewed with the pt. The wound care plan was reviewed with nursing as well. see orders Very impotant that pt is up walking in am will try to d/c cardenas in am NGT may need to stayin a few days. Pt has a large amount stool in the colon that needs to be evacuated. consider bottle mag cittrate down ngt in am . (14) Osteoarthritis: (15) Venous stasis dermatitis: Status: Acute (16) Venous stasis of both lower extremities: Status: Acute (17) Severe opioid dependence on maintenance therapy: Status: Acute Objective Last Vital Signs Temp 35.9 C L 02/08/22 21:02 Pulse 51 L 02/08/22 21:02 Resp 10 L 02/08/22 21:02 BP 138/87 02/08/22 21:02 Pulse Ox 93 02/08/22 21:02 Laboratory Results - last 24 hr 02/07/22 02/08/22 02/08/22 20:45 02:28 03:43 WBC RBC Hgb Hct MCV MCH MCHC RDW Plt Count MPV Immature Gran % Neutrophils % Lymphocytes % Monocytes % Eosinophils % Basophils % Nucleated RBC % Absolute Neutrophils Absolute Lymphocytes Absolute Monocytes Absolute Eosinophils Absolute Basophils Sodium 138 Potassium 3.9 Chloride 103 Carbon Dioxide 27.8 Anion Gap 7.2 BUN 14 Creatinine 0.6 L Est GFR (CKD-EPI 2020) 122.07 Glucose 94 Calcium 9.1 Iron TIBC Ferritin Total Bilirubin 0.6 AST 26 ALT 21 Alkaline Phosphatase 79 Troponin I < 50 Cancelled C-Reactive Protein Total Protein 7.6 Albumin 4.2 Lipase 71 Procalcitonin COVID-19 Source SARS-CoV-2 (PCR) Add-On Test Request 02/08/22 02/08/22 02/08/22 03:43 03:43 03:49 WBC 5.59 RBC 4.04 L Hgb 11.5 L Hct 35.7 L MCV 88 MCH 28.5 MCHC 32.2 RDW 14.7 H Plt Count 280 MPV 9.8 Immature Gran % 0.4 Neutrophils % 69.6 Lymphocytes % 21.5 Monocytes % 7.9 Eosinophils % 0.2 Basophils % 0.4 Nucleated RBC % 0.0 Absolute Neutrophils 3.90 Absolute Lymphocytes 1.20 Absolute Monocytes 0.44 Absolute Eosinophils 0.01 Absolute Basophils 0.02 Sodium Potassium Chloride Carbon Dioxide Anion Gap BUN Creatinine Est GFR (CKD-EPI 2020) Glucose Calcium Iron 44 L TIBC 349 Ferritin Total Bilirubin AST ALT Alkaline Phosphatase Troponin I C-Reactive Protein Total Protein Albumin Lipase Procalcitonin COVID-19 Source Nasal/Nares SARS-CoV-2 (PCR) Negative Add-On Test Request 02/08/22 02/08/22 02/08/22 09:26 09:26 09:26 WBC 4.57 RBC 3.83 L Hgb 11.0 L Hct 33.2 L MCV 87 MCH 28.7 MCHC 33.1 RDW 14.8 H Plt Count 258 MPV 10.2 Immature Gran % 0.0 Neutrophils % 62.8 Lymphocytes % 27.1 Monocytes % 8.8 Eosinophils % 0.9 Basophils % 0.4 Nucleated RBC % 0.0 Absolute Neutrophils 2.87 Absolute Lymphocytes 1.24 Absolute Monocytes 0.40 Absolute Eosinophils 0.04 Absolute Basophils 0.02 Sodium 139 Potassium 3.7 Chloride 104 Carbon Dioxide 28.3 Anion Gap 6.7 BUN 10 Creatinine 0.6 L Est GFR (CKD-EPI 2020) 122.07 Glucose 94 Calcium 8.8 Iron TIBC Ferritin Total Bilirubin 0.6 AST 22 ALT 18 Alkaline Phosphatase 72 Troponin I C-Reactive Protein 0.08 Total Protein 6.9 Albumin 3.8 Lipase Procalcitonin < 0.1 COVID-19 Source SARS-CoV-2 (PCR) Add-On Test Request 02/08/22 02/08/22 09:26 09:26 WBC RBC Hgb Hct MCV MCH MCHC RDW Plt Count MPV Immature Gran % Neutrophils % Lymphocytes % Monocytes % Eosinophils % Basophils % Nucleated RBC % Absolute Neutrophils Absolute Lymphocytes Absolute Monocytes Absolute Eosinophils Absolute Basophils Sodium Potassium Chloride Carbon Dioxide Anion Gap BUN Creatinine Est GFR (CKD-EPI 2020) Glucose Calcium Iron TIBC Ferritin 14 L Total Bilirubin AST ALT Alkaline Phosphatase Troponin I C-Reactive Protein Total Protein Albumin Lipase 55 Procalcitonin COVID-19 Source SARS-CoV-2 (PCR) Add-On Test Request DONE
[2022-02-09] VITALS (8 sets, daily range): BP systolic 119–144; BP diastolic 66–89; PULSE 51–70; RESP 18–20; TEMP 36.5–37; O2SAT 94–98
[2022-02-09] MEDS: Lactated Ringers 1,000 ML 100 ML IV ×2 (00:53→14:02)
[2022-02-09] MEDS: HYDROmorphone 2 MG/ML SYR IVP ×3 (01:56→17:44)
[2022-02-09] MEDS: Ketorolac 15 MG/ML VIAL IVP ×4 (01:56→20:28)
[2022-02-09] MEDS: ACETAMINOPHEN 1,000 MG/100 ML BTL 400 MG IVPB ×4 (01:57→20:28)
[2022-02-09] MEDS: Normal Saline Flush 10 ML SYR IVP ×4 (01:57→20:30)
[2022-02-09 07:09] LABS: Platelet Count 265 10^3/uL (130-400)
[2022-02-09 07:35] LABS: Anion Gap 8.3 mmol/L (3-11); BUN 10 mg/dL (7-18); CO2 29.7 mmol/L (21.0-32.0); CREATININE 0.6 mg/dL (0.70-1.30); Calcium 8.7 mg/dL (8.5-10.1); Chloride 105 mmol/L (98-107); Estimated GFR 122.07 (mL/min/1.73m2); Glucose 114 mg/dL (74-106); Magnesium 1.8 mg/dL (1.8-2.4); Potassium 4.1 mmol/L (3.5-5.1); Sodium 143 mmol/L (136-145); TSH (W/Ref FT4) 0.79 uIU/mL (0.36-3.74)
[2022-02-09 07:53] LABS: Vitamin B12 926 pg/mL (193-986)
[2022-02-09 07:54] LABS: Folate > 20.0 ng/mL (8.6-20.0)
[2022-02-09] MEDS: Pantoprazole 40 MG VIAL IVP (08:31)
[2022-02-09] MEDS: Buprenorphine/Naloxone 8 mg/2 mg FILM 2 EACH SL (08:32)
[2022-02-09] MEDS: Enoxaparin 40 MG/0.4 ML SYR SC (08:32)
[2022-02-09] MEDS: LORazepam 2 MG/ML VIAL 1 MG IVP (09:34)
[2022-02-09] MEDS: IRON SUCROSE COMPLEX 200 MG in Normal Saline 100 ML 400 MG IVPB (10:54)
--- NOTE | 2022-02-09 12:20 | W.PM.PROGNOT ---
Date of Service Date of service: 02/09/22 Time of Service: 12:20 Assessment and Plan Assessment and plan (1) gastric sleeve: Assessment and plan: POD #1 s/p ex lap and reduction of internal hernia. Cotter type. NG with clear output. Will clamp NG and check residuals If residuals <100 then will remove and start o9n sips of clears. HIs BS are not normal yet, although he states he has passed a small amount of flatus Pain is controlled Continue on PPI Continue on Lovenox. . Continue with pulmonary toilet and ambulation. He should not require any further antibiotics. Had a lot of stool in his large intestine. Will try an enema once his NG tube is out . (2) Narcotic abuse in remission: Status: Acute (3) 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: Status: Acute (4) Obstructive sleep apnea syndrome: Status: Acute (5) Depressive disorder: Status: Acute (6) GERD (gastroesophageal reflux disease): (7) Gout: (8) Osteoarthritis: (9) Venous stasis dermatitis: Status: Acute (10) Venous stasis of both lower extremities: Status: Acute Subjective Subjective Interval history since last seen: Den is doing well. NG tube is bothering him a bit. The output has decreased and is clear. NO N/V. ABDO pain is tolerable Exam HENIL Head: normocephalic and atraumatic Resp Effort & Inspection: normal respiratory effort Auscultation: clear to auscultation bilaterally Cardio Rate: regular rate Rhythm: regular rhythm GI Inspection: incision (DYLAN is intact. MInimal discharge) Palpation: soft and tender (appropriatly tender to palpation along the incision) Auscultation: hypoactive bowel sounds Objective Last Vital Signs Temp 98.2 F 02/09/22 11:08 Pulse 51 L 02/09/22 11:08 Resp 20 02/09/22 11:08 BP 119/70 02/09/22 11:08 Pulse Ox 94 02/09/22 11:08 Laboratory Results - last 24 hr 02/08/22 02/09/22 02/09/22 03:43 06:15 06:15 Plt Count 265 Sodium 143 Potassium 4.1 Chloride 105 Carbon Dioxide 29.7 Anion Gap 8.3 BUN 10 Creatinine 0.6 L Est GFR (CKD-EPI 2020) 122.07 Glucose 114 H Calcium 8.7 Magnesium 1.8 Iron 44 L TIBC 349 Vitamin B12 Folate TSH 0.79 02/09/22 06:15 Plt Count Sodium Potassium Chloride Carbon Dioxide Anion Gap BUN Creatinine Est GFR (CKD-EPI 2020) Glucose Calcium Magnesium Iron TIBC Vitamin B12 926 Folate > 20.0 H TSH
[2022-02-10] MEDS: Lactated Ringers 1,000 ML 100 ML IV ×2 (00:43→13:32)
[2022-02-10] MEDS: Ketorolac 15 MG/ML VIAL IVP ×4 (02:41→20:19)
[2022-02-10] MEDS: ACETAMINOPHEN 1,000 MG/100 ML BTL 400 MG IVPB ×2 (02:41→08:04)
[2022-02-10 04:23] VITALS: BP 138/79; PULSE 68; RESP 16; TEMP 36.5; O2SAT 97
[2022-02-10 06:29] LABS: Abs Immature Grans 0.01 10^3/uL (0.0-0.06); Absolute Basophil Count 0.01 10^3/uL (0.0-0.2); Absolute Eosinophil Count 0.04 10^3/uL (0.0-0.7); Absolute Lymphocyte Count 1.79 10^3/uL (1.2-3.4); Absolute Monocyte Count 0.46 10^3/uL (0.1-0.8); Absolute Neutrophil Count 2.82 10^3/uL (1.2-6.7); Basophils % 0.2; Eosinophils % 0.8; HCT 31.7 % (40.0-50.0); HGB 10.1 g/dL (13.5-17.5); Immature Grans % 0.2; Lymphocytes % 34.9; MCH 28.3 pg (27.0-33.0); MCHC 31.9 % (32.0-36.0); MCV 89 fL (80-95); MPV 10.4 fL (8.0-11.0); Neutrophils % 54.9; Platelet Count 224 10^3/uL (130-400); RBC 3.57 10^6/uL (4.36-5.78); RDW 15.2 % (11.8-14.1); RDW-SD 49.5 fL; WBC 5.13 10^3/uL (4.4-10.8)
[2022-02-10] MEDS: HYDROmorphone 2 MG/ML SYR IVP (06:38)
[2022-02-10] MEDS: Normal Saline Flush 10 ML SYR IVP ×4 (06:38→20:24)
[2022-02-10 06:47] LABS: Anion Gap 6.4 mmol/L (3-11); BUN 13 mg/dL (7-18); CO2 30.6 mmol/L (21.0-32.0); CREATININE 0.6 mg/dL (0.70-1.30); Calcium 8.5 mg/dL (8.5-10.1); Chloride 106 mmol/L (98-107); Estimated GFR 122.07 (mL/min/1.73m2); Glucose 78 mg/dL (74-106); Magnesium 1.9 mg/dL (1.8-2.4); Potassium 3.7 mmol/L (3.5-5.1); Sodium 143 mmol/L (136-145)
[2022-02-10 07:34] VITALS: BP 162/93; PULSE 60; RESP 18; TEMP 36.6; O2SAT 97
[2022-02-10] MEDS: Enoxaparin 40 MG/0.4 ML SYR SC (08:03)
[2022-02-10] MEDS: Pantoprazole 40 MG VIAL IVP (08:05)
[2022-02-10] MEDS: Buprenorphine/Naloxone 8 mg/2 mg FILM 2 EACH SL (08:05)
[2022-02-10] MEDS: LORazepam 2 MG/ML VIAL 1 MG IVP (10:56)
--- NOTE | 2022-02-10 11:25 | PGE_ITS ---
Date of Service Date of service: 02/10/22 Time of Service: 11:25 Assessment and Plan Assessment and plan (1) Chronic iron deficiency anemia: Status: Acute Assessment and plan: Venofer (2) Obstructed internal hernia: Status: Acute Assessment and plan: POD#2 Patient is doing well. Encourage ambulation and incentive spirometry We will do clear liquids for lunch and then hopefully advance diet. Continue supportive care. No antibiotics. He does have chronic anemia which is probably related to his gastric bypass. He did receive Venna for. Hopefully DC home in a.m. (3) Severe opioid dependence on maintenance therapy: Status: Acute (4) Venous stasis of both lower extremities: Status: Acute (5) Venous stasis dermatitis: Status: Acute (6) Status post exploratory laparotomy: Status: Acute (7) Narcotic abuse in remission: Status: Acute (8) Accelerated hypertension: Status: Acute (9) 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: Status: Acute (10) Peripheral venous insufficiency: Status: Acute (11) Peripheral edema: Status: Acute (12) Obstructive sleep apnea syndrome: Status: Acute Subjective Subjective Interval history since last seen: Pt is doing well. no headaches. No CP or SOB. no productive cough. no dysuria. no leg pain or swelling. Patient had a large bowel movement last night. He feels much better. He is v korina hungry. He has some pain and tenderness at the surgical site but not the pain that he was having before surgery. We discussed findings at the time of surgery. We also discussed expectations for home care. Hopefully we will be able to feed him and change his medications over to oral meds and potentially discharge tomorrow. Exam Narrative Exam Narrative: PHYSICAL EXAM GENERAL APPEARANCE: Alert, healthy appearance, oriented, in no acute distress SKIN: No rashes.? No breakdown HYDRATION: Well hydrated HEAD, EYES, EARS, NECK, THROAT: Head is normocephalic, pupils equal, round, reactive to light and accommodation, ocular movement intact, sclera clear and no jaundice. ?Dentition-poor. No sore throat.? No jaw pain. No thrush NECK: Supple, Trachea midline. No JVD. LUNGS: normal respiration/nl chest excursion. ?Clear to auscultation B/l no R/R/W ?HEART: Regular rate and rhythm, EXTREMITY: No edema or cyanosis? no leg pain, redness, swelling.? No IV infiltration ABDOMEN: Minimal tenderness. Good bowel sounds. Mary Beth's is clean dry and intact. Normal bowel sounds NEURO: no focal neuro deficits. Objective Last Vital Signs Temp 36.6 C 02/10/22 07:34 Pulse 60 02/10/22 07:34 Resp 18 02/10/22 07:34 BP 162/93 H 02/10/22 07:34 Pulse Ox 97 02/10/22 07:34 Laboratory Results - last 24 hr 02/10/22 02/10/22 05:51 05:51 WBC 5.13 RBC 3.57 L Hgb 10.1 L Hct 31.7 L MCV 89 MCH 28.3 MCHC 31.9 L RDW 15.2 H Plt Count 224 MPV 10.4 Immature Gran % 0.2 Neutrophils % 54.9 Lymphocytes % 34.9 Monocytes % 9.0 Eosinophils % 0.8 Basophils % 0.2 Nucleated RBC % 0.0 Absolute Neutrophils 2.82 Absolute Lymphocytes 1.79 Absolute Monocytes 0.46 Absolute Eosinophils 0.04 Absolute Basophils 0.01 Sodium 143 Potassium 3.7 Chloride 106 Carbon Dioxide 30.6 Anion Gap 6.4 BUN 13 Creatinine 0.6 L Est GFR (CKD-EPI 2020) 122.07 Glucose 78 Calcium 8.5 Magnesium 1.9
[2022-02-10 11:54] VITALS: BP 148/86; PULSE 52; RESP 18; TEMP 35.8; O2SAT 97
[2022-02-10] MEDS: IRON SUCROSE COMPLEX 200 MG in Normal Saline 100 ML 400 MG IVPB (13:58)
[2022-02-10 15:17] VITALS: BP 147/87; PULSE 62; RESP 20; TEMP 36.7; O2SAT 97
[2022-02-10] MEDS: Polyethylene Glycol 3350 17 GM PACKET PO (16:25)
[2022-02-10] MEDS: Acetaminophen 500 MG TAB 1000 MG PO ×2 (16:25→21:50)
[2022-02-10 19:15] VITALS: BP 147/74; PULSE 67; RESP 20; TEMP 37; O2SAT 97
[2022-02-10] MEDS: oxyCODONE 10 MG TAB PO (21:50)
[2022-02-10 22:55] VITALS: BP 169/97; PULSE 60; RESP 17; TEMP 36.9; O2SAT 97
[2022-02-11] VITALS (7 sets, daily range): BP systolic 146–182; BP diastolic 82–118; PULSE 48–66; RESP 16–17; TEMP 36.1–36.6; O2SAT 96–99
[2022-02-11] MEDS: Ketorolac 15 MG/ML VIAL IVP ×3 (03:21→14:05)
[2022-02-11] MEDS: Normal Saline Flush 10 ML SYR IVP ×3 (03:21→14:05)
[2022-02-11] MEDS: Acetaminophen 500 MG TAB 1000 MG PO (03:21)
--- NOTE | 2022-02-11 04:45 | W.PM.PROGNOT ---
Date of Service Date of service: 02/11/22 Time of Service: 04:45 Assessment and Plan Assessment and plan (1) Status post exploratory laparotomy: Status: Acute Assessment and plan: I think he is doing well after reduction of internal hernia and closure of mesenteric defect. I will discharge him home today, and he can follow-up with us in the office this week for bandage removal. Subjective Subjective Interval history since last seen: He feels much better, and has been tolerating a diet without any difficulty. He is passing gas, and having bowel movements. His pain is controlled today. Exam GI Other: The nathalia dressing is clean, and holding suction without any difficulty. Abdomen is soft and nondistended. He is not tender. Objective Last Vital Signs Temp 97.3 F L 02/11/22 03:39 Pulse 64 02/11/22 03:39 Resp 17 02/11/22 03:39 BP 146/82 H 02/11/22 03:39 Pulse Ox 97 02/11/22 03:39 Laboratory Results - last 24 hr 02/10/22 02/10/22 05:51 05:51 WBC 5.13 RBC 3.57 L Hgb 10.1 L Hct 31.7 L MCV 89 MCH 28.3 MCHC 31.9 L RDW 15.2 H Plt Count 224 MPV 10.4 Immature Gran % 0.2 Neutrophils % 54.9 Lymphocytes % 34.9 Monocytes % 9.0 Eosinophils % 0.8 Basophils % 0.2 Nucleated RBC % 0.0 Absolute Neutrophils 2.82 Absolute Lymphocytes 1.79 Absolute Monocytes 0.46 Absolute Eosinophils 0.04 Absolute Basophils 0.01 Sodium 143 Potassium 3.7 Chloride 106 Carbon Dioxide 30.6 Anion Gap 6.4 BUN 13 Creatinine 0.6 L Est GFR (CKD-EPI 2020) 122.07 Glucose 78 Calcium 8.5 Magnesium 1.9
[2022-02-11] MEDS: Enoxaparin 40 MG/0.4 ML SYR SC (08:25)
[2022-02-11] MEDS: Pantoprazole 40 MG VIAL IVP (08:25)
[2022-02-11] MEDS: Polyethylene Glycol 3350 17 GM PACKET PO (08:26)
[2022-02-11] MEDS: Buprenorphine/Naloxone 8 mg/2 mg FILM 2 EACH SL (08:26)
--- NOTE | 2022-02-11 09:11 | CMPROGNOTE_ITS ---
- If Service Date Differs Date of service: 02/11/22 Time of Service: 09:11 Care Management Progress Note S/O: Brady was lying in bed when CM met with him. He is alert, oriented and easy to engage in conversation. Brady is POD#3, Exploratory laparotomy Reduction of internal hernia. Brady has been up walking the halls, and denies concerns. He is hoping to discharge home soon. A: 46 year old male admitted to [facility] on 02/08/22 for Obstructed internal hernia P: Anticipate, Juice will discharge home via private vehicle with family when medically ready. He will follow his discharge plan of care as prescribed and follow up with community providers. Brady may need a work note.
--- NOTE | 2022-02-11 16:33 | W.PM.DS.N ---
Date of service: 02/11/22 Time of Service: 16:33 DS: Diagnosis Discharge Diagnosis (1) Obstructed internal hernia: Status: Acute Asessment and Plan: Follow up in our office this Friday for DYLAN dressing emoval Discharge Plan Disposition Patient Disposition: HOME Condition: Stable Discharge Details Reason For Visit: Abdominal Pain, Intussusception Admit Date/Time: 02/08/22 16:44 Admit Provider: Herminia Amos Attending Provider: Herminia Amos Primary Care Provider: Reji Ferguson Hospital Course Hospital Course: Brady is a 46-year-old male who came to the emergency department with acute onset of abdominal pain. He had a past medical history of a Rina-en-Y gastric bypass. He underwent a CAT scan of the abdomen and pelvis that suggested the possibility of intussusception. He was brought to the operating room and found to have an internal hernia through Petersons defect. This was reduced, and the defect was closed. He did well postoperatively, was ready for discharge by the evening of the . Home Meds and New Rx's Prescriptions: New oxycodone 5 mg tablet 5 mg PO Q8H PRN (Reason: pain) Qty: 9 0RF Rx Instructions: Take on tablet by mouth every 8 hours as needed for severe pain Continued Daily Multiple 1 EACH tablet 1 tab-cap PO DAILY cyanocobalamin (vitamin B-12) [Vitamin B-12] 500 MCG tablet 500 mcg Sublingual DAILY Qty: 100 Rx Instructions: Sublingual tabs calcium citrate-vitamin D3 [Citracal + D Maximum] 1 EACH tablet 1 ea PO DAILY Qty: 100 Label Comments: 11/22/15 BID per Pt. PG cholecalciferol (vitamin D3) [Vitamin D3] 2,000 UNIT capsule 2,000 unit PO DAILY buprenorphine-naloxone [Suboxone] 8-2 mg Film 2 film BUCCAL DAILY pantoprazole [Protonix] 40 mg tablet,delayed release (DR/EC) 40 mg PO DAILY Qty: 20 0RF Discharge Instructions Instructions: Exploratory Laparotomy (DC) Additional Instructions: 1. Resume all of your medications. 2. Okay to use tylenol and ibuprofen over the counter as needed. 3. Use oxycodone as needed for severe pain. 4. Leave bandage in place for 24 hours, then remove. 5. Shower with warm soapy water. Pat dry. Use a bandaid if needed to protect your clothing. 6. No soaking or tub baths until I see you in the office. 7. No heavy lifting until I see you in the office. 8.Call the office (or go directly to the emergency room after hours) if you notice any of the following: Develop chills (warm to touch), or if you have a thermometer and your temperature is above 101 Difficulty breathing or difficultly swallowing Persistent vomiting Any bleeding ? exceeding one tablespoon 6. Call your physician if the site where your intravenous was started becomes red, swollen, painful, and warm to touch. Stand Alone Forms: Nursing Discharge Form Referrals: Celsa Cobos MD [ [facility] STAFF PHYSICIAN] - (This Friday for DYLAN removal please call Friday for your appointment ) Activity:: Don't lift 10 lbs Equipment/Supplies:: No Equipment Needed Diet:: As Tolerated Discharge Orders Discharge Orders: Discharge Order (Routine); Ordered 02/11/22 Ordered By: Kip Bangura DS: Summary Time Spent with Patient providing and/or coordinating discharge services: Less than 30 minutes Status at Discharge Functional status at discharge: independent ambulation Overall status at discharge: patient is back to baseline Mental Status: mental status grossly normal Speech and Movement: speech and movement normal Mood: congruent mood Affect: normal affect Exam Const General: cooperative, healthy appearing and comfortable Orientation: awake and oriented x3 Eyes General: appearance normal, both eyes and all related structures Conjunctivae: conjunctivae normal Sclera: sclerae normal Resp Effort & Inspection: normal respiratory effort and able to speak in complete sentences Cardio Jugular venous pressure: no JVD Rate: regular rate GI Inspection: non-distended Palpation: soft, no guarding and nontender Auscultation: normal bowel sounds Other: DYLAN dressing is clean Skin General skin exam: normal turgor Neuro General: patient alert, patient awake and patient oriented x3 Cognition: normal cognition Extrem Right lower extremity: no edema Left lower extremity: no edema Psych Mental Status: mental status grossly normal Speech and Movement: speech and movement normal Mood: congruent mood Affect: normal affect DS: Data Vitals/I&O Vitals and I&O: Vital Signs Temperature 97.3 F L 02/11/22 15:10 Temperature Source Tympanic 02/11/22 15:10 Pulse 63 02/11/22 15:10 Pulse Rhythm Regular 10/17/22 08:00 Respiratory Rate 17 02/11/22 15:10 Respiratory Effort Non-Labored 02/11/22 08:00 Respiratory Depth Normal 02/11/22 08:00 Respiratory Pattern Normal 02/11/22 08:00 Blood Pressure 182/118 H 02/11/22 15:14 Pulse Oximetry 98 02/11/22 15:10 Respiratory End-tidal CO2 46 02/08/22 20:36 Oxygen Delivery Method Room Air 02/11/22 15:10 Oxygen Flow Rate 0 02/11/22 15:10 Pain Level 8 02/11/22 14:05 Comment 02/11/22 15:14 Intake & Output 02/10/22 02/11/22 02/11/22 23:59 11:59 23:59 Intake Total 1350 / 1550 200 / 1550 Balance 1350 / 1550 200 / 1550 Weight 214 lb 15.211 oz Intake: IV 1110 / 1110 Oral 240 / 440 200 / 440 Other: Urine Appearance Clear Clear Comment independent Stool Size Large Stool Characteristics Soft Formed PFSH All Active Problems Chronic iron deficiency anemia (Acute) Severe opioid dependence on maintenance therapy (Acute) Venous stasis of both lower extremities (Acute) Venous stasis dermatitis (Acute) Status post exploratory laparotomy (Acute) -reduction of internal hernia -repair/oversew of mesenteric defect Obstructed internal hernia (Acute) Narcotic abuse in remission (Acute) COVID-19 (Acute) 12/19/21- Vaccinated Haresh vaccine Accelerated hypertension (Acute) 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 (Acute) Peripheral venous insufficiency (Acute) Peripheral edema (Acute) Obstructive sleep apnea syndrome (Acute) Hammer toe (Acute 03/27/08) degenerative changes foot Depressive disorder (Acute) Medical History Diabetes mellitus (12/29/12) resolved after gastric bypass Epigastric pain Essential hypertension (01/28/13) Gastric artery bleed GERD (gastroesophageal reflux disease) (01/31/14) Gout Morbid obesity gastric sleeve bariatric surgery 01/08 Osteoarthritis Surgical History gastric sleeve ([place]01/2013[place] [facility] [place] of [place] History of tonsillectomy Social History Smoking/Tobacco Use Status: Never Smoking risk assessment performed?: Yes Alcohol Intake: current Alcohol Intake frequency: a few times a week Drug use: Never Substance use type: does not use and former substance user Details: on suboxone for vicodin addiction Do you feel safe at home: Yes Do you feel safe in your relationship?: Yes
--- NOTE | 2022-02-11 17:01 | CMDISCH_ITS ---
- If Service Date Differs Date of service: 02/11/22 Time of Service: 17:01 LACE Index Scoring Tool - Questions: Length of Stay (in days): 4 - 6 Acuity (Admit via E.D.?): Yes E.D. Visits: 2 - Answers: Total Score: 9 Risk of Readmission: Low Risk Care Management Discharge Reason for Hospitalization: Intussusception, abdominal pain Discharge Plan: Brady is discharged home via private vehicle with family. New RX is transmitted to [facility]. Brady will call the Surgical Office tomorrow morning to schedule for DYLAN removal and follow with his PCP, if needed. Brady has work restrictions and agrees to not lift more than 10lbs, until medically clearence is granted. Patient/Family Education Needs: Review discharge instructions, limitations, restrictions, medications and plan to follow up with community providers. Discuss ask me three.
== END 2022-02-11 17:38 | disposition home or self-care (01) | DRG 357 ==
LOC: ER 02-08 03:43 → MS 02-08 04:14
PROVIDERS: Surgery; Admitting Provider Surgery; Emergency Provider Student in an Organized Health Care Education/Training Program; PCP Nurse Practitioner Family; Visit Provider Surgery
PROC: 0DQV0ZZ Repair Mesentery, Open Approach (ICD-10-PCS; CPT 49320; principal; 2022-02-08 14:00)
DX: K45.0 Other specified abdominal hernia with obstruction, without gangrene (principal); F11.20 Opioid dependence, uncomplicated; K56.1 Intussusception; I10 Essential (primary) hypertension; I87.2 Venous insufficiency (chronic) (peripheral); K21.9 Gastro-esophageal reflux disease without esophagitis; G47.33 Obstructive sleep apnea (adult) (pediatric); R60.0 Localized edema; Z98.84 Bariatric surgery status; Z86.16 Personal history of COVID-19; F32.A Depression, unspecified; M10.9 Gout, unspecified; Z53.31 Laparoscopic surgical procedure converted to open procedure; D50.9 Iron deficiency anemia, unspecified
CPT/HCPCS: 44050; 36415; 71275; 74175; 76942; 80048; 80053; 83690; 84145; 87635; 96361; 96374; 96375; 96376; 99285; J1650; 74019; 74177; 82607; 82728; 82746; 83540; 83550; 83735; 84443; 84484; 85025; 85049; 86140; G0378; J0131; J1100; J1170; J1756; J1885; J2060; J2250; J2270; J2405; J2543; J2704; J3010; J3475; J3490

== ENCOUNTER 2023-10-07 20:10 | Outpatient (CLI) | payer OTHER, SELFPAY ==
[2023-10-07 16:13] LABS: Abs Immature Grans 0.01 10^3/uL (0.0-0.06); Absolute Basophil Count 0.03 10^3/uL (0.0-0.2); Absolute Eosinophil Count 0.25 10^3/uL (0.0-0.7); Absolute Lymphocyte Count 2.33 10^3/uL (1.2-3.4); Absolute Monocyte Count 0.36 10^3/uL (0.1-0.8); Absolute Neutrophil Count 2.93 10^3/uL (1.2-6.7); Basophils % 0.5 %; Eosinophils % 4.2 %; HCT 44.6 % (40.0-50.0); Immature Grans % 0.2 %; Lymphocytes % 39.4 %; MCH 31.7 pg (27.0-33.0); MCHC 33.6 % (32.0-36.0); MCV 94 fL (80-95); MPV 10.1 fL (8.0-11.0); Monocytes % 6.1 %; Neutrophils % 49.6 %; Platelet Count 248 10^3/uL (130-400); RBC 4.73 10^6/uL (4.36-5.78); RDW 12.8 % (11.8-14.1); RDW-SD 44.1 fL; WBC 5.91 10^3/uL (4.4-10.8)
[2023-10-07 16:44] LABS: ALT 24 U/L (16-63); AST 24 U/L (15-37); Albumin 4.1 g/dL (3.4-5.0); Alkaline Phosphatase 71 U/L (46-116); Anion Gap 7.6 mmol/L (3-11); BUN 17 mg/dL (7-18); Bilirubin, Total 0.4 mg/dL (0.2-1.0); CO2 31.4 mmol/L (21.0-32.0); CREATININE 0.8 mg/dL (0.70-1.30); Calcium 8.8 mg/dL (8.5-10.1); Chloride 106 mmol/L (98-107); Estimated GFR 111.22 (mL/min/1.73m2); GGT 8 U/L (15-85); Glucose 97 mg/dL (74-106); Potassium 3.9 mmol/L (3.5-5.1); Sodium 145 mmol/L (136-145); Total Protein 7.3 g/dL (6.4-8.2)
[2023-10-09 09:53] LABS: HBs Antibody, Quant <3.1 mIU/mL (See Note); Hepatitis B Surface Ab Negative (See Note)
[2023-10-09 10:07] LABS: HIV-1/2 Ag & Ab Screen Negative (Negative)
[2023-10-09 11:01] LABS: Hepatitis A Antibody IgM Negative (Negative); Hepatitis B Core Antibody Negative (Negative); Hepatitis B surface Ag Negative (Negative); Hepatitis C Ab w Rflx HCV PCR Negative (Negative)
[2023-10-09 12:23] LABS: HCV RNA Qualitative Undetected (Undetected)
[2023-10-10 18:43] LABS: HCV Genotype Undetected (Undetected)
== END 2023-10-07 20:11 | disposition home or self-care (01) ==
LOC: LBO 10-15 20:10
PROVIDERS: PCP Nurse Practitioner Family
DX: F11.20 Opioid dependence, uncomplicated (principal)
CPT/HCPCS: 36415; 80053; 86704; 86706; 86709; 86803; 87340; 87389; 87522; 82977; 85025; 87521